=== PATIENT | male | born 1955 | race Caucasian/White ===

== ENCOUNTER 2019-12-20 22:38 | Inpatient (IN) | payer OTHER, SELFPAY ==
--- NOTE | ~2019-12-20 | US_ITS ---
EXAMINATION: US abdomen complete DATE: 12/21/2019 14:09 INDICATION: Anemia. Alcohol abuse. TECHNIQUE: Multiple grayscale and Doppler ultrasound images of the abdomen were obtained. COMPARISON: None FINDINGS: The visualized portions of the head and body of the pancreas are normal. There is a linear filling defect in the inferior vena cava, consistent with chronic thrombus. There is a 1.8 cm cyst in the liver. There is normal flow in main portal vein. The gallbladder is normal in size. Gallbladder wall thickening is noted. No gallstones. The common duct is normal and measures 6 mm. The kidneys are normal in size. Abdominal aorta is normal in caliber. There is a small volume of ascites. There is s plenomegaly measuring 16.1 cm. There is a cystic area at the hilum of the spleen with lobulated jahaira n. IMPRESSION: 1. Linear filling defect in the inferior vena cava, consistent with chronic thrombus. 2. Gallbladder wall thickening, which may be secondary to interstitial edema or chronic liver disease . 3. Small volume of ascites. 4. Mild splenomegaly. A cystic area at the hilum of the spleen with lobulated margin may be a chronic hematoma. Consider abdomen and pelvis CT with intravenous contrast. Reviewed, dictated and finalized at location A. IMPRESSION: 1. Linear filling defect in the inferior vena cava, consistent with chronic thr ombus. 2. Gallbladder wall thickening, which may be secondary to interstitial edema or chronic liver disease. 3. Small volume of ascites. 4. Mild splenomegaly. A cystic area at the hilum of the spleen with lobulated m argin may be a chronic hematoma. Consider abdomen and pelvis CT with intravenou s contrast.
--- NOTE | ~2019-12-20 | XR_ITS ---
XR chest 1V portable 12/31/2019 07:01 Indication: Acute respiratory failure Procedure: AP portable chest Comparison: Comparison to multiple prior studies sequentially, with oldest reviewed study dated 12/2019. Findings: Right subclavian central line has been retracted and now is coiled in the superior aspect o f the SVC. Mild interstitial edema. Borderline heart size for technique. No pneumothorax or pleural e ffusion. No acute osseous abnormality. Impression: 1: Borderline heart size with mild interstitial edema. Pneumonia less favored. Reviewed, dictated and finalized at location A. Impression: 1: Borderline heart size with mild interstitial edema. Pneumonia less favored.
--- NOTE | ~2019-12-20 | XR_ITS ---
EXAMINATION: XR chest 1V portable INDICATION: Acute respiratory failure TECHNIQUE: Portable AP chest at 0559 hours COMPARISON: 12/23/2019 FINDINGS: The endotracheal tube ends approximately 3.9 cm above the eugenio. The nasogastric tube is f ollowed as far as the stomach. Its tip is beyond the inferior margin of the radiograph. Bibasilar air space opacities persist without significant change. There are small pleural effusions. No pneumothora x is identified. The cardiomediastinal silhouette is normal. An electronic lead is seen entering the right ventricle from the inferior vena cava. IMPRESSION: 1. Stable bibasilar airspace opacity, consistent with atelectasis versus pneumonia. 2. Small pleural effusions. Reviewed, dictated and finalized at location A. IMPRESSION: 1. Stable bibasilar airspace opacity, consistent with atelectasis versus pneumo lee ann. 2. Small pleural effusions.
--- NOTE | ~2019-12-20 | XR_ITS ---
XR chest 1V portable 01/03/2020 08:07 Indication: PICC line placement Procedure: AP portable chest Comparison: 12/31/2019 and 12/30/2019 Findings: PICC line is kinked in the brachiocephalic vein. Cardiomegaly. Mild interstitial infiltrate s bilaterally. Small left pleural effusion. Left basilar atelectasis. No pneumothorax. Impression: 1: Cardiomegaly with mild interstitial edema and small left effusion. 2: PICC line kinked in the brachiocephalic vein. Reviewed, dictated and finalized at location B. Impression: 1: Cardiomegaly with mild interstitial edema and small left effusion. 2: PICC line kinked in the brachiocephalic vein.
--- NOTE | ~2019-12-20 | XR_ITS ---
XR chest PICC line DATE: 12/25/2019 15:55 INDICATION: PICC line placement TECHNIQUE: Portable AP chest on 12/25/2019 at 1537 hours COMPARISON: 12/25/2019 portable AP chest at 0540 hours FINDINGS: Interval placement of right upper extremity PIC catheter in superior vena cava. No evidence of pneumothorax. Heart size is not optimally evaluated on AP projection because of magnification. There is aortic arch calcification. There is pulmonary vascular congestion and redistribution. There is prominence of the minor fissure a ssistant with subpleural edema as well as Azra B-lines consistent with pulmonary interstitial edema . There is left lower lobe infiltrate and/atelectasis. Tip of endotracheal tube is approximately 6.8 cm above eugenio; ideal range is 2-5 cm. Diffuse osteopenia. IMPRESSION: Right upper extremity PIC catheter in superior vena cava ET tube tip approximately 6.8 cm above eugenio; ideal range is 2-5 cm Congestive changes, pulmonary interstitial and subpleural edema Left lower lobe infiltrate/atelectasis Reviewed, dictated and finalized at Location A. Reviewed, dictated and finalized at location A.
--- NOTE | ~2019-12-20 | XR_ITS ---
XR chest 1V portable DATE: 12/20/2019 23:41 INDICATION: Unstable blood pressure. Weakness. TECHNIQUE: Portable AP chest on 12/20/2019 at 2341 and 2342 hours, 2 views COMPARISON: None FINDINGS: Heart size appears within normal limits. No hilar or mediastinal enlargement. Bilateral hyp erinflation; no pulmonary infiltrate or consolidation, pleural effusion or pulmonary vascular congest ion or pneumothorax. IMPRESSION: Bilateral hyperinflation; otherwise no active cardiopulmonary disease Reviewed, dictated and finalized at location A. IMPRESSION: Bilateral hyperinflation; otherwise no active cardiopulmonary disea se
--- NOTE | ~2019-12-20 | XR_ITS ---
EXAMINATION: XR chest 1V portable INDICATION: Acute respiratory failure TECHNIQUE: Portable AP chest at 0520 hours COMPARISON: 12/21/2019 FINDINGS: The endotracheal tube ends approximately 4.4 cm above the eugenio. The nasogastric tube is f ollowed as far as the stomach. Its tip is beyond the inferior margin of the radiograph. The lungs are hyperinflated but free of acute airspace opacities. There is no pleural effusion or pneumothorax. Th e heart size is normal. A new electronic lead enters the right ventricle through the inferior vena ca va. IMPRESSION: 1. No acute cardiopulmonary abnormality. Reviewed, dictated and finalized at location A.
--- NOTE | ~2019-12-20 | XR_ITS ---
EXAMINATION: XR abdomen NG/feed tube insert INDICATION: OG adjustment TECHNIQUE: Portable AP KUB-NG at 1156 COMPARISON: 1006 hours FINDINGS: The orogastric tube has been advanced and now ends in the stomach. Minimal bibasilar airspa ce opacities are unchanged. An electronic lead is again noted entering the right ventricle from the i nferior vena cava. IMPRESSION: 1. Orogastric tube in the stomach. Reviewed, dictated and finalized at location A.
--- NOTE | ~2019-12-20 | XR_ITS ---
EXAMINATION: XR chest 1V portable INDICATION: Pacemaker insertion TECHNIQUE: Portable AP chest at 1324 hours COMPARISON: 0532 hours FINDINGS: The endotracheal tube ends approximately 7.2 cm above the eugenio. The nasogastric tube is f ollowed as far as the stomach. Its tip is beyond the inferior margin of the radiograph. A dual-lead p acemaker has been inserted in the left chest wall which ends with its leads in expected position. No pneumothorax is identified. A small left pleural effusion is stable. A right upper extremity PICC end s with its tip in the midsuperior vena cava. The previously described electronically entering the rig ht ventricle from the inferior vena cava has been removed. Left basilar airspace opacities. IMPRESSION: 1. Dual lead pacemaker insertion the left chest wall without evidence of pneumothorax. 2. Small left pleural effusion with associated airspace opacity, atelectasis versus pneumonia. Reviewed, dictated and finalized at location B. IMPRESSION: 1. Dual lead pacemaker insertion the left chest wall without evidence of pneumo thorax. 2. Small left pleural effusion with associated airspace opacity, atelectasis ve rsus pneumonia.
--- NOTE | ~2019-12-20 | XR_ITS ---
EXAMINATION: XR chest 1V portable INDICATION: Acute respiratory failure TECHNIQUE: Portable AP chest at 0547 hours COMPARISON: 12/25/2019 FINDINGS: The endotracheal tube ends approximately 7.4 cm above the eugenio. The nasogastric tube is f ollowed as far as the stomach. Its tip is beyond the inferior margin of the radiograph. A right upper extremity PICC ends with its tip in the proximal superior vena cava. There is no pleural effusion or pneumothorax. The cardiomediastinal silhouette is stable. There are minimal stable bibasilar airspac e opacities. An electronic lead is again noted entering the right ventricle from the inferior vena ca va. IMPRESSION: 1. Stable bibasilar airspace opacities, consistent with atelectasis versus pneumonia. Reviewed, dictated and finalized at location A. IMPRESSION: 1. Stable bibasilar airspace opacities, consistent with atelectasis versus pneu monia.
--- NOTE | ~2019-12-20 | XR_ITS ---
EXAMINATION: XR abdomen NG/feed tube insert INDICATION: Nasogastric tube insertion TECHNIQUE: Portable AP KUB-NG at 0229 hours COMPARISON: None available FINDINGS: The nasogastric tube is in the stomach. The visualized lung bases are clear. The bowel gas pattern is unremarkable. IMPRESSION: 1. Nasogastric tube in the stomach. Reviewed, dictated and finalized at location A.
--- NOTE | ~2019-12-20 | CT_ITS ---
EXAMINATION: CT abdomen pelvis wo/w con DATE: 01/02/2020 12:13 INDICATION: Hepatic lesion TECHNIQUE: Computed tomography (CT) of the abdomen and pelvis was performed without and with 100 mL O mnipaque-350 intravenous contrast. Automated exposure control and iterative reconstruction technique were employed. The dose-length product was 1857.90 mGy-cm. COMPARISON: Ultrasound dated 12/21/2019 FINDINGS: Small bilateral pleural effusions, left greater than right. There is associated compressive atelectas is in the dependent aspect of the bilateral lower lobes and lingula. Heart size is normal. No pericar dial effusion. Cardiac pacemaker lead tips at the right atrial appendage and apex of the right ventri victorina. 1.9 cm and smaller 5 mm low-attenuation nonenhancing hepatic cysts in the right hepatic lobe. Ga llbladder, spleen, pancreas and bilateral adrenal glands are normal. Bilateral low-attenuation adrena l adenomas measuring 1.6 cm on the left and 1.4 cm on the right. There is prominent wall thickening a t the fundus and proximal body of the stomach. There is fluid scattered throughout the colon consiste nt with diarrhea. There are few scattered colonic diverticula without adjacent inflammatory change to suggest diverticulitis. Suture line at the tip of cecum likely related to prior appendectomy. No bow el obstruction. Small amount of gas within the lumen of the bladder. Correlate for recent instrumenta tion or White catheterization. There is calcified atherosclerosis of the normal caliber abdominal aor ta and many of the other arteries. No free intraperitoneal gas or fluid. No pathologically enlarged a bdominal or pelvic lymphadenopathy. Mild to moderate degenerative skeletal changes in the spine and b ilateral hip and sacroiliac joints. IMPRESSION: 1. A couple nonenhancing low-attenuation hepatic cysts. No suspicious hepatic lesions identified. 2. Small bilateral pleural effusions, left greater than right with likely passive atelectasis in the dependent lower lungs. 3. Prominent wall thickening at the fundus and proximal body of the stomach. Differential would inclu de infectious or hypertrophic gastritis, lymphoma other infiltrating neoplasm and GI stromal tumor. 4. Diarrhea with fluid scattered throughout the colon. Correlate clinically for gastroenteritis. 5. Small amount of gas in the bladder. Correlate for recent instrumentation/White catheterization and with urinalysis if clinically indicated. Reviewed, dictated and finalized at location A. IMPRESSION: 1. A couple nonenhancing low-attenuation hepatic cysts. No suspicious hepatic l esions identified. 2. Small bilateral pleural effusions, left greater than right with likely passi ve atelectasis in the dependent lower lungs. 3. Prominent wall thickening at the fundus and proximal body of the stomach. Di fferential would include infectious or hypertrophic gastritis, lymphoma other i nfiltrating neoplasm and GI stromal tumor. 4. Diarrhea with fluid scattered throughout the colon. Correlate clinically for gastroenteritis. 5. Small amount of gas in the bladder. Correlate for recent instrumentation/Fol ey catheterization and with urinalysis if clinically indicated.
--- NOTE | ~2019-12-20 | XR_ITS ---
XR chest 1V portable DATE: 12/29/2019 09:38 INDICATION: PICC line evaluation after power flush TECHNIQUE: Portable AP chest on 12/29/2019 at 0937 hours COMPARISON: 12/29/2019 portable AP chest at 0546 hours FINDINGS: The right upper showed a PICC catheter is now in satisfactory position with resolution of t he previously reported malposition, folded back upon itself, noted at 0546 hours today. ET tube tip approximately 5.2 cm above eugenio; ideal range is 2-5 cm. A nasogastric tube is noted but the lower chest and the distal NG tube are excluded from this examination. Left-sided pacemaker device with leads overlying right atrium and right ventricle. There are infiltrates and/atelectasis in the lower lung zones. No pneumothorax is evident. IMPRESSION: Successful straightening of the right PICC catheter following saline power flush Reviewed, dictated and finalized at location A. IMPRESSION: Successful straightening of the right PICC catheter following salin e power flush
--- NOTE | ~2019-12-20 | US_ITS ---
EXAMINATION: US venous doppler [facility] DATE: 12/22/2019 11:19 INDICATION: Chronic thrombus in the inferior vena cava. TECHNIQUE: Grayscale ultrasound images without and with compression and Doppler ultrasound images of the bilateral lower extremity veins were obtained. COMPARISON: Chest radiograph 12/22/2019. FINDINGS: The visualized portions of right common femoral vein, profunda (deep) femoral vein, femoral vein, pop liteal vein, peroneal veins, posterior tibial veins, and greater saphenous vein outflow are patent. The visualized portions of left common femoral vein, profunda femoral vein, femoral vein, popliteal v ein, peroneal veins, posterior tibial veins, and greater saphenous vein outflow are patent. There is a central venous catheter in the left common femoral vein. IMPRESSION: 1. No deep venous thrombosis. 2. Today's chest radiograph demonstrates a transvenous pacer from the left common femoral vein. The u ltrasound finding from yesterday was likely this catheter and not thrombus. Reviewed, dictated and finalized at location A. IMPRESSION: 1. No deep venous thrombosis. 2. Today's chest radiograph demonstrates a transvenous pacer from the left comm on femoral vein. The ultrasound finding from yesterday was likely this catheter and not thrombus.
--- NOTE | ~2019-12-20 | XR_ITS ---
EXAMINATION: XR chest 1V portable DATE: 12/28/2019 05:49 INDICATION: Ventilated. Pneumonia TECHNIQUE: frontal view of the chest was obtained. COMPARISON: Chest radiograph dated 12/26/2019 FINDINGS: Endotracheal tube tip 6.9 cm above the eugenio. Nasogastric tube extends below the left hemidiaphragm with distal tip collimated off the study. Right upper extremity peripherally inserted central venous catheter (PICC) tip at the mid superior vena cava. Likely transvenous pacemaker lead extending ceph alad from the inferior vena cava with distal tip in the right ventricle. Gradient of hazy airspace opacity in the left lower lung zone with retrocardiac consolidation and su nting at the left costophrenic angle. The cardiomediastinal silhouette is normal. Visualized bones an d soft tissues are unremarkable. IMPRESSION: 1. Unchanged small left pleural effusion with associated retrocardiac consolidation which could repre sent atelectasis or pneumonia. 2. Endotracheal tube 6.9 cm above the eugenio. Consider advancement by 4 cm. Reviewed, dictated and finalized at location A. IMPRESSION: 1. Unchanged small left pleural effusion with associated retrocardiac consolida tion which could represent atelectasis or pneumonia. 2. Endotracheal tube 6.9 cm above the eugenio. Consider advancement by 4 cm.
--- NOTE | ~2019-12-20 | XR_ITS ---
EXAMINATION: XR chest 1V portable INDICATION: Acute respiratory failure TECHNIQUE: Portable AP chest at 0600 hours COMPARISON: 12/22/2019 FINDINGS: The endotracheal tube ends approximately 6.7 cm above the uegenio. The nasogastric tube appe ars to have been retracted with its tip seen in the distal esophagus. The lungs are hyperinflated. Th ere are developing airspace opacities of the lung bases. The heart size is normal. An electronic lead is again entering the right ventricle from the inferior vena cava. IMPRESSION: 1. Developing bibasilar airspace opacity, consistent with atelectasis versus pneumonia. 2. Nasogastric tube retracted into the distal esophagus. Recommend advancing. Reviewed, dictated and finalized at location A. IMPRESSION: 1. Developing bibasilar airspace opacity, consistent with atelectasis versus pn eumonia. 2. Nasogastric tube retracted into the distal esophagus. Recommend advancing.
--- NOTE | ~2019-12-20 | XR_ITS ---
EXAMINATION: XR abdomen NG/feed tube rechec INDICATION: Nasogastric tube advancement TECHNIQUE: Portable AP KUB-NG at 1006 hours COMPARISON: Chest radiograph from today and KUB dated 12/21/2019 FINDINGS: The tip of the nasogastric tube is in the distal esophagus. The proximal side port is in th e midesophagus. Bibasilar airspace opacities are unchanged. An electronic lead is seen entering the r ight ventricle from the inferior vena cava. IMPRESSION: 1. Nasogastric tube with its tip in the distal esophagus which can be safely advanced 15 cm. Reviewed, dictated and finalized at location A. IMPRESSION: 1. Nasogastric tube with its tip in the distal esophagus which can be safely ad vanced 15 cm.
--- NOTE | ~2019-12-20 | XR_ITS ---
EXAMINATION: XR chest ET placement INDICATION: Respiratory failure, endotracheal tube insertion TECHNIQUE: Portable AP chest at 0155 hours COMPARISON: 12/20/2019 FINDINGS: An endotracheal tube has been inserted which ends 5.3 cm above the eguenio. The lungs are hy perinflated but free of acute opacities. There is no pleural effusion or pneumothorax. The cardiomedi astinal silhouette is normal. IMPRESSION: 1. Endotracheal tube insertion, otherwise no significant change. Reviewed, dictated and finalized at location A.
--- NOTE | ~2019-12-20 | XR_ITS ---
EXAMINATION: XR chest 1V portable DATE: 12/29/2019 06:16 INDICATION: Acute respiratory failure. Pneumonia. TECHNIQUE: frontal view of the chest was obtained. COMPARISON: Chest radiograph dated 12/28/2019 FINDINGS: Endotracheal tube is present and extends approximately 5 cm above the eugenio however the the marking line is obscured by the superimposed nasogastric tube which limits definitive determination. Proximal side-port of the nasogastric tube is just below the level of the gastroesophageal junction with dist al tip collimated below the inferior margin of the [id number]. Right upper extremity peripherally inserted central venous catheter (PICC) is folded back upon itself at the level of the confluence of the left and right brachiocephalic veins with the distal tip positioned in the right brachiocephalic vein. Persistent left retrocardiac consolidation suggesting small left pleural effusion and associated lowe r lobe atelectasis and/or pneumonia. The cardiomediastinal silhouette is normal. Dual lead pacemaker seen with leads projecting over the expected locations of the right atrium and right ventricle. IMPRESSION: 1. Persistent small left pleural effusion with left lower lobar atelectasis and/or pneumonia. 2. Right upper to mid peripheral inserted central venous catheter which is folded back upon itself wi thin the right brachiocephalic vein. This can occasionally be repositioned with rapid saline flush. Reviewed, dictated and finalized at location A. IMPRESSION: 1. Persistent small left pleural effusion with left lower lobar atelectasis and /or pneumonia. 2. Right upper to mid peripheral inserted central venous catheter which is fold ed back upon itself within the right brachiocephalic vein. This can occasionall y be repositioned with rapid saline flush.
--- NOTE | ~2019-12-20 | XR_ITS ---
EXAMINATION: XR chest 1V portable DATE: 12/30/2019 05:47 INDICATION: Acute respiratory failure. Pneumonia. TECHNIQUE: frontal view of the chest was obtained. COMPARISON: Chest radiograph dated 12/29/2019 FINDINGS: Endotracheal tube tip 5.6 cm above the eugenio. Right upper extremity peripherally inserted central ve nous catheter (PICC) tip at the superior vena cava. Nasogastric tube extends below the left hemidia phragm with distal tip collimated off the study. Subtle opacities in the bilateral lower lung zones including small pleural effusion tracking along th e left major fissure. No pneumothorax. The cardiomediastinal silhouette is normal. Dual lead pacemake r seen with leads projecting over the expected locations of the right atrium and right ventricle. IMPRESSION: 1. Unchanged bibasilar opacities which could represent atelectasis and/or pneumonia. 2. Small left pleural effusion. Reviewed, dictated and finalized at location A. IMPRESSION: 1. Unchanged bibasilar opacities which could represent atelectasis and/or pneum onia. 2. Small left pleural effusion.
--- NOTE | ~2019-12-20 | XR_ITS ---
EXAMINATION: XR chest 1V portable INDICATION: Acute respiratory failure TECHNIQUE: Portable AP chest at 0540 hours COMPARISON: 12/24/2019 FINDINGS: The endotracheal tube ends approximately 8.0 cm above the eugenio. The nasogastric tube is f ollowed as far as the stomach. Its tip is beyond the inferior margin of the radiograph. Bibasilar air space opacities persist without significant change. There is no definite pleural effusion or pneumoth orax. The cardiomediastinal silhouette is normal. Again seen is an electronic lead entering the right ventricle from the inferior vena cava. IMPRESSION: 1. Stable bibasilar airspace opacities, consistent with atelectasis versus pneumonia. Reviewed, dictated and finalized at location A. IMPRESSION: 1. Stable bibasilar airspace opacities, consistent with atelectasis versus pneu monia.
[2019-12-20 22:33] VITALS: BP 99/54; PULSE 47; RESP 18; TEMP 35.7; O2SAT 99
[2019-12-20 23:02] VITALS: BP 96/45; PULSE 45; RESP 23; O2SAT 95
[2019-12-20 23:20] VITALS: BP 85/46; PULSE 42; RESP 20; O2SAT 96
[2019-12-20] MEDS: GLUCAGON FOR INJ 1 MG VIAL IV PUSH (23:31)
[2019-12-20] MEDS: SODIUM CHLORIDE 0.9% IV 1,000 ML 999 ML IV CONT (23:33)
--- NOTE | 2019-12-20 23:40 | ED.WEAKNESS ---
HPI - Weakness General Chief complaint: Weakness Stated complaint: weak Time Seen by Provider: 12/20/19 23:22 History of Present Illness HPI Narrative: Patient is a 64-year-old male who presents the ER with weakness. Patient was started on Bystolic 10 mg today. He took his first tablet around 2:58 PM in the afternoon. This evening he started feeling very fatigued and sleepy. He also drinks about 4-6 beers. No falls or injury. Denies chest pain/shortness of breath. Per EMS patient is bradycardic and hypotensive. He is receiving IV fluid. No additional changes to medication. Denies any infectious symptoms. Patient was also started on Lasix to improve edema in his feet. Related Data Home Medications Medication Instructions Recorded Confirmed fluticasone propion-salmeterol 1 inh INHALATION Q12H 12/20/19 [Advair Diskus] furosemide 40 mg PO DAILY 12/20/19 gabapentin 800 mg PO TID 12/20/19 ipratropium-albuterol [Combivent 1 puff INHALATION Q4H 12/20/19 Respimat] nebivolol [Bystolic] 10 mg PO DAILY 12/20/19 Allergies Allergy/AdvReac Type Severity Reaction Status Date / Time No Known Allergies Allergy Verified 12/20/19 22:52 Review of Systems Review of Systems: All systems reviewed & are unremarkable except as noted in HPI and below Constitutional: Constitutional: Denies chills, Denies fever(s) and Reports weakness ENT: Denies nasal congestion and Denies sore throat Cardiovascular: Cardiovascular: Denies chest pain, Denies radiating jaw, neck or arm pain and Reports slow heart rate Respiratory: Respiratory: Denies cough and Denies dyspnea Neurologic: Reports dizziness, Denies focal weakness and Denies numbness PMF Past Medical History Medical History (Updated 12/21/19 @ 08:02 by Lauro Mejias MD) COPD (chronic obstructive pulmonary disease) HTN (hypertension) with goal to be determined PUD (peptic ulcer disease) Surgical History Surgical History (Updated 12/21/19 @ 02:53 by Antoni Shah MD) History of partial colectomy Family History Family History (Updated 12/21/19 @ 02:54 by Antoni Shah MD) Mother Scoliosis Social History Social History (Updated 12/21/19 @ 02:54 by Antoni Shah MD) Smoking status: Unknown if ever smoked Alcohol intake: current Alcohol use details: daily drinker Substance use: unknown Gender identity (if verbalized by the patient): Male Sexual Orientation (if Verbalized by the Patient): Straight or Heterosexual Spiritual care concerns: No Exam Narrative: Exam Narrative: GENERAL: Fatigue-appearing, well-nourished, and in no acute distress. HEAD: Normocephalic, atraumatic. ENT: Mucous membranes moist. NECK: Supple. CHEST: Clear to auscultation. No respiratory distress. HEART: Bradycardic and regular. Normal peripheral pulses with slow capillary refill. ABDOMEN: Soft, nontender, nondistended. Guaiac negative stool and no gross blood. EXTREMITIES: Normal range of motion. 2+ edema. SKIN: Warm, dry, no rash. NEURO: Alert and oriented x3. Course Course Emergency Course: Patient not responding well to IV glucagon or IV fluid. Patient then had an episode where he began vomiting and his heart rate dropped and he stopped perfusing his brain and he sees. Resolved immediately when lowering head of the bed. Due to patient's persistent nausea and severity of hypertension bradycardia it was decided patient to be intubated for airway protection and also so a central line to be placed. Patient spouse was present for decision-making regarding this. Tolerated intubation and central line placement well. Cardiac pacing performed. Appropriate spontaneous levo fed. Patient also received IV calcium gluconate due to low pressures and flow calcium. Additionally prior to going up to the ICU patient received an amp of sodium bicarb. Prior to intubation patient received 1 mg of atropine and had no response. Dr. Shah contacted Dr. Francis regarding
[2019-12-20 23:53] LABS: Mean Corpuscular HGB Conc 32.4 g/dl (32-36); Mean Corpuscular Volume 132.8 fl (80-100); Platelet Count Result 276 k/mm3 (150-375); Red Blood Count 1.28 M/mm3 (4.6-6.20); White Blood Count 6.2 K/mm3 (4.5-10.0)
[2019-12-21] VITALS (56 sets, daily range): BP systolic 82–154; BP diastolic 33–62; PULSE 30–85; RESP 16–28; TEMP 33.8–37.6; O2SAT 94–100; BMI 25.2
--- NOTE | 2019-12-21 | ECHO_ITS ---
Patient Info Name: Bora Curran Age: 64 years : 1955 Gender: Male Ht: 73 in Wt: 191 lbs BSA: 2.12 m2 HR: 85 bpm BP: 147 / 69 mmHg Heart Rhythm: Paced Technical Quality: Good Exam Date: 12/21/2019 4:14 PM Exam Location: [facility] Patient Status: Inpatient Admit Date: 12/21/2019 Staff Ordering Physician: Nelson Page MD [employer] Soldering Machine: David Sanchez RDCS Attending Provider: Antoni Shah MD Referring Physician: Kaylee GUZMAN; Exam Type: CA echo doppler color flow Study Info Indications R57.0 - Cardiogenic shock Complete two-dimensional, color flow and Doppler transthoracic echocardiogram is performed. Strain analysis performed. History/Risk Factors Cardiogenic shock; transcutaneous pacemaker, COPD, HTN, EtOH use, HoTN, acute repsiratory failure. Summary 1. Complete two-dimensional, color flow and Doppler transthoracic echocardiogram is performed. 2. Strain analysis performed. 3. Left ventricular chamber dimension is normal. 4. Left ventricular systolic function is moderately reduced, estimated at 35-40%. 5. There is mildly increased left ventricular wall thickness. 6. Left ventricular septal wall motion is abnormal with septal motion related to pacing. 7. The left ventricular diastolic function is abnormal. 8. Global longitudinal strain is abnormal at -9 %. 9. The inferior wall is hypokinetic. 10. Left atrial chamber dimension is mildly enlarged. 11. There is mild to moderate mitral valve regurgitation. 12. There is mild tricuspid valve regurgitation. 13. Moderate pulmonary hypertension, estimated pulmonary arterial systolic pressure is 51 mmHg. 14. There is mild pulmonic regurgitation. Left Ventricle Left ventricular chamber dimension is normal. Left ventricular systolic function is moderately reduced, estimated at 35-40%. There is mildly increased left ventricular wall thickness. Left ventricular septal wall motion is abnormal with septal motion related to pacing. The left ventricular diastolic function is abnormal. Global longitudinal strain is abnormal at -9 %. The inferior wall is hypokinetic. The anterior wall, inferoseptal wall, anterolateral wall, anteroseptal wall, inferolateral wall, and apical cap are not scored. Right Ventricle Right ventricular chamber dimension is mildly enlarged. Right ventricular systolic function is reduced. Left Atria Left atrial chamber dimension is mildly enlarged. Right Atria Right atrial chamber dimension is normal. Atrial Septum Intact interatrial septum visualized by color flow imaging. Aortic Valve The aortic valve is probable trileaflet. There is mild aortic valve sclerosis. There is no aortic valve stenosis. There is trace aortic valve regurgitation. Pulmonic Valve The pulmonic valve is normal. There is no pulmonic valve stenosis. There is mild pulmonic regurgitation. Mitral Valve The mitral valve has calcified annulus. There is no mitral valve stenosis. There is mild to moderate mitral valve regurgitation. Tricuspid Valve The tricuspid valve leaflets are normal. There is no significant tricuspid valve stenosis. There is mild tricuspid valve regurgitation. Moderate pulmonary hypertension, estimated pulmonary arterial systolic pressure is 51 mmHg. Pericardium/Pleural The pericardium appears normal. There is no pericardial effusion. Inferior Vena Cava Dilated inferior vena cava with no collapse upon inspiration co
[2019-12-21 00:03] LABS: INR 1.3; Prothrombin Time 15.8 Seconds (11.1-14.7)
[2019-12-21 00:04] LABS: Partial Thromboplastin Time 30.7 SECONDS (22.3-36.8)
[2019-12-21 00:06] LABS: Ethanol 46 mg/dL (<10)
[2019-12-21 00:08] LABS: Alanine Aminotransferase 23 U/L (4-50); Albumin Level 3.7 g/dL (3.5-5.1); Alkaline Phosphatase 55 U/L (38-126); Anion Gap 14 mmol/L (8-16); Aspartate Amino Transferase 34 U/L (17-59); Bilirubin,Total 0.4 mg/dL (0.2-1.3); Blood Urea Nitrogen 13 mg/dL (9-20); Calcium 7.6 mg/dL (8.4-10.2); Carbon Dioxide 17 mmol/L (22-30); Chloride 104 mmol/L (98-107); Estimated CRCL calculation 66 ml/min; Estimated Glomerular Filt Rate > 60; Glucose 134 mg/dL (75-110); Hemoglobin 5.5 g/dL (14.0-18.0); Sodium 135 mmol/L (137-145)
[2019-12-21 00:10] LABS: Band Neutrophils Percent 1 % (0-6); Eosinophils Absolute Manual 0.06 K/mm3 (0.02-0.5); Eosinophils Percent Manual 1 % (0-4); Lymphocytes Absolute Manual 1.24 K/mm3 (1.1-4.5); Metamyelocytes Percent 1 %; Monocytes Absolute Manual 0.12 K/mm3 (0.1-0.90); Monocytes Percent Manual 2 % (3-9); Neutrophils Absolute Manual 4.71 K/mm3 (1.3-6.7); Neutrophils Percent Manual 75 % (46-73); Nucleated Red Blood Cells 1 %; Total Cells Counted 100
[2019-12-21 00:11] LABS: Large Platelets Present; Macrocytosis 2+ (NORMAL); Ovalocytes 1+ (NORMAL); Platelet Estimate Adequate (Adequate)
[2019-12-21 00:14] LABS: Lactic Acid Reflex 6.3 mmol/L (0.7-2.1)
[2019-12-21 00:16] LABS: Poikilocytosis 2+ (NORMAL)
[2019-12-21] MEDS: GLUCAGON FOR INJ 1 MG VIAL 5 MG IV PUSH (00:43)
[2019-12-21] MEDS: CALCIUM GLUCONATE 1,000 MG/10 ML VIAL 1000 MG IV PUSH (00:51)
[2019-12-21] MEDS: RAPID SEQUENCE INTUBATION KIT 1 EACH (00:55)
--- NOTE | 2019-12-21 01:06 | PC.NURSE ---
fentanyl and versed drip ordered at this time per edp neetu's orders.
--- NOTE | 2019-12-21 01:08 | PC.NURSE ---
Called lab to add tsh reflex
[2019-12-21 01:31] LABS: Iron 243 ug/dL (49-181); Percent Iron Saturation 82 % (20-50)
[2019-12-21 01:43] LABS: Folic Acid 9.4 ng/mL (2.76->20)
--- NOTE | 2019-12-21 01:53 | PC.NURSE ---
at 0148 25 mcg fentanyl and 2 mg versed given ivp per [facility] from EDP Dr. Randell DREW.
[2019-12-21] MEDS: SODIUM CHLORIDE 0.9% IV 250 ML 30 ML IV CONT ×2 (01:58→18:21)
[2019-12-21] MEDS: TUBING, BLOOD SET 1 EACH XX (02:03)
--- NOTE | 2019-12-21 02:17 | PM.IMHP ---
H&P: HPI History of Present Illness Date/Time: 12/21/19 02:17 Chief complaint: Generalized weakness+ Narrative: This is a 64 year old male with known COPD, PUD, and HTN who presented to the hospital with a complaint of generalized weakness this evening with associated nausea. The patient did report that he drank 4-6 beers today. The patient reported that he has not been feeling well for the past few weeks and has had increased lower extremity swelling. He just started Lasix and Bystolic 10 mg today by his PCP. He took his Bystolic around 3 pm yesterday. On arrival to the ER the patient was bradycardic and hypotensive. He was treated in the ER with 1 liter of NS IV bolus, glucagon IV, atropine, and calcium gluconate. The patient continued to be bradycardic, hypotensive and had nausea and vomiting. EKG was obtained which demonstrated a third degree AV block. The patient was emergently intubated and placed on mechanical ventilation in the ER. Versed and Fentanyl have been started for sedation. A right femoral central line was placed and the patient was started on vasopressors. Cardiology, Dr. Francis was consulted and Financial Business Analyst, Dr. Page was also consulted. The patient is currently being externally paced as he continued to have severe bradycardia in the 30s in the ER. Review of Systems Review of Systems: ROS unobtainable: Yes unobtainable due to medical condition and unobtainable due to mental status PMFSH Past Medical History Medical History (Updated 12/21/19 @ 03:59 by Antoni Shah MD) COPD (chronic obstructive pulmonary disease) HTN (hypertension) with goal to be determined PUD (peptic ulcer disease) Surgical History Surgical History (Updated 12/21/19 @ 02:53 by Antoni Shah MD) History of partial colectomy Family History Family History (Updated 12/21/19 @ 02:54 by Antoni Shah MD) Mother Scoliosis Social History Social History (Updated 12/21/19 @ 02:54 by Antoni Shah MD) Smoking status: Unknown if ever smoked Alcohol intake: current Alcohol use details: daily drinker Substance use: unknown Gender identity (if verbalized by the patient): Male Sexual Orientation (if Verbalized by the Patient): Straight or Heterosexual Spiritual care concerns: No Meds Home Medications and Allergies Home Medications Medication Instructions Recorded Confirmed Type fluticasone propion-salmeterol 1 inh INHALATION Q12H 12/20/19 History [Advair Diskus] furosemide 40 mg PO DAILY 12/20/19 History gabapentin 800 mg PO TID 12/20/19 History ipratropium-albuterol [Combivent 1 puff INHALATION Q4H 12/20/19 History Respimat] nebivolol [Bystolic] 10 mg PO DAILY 12/20/19 History Allergies Allergy/AdvReac Type Severity Reaction Status Date / Time No Known Allergies Allergy Verified 12/20/19 22:52 Vital Signs Vital Signs - 24 hr 12/20/19 22:33 12/21/19 01:29 12/21/19 01:32 Temperature 35.7 C L Pulse Rate 47 L 80 80 Respiratory Rate 18 16 16 Blood Pressure 99/54 L Pulse Oximetry 99 12/21/19 01:38 12/21/19 02:04 Temperature 36.2 C L Pulse Rate 81 31 L Respiratory Rate 16 Blood Pressure 84/39 L Pulse Oximetry 100 100 Exam Const: General: ill appearing and other (Intubated, sedated, on mechanical ventilation. ) Nutritional Appearance: well nourished Orientation/consciousness: Other orientation findings (Intubated and sedated. ) HENMT: Head: normal to inspection General nose exam: Normal external nose present Face and sinus: normal facial exam Mouth: Yes other (ETT in place+) Eyes: Pupils: Equal, round and reactive pupils present Neck: Neck: supple and no JVD Thyroid: thyroid normal Lymphatic: lymphadenopathy not noted Chest: Other: pacer pads in place and the patient is being paced++ Resp: Effort & Inspection: normal respiratory effort Auscultation: crackles (bibasilar+) and diminished lung sounds Cardio: Rate: bradycardic Rhythm: r
--- NOTE | 2019-12-21 02:19 | ECG_ITS ---
Measurements Intervals Hardesty Rate: 41 P: 92 NH: 116 QRS: 119 QRSD: 130 T: 81 QT: 562 QTc: 466 Interpretive Statements SINUS RHYTHM WITH SECOND DEGREE AV BLOCK, 2:1 BLOCK RIGHT AXIS DEVIATION INTRAVENTRICULAR CONDUCTION DELAY CANNOT RULE OUT SEPTAL INFARCT, AGE INDETERMINATE ABNORMAL ECG Electronically Signed On 12-21-2019 7:12:25 CDT by Jack Tello D.O.
[2019-12-21 02:33] LABS: Magnesium 1.5 mg/dL (1.6-2.3); Phosphorus 4.5 mg/dL (2.5-4.5)
[2019-12-21 02:51] LABS: Reflex Lactic Acid Yes or No Add Lactic
[2019-12-21 02:54] LABS: Alveolar/Arterial O2 Gradient 295.6 mmHg; Base Excess ABG -11.8 mEq/l (+/-2.0); Carboxyhemoglobin 0.8 % THb (0-2.0); Fractional Inspired Oxygen 100 %; HCO3 ABG 16.6 mEq/l (22.0-26.0); Methemoglobin ABG 0.3 %THb (0-1.5); Oxygen Content ABG 10.9 %vol (16.0-22.0); Oxygen Saturation ABG 99.7 % (95.0-100.0); Oxyhemoglobin 97.5 % THb (90.0-100.0); PCO2 ABG 51.3 mmHg (35.0-45.0); PO2 ABG 366.1 mmHg (80.0-100.0); PO2 FiO2 Ratio Arterial Blood 3.66 %; Reduced Hemoglobin 1.4 %THb (0-5.0)
[2019-12-21 02:56] LABS: Device VENTILATOR; Modified Allen's Test Pass; Site Drawn RIGHT RADIAL; Total Hemoglobin 7.2 g/dL (12.0-18.0); pH ABG 7.127 (7.350-7.450)
[2019-12-21 02:57] LABS: Arterial Blood Gas PEEP 7 cmH2O; Arterial Blood Gas Pressure Support 0 cmH2O; Arterial Blood Gas Tidal Volume 400 ml; Arterial Blood Gas Vent Mode CMV; Arterial Blood Gas Ventilator rate 16 /MIN
[2019-12-21] MEDS: SODIUM BICARBONATE 8.4% 50 MEQ/50 ML VIAL 85 MEQ IV PUSH (02:59)
--- NOTE | 2019-12-21 02:59 | PC.NURSE ---
1 amp of 8.4% sodium bicarb in 50 mEq given ivp by Eric Mejia RN per [facility] from EDP; Dr. Randell DREW.
[2019-12-21] MEDS: THIAMINE HCL 200 MG/2 ML VIAL 100 MG IV PUSH ×2 (03:02→18:21)
--- NOTE | 2019-12-21 03:32 | PC.NURSE ---
12/21/2019 at 0055 preparing to intubate pt with EDP; Dr. Randell DREW and Coty VITALE at bedside with this RN, Yola Solomon RN., Eric Mejia RN, Skinny Driscoll RN. PT GIVEN 30 MG ETOMIDATE AND 100 MG SUCCINYLCHOLINE THEN INTUBATED ON 1ST ATT[address] DR SEGURA WITH A 7.5 ETT AT 0106 WITH GOOD COLOR CHANGE AND + BREATH SOUNDS ABLE TO BE AUSCULTATED BILATERALLY. 0115 PT GIVEN 50MG OF ROCURONIUM EDP PREPARES TO INITIATE CENTRAL LINE INTO RIGHT FEMORAL. DR. SEGURA SUCCESSFULLY STARTED CENTRAL LINE AT [address].
--- NOTE | 2019-12-21 03:51 | P.PCNBED_ITS ---
Procedures Arterial Line Arterial Line Date: 12/21/19 Arterial Line Time: 03:40 Discussed with the patient/family/POA, the placement of an arterial catheter, including its clinical necessity/indication and associated potential risks, benefits and alternatives.: Yes Time Out Performed: Yes Patient Position: supine Grated Cheese Maker Prep: sterile gown, sterile gloves, mask and hat Site: right and radial Site Prep: chlorhexidine and sterile drape Skin Anesthesia: placed under general anesthesia Technique used: ultrasound-guided Size (Gauge): 14 Length: 4.4 cm Closure/Dressing: suture, antimicrobial disc and tegaderm Patient tolerated procedure: well and no complications Additional comments: Date of service was 12/21/2019 at 03:40 hrs.
[2019-12-21 04:00] LABS: Immature Platelet Fraction Pct 18.3 % (0.9-11.2); Mean Corpuscular HGB Conc 33.3 g/dl (32-36); Mean Corpuscular Hemoglobin 39.9 pg (26-34); Mean Corpuscular Volume 119.6 fl (80-100); Mean Platelet Volume 13.2 fl (7.4-10.4); Platelet Count Result 355 k/mm3 (150-375); Red Blood Count 1.68 M/mm3 (4.6-6.20); Red Cell Distribution Width 28.3 % (11.5-14.5); White Blood Count 8.9 K/mm3 (4.5-10.0)
[2019-12-21] MEDS: MAGNESIUM SULF 2 GM/WATER 50ML 2 GM/50 ML BAG IVPB (04:00)
[2019-12-21 04:07] LABS: Hematocrit 20.1 % (42.0-52.0); Hemoglobin 6.7 g/dL (14.0-18.0)
[2019-12-21 04:10] LABS: Lactic Acid 3.5 mmol/L (0.7-2.1)
[2019-12-21 04:11] LABS: Anion Gap 11 mmol/L (8-16); Blood Urea Nitrogen 17 mg/dL (9-20); Calcium 7.6 mg/dL (8.4-10.2); Carbon Dioxide 20 mmol/L (22-30); Chloride 104 mmol/L (98-107); Estimated CRCL calculation 49 ml/min; Estimated Glomerular Filt Rate 47; Glucose 147 mg/dL (75-110); Potassium 4.9 mmol/L (3.4-5.0); Sodium 135 mmol/L (137-145)
[2019-12-21 04:20] LABS: Band Neutrophils Percent 2 % (0-6); Large Platelets Present; Lymphocytes Absolute Manual 1.15 K/mm3 (1.1-4.5); Macrocytosis 2+ (NORMAL); Monocytes Absolute Manual 0.53 K/mm3 (0.1-0.90); Monocytes Percent Manual 6 % (3-9); Neutrophils Percent Manual 79 % (46-73); Nucleated Red Blood Cells 3 %; Ovalocytes 1+ (NORMAL); Platelet Estimate Adequate (Adequate); Total Cells Counted 100
[2019-12-21 04:21] LABS: Poikilocytosis 1+ (NORMAL)
[2019-12-21 04:22] LABS: Troponin I 0.018 ng/mL (0.000-0.034)
[2019-12-21 04:27] LABS: Alveolar/Arterial O2 Gradient 288.8 mmHg; Base Excess ABG -9.5 mEq/l (+/-2.0); Fractional Inspired Oxygen 100 %; HCO3 ABG 17.5 mEq/l (22.0-26.0); Oxygen Content ABG 11.1 %vol (16.0-22.0); Oxygen Saturation ABG 99.8 % (95.0-100.0); Oxyhemoglobin 97.8 % THb (90.0-100.0); PCO2 ABG 43.6 mmHg (35.0-45.0); PO2 ABG 410.1 mmHg (80.0-100.0)
[2019-12-21 04:28] LABS: Device VENTILATOR; Site Drawn ARTLINE; Total Hemoglobin 7.2 g/dL (12.0-18.0); pH ABG 7.221 (7.350-7.450)
[2019-12-21 04:29] LABS: Arterial Blood Gas PEEP 7 cmH2O; Arterial Blood Gas Tidal Volume 400 ml; Arterial Blood Gas Vent Mode CMV; Arterial Blood Gas Ventilator rate 20 /MIN
[2019-12-21] MEDS: DOPamine 400 MG/D5W 250 ML 400 MG/250 ML BAG 65.3 MG IV CONT ×2 (04:59→07:45)
[2019-12-21] MEDS: SODIUM BICARBONATE 8.4% 50 MEQ/50 ML VIAL IV PUSH (04:59)
[2019-12-21] MEDS: ALBUTEROL SULFATE NEB 2.5 MG/0.5 ML INH 5 MG INHALATION ×3 (07:25→19:35)
[2019-12-21 08:10] LABS: Hematocrit 23.9 % (42.0-52.0)
--- NOTE | 2019-12-21 08:18 | PM.CNCAR ---
Assessment and Plan Additional Plan 64-year-old white male with: AV block with second-degree heart block 2-1 conduction the patient is bradycardic with heart rate in the 30s his blood pressure is reasonable now but he is on inotropics support. He is profoundly anemic coming into the hospital and interestingly very macrocytic. The chart indicates very little in the way of previous history other than apparent history of ethanol abuse. I believe we should place a temporary transvenous pacing catheter this morning to protect the cardiac rhythm wall the rest of his condition is being evaluated. He may or may not require a permanent cardiac pacemaker but he is not a candidate for this today with severe anemia. The cytogenetics laboratory manager team will be notified of the situation we will bring him up stairs this morning and place a temporary transvenous pacing catheter. Mega Dutton MD [facility] History of Present Illness History of Present Illness Consult date/time: 12/21/19 08:18 Reason For Visit: Generalized weakness+ Narrative: This is a 64-year-old patient I am seeing at the request of the hospitalist because of bradycardia. The patient is in the ICU room 11. Intubated and is completely unresponsive. Therefore the history is taken from reviewing the chart and speaking to my partners who were contract specialist last night. Apparently the patient presented to the emergency room feeling extremely weak and unsteady after being started on Bystolic by his PCP presumably for hypertension earlier in the day. He took a dose of Bystolic at 10 mg and also was started on furosemide because of peripheral edema. He was feeling so bad and weak he came to the emergency department where he was found to be bradycardic. He was also semi responsive and was intubated in the emergency room for airway protection. According to the notes he was not reporting chest pain or any other obvious cardiac symptoms. My partner who was on-call was notified that the patient was in complete heart block with a ischemic rhythm with a heart rate of 30 then subsequent calls demonstrated heart block with an escape rhythm in the 60s and 70s. A transcutaneous pacing device was applied and he was placed in the ICU because of hypotension he has been placed on I inotropics support and he is currently in the ICU in an unresponsive state. Also up upon evaluation in the emergency room he was found to be markedly anemic with a hemoglobin of 5 g with marked macrocytosis. Upon coming to the ICU to see this patient and reviewing his electrocardiograms he does not have complete heart block in the emergency room electrocardiogram demonstrated second-degree AV block with 2-1 conduction. He has of mild nonspecific intraventricular conduction delay but no significant ST or T abnormalities. The patient has received 2 units of packed red cell volume his hemoglobin is now up to just over 8 g. The chart notes indicate the patient consumes ethanol excessively. The chest x-ray demonstrates an and normal size cardiac silhouette and in this setting the patient is being seen in consultation. It is obvious from his examination at the transcutaneous pacing device which is set at a heart rate of 70 is not capturing the patient's pulse is 30 to 35 beats per minute upon turning the device off his rhythm appears to be unchanged as compared to the emergency room as described above. In this challenging situation he is being seen in consultation. Review of Systems Review of Systems: ROS unobtainable: Yes unobtainable due to endotracheal tube and unobtainable due to medical condition PMFSH Past Medical History Medical History (Updated 12/21/19 @ 08:02 by Lauro Mejias MD) COPD (chronic obstructive pulmonary disease) HTN (hypertension) with goal to be determined PUD (peptic ulcer disease) Surgical History Surgical History (Updated 12/21/19 @ 02:53 by Antoni Shah MD) History of partial colectomy Family History Family History
[2019-12-21] MEDS: NOREPINEPHRINE 8 MG/D5W 250 ML 8 MG/250 ML BAG 37.5 MG IV CONT (08:32)
[2019-12-21 08:34] LABS: Troponin I 0.045 ng/mL (0.000-0.034)
[2019-12-21 08:51] LABS: Lactic Acid Reflex 1.9 mmol/L (0.7-2.1)
--- NOTE | 2019-12-21 09:03 | WPDCNINT ---
Assessment and Plan Assessment and plan (1) Shock: Code(s): R57.9 - Shock, unspecified Status: Acute Assessment and Plan: patient presented with elevated lactic acid levels, hypotension, severe anemia, hemorrhagic shock - patient received IV fluid bolus of 1 L in the ED, received 2 units of packed RBCs - patient on Levophed and dopamine, will wean as tolerated - continue to trend lactic acid levels - patient with normal WBC count, afebrile, will obtain blood cultures and UA, will hold antibiotics for now (2) Acute respiratory failure: Code(s): J96.00 - Acute respiratory failure, unspecified whether with hypoxia or hypercapnia Status: Acute Assessment and Plan: acute respiratory failure secondary to nausea and vomiting with decreased responsiveness. Patient was intubated on 12/21/2019 for airway protection - currently on CMV mode of ventilation, ABGs and chest x-ray reviewed, ventilator adjusted (3) Symptomatic bradycardia: Code(s): R00.1 - Bradycardia, unspecified Status: Acute Assessment and Plan: type 2 av block with with symptomatic severe bradycardia, hypotension and shock - temporary pacemaker inserted by cardiology - instant improvement in blood pressures, will wean dopamine and Levophed - could be related to Bystolic and diuretics - cardiology to decide on permanent pacemaker (4) GENARO (acute kidney injury): Code(s): N17.9 - Acute kidney failure, unspecified Status: Acute Assessment and Plan: acute kidney injury likely related to hypotension, severe bradycardia, shock - patient received a L IV fluid bolus in the ER, 2 units of packed RBCs will give additional 500 mL IV bolus - will continue to monitor for urine output, renal function electrolytes - lactic acid has normalized ( 6.3 on admission) (5) COPD (chronic obstructive pulmonary disease): Qualifiers: COPD type: unspecified COPD Qualified Code(s): J44.9 - Chronic obstructive pulmonary disease, unspecified Code(s): J44.9 - Chronic obstructive pulmonary disease, unspecified Status: Chronic Assessment and Plan: continue bronchodilators (6) DVT prophylaxis: Code(s): Z29.9 - Encounter for prophylactic measures, unspecified Status: Acute Assessment and Plan: SCDs (7) Severe anemia: Code(s): D64.9 - Anemia, unspecified Status: Acute Assessment and Plan: patient with severe anemia, hemoglobin 5.5 on admission - NG tube with clear drainage - elevated MCV, low vitamin B12 levels, no iron deficiency - could be related to alcoholism versus bone marrow dysfunction Additional Plan will update family code status: Full code critical care time spent:49 Minutes discuss with supervisor tumbling and rolling Due to a high probability of clinically significant, life threatening deterioration, the patient required my highest level of preparedness to intervene emergently and I personally spent this critical care time directly and personally managing the patient. This critical care time included obtaining a history; examining the patient; pulse oximetry; ordering and review of studies; arranging urgent treatment with development of a management plan; evaluation of patient's response to treatment; frequent reassessment; and discussions with other providers. It was exclusive of separately billable procedures and treating other patients and teaching time. Please see Assessment and Plan section and the rest of the note for further information on patient assessment and treatment Manager Primary Consult Note Consult date: 12/21/19 Time Seen: 06:54 Reason for consult: Acute respiratory failure, bradycardia with second-degree AV block, severe anemia, nausea vomiting, hypotension /shock, lactic acidosis HPI: Bora Curran is a 64 year old male past medical history of COPD, hypertension, peptic ulcer disease who presented the ED on 12/20/2019 close to
--- NOTE | 2019-12-21 09:33 | P.PCNCC_ITS ---
Cardiac Cath Procedure Note Date of procedure:: 12/21/19 Performing physician:: Mega Dutton MD Indication:: 64-year-old male presenting with weakness and hypotension. In the emergency room patient was found to be bradycardic and by ECG appears to be in second-degree AV block with 2-1 conduction. The patient was intubated for airway protection and a transcutaneous pacemaker was placed which on evaluation this morning was not capturing. The patient was also profoundly anemic with a hemoglobin of 5 g. He has a history of ethanol abuse. To protect his cardiac rhythm a transcutaneous temporary pacing wire was recommended. Brief clinical history:: As above Procedure Procedure performed:: temporary transvenous pacemaker Sedation/Medication given:: patient already sedated per ICU no additional sedation given in the labor delivery specialist Access site:: left femoral vein Estimated blood loss:: 10 cc Procedure note:: patient was brought to the cardiac catheterization lab in the setting described above he was intubated on a ventilator and the ventilator was transported to the labor delivery specialist. Patient has a right femoral central line placed by the engineer systems and so this procedure was done via the left femoral vein. The left femoral vein was punctured using the modified Seldinger technique and a 6 Kyrgyz vascular sheath was placed. After this a balloon tipped 5 [place] pacing wire was advanced through the transvenous lead into the right ventricle and placed out into the RV apex. The balloon was deflated. The pacing performance was tested and was found to be very good. The sterile sleeve was above of placement to position the sheath was sutured down with 2 0 silk and the procedure was terminated. Patient will be taken back to the ICU for further evaluation of severe anemia. Findings:: Temporary transvenous pacemaker placed without difficulty. Patient threshold less than 0.3 volts. Temporary pacemaker left on at 3 volts output and heart rate of 80 beats per minute Conclusion:: successful uncomplicated placement of temporary transvenous pacing wire for treatment of bradycardia with second-degree AV block. Mega Dutton MD [facility]
[2019-12-21] MEDS: SODIUM CHLORIDE 0.9% IV 500 ML IV CONT (10:49)
[2019-12-21] MEDS: PANTOPRAZOLE SODIUM IV 40 MG VIAL IV PUSH ×2 (10:50→19:38)
[2019-12-21 11:35] LABS: Troponin I 0.043 ng/mL (0.000-0.034)
[2019-12-21 11:46] LABS: HCO3 ABG 22.1 mEq/l (22.0-26.0); Oxygen Saturation ABG 96.6 % (95.0-100.0); PCO2 ABG 45.8 mmHg (35.0-45.0); PO2 ABG 95.2 mmHg (80.0-100.0); Total Hemoglobin 7.6 g/dL (12.0-18.0); pH ABG 7.302 (7.350-7.450)
[2019-12-21 11:47] LABS: Alveolar/Arterial O2 Gradient 282.2 mmHg; Arterial Blood Gas PEEP 5 cmH2O; Arterial Blood Gas Vent Mode CMV; Arterial Blood Gas Ventilator rate 20 /MIN; Device VENTILATOR; Fractional Inspired Oxygen 60 %; Oxygen Content ABG 10.2 %vol (16.0-22.0); Oxyhemoglobin 93.5 % THb (90.0-100.0); PO2 FiO2 Ratio Arterial Blood 1.59 %; Site Drawn ARTLINE
[2019-12-21 11:48] LABS: Arterial Blood Gas Tidal Volume 500 ml
[2019-12-21] MEDS: IPRATROPIUM BR 0.02% INH SOLN 0.5 MG/2.5 ML VIAL INHALATION ×2 (13:29→19:35)
--- NOTE | 2019-12-21 14:54 | WPDGICN ---
Assessment and Plan Assessment and plan (1) Severe anemia: Code(s): D64.9 - Anemia, unspecified Status: Acute Assessment and Plan: here with cardiogenic shock, bradycardic and severe anemia. does not report recent obvious GIB. he received blood transfusion, continue to monitor for any sign of bleeding, trend Hb already on iv ppi will need egd when more stable, now he is intubated and sedated he is alcoholic and noted macrocytosis (could be from liver disease, alcohol abuse, bone marrow, etc), he also had low b12 get records from most recent colonoscopy (2) Cardiogenic shock: Code(s): R57.0 - Cardiogenic shock Status: Acute Assessment and Plan: cardiology placed temporary pacemaker (3) Lactic acidosis: Code(s): E87.2 - Acidosis Status: Acute Assessment and Plan: resolved, will get abdominal ultrasound to assess (4) Alcohol abuse: Code(s): F10.10 - Alcohol abuse, uncomplicated Status: Chronic Assessment and Plan: medical treatment, thiamine, etc liver enzymes normal but will get hepatitis panel, also liver ultrasound (5) Symptomatic bradycardia: Code(s): R00.1 - Bradycardia, unspecified Status: Acute (6) Acute respiratory failure: Code(s): J96.00 - Acute respiratory failure, unspecified whether with hypoxia or hypercapnia Status: Acute Assessment and Plan: intubated and monitored by icu (7) COPD (chronic obstructive pulmonary disease): Qualifiers: COPD type: unspecified COPD Qualified Code(s): J44.9 - Chronic obstructive pulmonary disease, unspecified Code(s): J44.9 - Chronic obstructive pulmonary disease, unspecified Status: Chronic (8) Macrocytic anemia: Code(s): D53.9 - Nutritional anemia, unspecified Status: Acute (9) Alcohol use: Code(s): Z72.89 - Other problems related to lifestyle Status: Acute GI Consult Note Consult date/time: 12/21/19 14:54 Reason for consult: severe anemia HPI: Bora Curran is a 64 year old male with history of COPD, hypertension, peptic ulcer disease apparently when he was a teenager ( says that he was in a trial of tagamet), partial right colectomy about 10 years ago due to inflammation . He was admitted to ER yesterday after he came with progressive weakness, unsteady on his feet. Recently started on BP med, also furosemide for bilateral lower extremity edema. History is obtained from records and because he is intubated. Also report of nausea and vomiting. In the ER where he was found to be severely bradycardic with secondary AV block and hypotensive, he was emergently intubated for airway protection. High lactic acid level (normalized now), Hb 5.5, mcv 130 ( says that he is a drinker at least sick pack beer a day and rum at bedtime). She says that last colonoscopy few years ago at [facility]. No report of recent GIB, no melena. NGT also was clear without hematin. Cardiology placed temporary transvenous pacemaker. Liver enzymes, bili, platelets were normal. B12 low 202. also says that he has been using NSAID's lately, also using omeprazole. Review of Systems Review of Systems: ROS unobtainable: Yes unobtainable due to endotracheal tube and unobtainable due to mental status PMFSH Past Medical History Medical History (Updated 12/21/19 @ 15:44 by Manuel Bush MD) Alcohol use COPD (chronic obstructive pulmonary disease) HTN (hypertension) with goal to be determined Macrocytic anemia PUD (peptic ulcer disease) Surgical History Surgical History (Updated 12/21/19 @ 02:53 by Antoni Shah MD) History of partial colectomy Family History Family History (Updated 12/21/19 @ 02:54 by Antoni Shah MD) Mother Scoliosis Social History Social History (Updated 12/21/19 @ 02:54 by Antoni Shah MD) Smoking status: Unknown if ever smoked Alcohol intake: current Alcohol use details: radha
[2019-12-21 14:59] LABS: Hematocrit 20.8 % (42.0-52.0)
[2019-12-21 15:01] LABS: Add Urine Microscopic? YES; Appearance Urine Cloudy (Clear); Bacteria Urine Trace /hpf; Bilirubin Urine Negative (Negative); Blood Urine 2+ (Negative); Color Urine Yellow (Yellow); Glucose Urine UA 1+ mg/dL (Negative); Ketones Urine Negative (Negative); Leukocyte Esterase Ur Negative LEU/UL (Negative); Mucus Urine Few /lpf; Nitrate Urine Negative (Negative); Protein Urine 3+ mg/dL (Negative); Specific Grav Ur 1.014 (1.001-1.035); Squamous Epithelial Cell Urine Occasional /hpf (Few); Urobilinogen Urine Negative mg/dL (<2.0)
[2019-12-21] MEDS: NOREPINEPHRINE 8 MG/D5W 250 ML 8 MG/250 ML BAG 26.3 MG IV CONT (16:03)
--- NOTE | 2019-12-21 17:23 | PM.IMPN ---
Progress Note: A&P Assessment and Plan (1) Acute respiratory failure: Code(s): J96.00 - Acute respiratory failure, unspecified whether with hypoxia or hypercapnia Status: Acute Assessment and Plan: Patient was bradycardic, HoTN with n/v requiring intubation in the ER. ABG did show acute respiratory failure with pH 7.13 and pCO2 51. Admitted to the ICU. Patient remains intubated sedated. ABG improved. Continue nebulizer treatments. Vent management per manufacturing systems engineer. Wean vent as tolerated. (2) Symptomatic bradycardia: Code(s): R00.1 - Bradycardia, unspecified Status: Acute Assessment and Plan: Patient started on Bystolic on the day of admission. Patient became symptomatic and found to be bradycardic and hypotensive by EMS. In the ER, he received NS IV bolus, glucagon IV, atropine, and calcium gluconate. EKG showing 2:1 AV block with bradycardia. External pacer placed. The patient started on Dopamine and Levophed. He was seen by Cardiology today and temporary transvenous pacemaker placed. Able to be weaned off of the Dopamine. Could be related to the bystolic and HoTN from the profound anemia. Currently with paced rhythm. (3) Shock: Code(s): R57.9 - Shock, unspecified Status: Acute Assessment and Plan: Patietn with profound anemia with HoTN and bradycardia. Possibly cardiolgenic from the bradycardia. Consider aslo hypovolemic shock from the blood loss complicated by the bystolic and Lasix. The patient may have had compensatory tachycardia but blocked down with the Bystolic. He also may have had this anemia for a while resulting in the leg edema from high output failure. The patient remains on vasopressor support with Levophed IV. Able to come off of the Dopamine. BP better with the transfusions. Wean Levophed as toelrated. Check BCx., (4) Severe anemia: Code(s): D64.9 - Anemia, unspecified Status: Acute Assessment and Plan: Hgb 5.5 on admission. Patient is a daily alcohol user and also has been on ibuprofen regularly. Concern for UGI blood loss. FOBT ordered. GI has been consulted. The patient is being transfused pRBC and currently receiving his 3rd unit. EGD being considered when pateint more stable. Monitor H/H, transfuse prn. Contineu PPI. (5) Lactic acidosis: Code(s): E87.2 - Acidosis Status: Acute Assessment and Plan: Lactic 6.3 on admisison. Appears to be secondary to shock. Repeat level has normalized. Related to above. (6) GENARO (acute kidney injury): Code(s): N17.9 - Acute kidney failure, unspecified Status: Acute Assessment and Plan: Cr 1.1 on admisison but clinmbed to 1.5. Probably ATN from the shock. Will follow. (7) Hypothermia: Qualifiers: Encounter type: initial encounter Qualified Code(s): T68.XXXA - Hypothermia, initial encounter Code(s): T68.XXXA - Hypothermia, initial encounter Status: Acute Assessment and Plan: Temp dropped to 93.0. He was treated with DHEERAJ hugger with good response. TSH normal. Able to come off the DHEERAJ hugger. Continue to monitor body temperature closely. (8) Hypomagnesemia: Code(s): E83.42 - Hypomagnesemia Status: Acute Assessment and Plan: Magnesium level low at 1.5. This was replaced. Monitor serum magnesium. (9) Alcohol abuse: Code(s): F10.10 - Alcohol abuse, uncomplicated Status: Chronic Assessment and Plan: Patient drinks alcohol daily. Currently sedated on mechanical ventilation. Start Thiamine. Continue to monitor for any signs or symptoms of acute withdrawal. The patient will need to be placed on CIWA protocol when he is extubated and awake. (10) COPD (chronic obstructive pulmonary disease): Qualifiers: COPD type: unspecified COPD Qualified Code(s): J44.9 - Chronic obstructive pulmonary disease, unspecified
[2019-12-21 19:11] LABS: Amphetamine Screen Urine Negative (Negative); Barbiturate Screen Urine Negative (Negative); Benzodiazepines Screen Urine Positive (Negative); Cannabinoid Screen Urine Positive (Negative); Cocaine Screen Urine Negative (Negative); Methadone Screen Urine Negative (Negative); Opiate Screen Urine Negative (Negative); Phencyclidine Screen Urine Negative (Negative)
[2019-12-21 20:25] LABS: Hematocrit 21.9 % (42.0-52.0); Hemoglobin 7.3 g/dL (14.0-18.0)
[2019-12-22] VITALS (59 sets, daily range): BP systolic 122–148; BP diastolic 45–57; PULSE 80–82; RESP 12–22; TEMP 37–37.8; O2SAT 92–98
[2019-12-22] MEDS: ALBUTEROL SULFATE NEB 2.5 MG/0.5 ML INH 5 MG INHALATION ×4 (01:31→20:09)
[2019-12-22] MEDS: IPRATROPIUM BR 0.02% INH SOLN 0.5 MG/2.5 ML VIAL INHALATION ×4 (01:32→20:09)
[2019-12-22 02:07] LABS: Hematocrit 21.7 % (42.0-52.0); Hemoglobin 7.3 g/dL (14.0-18.0)
[2019-12-22 04:07] LABS: Alveolar/Arterial O2 Gradient 216.4 mmHg; Base Excess ABG -4.8 mEq/l (+/-2.0); Carboxyhemoglobin 0.3 % THb (0-2.0); Fractional Inspired Oxygen 50 %; HCO3 ABG 21.7 mEq/l (22.0-26.0); Methemoglobin ABG 0.3 %THb (0-1.5); Oxygen Content ABG 14.4 %vol (16.0-22.0); Oxygen Saturation ABG 95.7 % (95.0-100.0); Oxyhemoglobin 93.1 % THb (90.0-100.0); PCO2 ABG 46.1 mmHg (35.0-45.0); PO2 ABG 88.2 mmHg (80.0-100.0); PO2 FiO2 Ratio Arterial Blood 1.76 %; Reduced Hemoglobin 6.3 %THb (0-5.0); Total Hemoglobin 10.9 g/dL (12.0-18.0); pH ABG 7.291 (7.350-7.450)
[2019-12-22 04:08] LABS: Arterial Blood Gas PEEP 7 cmH2O; Arterial Blood Gas Tidal Volume 400 ml; Arterial Blood Gas Vent Mode CMV; Arterial Blood Gas Ventilator rate 17 /MIN; Device VENTILATOR; Site Drawn ARTLINE
[2019-12-22 04:54] LABS: INR 2.1; Partial Thromboplastin Time 41.7 SECONDS (22.3-36.8); Prothrombin Time 22.9 Seconds (11.1-14.7)
[2019-12-22 04:58] LABS: Lactic Acid Reflex 0.7 mmol/L (0.7-2.1)
[2019-12-22 05:09] LABS: Alkaline Phosphatase 52 U/L (38-126); Anion Gap 3 mmol/L (8-16); Bilirubin,Total 0.9 mg/dL (0.2-1.3); Blood Urea Nitrogen 28 mg/dL (9-20); CRP 6.1 mg/dL (<1.0); Carbon Dioxide 29 mmol/L (22-30); Chloride 103 mmol/L (98-107); Estimated CRCL calculation 44 ml/min; Estimated Glomerular Filt Rate 41; Glucose 101 mg/dL (75-110); Magnesium 1.9 mg/dL (1.6-2.3); Phosphorus 4.5 mg/dL (2.5-4.5); Potassium 3.8 mmol/L (3.4-5.0); Sodium 135 mmol/L (137-145)
[2019-12-22 06:00] LABS: Hepatitis B Surface Antigen Negative (Negative)
[2019-12-22 06:05] LABS: Alanine Aminotransferase 1937 U/L (4-50); Aspartate Amino Transferase 2602 U/L (17-59)
[2019-12-22 06:06] LABS: HAV RESULT Negative (Negative); Hepatitis B Core IgM Result Negative (Negative)
[2019-12-22 06:17] LABS: Hepatitis C Virus Antibody Negative (Negative)
--- NOTE | 2019-12-22 08:07 | PM.IMPN ---
Progress Note: A&P Assessment and Plan (1) Acute respiratory failure: Code(s): J96.00 - Acute respiratory failure, unspecified whether with hypoxia or hypercapnia Status: Acute Assessment and Plan: Patient was bradycardic, HoTN with n/v requiring intubation in the ER. ABG did show acute respiratory failure with pH 7.13 and pCO2 51. Admitted to the ICU. Patient remains intubated sedated. ABG noted with pH 7.2. Continue nebulizer treatments. Vent management per program project analyst. Wean vent as tolerated. Discussed (2) Symptomatic bradycardia: Code(s): R00.1 - Bradycardia, unspecified Status: Acute Assessment and Plan: Patient started on Bystolic on the day of admission. Patient became symptomatic and found to be bradycardic and hypotensive by EMS. In the ER, he received NS IV bolus, glucagon IV, atropine, and calcium gluconate. EKG showing 2:1 AV block with bradycardia. External pacer placed. The patient started on Dopamine and Levophed. He was seen by Cardiology and temporary transvenous pacemaker placed 12/21/19. Able to be weaned off of the Dopamine. Could be related to the bystolic and HoTN from the profound anemia. Currently with paced rhythm. (3) Shock: Code(s): R57.9 - Shock, unspecified Status: Acute Assessment and Plan: Patietn with profound anemia with HoTN and bradycardia. Possibly cardiolgenic from the bradycardia. Consider aslo hypovolemic shock from the blood loss complicated by the bystolic and Lasix. The patient may have had compensatory tachycardia but blocked down with the Bystolic. He also may have had this anemia for a while resulting in the leg edema from high output failure. The patient remains on vasopressor support with Levophed IV. Able to come off of the Dopamine. BP better with the transfusions. Wean Levophed as toelrated. BCx pending. (4) Coagulopathy: Code(s): D68.9 - Coagulation defect, unspecified Status: Acute Assessment and Plan: INR 1.3 on admission probably related to underlying liver disease from his alcoholism. INR today is 2.1. Consider FFP if drop in HH and/or evidence of acute blood loss. Continue to follow. (5) CHF (congestive heart failure): Qualifiers: Heart failure chronicity: acute Heart failure type: combined systolic and diastolic Qualified Code(s): I50.41 - Acute combined systolic (congestive) and diastolic (congestive) heart failure Code(s): I50.9 - Heart failure, unspecified Status: Acute Assessment and Plan: Patient has been having increasing pedal edema prior to admission. Suspect high output heart failure from his profound anemia. Echo showing EF 35-40%, abnml LV diastolic function, HK inferior wall, mild to moderate MR and moderate pulmonary hypertension. Patient probably with acute exacerbation. Suspect had mild heart failure systems related to the anemia causing high output failure and with LV dysfunction. The LV dysfunction could be ischemic and/or alcohol related. Lasix on hold due to the GENARO, HoTN. CXR reviewed today and is clear. Check BNP. (6) Elevated liver enzymes: Code(s): R74.8 - Abnormal levels of other serum enzymes Status: Acute Assessment and Plan: AST/ALT normal on admission but have climbed to 2600 and 1940 respectfully. Hepatitis panel negative. Probably shock liver. Abd US 12/21/19 showing a linear filling defect in the inferior vena cava, consistent with chronic thrombus, GB wall thickening, small volume of ascites, mild splenomegaly and a splenic hilum cystic area with lobulated margin may be a chronic hematoma. Will continue to follow LFTs. Check CT when able. Patient already has therapeutic INR. (7) Severe anemia: Code(s): D64.9 - Anemia, unspecified Status: Acute Assessment and Plan: Hgb 5.5 on admission. Patient is a daily alcohol user and also has been on ibuprofen regula
[2019-12-22 08:59] LABS: Basophils Percent Auto 0.4 % (0.2-1.2); Eosinophils Absolute Auto 0.2 K/mm3 (0-0.3); Eosinophils Percent Auto 3.1 % (0-4.4); Hematocrit 21.9 % (42.0-52.0); Hemoglobin 7.3 g/dL (14.0-18.0); Immature Granulocyte Absolute 0.69 K/mm3 (0.00-0.031); Immature Granulocyte Percent A 12.4 % (0-0.5); Immature Platelet Fraction Pct 16.8 % (0.9-11.2); Lymphocytes Absolute Auto 0.88 K/mm3 (0.9-3.2); Lymphocytes Percent Auto 15.8 % (18.3-44.2); Mean Corpuscular HGB Conc 33.3 g/dl (32-36); Mean Corpuscular Hemoglobin 35.4 pg (26-34); Mean Corpuscular Volume 106.3 fl (80-100); Monocytes Absolute Auto 0.4 K/mm3 (0.1-0.6); Neutrophils Absolute Auto 3.4 K/mm3 (1.3-6.7); Neutrophils Percent Auto 61.3 % (45.5-73.1); Nucleated Red Blood Cells Perc 0.4 % (0.0-0.2); Platelet Count Result 181 k/mm3 (150-375); Red Blood Count 2.06 M/mm3 (4.6-6.20); White Blood Count 5.6 K/mm3 (4.5-10.0)
[2019-12-22 09:07] LABS: Anisocytosis 2+ (NORMAL); Platelet Estimate Adequate (Adequate)
[2019-12-22] MEDS: THIAMINE HCL 200 MG/2 ML VIAL 100 MG IV PUSH (09:28)
[2019-12-22] MEDS: PANTOPRAZOLE SODIUM IV 40 MG VIAL IV PUSH ×2 (09:28→20:48)
[2019-12-22 09:53] LABS: NT Pro B Type Natriuretic Pept 3600 PG/ML (5-100)
[2019-12-22] MEDS: PHYTONADIONE ADULT INJ 10 MG in DEXTROSE 5% IN WATER 50 ML 100 MG IVPB (10:38)
[2019-12-22] MEDS: SODIUM CHLORIDE 0.9% IV 250 ML 30 ML IV CONT (11:18)
--- NOTE | 2019-12-22 11:57 | PM.PNCARD ---
Progress Note: A&P Assessment and Plan (1) Heart block AV second degree: Code(s): I44.1 - Atrioventricular block, second degree Status: Acute Assessment and Plan: temporary wires in place. Pacing well. Capturing okay . Eventually ppm will be needed once his coagulopathy has resolved . Continue supportive care (2) Lactic acidosis: Code(s): E87.2 - Acidosis Status: Acute Assessment and Plan: resolved (3) Cardiomyopathy: Code(s): I42.9 - Cardiomyopathy, unspecified Status: Acute Assessment and Plan: moderate with wall motion abnormalities present. Likely has underlying CAD also. He eventually will need cardiac catheterization. (4) Elevated liver enzymes: Code(s): R74.8 - Abnormal levels of other serum enzymes Status: Acute Assessment and Plan: likely related to shock liver (5) Alcohol use: Code(s): Z72.89 - Other problems related to lifestyle Status: Acute (6) Macrocytic anemia: Code(s): D53.9 - Nutritional anemia, unspecified Status: Acute Assessment and Plan: severe. Status post transfusions. Undergoing endoscopy later today. Subjective Date/time seen: 12/22/19 11:57 Interval history: 64yo male with COPD and HTN here for generalized weakness and found to be bradycardic. Patient intubated and sedated. date of service 12/22/2019: Still intubated and sedated but withdrawal to pain. Plan for EGD later today. he is still pacing and blood pressure were stable. Liver and kidney function are worsening I will likely peak in 1-2 days. Review of Systems Review of Systems: All systems reviewed & are unremarkable except as noted in HPI and below ROS unobtainable: Yes unobtainable due to endotracheal tube Exam Const: Other: Somewhat disheveled white male appears to be about his stated age intubated unresponsive and in the ICU on mechanical ventilator support. HENMT: Mouth: Yes moist mucous membranes Neck: Neck: no JVD Other: carotid pulses are intact no evident bruits over the neck Resp: Other: few scattered rhonchi are noted centrally no wheezing no pulmonary rales with anterior auscultation Cardio: Jugular venous distension: other ( Paced rhythm) Rate: regular rate and other GI: Auscultation: normal bowel sounds Skin: General skin exam: normal color Neuro: Other: unresponsive Extrem: General: normal to inspection Objective Data Vital Signs Vital Signs: Vital Signs - 24 hr 12/21/19 12:00 12/21/19 13:30 12/21/19 13:32 Temperature 37.2 C Pulse Rate 80 80 80 Pulse Rate [Bilateral Posterior Tibial Doppler] Respiratory Rate 22 H Blood Pressure 138/58 L Pulse Oximetry 95 95 12/21/19 14:00 12/21/19 16:00 12/21/19 16:23 Temperature 37.6 C 37.4 C Pulse Rate 80 80 80 Pulse Rate [Bilateral Posterior Tibial Doppler] Respiratory Rate 22 H 22 H 22 H Blood Pressure 134/58 L 141/62 H Pulse Oximetry 97 97 12/21/19 16:24 12/21/19 16:46 12/21/19 17:02 Temperature 37.4 C 37.4 C Pulse Rate 80 80 80 Pulse Rate [Bilateral Posterior Tibial Doppler] Respiratory Rate 22 H 22 H 22 H Blood Pressure 143/61 H 138/59 L Pulse Oximetry 97 98 12/21/19 17:08 12/21/19 18:00 12/21/19 18:02 Temperature 37.3 C 37.4 C Pulse Rate 80 80 80 Pulse Rate [Bilateral Posterior Tibial Doppler] Respiratory Rate 22 H 22 H Blood Pressure 128/55 L 142/61 H Pulse Oximetry 97 98 97 12/21/19 18:39 12/21/19 19:00 12/21/19 19:39 Temperature Pulse Rate 80 80 Pulse Rate [Bilateral Posterior Tibial Doppler] 80 Respiratory Rate 22 H Blood Pressure Pulse Oximetry 98 12/21/19 19:43 12/21/19 20:00 12/21/19 20:27 Temperature 37.3 C 37.3 C Pulse Rate 80 80 80 Pulse Rate [Bilateral Posterior Tibial Doppler] 80 Respiratory Rate 22 H 22 H Blood Pressure 129/56 L 136/59 L 137/58 L Pulse Oximetry 99 99 12/21/19 20:28 12/21/19 21:00 12/21/19 22:00 T
--- NOTE | 2019-12-22 12:52 | PCDIET ---
ICU Rounding Note: Patient is NPO with plan for EGD today. Last recorded weight is 84.9kg which is down from last review. Bowel Motility: No documented BM as of yet. Labs Reviewed: Hgb (7.3), Hct (21.9), BUN (28), Cr (1.7), Na (135), Alb (3.0), Rachele Ca (7.8) Meds Noted: Albuterol, Levophed, Fentanyl, Protonix, Atrovent, Phytonadione, Versed, Phenergan, Thiamine Additional Notes: Noted significant elevation in LFTs. No new recommendations at this time. Following daily in ICU rounds. Assessing/reassessing every 3 days.
--- NOTE | 2019-12-22 13:02 | WPDINTPN ---
Progress Note: A&P Assessment and Plan (1) Acute respiratory failure: Code(s): J96.00 - Acute respiratory failure, unspecified whether with hypoxia or hypercapnia Status: Acute Assessment and Plan: acute respiratory failure secondary to nausea and vomiting with decreased responsiveness. Patient was intubated on 12/21/2019 for airway protection - currently on CMV mode of ventilation, ABGs and chest x-ray reviewed, ventilator adjusted - patient to get an EGD this afternoon, after which we will wean his patient, try him on SBT and evaluate for extubation (2) Shock: Code(s): R57.9 - Shock, unspecified Status: Acute Assessment and Plan: patient presented with elevated lactic acid levels, hypotension, severe anemia, hemorrhagic shock - patient received IV fluid bolus of 1 L in the ED, received 2 units of packed RBCs - patient off dopamine, on low-dose Levophed, maintain mean arterial pressures greater than 70 mmHg for adequate renal and liver perfusion - lactic acid normalized - patient with normal WBC count, afebrile, will obtain blood cultures and UA, will hold antibiotics for now (3) Symptomatic bradycardia: Code(s): R00.1 - Bradycardia, unspecified Status: Acute Assessment and Plan: type 2 av block with with symptomatic severe bradycardia, hypotension and shock - temporary pacemaker inserted by cardiology on 12/21/2019, capturing well at rate of 80. Patient is being paced continuously - instant improvement in blood pressures, will wean dopamine and Levophed - could be related to Bystolic and diuretics - cardiology to decide on permanent pacemaker (4) GENARO (acute kidney injury): Code(s): N17.9 - Acute kidney failure, unspecified Status: Acute Assessment and Plan: acute kidney injury likely related to hypotension, severe bradycardia, shock - patient received a L IV fluid bolus in the ER, 2 units of packed RBCs will give additional 500 mL IV bolus - will continue to monitor for urine output, renal function electrolytes - lactic acid has normalized ( 6.3 on admission) (5) COPD (chronic obstructive pulmonary disease): Qualifiers: COPD type: unspecified COPD Qualified Code(s): J44.9 - Chronic obstructive pulmonary disease, unspecified Code(s): J44.9 - Chronic obstructive pulmonary disease, unspecified Status: Chronic Assessment and Plan: continue bronchodilators (6) DVT prophylaxis: Code(s): Z29.9 - Encounter for prophylactic measures, unspecified Status: Acute Assessment and Plan: SCDs (7) Severe anemia: Code(s): D64.9 - Anemia, unspecified Status: Acute Assessment and Plan: patient with severe anemia, hemoglobin 5.5 on admission - NG tube with clear drainage - elevated MCV, low vitamin B12 levels, no iron deficiency - could be related to alcoholism versus bone marrow dysfunction - will receive 1 unit of FFP and vitamin K per GI for elevated INR prior to EGD - EGD done this afternoon, according the GI physician, EGD was clean, report yet to be dictated. Dr. Resendez, to perform a colonoscopy when patient is more stable - will consult Dr. Pastor for severe anemia (8) Cardiomyopathy: Code(s): I42.9 - Cardiomyopathy, unspecified Status: Acute Assessment and Plan: 12/21/2019 echocardiogram, EF 35-40%, left ventricular septal wall motion is abnormal, inferior wall is hypokinetic, mild to moderate mitral valve regurg, moderate pulmonary hypertension with RVSP of 51 mmHg - cardiology following the patient - could have underlying coronary artery disease, will eventually need further workup (9) Elevated liver enzymes: Code(s): R74.8 - Abnormal levels of other serum enzymes Status: Acute Assessment and Plan: most likely related to shock liver - will maintain adequate blood pressures for improved perfusion to the liver. Hepatitis panel was negat
[2019-12-22 14:30] LABS: Glucose Point of Care 86 (65-105)
[2019-12-22] MEDS: NOREPINEPHRINE 8 MG/D5W 250 ML 8 MG/250 ML BAG 3.8 MG IV CONT (17:09)
[2019-12-22 17:45] LABS: Glucose Point of Care 96 (65-105)
[2019-12-22] MEDS: CENTRAL LINE FLUSH 10 ML IV PUSH (20:51)
[2019-12-23] VITALS (44 sets, daily range): BP systolic 120–157; BP diastolic 34–63; PULSE 80–86; RESP 17–156; TEMP 37.4–38.1; O2SAT 92–97
[2019-12-23] MEDS: ALBUTEROL SULFATE NEB 2.5 MG/0.5 ML INH 5 MG INHALATION ×4 (02:26→20:02)
[2019-12-23] MEDS: IPRATROPIUM BR 0.02% INH SOLN 0.5 MG/2.5 ML VIAL INHALATION ×4 (02:26→20:02)
[2019-12-23 04:16] LABS: Alveolar/Arterial O2 Gradient 241.4 mmHg; Base Excess ABG 1.9 mEq/l (+/-2.0); Carboxyhemoglobin 0.3 % THb (0-2.0); Device VENTILATOR; Fractional Inspired Oxygen 50 %; HCO3 ABG 27.3 mEq/l (22.0-26.0); Methemoglobin ABG 0.5 %THb (0-1.5); Oxygen Content ABG 10.7 %vol (16.0-22.0); Oxygen Saturation ABG 91.6 % (95.0-100.0); Oxyhemoglobin 88.6 % THb (90.0-100.0); PCO2 ABG 46.6 mmHg (35.0-45.0); PO2 ABG 62.7 mmHg (80.0-100.0); PO2 FiO2 Ratio Arterial Blood 1.25 %; Reduced Hemoglobin 10.6 %THb (0-5.0); Site Drawn ARTLINE; Total Hemoglobin 8.5 g/dL (12.0-18.0); pH ABG 7.385 (7.350-7.450)
[2019-12-23 04:17] LABS: Arterial Blood Gas PEEP 5 cmH2O; Arterial Blood Gas Tidal Volume 500 ml; Arterial Blood Gas Vent Mode CMV; Arterial Blood Gas Ventilator rate 20 /MIN
[2019-12-23 04:47] LABS: Lactic Acid Reflex 0.7 mmol/L (0.7-2.1)
[2019-12-23 04:55] LABS: Alkaline Phosphatase 54 U/L (38-126); Anion Gap 3 mmol/L (8-16); Bilirubin,Total 1.9 mg/dL (0.2-1.3); Blood Urea Nitrogen 22 mg/dL (9-20); Calcium 7.7 mg/dL (8.4-10.2); Carbon Dioxide 29 mmol/L (22-30); Chloride 104 mmol/L (98-107); Estimated CRCL calculation 89 ml/min; Estimated Glomerular Filt Rate > 60; Glucose 114 mg/dL (75-110); Magnesium 1.8 mg/dL (1.6-2.3); Phosphorus 2.4 mg/dL (2.5-4.5); Potassium 3.9 mmol/L (3.4-5.0); Sodium 136 mmol/L (137-145)
[2019-12-23 05:02] LABS: CRP 12.5 mg/dL (<1.0)
[2019-12-23 05:03] LABS: Alanine Aminotransferase 1701 U/L (4-50); Aspartate Amino Transferase 896 U/L (17-59)
[2019-12-23] MEDS: CENTRAL LINE FLUSH 10 ML IV PUSH ×3 (05:18→21:05)
[2019-12-23] MEDS: POTASSIUM/PHOSPHORUS/SODIUM 1.5 GM PACKET 1 PACKET FEED TUBE ×2 (09:02)
[2019-12-23] MEDS: PANTOPRAZOLE SODIUM IV 40 MG VIAL IV PUSH ×2 (09:02→21:12)
[2019-12-23 09:03] LABS: Hematocrit 23.3 % (42.0-52.0); Hemoglobin 7.5 g/dL (14.0-18.0); Immature Platelet Fraction Pct 18.9 % (0.9-11.2); Mean Corpuscular HGB Conc 32.2 g/dl (32-36); Mean Corpuscular Hemoglobin 35.4 pg (26-34); Mean Corpuscular Volume 109.9 fl (80-100); Mean Platelet Volume 13.8 fl (7.4-10.4); Platelet Count Result 165 k/mm3 (150-375); Red Blood Count 2.12 M/mm3 (4.6-6.20); White Blood Count 2.7 K/mm3 (4.5-10.0)
[2019-12-23] MEDS: THIAMINE HCL 200 MG/2 ML VIAL 100 MG IV PUSH (09:03)
--- NOTE | 2019-12-23 09:39 | PM.PNCARD ---
Progress Note: A&P Additional Plan 64-year-old man with high-grade AV block and unfortunately many other comorbidities that make placement of a permanent pacemaker device not a reasonable option at this time. He is significantly anemic and also has a coagulopathy related to shock liver. His intrinsic rhythm has not changed but for hemodynamics support he is doing much better pacing at 80 beats per minute. Will continue to follow him and consider implantation of a permanent pacing device when the above issues have resolved in addition to this he has developed a fever this morning which certainly would give 1 paucity implanting a permanent device. After a number of days of temporary transvenous pacing we might have to consider placing a clean catheter and from another puncture site if ongoing temporary pacing is necessary. Mega Dutton MD [facility] Subjective Date/time seen: Date of service:12/23/19 09:39 Interval history: Follow-up visit in this 64-year-old man with symptomatic bradycardia and AV node dysfunction. Patient had second-degree AV block with heart rate of 35 upon admission. Now with a temporary right ventricular pacing wire placed and pacing at 80 beats per minute. Still intubated in the ICU. Patient developed shock liver and acute renal insufficiency following admission. He also was profoundly anemic with significant macrocytosis upon admission. GI endoscopy was not revealing for a hemorrhagic source. I slowly turned down the pulse rate on his temporary pacemaker generator and his intrinsic rhythm has not changed he still has sinus rhythm with 2-1 av block and a effective heart rate of about 35 beats per minute. Following this pacemaker turned back on at 80 beats per minute. Exam Const: Other: Chronically ill-appearing patient sedated and on mechanical ventilator HENMT: Mouth: Yes dry mucous membranes Eyes: Sclera: sclerae normal Neck: Other: no obvious venous distension carotid pulses are normal bilaterally Resp: Other: scattered central rhonchi otherwise relatively good air exchange Cardio: Rate: regular rate Rhythm: regular rhythm Other: paced rhythm at 80 beats per minute Skin: General skin exam: normal color Neuro: Other: sedated on ventilator support Objective Data Vital Signs Vital Signs: Vital Signs - 24 hr 12/22/19 10:00 12/22/19 11:00 12/22/19 11:20 Temperature 37.8 C H 37.8 C H Pulse Rate 80 80 Pulse Rate [Bilateral Posterior Tibial Doppler] 80 80 Respiratory Rate 20 20 Blood Pressure 133/50 L 137/52 L Pulse Oximetry 93 92 12/22/19 11:31 12/22/19 11:32 12/22/19 11:33 Temperature Pulse Rate 80 80 80 Pulse Rate [Bilateral Posterior Tibial Doppler] Respiratory Rate 17 17 Blood Pressure 135/51 L Pulse Oximetry 12/22/19 11:43 12/22/19 12:00 12/22/19 12:08 Temperature 37.8 C H 37.8 C H Pulse Rate 80 81 80 Pulse Rate [Bilateral Posterior Tibial Doppler] 80 Respiratory Rate 12 20 20 Blood Pressure 136/53 L 134/49 L Pulse Oximetry 92 95 93 12/22/19 12:10 12/22/19 12:39 12/22/19 12:44 Temperature Pulse Rate 81 80 81 Pulse Rate [Bilateral Posterior Tibial Doppler] Respiratory Rate 21 H 17 Blood Pressure 131/50 L 140/52 L Pulse Oximetry 93 93 94 12/22/19 13:00 12/22/19 14:00 12/22/19 14:14 Temperature Pulse Rate 81 80 Pulse Rate [Bilateral Posterior Tibial Doppler] 80 80 Respiratory Rate 20 20 Blood Pressure 134/48 L 134/48 L Pulse Oximetry 94 12/22/19 14:15 12/22/19 15:00 12/22/19 15:10 Temperature Pulse Rate 80 80 Pulse Rate [Bilateral Posterior Tibial Doppler] 80 Respiratory Rate 20 20 Blood Pressure Pulse Oximetry 12/22/19 15:13 12/22/19 15:30 12/22/19 16:00 Temperature 37.5 C Pulse Rate 80 80 80 Pulse Rate [Bilateral Posterior Tibial Doppler] 80 Respiratory Rate 20 20 Blood Pressure 136/49 L 134/52 L Pulse Oximetry 95 94 12/22/19 16:01 12/22/19 17:00 12/22/19 17:09
--- NOTE | 2019-12-23 11:08 | PCDIET ---
Nutrition Follow-Up Complete: Nutrition Diagnosis: Inadequate oral intake related to oral intubation as evidenced by NPO status. Nutrition Goal: Patient to meet estimated nutritional needs. Goal in progress. MD ordered to start tube feedings, per RD recommendation: Vital 1.2 beginning at 20mL/hr and advancing by 10mL/hr every 4 hours, as tolerated, to goal of 60mL/hr. This will provide 1584kcal, 99g protein and 1070mL free water. Recommend 30mL water flush every 4 hours. Last recorded weight is 84.8 kg which is stable. Bowel Motility: No documented BM as of yet. Labs Reviewed: Hgb (7.3), Hct (21.9), Glu (114), Na (136), Alb (3.0), Rachele Ca (8.5), PO4 (2.4) Meds Noted: Albuterol, Fentanyl, Versed, Cefepime, Atrovent, Levophed, Protonix, Thiamine, Vancomycin, Phos-NaK Additional Notes: Plan to initiate feedings once tube replaced and verified for use. No documented skin breakdown. Nutrition Monitoring and Evaluation: Follow up every Thursday/Thursday. Follow daily in ICU rounds.
--- NOTE | 2019-12-23 11:49 | WPDANESPN ---
Anes - Prog Note Post-Op Date/Time: 12/23/19 11:49 Cardiovascular status: normal Respiratory status: other (ventilator ) Airway patency: other (venilator) Mental status: other (sedated/ventilator) Post-Op hydration status: normal Vital Signs: Last Vital Signs Temp 37.9 C H 12/23/19 10:00 Pulse 80 12/23/19 10:00 Resp 20 12/23/19 10:00 BP 124/35 L 12/23/19 10:00 Pulse Ox 95 12/23/19 10:00 Pain Score (VAS): 0/10. Patient resting in bed at time of assessment. Patient on ventilator at time of assessment, RN addressed on concerns at time of assessment. I/O: Intake & Output 12/22/19 12/23/19 12/23/19 23:59 07:59 15:59 Intake Total 200.9 189 350 Output Total 1150 1000 Balance -949.1 -811 350 Laboratory Tests 12/23/19 08:51 12/23/19 04:08 12/22/19 12/22/19 12/23/19 14:13 17:41 04:05 WBC RBC Hgb Hct MCV MCH MCHC RDW Plt Count MPV % Immature Plt Fraction Puncture Site Artline ABG pH 7.385 ABG pCO2 46.6 H ABG pO2 62.7 L ABG PO2/FiO2 Ratio 1.25 ABG HCO3 27.3 H ABG O2 Saturation 91.6 L ABG O2 Content 10.7 L ABG Base Excess 1.9 A-a Gradient 241.4 Oxyhemoglobin 88.6 L Carboxyhemoglobin 0.3 Methemoglobin 0.5 Reduced Hemoglobin 10.6 H Total Hemoglobin 8.5 L O2 Delivery Device Ventilator O2 Liters/Min Not Reportable Minute Volume Not Reportable Vent Rate 20 Vent Mode Cmv FiO2 50 Tidal Volume 500 PEEP 5 Peak Inspir Pressure Not Reportable Pressure Support Not Reportable Sodium Potassium Chloride Carbon Dioxide Anion Gap BUN Creatinine Estim Creat Clear Calc Estimated GFR Glucose POC Capillary Glucose 86 96 Lactic Acid Calcium Phosphorus Magnesium Total Bilirubin AST ALT Alkaline Phosphatase C-Reactive Protein Total Protein Albumin 12/23/19 12/23/19 12/23/19 04:08 04:08 08:51 WBC 2.7 L RBC 2.12 L Hgb 7.5 L Hct 23.3 L MCV 109.9 H MCH 35.4 H MCHC 32.2 RDW TNP Plt Count 165 MPV 13.8 H % Immature Plt Fraction 18.9 H Puncture Site ABG pH ABG pCO2 ABG pO2 ABG PO2/FiO2 Ratio ABG HCO3 ABG O2 Saturation ABG O2 Content ABG Base Excess A-a Gradient Oxyhemoglobin Carboxyhemoglobin Methemoglobin Reduced Hemoglobin Total Hemoglobin O2 Delivery Device O2 Liters/Min Minute Volume Vent Rate Vent Mode FiO2 Tidal Volume PEEP Peak Inspir Pressure Pressure Support Sodium 136 L Potassium 3.9 Chloride 104 Carbon Dioxide 29 Anion Gap 3 L BUN 22 H Creatinine 0.80 Estim Creat Clear Calc 89 Estimated GFR > 60 Glucose 114 H POC Capillary Glucose Lactic Acid 0.7 Calcium 7.7 L Phosphorus 2.4 L Magnesium 1.8 Total Bilirubin 1.9 H AST 896 H ALT 1701 H Alkaline Phosphatase 54 C-Reactive Protein 12.5 H Total Protein 6.0 L Albumin 3.0 L Microbiology 12/21/19 14:33 Urine Clean Catch Urine Culture - Final Escherichia Coli 12/21/19 08:29 Blood Blood Culture - Preliminary 12/21/19 08:29 Blood Blood Culture - Preliminary Post-procedural complaints: none Patient Feedback: Patient satisfied with anesthetic care.
--- NOTE | 2019-12-23 12:39 | WPDINTPN ---
Progress Note: A&P Assessment and Plan (1) Acute respiratory failure: Code(s): J96.00 - Acute respiratory failure, unspecified whether with hypoxia or hypercapnia Status: Acute Assessment and Plan: acute respiratory failure secondary to nausea and vomiting with decreased responsiveness. Patient was intubated on 12/21/2019 for airway protection - currently on CMV mode of ventilation, ABGs and chest x-ray reviewed, ventilator adjusted - chest x-ray reviewed, bibasal airspace opacities - patient on 50% FiO2, wean as tolerated (2) Shock: Code(s): R57.9 - Shock, unspecified Status: Acute Assessment and Plan: patient presented with elevated lactic acid levels, hypotension, severe anemia, hemorrhagic shock - patient received IV fluid bolus of 1 L in the ED, received 2 units of packed RBCs - patient off dopamine, on low-dose Levophed, maintain mean arterial pressures greater than 70 mmHg for adequate renal and liver perfusion - lactic acid normalized - patient leukopenic, febrile, along with airway opacities and E coli UTI, will start cefepime and vancomycin - (3) Symptomatic bradycardia: Code(s): R00.1 - Bradycardia, unspecified Status: Acute Assessment and Plan: type 2 av block for 2-1 conduction with with symptomatic severe bradycardia, hypotension and shock - temporary pacemaker inserted by cardiology on 12/21/2019, capturing well at rate of 80. Patient is being paced continuously, his intrinsic rhythm has not changed and so he is being supported at 80 beats per minute with pacing. - Patient is off dopamine, Levophed at 1-2 mcg/min - cardiology delayed placement of the permanent pacemaker secondary to fevers, infection, anemia, coagulopathy (4) GENARO (acute kidney injury): Code(s): N17.9 - Acute kidney failure, unspecified Status: Acute Assessment and Plan: acute kidney injury likely related to hypotension, severe bradycardia, shock. Creatinine down to normal, ( creatinine peaked at 1.7.) - Patient was adequately fluid-resuscitated along with packed RBCs - urine output has improved lactic acid normalized ( 6.3 on admission) - Continue to monitor renal function, electrolytes and urine output (5) COPD (chronic obstructive pulmonary disease): Qualifiers: COPD type: unspecified COPD Qualified Code(s): J44.9 - Chronic obstructive pulmonary disease, unspecified Code(s): J44.9 - Chronic obstructive pulmonary disease, unspecified Status: Chronic Assessment and Plan: continue bronchodilators (6) DVT prophylaxis: Code(s): Z29.9 - Encounter for prophylactic measures, unspecified Status: Acute Assessment and Plan: SCDs (7) Severe anemia: Code(s): D64.9 - Anemia, unspecified Status: Acute Assessment and Plan: patient with severe anemia, hemoglobin 5.5 on admission - NG tube with clear drainage - elevated MCV, low vitamin B12 levels, no iron deficiency - could be related to alcoholism versus bone marrow dysfunction - received 1 unit of FFP and vitamin K on 12/22/2019 - EGD done this afternoon, according the GI physician, EGD was clean, report yet to be dictated. Dr. Resendez, to perform a colonoscopy when patient is more stable - will consult Dr. Pastor for severe anemia, macrocytosis, have ordered peripheral blood smear (8) Cardiomyopathy: Code(s): I42.9 - Cardiomyopathy, unspecified Status: Acute Assessment and Plan: 12/21/2019 echocardiogram, EF 35-40%, left ventricular septal wall motion is abnormal, inferior wall is hypokinetic, mild to moderate mitral valve regurg, moderate pulmonary hypertension with RVSP of 51 mmHg - cardiology following the patient - could have underlying coronary artery disease, will eventually need further workup (9) Elevated liver enzymes: Code(s): R74.8 - Abnormal levels of other serum enzymes Status: Acute Asse
--- NOTE | 2019-12-23 13:55 | PM.IMPN ---
Progress Note: A&P Assessment and Plan (1) Acute respiratory failure: Code(s): J96.00 - Acute respiratory failure, unspecified whether with hypoxia or hypercapnia Status: Acute Assessment and Plan: Patient was bradycardic, HoTN with n/v requiring intubation in the ER. ABG did show acute respiratory failure with pH 7.13 and pCO2 51. Admitted to the ICU. Patient remains intubated sedated. ABG noted today with pH 7.385. Continue nebulizer treatments. Vent management per automobile washer steam. Wean vent as tolerated. Discussed (2) Symptomatic bradycardia: Code(s): R00.1 - Bradycardia, unspecified Status: Acute Assessment and Plan: Patient started taking Bystolic on the day of admission. Patient became symptomatic and found to be bradycardic and hypotensive by EMS. In the ER, he received NS IV bolus, glucagon IV, atropine, and calcium gluconate. EKG showing 2:1 AV block with bradycardia. External pacer placed. The patient started on Dopamine and Levophed. He was seen by Cardiology and temporary transvenous pacemaker placed 12/21/19. Able to be weaned off of the Dopamine. Could be related to the bystolic and HoTN from the profound anemia. Still bradycardic when holding the pacer. Currently with paced rhythm. Pacemaker being considered. (3) Shock: Code(s): R57.9 - Shock, unspecified Status: Acute Assessment and Plan: Patient with profound anemia with HoTN and bradycardia. Possibly cardiogenic from the bradycardia. Consider also hypovolemic shock from the blood loss complicated by the bystolic and Lasix. The patient may have had compensatory tachycardia but blocked down with the Bystolic (although still bradycardic off Bystolic). He also may have had this anemia for a while resulting in the leg edema from high output failure. The patient required vasopressor support with Levophed IV and Dopamine. Able to come off of the pressors completely by 12/23/19. BP better overall. BCx NGTD. Low grade fevers noted which could be from atelectasis. Broad spectrum abx added for possible VAP. UCx growing EColi but only 50-100K colonies and feel probably unlikely contributing to current problems. (4) Coagulopathy: Code(s): D68.9 - Coagulation defect, unspecified Status: Acute Assessment and Plan: INR 1.3 on admission probably related to underlying liver disease from his alcoholism. INR yesterday is 2.1. Consider FFP if drop in HH and/or evidence of acute blood loss. Continue to follow. (5) CHF (congestive heart failure): Qualifiers: Heart failure chronicity: acute Heart failure type: combined systolic and diastolic Qualified Code(s): I50.41 - Acute combined systolic (congestive) and diastolic (congestive) heart failure Code(s): I50.9 - Heart failure, unspecified Status: Acute Assessment and Plan: Patient has been having increasing pedal edema prior to admission. Suspect heart failure from his profound anemia. Echo showing EF 35-40%, abnml LV diastolic function, HK inferior wall, mild to moderate MR and moderate pulmonary hypertension. Patient probably with acute exacerbation. BNP 3600. Suspect developed heart failure systems related to the anemia causing high output failure and with LV dysfunction. The LV dysfunction could be ischemic and/or alcohol related. Lasix on hold due to the GENARO, HoTN. CXR reviewed today and now showing bibasliar airspace disease. (6) Elevated liver enzymes: Code(s): R74.8 - Abnormal levels of other serum enzymes Status: Acute Assessment and Plan: AST/ALT normal on admission but have climbed to 2600 and 1940 on 12/22/19 felt related to shock liver. Hepatitis panel negative. Abd US 12/21/19 showing GB wall thickening, small volume of ascites, mild splenomegaly and a splenic hilum cystic area with lobulated margin may be a chronic hematoma. LFTs trending down as expected. Will continue
--- NOTE | 2019-12-23 15:25 | WPDGIPROGNO ---
Progress Note: A&P Assessment and Plan (1) Shock liver: Code(s): K72.00 - Acute and subacute hepatic failure without coma Status: Acute Assessment and Plan: he presented with shock, high lactic acid level that is normal now, still on levophed liver enzymes normal on admission but climbed to 2000's consistent with shock liver primary weaning pressors. EGD yesterday without any major findings, no stigmata of any bleeding, no varices. Only noted few gastric erosions but probably from NGT suction hepatitis panel negative (2) Macrocytic anemia: Code(s): D53.9 - Nutritional anemia, unspecified Status: Acute Assessment and Plan: no stigmata of bleeding in egd and there has not been report of recent GIB during this hospitalization hematology to see, also has low b12 and he is an alcoholic at some point may need colonoscopy when more stable (3) Acute respiratory failure: Code(s): J96.00 - Acute respiratory failure, unspecified whether with hypoxia or hypercapnia Status: Acute Assessment and Plan: still intubated, noted low grade fever and he is on abx (4) Symptomatic bradycardia: Code(s): R00.1 - Bradycardia, unspecified Status: Acute Assessment and Plan: required transvenous pacemaker (5) Elevated liver enzymes: Code(s): R74.8 - Abnormal levels of other serum enzymes Status: Acute Assessment and Plan: ultrasound showed possible chronic hematoma in spleen (will need CT scan a/p when able), abnormal finding in IVC was pacemaker and it was not a clot trend lft's (6) Coagulopathy: Code(s): D68.9 - Coagulation defect, unspecified Status: Acute Assessment and Plan: will repeat inr in am, probably from shock liver (7) Heart block AV second degree: Code(s): I44.1 - Atrioventricular block, second degree Status: Acute (8) Cardiomyopathy: Code(s): I42.9 - Cardiomyopathy, unspecified Status: Acute Subjective Date/time seen: 12/23/19 15:25 Interval history: still intubated and sedated, weaning levophed and off dopamine. No report of any GIB. He has OGT as feeding at 20 ml/h. Max temperature 100.6 Review of Systems Review of Systems: ROS unobtainable: Yes unobtainable due to endotracheal tube Exam Const: General: comfortable Other: intubated and sedated HENMT: Other: ETT in place Eyes: Pupils: Equal, round and reactive pupils present Other: pupils equal and reactive Neck: Neck: supple Resp: Effort & Inspection: normal respiratory effort Auscultation: no wheezes and diminished lung sounds Cardio: Rate: regular rate Rhythm: regular rhythm Other: paced rhythm GI: Inspection: non-distended GI Palp: Yes Soft to palpation and No Tenderness to palpation present (GI) Auscultation: normal bowel sounds and abnormal bowel sounds ( hypoactive bowel sounds) : Other: White catheter in place Urinary Catheter: Urinary Catheter: patent and draining and urine clear Skin: Other: venous stasis changes Neuro: Cranial nerves: Yes Equal, round and reactive pupils present Other: patient sedated, intubated Extrem: Other: bilateral lower extremity and pedal edema Psych: Other: unable to assess at this time Objective Data Vital Signs Vital Signs: Vital Signs - 24 hr 12/22/19 15:30 12/22/19 16:00 12/22/19 16:01 Temperature 99.5 F Pulse Rate 80 80 80 Pulse Rate [Bilateral Posterior Tibial Doppler] 80 Respiratory Rate 20 20 20 Blood Pressure 134/52 L Pulse Oximetry 95 94 12/22/19 17:00 12/22/19 17:09 12/22/19 17:11 Temperature Pulse Rate 80 81 Pulse Rate [Bilateral Posterior Tibial Doppler] 80 Respiratory Rate Blood Pressure 138/53 L Pulse Oximetry 94 12/22/19 17:15 12/22/19 17:18 12/22/19 18:00 Temperature Pulse Rate 80 80 80 Pulse Rate [Bilateral Posterior Tibial Doppler] 80 Respiratory Rate 20 20 17 Blood Pressure 138/57 L Pulse Oxime
--- NOTE | 2019-12-23 16:58 | PDONCCN ---
HPI - Date of Consult Date/Time: 12/23/19 16:58 Requesting Physician: Antoni Shah MD Primary Care Provider: UNKNOWN,DOCTOR - Consult Narrative Reason for consult: Profound anemia Narrative: Bora Curran is a 64 year old male This is a 64 year rule male who has been in good health except history of COPD and peptic ulcer disease along with history of drinking almost 4-6 beers a day. Patient is currently intubated. History was obtained with discussion with the . According to the patient was started on Lasix and Bystolic due to increasing swelling in the lower extremity. Patient developed sudden onset of weakness and fell on the ground. He had nausea and vomiting and developed hypotension and bradycardia. He was admitted to the hospital and emergently intubated. EKG showed third-degree AV block. There was no evidence of bleeding. According to patient has been pretty healthy and active previously. On admission hemoglobin was 5.5 with normal WBC and platelet count. He received blood transfusion within prove min in hemoglobin. His liver enzymes were normal on admission which has risen to 2602 AST now dropped down to 896. Hepatitis serology came back negative Vitamin B12 came back low at 202. Iron studies showed elevated iron saturation of 82% and serum iron of 243. Ferritin was 407. Review of Systems - Review of Systems All systems reviewed & are unremarkable except as noted in HPI and bel - Neurologic Reports weakness, Denies focal weakness, Denies numbness PMFSH Medical History: Medical History (Last Updated 12/23/19 @ 15:32 by Manuel Bush MD) Alcohol use COPD (chronic obstructive pulmonary disease) HTN (hypertension) with goal to be determined Macrocytic anemia PUD (peptic ulcer disease) Shock liver Surgical History: Surgical History (Last Updated 12/21/19 @ 02:53 by Antoni Shah MD) History of partial colectomy Family History: Family History (Last Updated 12/21/19 @ 02:54 by Antoni Shah MD) Mother Scoliosis - Social History Social History: Social History (Last Updated 12/21/19 @ 02:54 by Antoni Shah MD) Gender Identity: Gender identity (if verbalized by the patient): Male Sexual Orientation: Sexual Orientation (if Verbalized by the Patient): Straight or Heterosexual Alcohol Use: Alcohol intake: current Alcohol use details: daily drinker Substance Use: Substance use: unknown Others: Spiritual care concerns: No Smoking Status: Smoking status: Unknown if ever smoked Meds Home Medications Medication Instructions Recorded Confirmed Type fluticasone propion-salmeterol 1 inh INHALATION Q12H 12/20/19 12/21/19 History [Advair Diskus] furosemide 40 mg PO DAILY 12/20/19 12/21/19 History gabapentin 800 mg PO TID 12/20/19 12/21/19 History ipratropium-albuterol [Combivent 1 puff INHALATION Q4H 12/20/19 12/21/19 History Respimat] nebivolol [Bystolic] 10 mg PO DAILY 12/20/19 12/21/19 History omeprazole 40 mg PO DAILY 12/21/19 12/21/19 History Allergies Allergy/AdvReac Type Severity Reaction Status Date / Time No Known Allergies Allergy Verified 12/20/19 22:52 Results - Labs CBC & Chem 7: 12/23/19 08:51 12/23/19 04:08 Labs: Short CBC 12/23/19 Range/Units 08:51 WBC 2.7 L (4.5-10.0) K/mm3 Hgb 7.5 L (14.0-18.0) g/dL Hct 23.3 L (42.0-52.0) % Plt Count 165 (150-375) k/mm3 BMP 12/23/19 04:08 Sodium 136 L Potassium 3.9 Chloride 104 Carbon Dioxide 29 BUN 22 H Creatinine 0.80 Glucose 114 H Calcium 7.7 L Liver Function 12/23/19 Range/Units 04:08 Total Bilirubin 1.9 H (0.2-1.3) mg/dL AST 896 H (17-59) U/L ALT 1701 H (4-50) U/L Alkaline Phosphatase 54 (38-126) U/L Albumin 3.0 L (3.5-5.1) g/dL Assessment and Plan - Additional Plan Macrocytic anemia. Patient is a 64-year-old
[2019-12-23] MEDS: CYANOCOBALAMIN INJ 1,000 MCG/ML VIAL 1000 MCG IM (17:46)
[2019-12-23 17:48] LABS: Reticulocyte Hemoglobin Conten 35.3 pg (28.2-35.7); Reticulocyte Percent 1.86 % (0.7-4.3); Reticulocytes Absolute 0.04 B/L (32.2-175.7)
[2019-12-23 18:07] LABS: Lactate Dehydrogenase 1345 U/L (313-618)
[2019-12-23 23:31] LABS: Glucose Point of Care 144 (65-105)
[2019-12-24] VITALS (66 sets, daily range): BP systolic 99–161; BP diastolic 36–55; PULSE 80–86; RESP 12–26; TEMP 36.5–38.8; O2SAT 94–98
[2019-12-24] MEDS: ALBUTEROL SULFATE NEB 2.5 MG/0.5 ML INH 5 MG INHALATION ×4 (01:45→19:21)
[2019-12-24] MEDS: IPRATROPIUM BR 0.02% INH SOLN 0.5 MG/2.5 ML VIAL INHALATION ×4 (01:45→19:22)
[2019-12-24] MEDS: CENTRAL LINE FLUSH 10 ML IV PUSH ×3 (03:08→20:50)
[2019-12-24] MEDS: IBUPROFEN IV 400 MG in SODIUM CHLORIDE 0.9% IV 100 ML 200 MG IVPB ×2 (04:49→16:46)
[2019-12-24 05:12] LABS: Alveolar/Arterial O2 Gradient 237.5 mmHg; Base Excess ABG 1.5 mEq/l (+/-2.0); Fractional Inspired Oxygen 50 %; Oxygen Content ABG 10.1 %vol (16.0-22.0); Oxyhemoglobin 92.4 % THb (90.0-100.0); PCO2 ABG 40.8 mmHg (35.0-45.0); PO2 ABG 73.1 mmHg (80.0-100.0); PO2 FiO2 Ratio Arterial Blood 1.46 %; pH ABG 7.423 (7.350-7.450)
[2019-12-24 05:14] LABS: Arterial Blood Gas Vent Mode CMV; Arterial Blood Gas Ventilator rate 20 /MIN; Device VENTILATOR; Site Drawn ARTLINE; Total Hemoglobin 7.7 g/dL (12.0-18.0)
[2019-12-24 05:15] LABS: Arterial Blood Gas PEEP 5 cmH2O; Arterial Blood Gas Tidal Volume 500 ml
[2019-12-24 06:27] LABS: Hematocrit 22.5 % (42.0-52.0); Hemoglobin 7.3 g/dL (14.0-18.0); Immature Platelet Fraction Pct 19.1 % (0.9-11.2); Mean Corpuscular HGB Conc 32.4 g/dl (32-36); Mean Corpuscular Hemoglobin 36.1 pg (26-34); Mean Corpuscular Volume 111.4 fl (80-100); Mean Platelet Volume 13.5 fl (7.4-10.4); Platelet Count Result 183 k/mm3 (150-375); Red Blood Count 2.02 M/mm3 (4.6-6.20); White Blood Count 3.9 K/mm3 (4.5-10.0)
[2019-12-24 06:38] LABS: INR 1.5; Prothrombin Time 18.1 Seconds (11.1-14.7)
[2019-12-24 06:39] LABS: Partial Thromboplastin Time 40.5 SECONDS (22.3-36.8)
[2019-12-24 07:02] LABS: Lactic Acid Reflex 1.1 mmol/L (0.7-2.1)
[2019-12-24 07:21] LABS: Albumin Level 2.8 g/dL (3.5-5.1); Alkaline Phosphatase 50 U/L (38-126); Anion Gap 2 mmol/L (8-16); Aspartate Amino Transferase 351 U/L (17-59); Bilirubin,Total 3.1 mg/dL (0.2-1.3); Blood Urea Nitrogen 19 mg/dL (9-20); CRP 21.6 mg/dL (<1.0); Calcium 7.8 mg/dL (8.4-10.2); Carbon Dioxide 31 mmol/L (22-30); Chloride 104 mmol/L (98-107); Estimated CRCL calculation 89 ml/min; Estimated Glomerular Filt Rate > 60; Glucose 135 mg/dL (75-110); Phosphorus 2.1 mg/dL (2.5-4.5); Sodium 137 mmol/L (137-145)
[2019-12-24 07:53] LABS: Alanine Aminotransferase 1185 U/L (4-50)
--- NOTE | 2019-12-24 09:08 | WPDGIPROGNO ---
Progress Note: A&P Assessment and Plan (1) Shock liver: Code(s): K72.00 - Acute and subacute hepatic failure without coma Status: Acute Assessment and Plan: Patient has elevated LFTs most consistent with shock liver. I expect these to improve. Uncertain what baseline is given his his underlying history of alcohol use. Plan is for supportive care at this time. 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 It was felt this may be a pacemaker rather than a thrombus. Continue to monitor. (3) Alcohol use: Code(s): Z72.89 - Other problems related to lifestyle Status: Acute Assessment and Plan: Patient has underlying history of alcohol abuse. Suspicion at may contribute to his other comorbid diseases. Uncertain whether underlying liver dysfunction. Will monitor for now. (4) Macrocytic anemia: Code(s): D53.9 - Nutritional anemia, unspecified Status: Acute Assessment and Plan: Macrocytic anemia noted on admission. B12 level reported to be adequate. Suspect this may be related to underlying liver disease. Given his strong history of alcohol abuse. There has been no description her history of GI blood loss. Recent EGD unremarkable. Anemia likely related to alcoholic bone marrow suppression. Cannot exclude other etiologies. Agree with Hematology evaluation. Continue monitor hemoglobin. Consider elective colonoscopy at a later day. (5) Coagulopathy: Code(s): D68.9 - Coagulation defect, unspecified Status: Acute (6) Shock: Code(s): R57.9 - Shock, unspecified Status: Acute Assessment and Plan: Cardiogenic shock. Cardiology service following. Symptomatic bradycardia at the time of admission. Current heart rate has normalized. (7) Alcohol abuse: Code(s): F10.10 - Alcohol abuse, uncomplicated Status: Chronic Subjective Date/time seen: 12/24/19 09:08 Patient remains intubated on the ventilator. Sedated unable to get his history at this time. Patient receiving NG tube feedings currently. No evidence for GI blood loss. Review of Systems Review of Systems: ROS unobtainable: Yes unobtainable due to endotracheal tube Exam Narrative: Exam Narrative: Patient is sedated. Current vital signs appear stable. HEENT exam reveals no icterus. Lungs reveal scattered rhonchi. Heart without murmur. Abdomen bowel sounds are present soft no localized tenderness evident. No organomegaly evident. Objective Data Vital Signs Vital Signs: Vital Signs - 24 hr 12/23/19 10:00 12/23/19 11:30 12/23/19 12:00 Temperature 100.2 F H 99.9 F H Pulse Rate 80 80 80 Respiratory Rate 20 20 Blood Pressure 124/35 L 137/34 L Pulse Oximetry 95 95 95 12/23/19 12:30 12/23/19 13:11 12/23/19 14:00 Temperature 99.5 F Pulse Rate 80 80 80 Respiratory Rate 20 20 20 Blood Pressure 127/63 Pulse Oximetry 96 12/23/19 14:21 12/23/19 14:47 12/23/19 14:55 Temperature Pulse Rate 80 80 80 Respiratory Rate 23 H Blood Pressure 125/45 L Pulse Oximetry 96 12/23/19 14:57 12/23/19 15:00 12/23/19 16:00 Temperature 99.5 F Pulse Rate 80 80 80 Respiratory Rate 21 H 20 Blood Pressure 120/42 L 128/43 L Pulse Oximetry 96 12/23/19 17:20 12/23/19 17:21 12/23/19 17:34 Temperature Pulse Rate 80 80 80 Respiratory Rate 20 Blood Pressure Pulse Oximetry 92 12/23/19 17:45 12/23/19 18:00 12/23/19 19:51 Temperature 99.4 F Pulse Rate 80 80 80 Respiratory Rate 20 20 20 Blood Pressure 131/42 L Pulse Oximetry 92 12/23/19 20:00 12/23/19 20:04 12/23/19 20:09 Temperature 99.8 F H Pulse Rate 80 80 80 Respiratory Rate 20 19 Blood Pressure 137/45 L Pulse Oximetry 94 96 12/23/19 20:11 12/23/19 21:03 12/23/19 21:04 Temperature Pulse Rate 80 80 80 Respiratory Rate 20
--- NOTE | 2019-12-24 09:18 | PM.PNCARD ---
Progress Note: A&P Assessment and Plan (1) Heart block AV second degree: Code(s): I44.1 - Atrioventricular block, second degree Status: Acute Assessment and Plan: temporary wires in place. Pacing well. Capturing okay . will schedule permanent pacemaker. dual chamber Biotronik device is scheduled to be placed on Thursday morning. Coagulopathy is improving. (2) Lactic acidosis: Code(s): E87.2 - Acidosis Status: Acute Assessment and Plan: resolved (3) Cardiomyopathy: Code(s): I42.9 - Cardiomyopathy, unspecified Status: Acute Assessment and Plan: moderate with wall motion abnormalities present. Likely has underlying CAD also. He eventually will need cardiac catheterization. will give 1 dose of furosemide 20 mg IV x1. He did receive a lot of blood products and fluids initially. He does have some small effusions noted by chest x-ray will help mobilize some of this fluid by low-dose diuresis (4) Elevated liver enzymes: Code(s): R74.8 - Abnormal levels of other serum enzymes Status: Acute Assessment and Plan: continues to improve (5) Alcohol use: Code(s): Z72.89 - Other problems related to lifestyle Status: Acute (6) Macrocytic anemia: Code(s): D53.9 - Nutritional anemia, unspecified Status: Acute Assessment and Plan: hematology involved Subjective Date/time seen: 12/24/19 09:18 Interval history: 64yo male with COPD and HTN here for generalized weakness and found to be bradycardic. Patient intubated and sedated. date of service 12/24/2019: Still intubated and sedated. paced rhythm Continues. Liver function and kidney function are both improving. Anemia workup still in progress. Responsive to pain Review of Systems Review of Systems: All systems reviewed & are unremarkable except as noted in HPI and below ROS unobtainable: Yes unobtainable due to endotracheal tube and unobtainable due to medical condition Exam Const: Other: Chronically ill-appearing patient sedated and on mechanical ventilator HENMT: Mouth: Yes moist mucous membranes and Yes dry mucous membranes Eyes: Sclera: sclerae normal Neck: Neck: no JVD Other: no obvious venous distension carotid pulses are normal bilaterally Resp: Other: scattered central rhonchi otherwise relatively good air exchange Cardio: Jugular venous distension: other ( Paced rhythm) Rate: regular rate and other Rhythm: regular rhythm Other: paced rhythm at 80 beats per minute GI: Auscultation: normal bowel sounds Skin: General skin exam: normal color Neuro: Other: sedated on ventilator support Extrem: General: normal to inspection Other: bilateral lower extremity edema is now appreciated Objective Data Vital Signs Vital Signs: Vital Signs - 24 hr 12/23/19 10:00 12/23/19 11:30 12/23/19 12:00 Temperature 37.9 C H 37.7 C H Pulse Rate 80 80 80 Respiratory Rate 20 20 Blood Pressure 124/35 L 137/34 L Pulse Oximetry 95 95 95 12/23/19 12:30 12/23/19 13:11 12/23/19 14:00 Temperature 37.5 C Pulse Rate 80 80 80 Respiratory Rate 20 20 20 Blood Pressure 127/63 Pulse Oximetry 96 12/23/19 14:21 12/23/19 14:47 12/23/19 14:55 Temperature Pulse Rate 80 80 80 Respiratory Rate 23 H Blood Pressure 125/45 L Pulse Oximetry 96 12/23/19 14:57 12/23/19 15:00 12/23/19 16:00 Temperature 37.5 C Pulse Rate 80 80 80 Respiratory Rate 21 H 20 Blood Pressure 120/42 L 128/43 L Pulse Oximetry 96 12/23/19 17:20 12/23/19 17:21 12/23/19 17:34 Temperature Pulse Rate 80 80 80 Respiratory Rate 20 Blood Pressure Pulse Oximetry 92 12/23/19 17:45 12/23/19 18:00 12/23/19 19:51 Temperature 37.4 C Pulse Rate 80 80 80 Respiratory Rate 20 20 20 Blood Pressure 131/42 L Pulse Oximetry 92 12/23/19 20:00 12/23/19 20:04 12/23/19 20:09 Temperature 37.7 C H Pulse Rate 80 80 80 Respirat
[2019-12-24] MEDS: POTASSIUM PHOS,M-BASIC-D-BASIC 20 MMOL in SODIUM CHLORIDE 0.9% IV 250 ML 62.5 MMOL IVPB (09:30)
[2019-12-24] MEDS: PANTOPRAZOLE SODIUM IV 40 MG VIAL IV PUSH ×2 (09:34→21:36)
[2019-12-24] MEDS: THIAMINE HCL 200 MG/2 ML VIAL 100 MG IV PUSH (09:34)
[2019-12-24] MEDS: FUROSEMIDE INJ 40 MG/4 ML VIAL 20 MG IV PUSH (10:08)
--- NOTE | 2019-12-24 11:35 | PCFNICU ---
ICU Rounding Note: Pt current nutrition is Vital AF 1.2 at 50 ml/hr. Nutrition recommendation: TF goal rate at 60 ml/hr Last recorded weight is 83.3kg down from 87 kg. Bowel Motility:No BM reported at this time. Labs Reviewed:Hgb 7.3, Hct 22.5,Alb 2.8,Glu 135 Meds Noted:Levophed,Protonix,Thiamine,Versed,Vancomycin,Protonix. Additional Notes: Patient remains on mechanical vent with tube feeding of Vital AF 1.2 at 50 ml/hr and tolerating with plans to advance to goal rate of 60 ml/hr. Lungs-diminished per nursing. Plans for pacemaker on Tuesday 12/26. Following daily in ICU rounds. Assessing/reassessing every Thursday and Thursday.
--- NOTE | 2019-12-24 13:27 | WPDINTPN ---
Progress Note: A&P Assessment and Plan (1) Acute respiratory failure: Code(s): J96.00 - Acute respiratory failure, unspecified whether with hypoxia or hypercapnia Status: Acute Assessment and Plan: acute respiratory failure secondary to nausea and vomiting with decreased responsiveness. Patient was intubated on 12/21/2019 for airway protection - currently on CMV mode of ventilation With tidal volume 500, peep of 5 and FiO2 of 50%. ABGs and chest x-ray reviewed, ventilator adjusted - chest x-ray reviewed, bibasal airspace opacities. He has increased secretions and requiring escalating dose of Levophed. He is not a candidate for SBT trial today. (2) Shock: Code(s): R57.9 - Shock, unspecified Status: Acute Assessment and Plan: patient presented with elevated lactic acid levels, hypotension, severe anemia, hemorrhagic shock - patient received IV fluid bolus of 1 L in the ED, received 2 units of packed RBCs - patient off dopamine, on Levophed, maintain mean arterial pressures greater than 70 mmHg for adequate renal and liver perfusion. Wean Levophed if tolerated. - lactic acid normalized - patient leukopenic, febrile, along with airway opacities and E coli UTI. He is currently on cefepime and vancomycin. Will deescalate and stop vancomycin in the next 1 or 2 days if no further culture growth. (3) Symptomatic bradycardia: Code(s): R00.1 - Bradycardia, unspecified Status: Acute Assessment and Plan: type 2 av block for 2-1 conduction with symptomatic severe bradycardia, hypotension and shock - temporary pacemaker inserted by cardiology on 12/21/2019, capturing well at rate of 80. Patient is being paced continuously, his intrinsic rhythm has not changed and so he is being supported at 80 beats per minute with pacing. - Patient is off dopamine. Currently on Levophed of 5 mcg. Wean Levophed if tolerated. - cardiology following and plan for permanent pacemaker placement on Thursday. (4) GENARO (acute kidney injury): Code(s): N17.9 - Acute kidney failure, unspecified Status: Acute Assessment and Plan: acute kidney injury likely related to hypotension, severe bradycardia, shock. Creatinine down to normal, ( creatinine peaked at 1.7.) - Patient was adequately fluid-resuscitated along with packed RBCs - urine output has improved lactic acid normalized ( 6.3 on admission) - Continue to monitor renal function, electrolytes and urine output (5) COPD (chronic obstructive pulmonary disease): Qualifiers: COPD type: unspecified COPD Qualified Code(s): J44.9 - Chronic obstructive pulmonary disease, unspecified Code(s): J44.9 - Chronic obstructive pulmonary disease, unspecified Status: Chronic Assessment and Plan: continue bronchodilators Steroid is not indicated. (6) DVT prophylaxis: Code(s): Z29.9 - Encounter for prophylactic measures, unspecified Status: Acute Assessment and Plan: SCDs. No subcu heparin because of severe anemia. (7) Severe anemia: Code(s): D64.9 - Anemia, unspecified Status: Acute Assessment and Plan: patient with severe anemia, hemoglobin 5.5 on admission - NG tube with clear drainage - elevated MCV, low vitamin B12 levels, no iron deficiency - could be related to alcoholism versus bone marrow dysfunction - received 1 unit of FFP and vitamin K on 12/22/2019 - EGD done which was clean with no significant finding to suggest blood loss. Dr. Resendez, to perform a colonoscopy when patient is more stable - Hematology service recommendations appreciated. Hemolysis workup underway. (8) Cardiomyopathy: Code(s): I42.9 - Cardiomyopathy, unspecified Status: Acute Assessment and Plan: 12/21/2019 echocardiogram, EF 35-40%, left ventricular septal wall motion is abnormal, inferior wall is hypokinetic, mild to moderate mitral valve regurg, moderate pu
--- NOTE | 2019-12-24 14:57 | PM.IMPN ---
Progress Note: A&P Assessment and Plan (1) Acute respiratory failure: Code(s): J96.00 - Acute respiratory failure, unspecified whether with hypoxia or hypercapnia Status: Acute Assessment and Plan: Patient was bradycardic, HoTN with n/v requiring intubation in the ER. ABG showing acute respiratory failure with pH 7.13 and pCO2 51. Admitted to the ICU. Patient remains intubated and sedated. ABG normal today. Continue nebulizer treatments. Vent management per limnologist. Wean vent as tolerated. (2) Symptomatic bradycardia: Code(s): R00.1 - Bradycardia, unspecified Status: Acute Assessment and Plan: Patient started taking Bystolic on the day of admission. Patient became symptomatic and found to be bradycardic and hypotensive by EMS. In the ER, he received NS IV bolus, glucagon IV, atropine, and calcium gluconate. EKG showing 2:1 AV block with bradycardia. External pacer placed. The patient started on Dopamine and Levophed. He was seen by Cardiology and temporary transvenous pacemaker placed 12/21/19. Able to be weaned off of the Dopamine. Could be related to the bystolic and HoTN from the profound anemia. Still bradycardic when holding the pacer on 12/23/19. Currently with paced rhythm. Pacemaker being considered. (3) Shock: Code(s): R57.9 - Shock, unspecified Status: Acute Assessment and Plan: Patient with profound anemia with HoTN and bradycardia. Possibly cardiogenic from the bradycardia. Consider also hypovolemic shock from the blood loss complicated by the bystolic and Lasix. The patient may have had compensatory tachycardia but blocked down with the Bystolic (although still bradycardic off Bystolic). He also may have had this anemia for a while resulting in the leg edema from high output failure. The patient required vasopressor support with Levophed and Dopamine. Able to come off of the dopamine. Only off Levophed briefly a few days ago; able to come down today on the Levophed. BP better overall. BCx NGTD. Still with fevers. Continue broad spectrum abx added for possible VAP. UCx growing EColi but only 50-100K colonies and feel probably unlikely contributing to current problems. (4) Coagulopathy: Code(s): D68.9 - Coagulation defect, unspecified Status: Acute Assessment and Plan: INR 1.3 on admission probably related to underlying liver disease from his alcoholism. INR up to 2.1 felt related to hepatic dysfunction. He was given one unit of FFP on 12/22/19. INR better at 1.5 today. Continue to follow. (5) CHF (congestive heart failure): Qualifiers: Heart failure chronicity: acute Heart failure type: combined systolic and diastolic Qualified Code(s): I50.41 - Acute combined systolic (congestive) and diastolic (congestive) heart failure Code(s): I50.9 - Heart failure, unspecified Status: Acute Assessment and Plan: Patient has been having increasing pedal edema prior to admission. Suspect heart failure from his profound anemia. Echo showing EF 35-40%, abnml LV diastolic function, HK inferior wall, mild to moderate MR and moderate pulmonary hypertension. Patient probably with acute exacerbation. BNP 3600. Suspect developed heart failure systems related to the anemia causing high output failure and with LV dysfunction. The LV dysfunction could be ischemic and/or alcohol related. Lasix x 1 given with good UOP. CXR reviewed today and now showing persistent bibasliar airspace disease. (6) Elevated liver enzymes: Code(s): R74.8 - Abnormal levels of other serum enzymes Status: Acute Assessment and Plan: AST/ALT normal on admission but have climbed to 2600 and 1940 on 12/22/19 felt related to shock liver. Hepatitis panel negative. Abd US 12/21/19 showing GB wall thickening, small volume of ascites, mild splenomegaly and a splenic hilum cystic area with lobulated margin may be a chroni
[2019-12-24] MEDS: CYANOCOBALAMIN INJ 1,000 MCG/ML VIAL 1000 MCG IM (16:46)
[2019-12-24 20:44] LABS: Vancomycin Trough 16.4 ug/mL (10.0-20.0)
[2019-12-24] MEDS: NOREPINEPHRINE 8 MG/D5W 250 ML 8 MG/250 ML BAG 15 MG IV CONT (21:43)
[2019-12-25] VITALS (72 sets, daily range): BP systolic 104–165; BP diastolic 34–76; PULSE 79–99; RESP 15–23; TEMP 36.4–38.4; O2SAT 92–98
[2019-12-25 00:30] LABS: Glucose Point of Care 164 (65-105)
[2019-12-25] MEDS: IPRATROPIUM BR 0.02% INH SOLN 0.5 MG/2.5 ML VIAL INHALATION ×4 (01:23→20:07)
[2019-12-25] MEDS: ALBUTEROL SULFATE NEB 2.5 MG/0.5 ML INH 5 MG INHALATION ×4 (01:23→20:07)
[2019-12-25 04:16] LABS: Alveolar/Arterial O2 Gradient 195.6 mmHg; Base Excess ABG 3.3 mEq/l (+/-2.0); Fractional Inspired Oxygen 50 %; HCO3 ABG 28.5 mEq/l (22.0-26.0); Oxygen Content ABG 10.8 %vol (16.0-22.0); Oxygen Saturation ABG 97.4 % (95.0-100.0); Oxyhemoglobin 95.4 % THb (90.0-100.0); PCO2 ABG 46.9 mmHg (35.0-45.0); PO2 ABG 98.3 mmHg (80.0-100.0); PO2 FiO2 Ratio Arterial Blood 1.97 %; pH ABG 7.401 (7.350-7.450)
[2019-12-25 04:18] LABS: Arterial Blood Gas Vent Mode CMV; Arterial Blood Gas Ventilator rate 20 /MIN; Device VENTILATOR; Site Drawn ARTLINE; Total Hemoglobin 7.9 g/dL (12.0-18.0)
[2019-12-25 04:19] LABS: Arterial Blood Gas PEEP 5 cmH2O; Arterial Blood Gas Tidal Volume 500 ml
[2019-12-25] MEDS: CENTRAL LINE FLUSH 10 ML IV PUSH ×3 (04:45→20:09)
[2019-12-25 05:40] LABS: Hematocrit 22.5 % (42.0-52.0); Hemoglobin 7.2 g/dL (14.0-18.0); Immature Platelet Fraction Pct 20.4 % (0.9-11.2); Mean Corpuscular Hemoglobin 35.8 pg (26-34); Mean Corpuscular Volume 111.9 fl (80-100); Platelet Count Result 218 k/mm3 (150-375); Red Blood Count 2.01 M/mm3 (4.6-6.20); Red Cell Distribution Width 29.6 % (11.5-14.5); White Blood Count 4.1 K/mm3 (4.5-10.0)
[2019-12-25 06:04] LABS: Albumin Level 2.8 g/dL (3.5-5.1); Alkaline Phosphatase 50 U/L (38-126); Anion Gap 3 mmol/L (8-16); Aspartate Amino Transferase 136 U/L (17-59); Bilirubin,Total 1.9 mg/dL (0.2-1.3); Blood Urea Nitrogen 21 mg/dL (9-20); Calcium 8.1 mg/dL (8.4-10.2); Carbon Dioxide 31 mmol/L (22-30); Chloride 103 mmol/L (98-107); Estimated CRCL calculation 101 ml/min; Estimated Glomerular Filt Rate > 60; Glucose 150 mg/dL (75-110); Magnesium 1.8 mg/dL (1.6-2.3); Phosphorus 2.8 mg/dL (2.5-4.5); Potassium 4.3 mmol/L (3.4-5.0); Sodium 137 mmol/L (137-145)
[2019-12-25 06:05] LABS: Alanine Aminotransferase 812 U/L (4-50); CRP 21.2 mg/dL (<1.0)
[2019-12-25 06:16] LABS: Ammonia < 9 umol/L (9-30)
--- NOTE | 2019-12-25 08:16 | PM.IMPN ---
Progress Note: A&P Assessment and Plan (1) Acute respiratory failure: Code(s): J96.00 - Acute respiratory failure, unspecified whether with hypoxia or hypercapnia Status: Acute Assessment and Plan: Patient was bradycardic, HoTN with n/v requiring intubation in the ER. ABG showing acute respiratory failure with pH 7.13 and pCO2 51. Admitted to the ICU. Patient remains intubated and sedated. ABG normal today. Continue nebulizer treatments. Vent management per airport operations supervisor. Wean vent as tolerated. (2) Sepsis: Code(s): A41.9 - Sepsis, unspecified organism Status: Acute Assessment and Plan: Patient now with high fevers without clear etiology but suspect VAP. CXR with bibasilar infiltrates. UCx noted but not felt to be the source of his on going fevers. BCx NGTD. Now with increased secretions. Sputum sent. Continue nebs. Continue IV abx. Pulmozyme added. Sedation holiday to make sure he wakes up - if not, he will need CT brain. (3) Heart block AV second degree: Code(s): I44.1 - Atrioventricular block, second degree Status: Acute Assessment and Plan: Patient started taking Bystolic on the day of admission. Patient became symptomatic and found to be bradycardic and hypotensive by EMS. In the ER, he received NS IV bolus, glucagon IV, atropine, and calcium gluconate. EKG showing 2:1 AV block with bradycardia. External pacer placed. The patient started on Dopamine and Levophed. He was seen by Cardiology and temporary transvenous pacemaker placed 12/21/19. Able to be weaned off of the Dopamine. Could be related to the bystolic and HoTN from the profound anemia. Still bradycardic when holding the pacer on 12/23/19. Weaned off Levophed this morning. Currently with paced rhythm. Pacemaker being considered. (4) Shock: Code(s): R57.9 - Shock, unspecified Status: Acute Assessment and Plan: Patient with profound anemia with HoTN and bradycardia. Possibly cardiogenic from the bradycardia. Consider also hypovolemic shock from the blood loss complicated by the bystolic and Lasix. The patient may have had compensatory tachycardia but blocked down with the Bystolic (although still bradycardic off Bystolic). He also may have had this anemia for a while resulting in the leg edema from high output failure. The patient required vasopressor support with Levophed and Dopamine. Able to come off of the dopamine. Able to come off Levophed this morning. BP better overall. BCx NGTD. Still with fevers. Continue broad spectrum abx that were added for possible VAP. UCx growing EColi but only 50-100K colonies and feel probably unlikely contributing to current problems. Sputum Cx pending. (5) Coagulopathy: Code(s): D68.9 - Coagulation defect, unspecified Status: Acute Assessment and Plan: INR 1.3 on admission probably related to underlying liver disease from his alcoholism. INR up to 2.1 felt related to hepatic dysfunction and was given one unit of FFP on 12/22/19. INR better at 1.5 yesterday. Continue to follow. Repeat INR. (6) CHF (congestive heart failure): Qualifiers: Heart failure chronicity: acute Heart failure type: combined systolic and diastolic Qualified Code(s): I50.41 - Acute combined systolic (congestive) and diastolic (congestive) heart failure Code(s): I50.9 - Heart failure, unspecified Status: Acute Assessment and Plan: Patient has been having increasing pedal edema prior to admission. Suspect heart failure from his profound anemia. Echo showing EF 35-40%, abnml LV diastolic function, HK inferior wall, mild to moderate MR and moderate pulmonary hypertension. Patient probably with acute exacerbation. BNP 3600. Suspect developed heart failure systems related to the anemia causing high output failure and with LV dysfunction. The LV dysfunction could be ischemic and/or alcohol related. Johnna
[2019-12-25] MEDS: DORNASE ALFA INH SOLN 1 MG/ML 2.5 ML AMP 2.5 MG INHALATION ×2 (08:19→20:07)
[2019-12-25] MEDS: methylPREDNISolone SOD SUCC 40 MG VIAL IV PUSH ×3 (08:30→21:03)
[2019-12-25] MEDS: FUROSEMIDE INJ 40 MG/4 ML VIAL IV PUSH (08:30)
[2019-12-25] MEDS: THIAMINE HCL 200 MG/2 ML VIAL 100 MG IV PUSH (08:31)
[2019-12-25] MEDS: PANTOPRAZOLE SODIUM IV 40 MG VIAL IV PUSH ×2 (08:31→21:03)
--- NOTE | 2019-12-25 08:51 | WPDGIPROGNO ---
Progress Note: A&P Assessment and Plan (1) Shock liver: Code(s): K72.00 - Acute and subacute hepatic failure without coma Status: Acute Assessment and Plan: LFTs continue to improve as expected after hypotensive event. Cardiogenic shock resolving. Plan to continue monitor LFTs till resolution. Cannot be certain there is not some degree of underlying liver disease given his history of alcohol abuse. (2) Heart block AV second degree: Code(s): I44.1 - Atrioventricular block, second degree Status: Acute Assessment and Plan: Patient now status post pacemaker. Cardiology service following. (3) Coagulopathy: Code(s): D68.9 - Coagulation defect, unspecified Status: Acute (4) Elevated liver enzymes: Code(s): R74.8 - Abnormal levels of other serum enzymes Status: Acute Assessment and Plan: Elevated LFTs likely secondary to shock liver. Suspicion he may have some degree of underlying liver disease. With will follow peripherally. Gallbladder ultrasound revealed essentially nonspecific findings. (5) Alcohol use: Code(s): Z72.89 - Other problems related to lifestyle Status: Acute (6) Macrocytic anemia: Code(s): D53.9 - Nutritional anemia, unspecified Status: Acute Assessment and Plan: Macrocytic anemia identified. Suspect this may be related to alcoholic liver disease. Plan to continue to monitor hemoglobin. Hematology evaluation at some point may be prudent. Recent EGD unremarkable. There has been no evidence for GI blood loss. (7) Cardiogenic shock: Code(s): R57.0 - Cardiogenic shock Status: Acute (8) Acute respiratory failure: Code(s): J96.00 - Acute respiratory failure, unspecified whether with hypoxia or hypercapnia Status: Acute Assessment and Plan: Patient remains on ventilator. Sedated at present. Subjective Date/time seen: 12/25/19 08:52 Patient remains intubated. No longer on pressor agents. Sedated. Unable to add any history. No GI bleeding reported. He has had no bowel movements over the last day or 2. Nursing staff reports no obvious bleeding. Review of Systems Review of Systems: ROS unobtainable: Yes unobtainable due to endotracheal tube Exam Narrative: Exam Narrative: Vital signs stable at present. Patient remains intubated. Lungs reveal a few rhonchi. Heart without murmur. Abdomen bowel sounds are present soft no localized tenderness no masses. Digital rectal exam unremarkable. No stool obtained. Objective Data Vital Signs Vital Signs: Vital Signs - 24 hr 12/24/19 09:00 12/24/19 09:16 12/24/19 09:17 Temperature 97.7 F Pulse Rate 80 80 80 Pulse Rate [Bilateral Posterior Tibial Doppler] 80 Respiratory Rate 20 18 Blood Pressure 121/42 L 126/44 L Pulse Oximetry 95 12/24/19 10:00 12/24/19 10:17 12/24/19 10:22 Temperature 97.9 F Pulse Rate 80 80 Pulse Rate [Bilateral Posterior Tibial Doppler] 80 Respiratory Rate 18 Blood Pressure 132/45 L 144/50 H Pulse Oximetry 95 12/24/19 10:50 12/24/19 11:00 12/24/19 11:43 Temperature 98.3 F Pulse Rate 80 80 Pulse Rate [Bilateral Posterior Tibial Doppler] 81 80 Respiratory Rate 12 Blood Pressure 135/46 L Pulse Oximetry 96 96 12/24/19 11:44 12/24/19 11:45 12/24/19 12:00 Temperature 98.9 F Pulse Rate 80 80 80 Pulse Rate [Bilateral Posterior Tibial Doppler] Respiratory Rate 21 H 26 H Blood Pressure 149/49 H 137/46 L Pulse Oximetry 97 12/24/19 13:00 12/24/19 13:45 12/24/19 13:46 Temperature 99.8 F H Pulse Rate 80 80 80 Pulse Rate [Bilateral Posterior Tibial Doppler] 80 Respiratory Rate 13 24 H Blood Pressure 136/43 L Pulse Oximetry 95 96 12/24/19 13:51 12/24/19 14:00 12/24/19 14:18 Temperature 100.6 F H Pulse Rate 80 80 80 Pulse Rate [Bilateral Posterior Tibial Doppler] 80 Respiratory Rate 23 H 14 Blood Pressure 140/43 L 153/49 H Pu
--- NOTE | 2019-12-25 09:33 | PM.PNCARD ---
Progress Note: A&P Assessment and Plan (1) Heart block AV second degree: Code(s): I44.1 - Atrioventricular block, second degree Status: Acute Assessment and Plan: temporary wires in place. Pacing well. Capturing okay . site looks clean will schedule permanent pacemaker. temporarily planning dual chamber Biotronik device is scheduled to be placed on Thursday morning. Coagulopathy is improving. however if he continues to spike fevers, this will have to be delayed. ? alcohol withdrawal versus underlying infection. (2) Lactic acidosis: Code(s): E87.2 - Acidosis Status: Acute Assessment and Plan: resolved (3) Cardiomyopathy: Code(s): I42.9 - Cardiomyopathy, unspecified Status: Acute Assessment and Plan: moderate with wall motion abnormalities present. Likely has underlying CAD also. He eventually will need cardiac catheterization. Furosemide 40 mg IV x1. He did receive a lot of blood products and fluids initially. He does have some small effusions noted by chest x-ray will help mobilize some of this fluid by low-dose diuresis (4) Elevated liver enzymes: Code(s): R74.8 - Abnormal levels of other serum enzymes Status: Acute Assessment and Plan: continues to improve (5) Alcohol use: Code(s): Z72.89 - Other problems related to lifestyle Status: Acute (6) Macrocytic anemia: Code(s): D53.9 - Nutritional anemia, unspecified Status: Acute Assessment and Plan: hematology involved (7) Hypertension: Code(s): I10 - Essential (primary) hypertension Status: Acute Assessment and Plan: may need to add an YOSELYN-inhibitor /Arb soon if he remains hypertensive Subjective Date/time seen: 12/25/19 09:33 Interval history: 64yo male with COPD and HTN here for generalized weakness and found to be bradycardic. Patient intubated and sedated. date of service 12/25/2019: Still intubated and sedated. paced rhythm . Blood pressure is elevated. Off Levophed. Unfortunately spiking temperatures Review of Systems Review of Systems: All systems reviewed & are unremarkable except as noted in HPI and below ROS unobtainable: Yes unobtainable due to endotracheal tube and unobtainable due to medical condition Exam Const: Other: Chronically ill-appearing patient sedated and on mechanical ventilator HENMT: Mouth: Yes moist mucous membranes and Yes dry mucous membranes Eyes: Sclera: sclerae normal Neck: Neck: no JVD Other: no obvious venous distension carotid pulses are normal bilaterally Resp: Other: scattered central rhonchi otherwise relatively good air exchange Cardio: Jugular venous distension: other ( Paced rhythm) Rate: regular rate and other Rhythm: regular rhythm Other: paced rhythm at 80 beats per minute GI: Auscultation: normal bowel sounds Skin: General skin exam: normal color Neuro: Other: sedated on ventilator support Extrem: General: normal to inspection Other: bilateral lower extremity edema is now appreciated Objective Data Vital Signs Vital Signs: Vital Signs - 24 hr 12/24/19 10:00 12/24/19 10:17 12/24/19 10:22 Temperature 36.6 C Pulse Rate 80 80 Pulse Rate [Bilateral Posterior Tibial Doppler] 80 Respiratory Rate 18 Blood Pressure 132/45 L 144/50 H Pulse Oximetry 95 12/24/19 10:50 12/24/19 11:00 12/24/19 11:43 Temperature 36.8 C Pulse Rate 80 80 Pulse Rate [Bilateral Posterior Tibial Doppler] 81 80 Respiratory Rate 12 Blood Pressure 135/46 L Pulse Oximetry 96 96 12/24/19 11:44 12/24/19 11:45 12/24/19 12:00 Temperature 37.2 C Pulse Rate 80 80 80 Pulse Rate [Bilateral Posterior Tibial Doppler] Respiratory Rate 21 H 26 H Blood Pressure 149/49 H 137/46 L Pulse Oximetry 97 12/24/19 13:00 12/24/19 13:45 12/24/19 13:46 Temperature 37.7 C H Pulse Rate 80 80 80 Pulse Rate [Bilateral Posterior Tibial Doppl
[2019-12-25] MEDS: METOCLOPRAMIDE HCL INJ 10 MG/2 ML VIAL 5 MG IV PUSH ×4 (09:43→23:22)
[2019-12-25 10:34] LABS: INR 1.3; Prothrombin Time 16.2 Seconds (11.1-14.7)
[2019-12-25 10:35] LABS: Lactate Dehydrogenase 698 U/L (313-618); Lipase 11 U/L (23-300)
[2019-12-25 11:16] LABS: HIV 1/2 Ab P24 Ag Result Negative (Negative)
--- NOTE | 2019-12-25 14:21 | WPDINTPN ---
Progress Note: A&P Assessment and Plan (1) Acute respiratory failure: Code(s): J96.00 - Acute respiratory failure, unspecified whether with hypoxia or hypercapnia Status: Acute Assessment and Plan: acute respiratory failure secondary to nausea and vomiting with decreased responsiveness. Patient was intubated on 12/21/2019 for airway protection - currently on CMV mode of ventilation With tidal volume 500, peep of 5 and FiO2 of 50%. ABGs and chest x-ray reviewed, ventilator adjusted Were made. He is not a candidate for SBT trial today because of significant amount of secretions. Continue antibiotics. Will add Flagyl to his regimen. Significant amount of tube feed has been aspirated from his ET tube today. - chest x-ray reviewed, bibasal airspace opacities. He does have history of COPD. He was bronchospastic today and has significant wheezing. He will be started on steroid. Wean steroid depending upon his clinical response. He would continued on bronchodilator in the meantime. (2) Shock: Code(s): R57.9 - Shock, unspecified Status: Acute Assessment and Plan: patient presented with elevated lactic acid levels, hypotension, severe anemia, hemorrhagic shock - patient received IV fluid bolus of 1 L in the ED, received 2 units of packed RBCs - He has been weaned off from dopamine and Levophed already. - lactic acid normalized - patient leukopenic, febrile, along with airway opacities and E coli UTI. He is currently on cefepime and vancomycin. Will deescalate and stop vancomycin in the next 1 or 2 days if no further culture growth. (3) Symptomatic bradycardia: Code(s): R00.1 - Bradycardia, unspecified Status: Acute Assessment and Plan: type 2 av block for 2-1 conduction with symptomatic severe bradycardia, hypotension and shock - temporary pacemaker inserted by cardiology on 12/21/2019, capturing well at rate of 80. Patient is being paced continuously, his intrinsic rhythm has not changed and so he is being supported at 80 beats per minute with pacing. - Has been weaned off from dopamine and Levophed already. - cardiology following and plan for permanent pacemaker placement on Thursday. If he continued to have fever then Then it can get delayed. (4) GENARO (acute kidney injury): Code(s): N17.9 - Acute kidney failure, unspecified Status: Acute Assessment and Plan: acute kidney injury likely related to hypotension, severe bradycardia, shock. Creatinine down to normal, ( creatinine peaked at 1.7.) - Patient was adequately fluid-resuscitated along with packed RBCs - urine output has improved lactic acid normalized ( 6.3 on admission) - Continue to monitor renal function, electrolytes and urine output (5) COPD (chronic obstructive pulmonary disease): Qualifiers: COPD type: unspecified COPD Qualified Code(s): J44.9 - Chronic obstructive pulmonary disease, unspecified Code(s): J44.9 - Chronic obstructive pulmonary disease, unspecified Status: Chronic Assessment and Plan: continue bronchodilators Steroids not indicated. (6) DVT prophylaxis: Code(s): Z29.9 - Encounter for prophylactic measures, unspecified Status: Acute Assessment and Plan: SCDs. No subcu heparin because of severe anemia. (7) Severe anemia: Code(s): D64.9 - Anemia, unspecified Status: Acute Assessment and Plan: patient with severe anemia, hemoglobin 5.5 on admission - NG tube with clear drainage - elevated MCV, low vitamin B12 levels, no iron deficiency - could be related to alcoholism versus bone marrow dysfunction - received 1 unit of FFP and vitamin K on 12/22/2019 - EGD done which was clean with no significant finding to suggest blood loss. Dr. Resendez, to perform colonoscopy when patient is more stable - Hematology service recommendations appreciated. Hemolysis workup underway. (8) Car
[2019-12-25] MEDS: LIDOCAINE HCL 1% PF INJ 5 ML VIAL INFILTRATE (15:30)
[2019-12-25] MEDS: MAGNESIUM SULF 2 GM/WATER 50ML 2 GM/50 ML BAG IVPB (16:26)
[2019-12-25] MEDS: metroNIDAZOLE 500 MG/ISO 100ML 500 MG/100 ML BAG 100 MG IVPB ×2 (16:27→22:42)
[2019-12-25] MEDS: CYANOCOBALAMIN INJ 1,000 MCG/ML VIAL 1000 MCG IM (16:27)
[2019-12-26] VITALS (45 sets, daily range): BP systolic 106–168; BP diastolic 37–66; PULSE 80–87; RESP 14–24; TEMP 36–37.5; O2SAT 94–98
[2019-12-26] MEDS: ALBUTEROL SULFATE NEB 2.5 MG/0.5 ML INH 5 MG INHALATION ×4 (02:24→20:45)
[2019-12-26] MEDS: IPRATROPIUM BR 0.02% INH SOLN 0.5 MG/2.5 ML VIAL INHALATION ×4 (02:24→20:45)
[2019-12-26 04:18] LABS: Alveolar/Arterial O2 Gradient 214.5 mmHg; Base Excess ABG 4.8 mEq/l (+/-2.0); Fractional Inspired Oxygen 50 %; Oxygen Content ABG 10.6 %vol (16.0-22.0); Oxygen Saturation ABG 97.6 % (95.0-100.0); Oxyhemoglobin 95.1 % THb (90.0-100.0); PCO2 ABG 41.6 mmHg (35.0-45.0); PO2 ABG 95.2 mmHg (80.0-100.0); pH ABG 7.461 (7.350-7.450)
[2019-12-26 04:21] LABS: Device VENTILATOR; Site Drawn ARTLINE; Total Hemoglobin 7.8 g/dL (12.0-18.0)
[2019-12-26 04:22] LABS: Arterial Blood Gas PEEP 5 cmH2O; Arterial Blood Gas Tidal Volume 500 ml; Arterial Blood Gas Vent Mode CMV; Arterial Blood Gas Ventilator rate 20 /MIN
[2019-12-26] MEDS: METOCLOPRAMIDE HCL INJ 10 MG/2 ML VIAL 5 MG IV PUSH ×3 (05:10→17:22)
[2019-12-26] MEDS: metroNIDAZOLE 500 MG/ISO 100ML 500 MG/100 ML BAG 100 MG IVPB ×3 (05:10→21:36)
[2019-12-26] MEDS: methylPREDNISolone SOD SUCC 40 MG VIAL IV PUSH ×3 (05:11→21:35)
[2019-12-26] MEDS: CENTRAL LINE FLUSH 10 ML IV PUSH ×3 (05:11→21:37)
[2019-12-26 05:24] LABS: Hematocrit 22.3 % (42.0-52.0); Hemoglobin 7.2 g/dL (14.0-18.0); Immature Platelet Fraction Pct 17.1 % (0.9-11.2); Mean Corpuscular HGB Conc 32.3 g/dl (32-36); Mean Corpuscular Hemoglobin 35.8 pg (26-34); Mean Corpuscular Volume 110.9 fl (80-100); Mean Platelet Volume 13.8 fl (7.4-10.4); Platelet Count Result 257 k/mm3 (150-375); Red Blood Count 2.01 M/mm3 (4.6-6.20)
[2019-12-26 05:41] LABS: Lactic Acid Reflex 0.8 mmol/L (0.7-2.1)
[2019-12-26 05:51] LABS: Alanine Aminotransferase 591 U/L (4-50); Albumin Level 2.9 g/dL (3.5-5.1); Alkaline Phosphatase 48 U/L (38-126); Anion Gap 3 mmol/L (8-16); Aspartate Amino Transferase 63 U/L (17-59); Bilirubin,Total 1.5 mg/dL (0.2-1.3); Blood Urea Nitrogen 22 mg/dL (9-20); Calcium 8.4 mg/dL (8.4-10.2); Carbon Dioxide 33 mmol/L (22-30); Chloride 101 mmol/L (98-107); Estimated CRCL calculation 101 ml/min; Estimated Glomerular Filt Rate > 60; Glucose 180 mg/dL (75-110); Magnesium 2.3 mg/dL (1.6-2.3); Potassium 4.4 mmol/L (3.4-5.0); Sodium 137 mmol/L (137-145)
[2019-12-26 05:58] LABS: CRP 17.5 mg/dL (<1.0)
--- NOTE | 2019-12-26 07:00 | WPDINTPN ---
Progress Note: A&P Assessment and Plan (1) Acute respiratory failure: Code(s): J96.00 - Acute respiratory failure, unspecified whether with hypoxia or hypercapnia Status: Acute Assessment and Plan: acute respiratory failure secondary to nausea and vomiting with decreased responsiveness. Patient was intubated on 12/21/2019 for airway protection - currently on CMV mode of ventilation With tidal volume 500, peep of 5 and FiO2 of 50%. ABGs and chest x-ray reviewed, ventilator adjusted Were made. - He is not a candidate for SBT trial today because of significant amount of secretions. - Continue vanc cefepime and Flagyl - sputum culture is growing Pseudomonas. Susceptibilities are pending - tube feeds are on hold as aspiration was suspected yesterday from ET suction. - chest x-ray reviewed, bibasal airspace opacities. He does have history of COPD. He was bronchospastic Yesterday with significant wheezing. He was started on steroid. I will continue steroids at this time in start weaning the dose tomorrow (2) Shock: Code(s): R57.9 - Shock, unspecified Status: Acute Assessment and Plan: patient presented with elevated lactic acid levels, hypotension, severe anemia, hemorrhagic shock - patient received IV fluid bolus of 1 L in the ED, received 2 units of packed RBCs - He has been weaned off from dopamine - continue Levophed - lactic acid normalized continue antibiotics as above mentioned for E coli UTI and Pseudomonas pneumonia - will send repeat blood cultures today (3) Symptomatic bradycardia: Code(s): R00.1 - Bradycardia, unspecified Status: Acute Assessment and Plan: type 2 av block for 2-1 conduction with symptomatic severe bradycardia, hypotension and shock - temporary pacemaker inserted by cardiology on 12/21/2019, capturing well at rate of 80. Patient is being paced continuously, his intrinsic rhythm has not changed and so he is being supported at 80 beats per minute with pacing. he continues to be pacer dependent - on low-dose Levophed - cardiology following and plan for permanent pacemaker placement on 12/27. If he continued to have fever then Then it can get delayed. (4) GENARO (acute kidney injury): Code(s): N17.9 - Acute kidney failure, unspecified Status: Acute Assessment and Plan: acute kidney injury likely related to hypotension, severe bradycardia, shock. Creatinine down to normal, ( creatinine peaked at 1.7.) - Patient was adequately fluid-resuscitated along with packed RBCs - urine output has improved lactic acid normalized ( 6.3 on admission) - Continue to monitor renal function, electrolytes and urine output (5) COPD (chronic obstructive pulmonary disease): Qualifiers: COPD type: unspecified COPD Qualified Code(s): J44.9 - Chronic obstructive pulmonary disease, unspecified Code(s): J44.9 - Chronic obstructive pulmonary disease, unspecified Status: Chronic Assessment and Plan: continue bronchodilators on steroids now (6) DVT prophylaxis: Code(s): Z29.9 - Encounter for prophylactic measures, unspecified Status: Acute Assessment and Plan: SCDs. will start Lovenox subcutaneous and monitor hemoglobin (7) Severe anemia: Code(s): D64.9 - Anemia, unspecified Status: Acute Assessment and Plan: patient with severe anemia, hemoglobin 5.5 on admission - NG tube with clear drainage - elevated MCV, low vitamin B12 levels, no iron deficiency - could be related to alcoholism versus bone marrow dysfunction - received 1 unit of FFP and vitamin K on 12/22/2019 - EGD done which was clean with no significant finding to suggest blood loss. Dr. Resendez, to perform colonoscopy when patient is more stable - Hematology service recommendations appreciated. Hemolysis workup underway. (8) Cardiomyopathy: Code(s): I42.9 - Cardiomyopat
--- NOTE | 2019-12-26 07:28 | WPDGIPROGNO ---
Progress Note: A&P Additional Plan Patient remains on the ventilator. Sedated. Back on pressor agents. Nursing staff reports no evidence for GI blood loss. Physical exam reveals lungs with few rhonchi. Heart without murmur. Abdomen soft and nontender. Labs reveal hemoglobin 7.2, hematocrit 22.3, MCV 110. Stable total bilirubin 1.5, AST 63, ALT 591, alk-phos 48. Impression 1. Cardiogenic shock. Now status post pacemaker for bradycardia and heart block. 2. Respiratory failure. Patient remains on ventilator. 3. Profound macrocytic anemia. May be related underlying liver disease. Normal EGD. No evidence for GI blood loss stool Hemoccult negative. Continue monitor hemoglobin. Transfuse if necessary. Will follow peripherally. Dr. Bush returns in the morning. 4. Elevated LFTs. Appear to be related shock liver . These continue to improve. No specific therapy warranted at this time. 5. History of alcohol abuse. He may have some underlying liver dysfunction. Continue to monitor at this point. Subjective Date/time seen: 12/26/19 07:28 Objective Data Vital Signs Vital Signs: Vital Signs - 24 hr 12/25/19 08:00 12/25/19 08:21 12/25/19 08:23 Temperature 101.2 F H Pulse Rate 80 80 Pulse Rate [Bilateral Posterior Tibial Doppler] 80 Respiratory Rate 23 H Blood Pressure 165/46 H Pulse Oximetry 95 95 12/25/19 08:24 12/25/19 08:45 12/25/19 08:47 Temperature Pulse Rate 80 80 80 Pulse Rate [Bilateral Posterior Tibial Doppler] Respiratory Rate 22 H 22 H 22 H Blood Pressure Pulse Oximetry 12/25/19 09:00 12/25/19 09:15 12/25/19 09:53 Temperature Pulse Rate 80 99 Pulse Rate [Bilateral Posterior Tibial Doppler] 80 Respiratory Rate 22 H 21 H Blood Pressure Pulse Oximetry 12/25/19 09:55 12/25/19 10:00 12/25/19 10:10 Temperature 101.0 F H Pulse Rate 82 80 87 Pulse Rate [Bilateral Posterior Tibial Doppler] 80 Respiratory Rate 22 H 21 H 18 Blood Pressure 160/40 H Pulse Oximetry 95 12/25/19 11:00 12/25/19 11:10 12/25/19 12:00 Temperature 100.4 F H 100.0 F H Pulse Rate 80 80 80 Pulse Rate [Bilateral Posterior Tibial Doppler] 80 80 Respiratory Rate 18 20 Blood Pressure 138/40 L 121/37 L Pulse Oximetry 94 94 94 12/25/19 12:25 12/25/19 12:27 12/25/19 13:00 Temperature Pulse Rate 80 80 Pulse Rate [Bilateral Posterior Tibial Doppler] 80 Respiratory Rate 20 18 Blood Pressure 122/38 L Pulse Oximetry 12/25/19 13:28 12/25/19 13:35 12/25/19 14:00 Temperature 99.0 F Pulse Rate 80 Pulse Rate [Bilateral Posterior Tibial Doppler] 80 Respiratory Rate 20 Blood Pressure 104/34 L 119/39 L 121/44 L Pulse Oximetry 97 12/25/19 14:36 12/25/19 14:37 12/25/19 14:43 Temperature Pulse Rate 79 79 80 Pulse Rate [Bilateral Posterior Tibial Doppler] Respiratory Rate 20 20 Blood Pressure Pulse Oximetry 96 12/25/19 15:00 12/25/19 16:00 12/25/19 16:22 Temperature 98.5 F 98.6 F Pulse Rate 80 80 Pulse Rate [Bilateral Posterior Tibial Doppler] 80 80 Respiratory Rate 18 20 Blood Pressure 112/37 L 129/58 L Pulse Oximetry 93 93 12/25/19 16:39 12/25/19 16:55 12/25/19 17:06 Temperature Pulse Rate 80 80 80 Pulse Rate [Bilateral Posterior Tibial Doppler] Respiratory Rate 20 Blood Pressure 135/46 L Pulse Oximetry 94 12/25/19 17:11 12/25/19 17:36 12/25/19 18:00 Temperature 97.7 F Pulse Rate 80 80 80 Pulse Rate [Bilateral Posterior Tibial Doppler] 80 80 Respiratory Rate 20 15 Blood Pressure 156/70 H 164/57 H Pulse Oximetry 97 12/25/19 18:01 12/25/19 18:25 12/25/19 18:26 Temperature 97.7 F Pulse Rate 80 80 80 Pulse Rate [Bilateral Posterior Tibial Doppler] Respiratory Rate 16 Blood Pressure 146/67 H 157/69 H Pulse Oximetry 98 12/25/19 18:41 12/25/19 19:00 12/25/19 20:00 Temperature 97.9 F Pulse Rate 80 80 Pulse Rate [Bilateral Posterior Tibi
[2019-12-26] MEDS: DORNASE ALFA INH SOLN 1 MG/ML 2.5 ML AMP 2.5 MG INHALATION ×2 (08:36→20:45)
--- NOTE | 2019-12-26 08:58 | PCRCNOTE ---
drained a noticibale amount of liquid from the vent circuit, the same color and that is coming from the ng tube
[2019-12-26] MEDS: THIAMINE HCL 200 MG/2 ML VIAL 100 MG IV PUSH (09:02)
[2019-12-26] MEDS: PANTOPRAZOLE SODIUM IV 40 MG VIAL IV PUSH ×2 (09:02→20:10)
--- NOTE | 2019-12-26 10:05 | PM.PNCARD ---
Progress Note: A&P Assessment and Plan (1) Heart block AV second degree: Code(s): I44.1 - Atrioventricular block, second degree Status: Acute Assessment and Plan: temporary wires in place. Pacing well. Capturing okay . site looks clean Cancelling ppm for tomorrow. Rescheduling permanent pacemaker for Thursday given fevers. Hopefully will have greater than 48 hours being afebrile at that point. (2) Lactic acidosis: Code(s): E87.2 - Acidosis Status: Acute Assessment and Plan: resolved (3) Cardiomyopathy: Code(s): I42.9 - Cardiomyopathy, unspecified Status: Acute Assessment and Plan: moderate with wall motion abnormalities present. Likely has underlying CAD also. He eventually will need cardiac catheterization. Furosemide 20 mg IV x1 (4) Elevated liver enzymes: Code(s): R74.8 - Abnormal levels of other serum enzymes Status: Acute Assessment and Plan: continues to improve Check an INR tomorrow (5) Alcohol use: Code(s): Z72.89 - Other problems related to lifestyle Status: Acute (6) Macrocytic anemia: Code(s): D53.9 - Nutritional anemia, unspecified Status: Acute Assessment and Plan: hematology involved (7) Hypertension: Code(s): I10 - Essential (primary) hypertension Status: Acute Assessment and Plan: may need to add an YOSELYN-inhibitor /Arb soon if he remains hypertensive Subjective Date/time seen: 12/26/19 10:05 Interval history: 64yo male with COPD and HTN here for generalized weakness and found to be bradycardic. Patient intubated and sedated. date of service 12/26/2019: Still intubated and sedated. paced rhythm . Last temperature spike was yesterday afternoon at around 1:30pm. Sputum cultures growing out Pseudomonas. Blood pressure is stable. Review of Systems Review of Systems: All systems reviewed & are unremarkable except as noted in HPI and below ROS unobtainable: Yes unobtainable due to endotracheal tube and unobtainable due to medical condition Exam Const: Other: Chronically ill-appearing patient sedated and on mechanical ventilator HENMT: Mouth: Yes moist mucous membranes and Yes dry mucous membranes Eyes: Sclera: sclerae normal Neck: Neck: no JVD Other: no obvious venous distension carotid pulses are normal bilaterally Resp: Other: scattered central rhonchi otherwise relatively good air exchange Cardio: Jugular venous distension: other ( Paced rhythm) Rate: regular rate and other Rhythm: regular rhythm Other: paced rhythm at 80 beats per minute GI: Auscultation: normal bowel sounds Skin: General skin exam: normal color Neuro: Other: sedated on ventilator support Extrem: General: normal to inspection Other: bilateral lower extremity edema is now appreciated Objective Data Vital Signs Vital Signs: Vital Signs - 24 hr 12/25/19 10:10 12/25/19 11:00 12/25/19 11:10 Temperature 38.0 C H Pulse Rate 87 80 80 Pulse Rate [Bilateral Posterior Tibial Doppler] 80 Respiratory Rate 18 18 Blood Pressure 138/40 L Pulse Oximetry 94 94 12/25/19 12:00 12/25/19 12:25 12/25/19 12:27 Temperature 37.8 C H Pulse Rate 80 80 Pulse Rate [Bilateral Posterior Tibial Doppler] 80 Respiratory Rate 20 20 Blood Pressure 121/37 L 122/38 L Pulse Oximetry 94 12/25/19 13:00 12/25/19 13:28 12/25/19 13:35 Temperature Pulse Rate 80 Pulse Rate [Bilateral Posterior Tibial Doppler] 80 Respiratory Rate 18 Blood Pressure 104/34 L 119/39 L Pulse Oximetry 12/25/19 14:00 12/25/19 14:36 12/25/19 14:37 Temperature 37.2 C Pulse Rate 80 79 79 Pulse Rate [Bilateral Posterior Tibial Doppler] 80 Respiratory Rate 20 20 Blood Pressure 121/44 L Pulse Oximetry 97 96 12/25/19 14:43 12/25/19 15:00 12/25/19 16:00 Temperature 36.9 C Pulse Rate 80 80 Pulse Rate [Bilateral Posterior Tibial Doppler] 80
--- NOTE | 2019-12-26 10:06 | PM.IMPN ---
Progress Note: A&P Assessment and Plan (1) Acute respiratory failure: Code(s): J96.00 - Acute respiratory failure, unspecified whether with hypoxia or hypercapnia Status: Acute Assessment and Plan: Patient was bradycardic, HoTN with n/v requiring intubation in the ER. ABG showing acute respiratory failure with pH 7.13 and pCO2 51. Admitted to the ICU. Patient remains intubated and sedated. ABG normal today. Continue nebulizer treatments. Vent management per diesel power shovel operator. Wean vent as tolerated. (2) Sepsis: Code(s): A41.9 - Sepsis, unspecified organism Status: Acute Assessment and Plan: Patient now with high fevers without clear etiology but suspect VAP vs aspiration PNA. CXR with bibasilar infiltrates. UCx noted but not felt to be the source of his on going fevers. BCx NGTD. Sputum Cx growing pseudomonas. Continue nebs and Pulmozyme. Continue IV abx. (3) Aspiration pneumonia: Code(s): J69.0 - Pneumonitis due to inhalation of food and vomit Status: Acute Assessment and Plan: As above. (4) Heart block AV second degree: Code(s): I44.1 - Atrioventricular block, second degree Status: Acute Assessment and Plan: Patient started taking Bystolic on the day of admission. Patient became symptomatic and found to be bradycardic and hypotensive by EMS. In the ER, he received NS IV bolus, glucagon IV, atropine, and calcium gluconate. EKG showing 2:1 AV block with bradycardia. External pacer placed. The patient started on Dopamine and Levophed. He was seen by Cardiology and temporary transvenous pacemaker placed 12/21/19. Able to be weaned off of the Dopamine. Could be related to the bystolic and HoTN from the profound anemia but still bradycardic when holding the pacer to suggest that he may have had the bradycardia prior to starting the Bystolic. Contineu to wean off Levophed at tolerated. Currently with paced rhythm. Pacemaker being planned for Thursday tenatively. (5) Shock: Code(s): R57.9 - Shock, unspecified Status: Acute Assessment and Plan: Patient with profound anemia with HoTN and bradycardia. Possibly cardiogenic shock from the bradycardia. Consider also hypovolemic shock from the blood loss complicated by the bystolic and Lasix. The patient may have had compensatory tachycardia but blocked down with the Bystolic although still bradycardic off Bystolic so bradycardia may be underlying problem. The anemia +/- bradycardia resulting in the leg edema from high output failure. The patient required vasopressor support with Levophed and Dopamine. Able to come off of the dopamine. Still requiring low dose Levophed. BP better overall. BCx NGTD. Sputum cx growing pseudomonas. Fever curve better. Continue broad spectrum abx that were added for possible VAP vs aspiration. UCx growing EColi but only 50-100K colonies and feel probably unlikely contributing to current problems. Wean Levophed off as tolerated. (6) Coagulopathy: Code(s): D68.9 - Coagulation defect, unspecified Status: Acute Assessment and Plan: INR 1.3 on admission probably related to underlying liver disease from his alcoholism. INR up to 2.1 felt related to hepatic dysfunction and was given one unit of FFP on 12/22/19. INR better at 1.3 yesterday. Continue to follow. (7) CHF (congestive heart failure): Qualifiers: Heart failure type: combined systolic and diastolic Heart failure chronicity: acute Qualified Code(s): I50.41 - Acute combined systolic (congestive) and diastolic (congestive) heart failure Code(s): I50.9 - Heart failure, unspecified Status: Acute Assessment and Plan: Patient has been having increasing pedal edema prior to admission. Suspect heart failure from his profound anemia. Echo showing EF 35-40%, abnml LV diastolic function, HK inferior wall, mild to moderate MR and moderate
[2019-12-26] MEDS: FUROSEMIDE INJ 40 MG/4 ML VIAL 20 MG IV PUSH (12:30)
[2019-12-26] MEDS: BISACODYL 10 MG SUPPOSITORY RECTAL (12:37)
[2019-12-27] VITALS (33 sets, daily range): BP systolic 111–161; BP diastolic 40–73; PULSE 79–84; RESP 20–29; TEMP 36.4–37.6; O2SAT 87–98
[2019-12-27] MEDS: METOCLOPRAMIDE HCL INJ 10 MG/2 ML VIAL 5 MG IV PUSH ×5 (00:01→23:51)
[2019-12-27] MEDS: ALBUTEROL SULFATE NEB 2.5 MG/0.5 ML INH 5 MG INHALATION ×4 (02:58→21:21)
[2019-12-27] MEDS: IPRATROPIUM BR 0.02% INH SOLN 0.5 MG/2.5 ML VIAL INHALATION ×4 (02:58→21:22)
[2019-12-27 04:24] LABS: Hematocrit 22.5 % (42.0-52.0); Hemoglobin 7.3 g/dL (14.0-18.0); Mean Corpuscular HGB Conc 32.4 g/dl (32-36); Mean Corpuscular Volume 110.8 fl (80-100); Platelet Count Result 300 k/mm3 (150-375); Red Blood Count 2.03 M/mm3 (4.6-6.20); Red Cell Distribution Width 29.2 % (11.5-14.5); White Blood Count 6.9 K/mm3 (4.5-10.0)
[2019-12-27 04:33] LABS: INR 1.4; Prothrombin Time 17.2 Seconds (11.1-14.7)
[2019-12-27 04:36] LABS: Alanine Aminotransferase 436 U/L (4-50); Alkaline Phosphatase 51 U/L (38-126); Anion Gap 4 mmol/L (8-16); Aspartate Amino Transferase 47 U/L (17-59); Bilirubin,Total 1.3 mg/dL (0.2-1.3); Blood Urea Nitrogen 30 mg/dL (9-20); Calcium 8.8 mg/dL (8.4-10.2); Carbon Dioxide 34 mmol/L (22-30); Chloride 102 mmol/L (98-107); Estimated CRCL calculation 89 ml/min; Estimated Glomerular Filt Rate > 60; Glucose 176 mg/dL (75-110); Magnesium 2.1 mg/dL (1.6-2.3); Phosphorus 2.9 mg/dL (2.5-4.5); Potassium 3.7 mmol/L (3.4-5.0); Sodium 140 mmol/L (137-145)
[2019-12-27 04:53] LABS: Alveolar/Arterial O2 Gradient 157.9 mmHg; Base Excess ABG 9.5 mEq/l (+/-2.0); Fractional Inspired Oxygen 40 %; HCO3 ABG 34.2 mEq/l (22.0-26.0); Oxygen Content ABG 10.4 %vol (16.0-22.0); Oxygen Saturation ABG 95.1 % (95.0-100.0); Oxyhemoglobin 92.5 % THb (90.0-100.0); PCO2 ABG 48.4 mmHg (35.0-45.0); PO2 ABG 71.6 mmHg (80.0-100.0); PO2 FiO2 Ratio Arterial Blood 1.79 %; pH ABG 7.467 (7.350-7.450)
[2019-12-27 04:55] LABS: Arterial Blood Gas Ventilator rate 20 /MIN; Device VENTILATOR; Modified Allen's Test Pass; Site Drawn ARTLINE; Total Hemoglobin 7.9 g/dL (12.0-18.0)
[2019-12-27 04:56] LABS: Arterial Blood Gas PEEP 5 cmH2O; Arterial Blood Gas Pressure Support 0 cmH2O; Arterial Blood Gas Tidal Volume 500 ml; Arterial Blood Gas Vent Mode CMV
[2019-12-27] MEDS: metroNIDAZOLE 500 MG/ISO 100ML 500 MG/100 ML BAG 100 MG IVPB ×3 (05:29→21:17)
[2019-12-27] MEDS: CENTRAL LINE FLUSH 10 ML IV PUSH ×3 (05:30→21:17)
[2019-12-27] MEDS: methylPREDNISolone SOD SUCC 40 MG VIAL IV PUSH ×3 (05:30→21:17)
--- NOTE | 2019-12-27 07:00 | WPDINTPN ---
Progress Note: A&P Assessment and Plan (1) Acute respiratory failure: Code(s): J96.00 - Acute respiratory failure, unspecified whether with hypoxia or hypercapnia Status: Acute Assessment and Plan: acute respiratory failure secondary to nausea and vomiting with decreased responsiveness. Patient was intubated on 12/21/2019 for airway protection - currently on CMV mode of ventilation With tidal volume 500, peep of 5 and FiO2 of 40%. ABGs and chest x-ray reviewed - still has thick secretions and he is not a candidate for SBT trial today because of significant amount of secretions. I am also worried that patient has a transvenous pacemaker in his femoral area and his rhythm is dependent on it entirely. he may be delirious or may not lay still once extubated making it a potentially life-threatening situation. Patient most likely will get pacemaker tomorrow and will try to start weaning after that - Continue vancomycin, cefepime and Flagyl. I will discontinue vancomycin tomorrow if the blood cultures sent 12/25 remain negative - sputum culture is growing Pseudomonas which is susceptible to cefepime - tube feeds are on hold as aspiration was suspected yesterday from ET suction. - chest x-ray reviewed, bibasal airspace opacities. He does have history of COPD. He was bronchospastic Yesterday with significant wheezing. He was started on steroid. I will continue steroids but wean down the dose (2) Shock: Code(s): R57.9 - Shock, unspecified Status: Acute Assessment and Plan: patient presented with elevated lactic acid levels, hypotension, severe anemia, hemorrhagic shock - patient received IV fluid bolus of 1 L in the ED, received 2 units of packed RBCs - He has been weaned off from dopamine - continue Levophed as needed - lactic acid normalized - continue antibiotics as above mentioned for E coli UTI and Pseudomonas pneumonia - will send repeat blood cultures today (3) Symptomatic bradycardia: Code(s): R00.1 - Bradycardia, unspecified Status: Acute Assessment and Plan: type 2 av block for 2-1 conduction with symptomatic severe bradycardia, hypotension and shock - temporary pacemaker inserted by cardiology on 12/21/2019, capturing well at rate of 80. Patient is being paced continuously, his intrinsic rhythm has not changed and so he is being supported at 80 beats per minute with pacing. he continues to be pacer dependent as checked by me this morning - off of Levophed at this time but he does require low intermittent low dosing - cardiology following and plan for permanent pacemaker placement on 12/27. If he continued to have fever then it can get delayed. (4) GENARO (acute kidney injury): Code(s): N17.9 - Acute kidney failure, unspecified Status: Acute Assessment and Plan: acute kidney injury likely related to hypotension, severe bradycardia, shock. Creatinine down to normal, ( creatinine peaked at 1.7.) - Patient was adequately fluid-resuscitated along with packed RBCs - urine output has improved lactic acid normalized ( 6.3 on admission) - Continue to monitor renal function, electrolytes and urine output (5) COPD (chronic obstructive pulmonary disease): Qualifiers: COPD type: unspecified COPD Qualified Code(s): J44.9 - Chronic obstructive pulmonary disease, unspecified Code(s): J44.9 - Chronic obstructive pulmonary disease, unspecified Status: Chronic Assessment and Plan: continue bronchodilators on steroids now (6) DVT prophylaxis: Code(s): Z29.9 - Encounter for prophylactic measures, unspecified Status: Acute Assessment and Plan: SCDs. continue lovenox subcutaneous and monitor hemoglobin (7) Severe anemia: Code(s): D64.9 - Anemia, unspecified Status: Acute Assessment and Plan: patient with severe anemia, hemoglobin 5.5 on admission - NG tube with
[2019-12-27] MEDS: PROPOFOL IV EMULSION 100 ML 14.9 MG IV CONT (07:31)
[2019-12-27] MEDS: THIAMINE HCL 200 MG/2 ML VIAL 100 MG IV PUSH (09:33)
[2019-12-27] MEDS: PANTOPRAZOLE SODIUM IV 40 MG VIAL IV PUSH ×2 (09:33→20:42)
[2019-12-27] MEDS: DORNASE ALFA INH SOLN 1 MG/ML 2.5 ML AMP 2.5 MG INHALATION ×2 (09:44→21:21)
--- NOTE | 2019-12-27 12:26 | PM.PNCARD ---
Progress Note: A&P Assessment and Plan (1) Heart block AV second degree: Code(s): I44.1 - Atrioventricular block, second degree Status: Acute Assessment and Plan: temporary wires in place. Pacing well. Provide cultures are negative and he remains afebrile will plan for pacemaker implantation tomorrow. Very difficult balance between giving adequate time on antibiotic therapy with prolonging temporary transvenous wire increasing risk for infection over time. Discussed with patient's at bedside the very complicated nature timing in this critically ill gentleman and the risk for infection of newly implanted hardware which could be catastrophic. require least 48 hours afebrile and with negative blood cultures On intravenous antibiotic therapy. Discussed with Dr. Dutton. (2) Lactic acidosis: Code(s): E87.2 - Acidosis Status: Acute Assessment and Plan: resolved (3) Cardiomyopathy: Code(s): I42.9 - Cardiomyopathy, unspecified Status: Acute Assessment and Plan: moderate with wall motion abnormalities present. Likely has underlying CAD also. Ischemic workup in the future as clinically appropriate. (4) Elevated liver enzymes: Code(s): R74.8 - Abnormal levels of other serum enzymes Status: Acute Assessment and Plan: Improving. Remains coagulopathic INR 1.4 but this is also improving. Check an INR tomorrow (5) Alcohol use: Code(s): Z72.89 - Other problems related to lifestyle Status: Acute Assessment and Plan: Defer to primary service. (6) Macrocytic anemia: Code(s): D53.9 - Nutritional anemia, unspecified Status: Acute Assessment and Plan: hematology involved Stable. Hemoglobin 7.3, platelet count 300. (7) Hypertension: Code(s): I10 - Essential (primary) hypertension Status: Acute Assessment and Plan: may need to add an YOSELYN-inhibitor /Arb soon Subjective Date/time seen: date of service:12/27/19 12:26 Interval history: 64yo male with COPD and HTN here for generalized weakness and found to be bradycardic Status post temporary pacer wire, pacemaker dependent currently. Patient intubated and sedated. Still intubated and sedated. Requiring ventricular pacing down heart rate 30-40 beats per minute. 99.5 T-max has 24 hours period 100? F 8:00 p.m. night before last. Sputum cultures growing out Pseudomonas. Blood pressure is stable. Patient's at bedside. Discussed and updated on ongoing care. Review of Systems Review of Systems: All systems reviewed & are unremarkable except as noted in HPI and below ROS unobtainable: Yes unobtainable due to endotracheal tube and unobtainable due to medical condition Exam Const: Other: Chronically ill-appearing patient sedated and on mechanical ventilator HENMT: Mouth: Yes moist mucous membranes and Yes dry mucous membranes Eyes: Sclera: sclerae normal Other: Pupils are fixed and dilated Neck: Neck: no JVD Other: no obvious venous distension carotid pulses are normal bilaterally Resp: Other: scattered central rhonchi otherwise relatively good air exchange Cardio: Jugular venous distension: other ( Paced rhythm) Rate: regular rate and other Rhythm: regular rhythm Other: paced rhythm at 80 beats per minute GI: Auscultation: normal bowel sounds Skin: General skin exam: normal color Neuro: Other: sedated on ventilator support Extrem: General: normal to inspection Other: bilateral lower extremity edema is now appreciated Objective Data Vital Signs Vital Signs: Vital Signs - 24 hr 12/26/19 12:34 12/26/19 13:00 12/26/19 14:00 Temperature Pulse Rate 80 80 Pulse Rate [Bilateral Posterior Tibial Doppler] 80 80 Respiratory Rate 14 14 Blood Pressure 138/43 L Pulse Oximetry 94 12/26/19 15:00 12/26/19 15:04 12/26/19 15:05 Temperature Pulse Rate 80 86 Pulse Rate [Bila
[2019-12-27] MEDS: PROPOFOL IV EMULSION 100 ML 17.4 MG IV CONT (12:50)
--- NOTE | 2019-12-27 14:00 | PCDIET ---
Nutrition Follow-Up Complete: Nutrition Diagnosis: Inadequate oral intake related to oral intubation as evidenced by NPO status. Nutrition Goal: Patient to meet estimated nutritional needs. Goal not met. Tube feeding held due to suctioning of formula from ET tube. OG to suction with significant output reported by RN. Plan to resume tube feedings once Dobhoff tube can be placed. If medically appropriate, would consider medication to promote BM. Last recorded weight is 82.8 kg which is slightly decreased from last review. -I/O. Bowel Motility: No documented BM. Bowel sounds hypoactive. Labs Reviewed: Hgb (7.3), Hct (22.5), Glu (176), BUN (30), Alb (3.0) Meds Noted: Albuterol, Cefepime, Reglan, Fentanyl, Atrovent, Solu Medrol, Flagyl, Versed, Levophed, Protonix, Thiamine, Vancomycin, Propofol (rate of 17.4mL/hr provides 459kcal over 24 hour period) Additional Notes: No documented pressure ulcers. Will continue to monitor with same goal. Nutrition Monitoring and Evaluation: Follow up every 3 days. Follow daily in ICU rounds.
--- NOTE | 2019-12-27 14:25 | WPDGIPROGNO ---
Progress Note: A&P Assessment and Plan (1) Severe anemia: Code(s): D64.9 - Anemia, unspecified Status: Acute Assessment and Plan: hb still low but has been stable egd unremarkable and no report of any signs of GIB hematology on board, probably anemia multifactorial colonoscopy when stable and even as outpatient (2) Shock liver: Code(s): K72.00 - Acute and subacute hepatic failure without coma Status: Acute Assessment and Plan: liver enzymes recovering (3) Aspiration pneumonia: Code(s): J69.0 - Pneumonitis due to inhalation of food and vomit Status: Acute Assessment and Plan: he is been treated with abx, still intubated (4) Sepsis: Code(s): A41.9 - Sepsis, unspecified organism Status: Acute (5) Cardiomyopathy: Code(s): I42.9 - Cardiomyopathy, unspecified Status: Acute (6) Heart block AV second degree: Code(s): I44.1 - Atrioventricular block, second degree Status: Acute Assessment and Plan: probably will get permanent pacemaker tomorrow (7) Alcohol use: Code(s): Z72.89 - Other problems related to lifestyle Status: Acute Subjective Date/time seen: 12/27/19 14:25 Interval history: still intubated and sedated, no report of any GIB Review of Systems Review of Systems: ROS unobtainable: Yes unobtainable due to endotracheal tube Exam Const: Other: sedated HENMT: Other: ETT in place Eyes: Pupils: Equal, round and reactive pupils present Neck: Neck: supple Resp: Effort & Inspection: normal respiratory effort Auscultation: rhonchi, no wheezes and diminished lung sounds Cardio: Rate: regular rate Rhythm: regular rhythm Other: paced rhythm GI: Inspection: non-distended GI Palp: No Tenderness to palpation present (GI) : Other: White catheter in place Urinary Catheter: Urinary Catheter: patent and draining and urine clear Skin: Other: venous stasis changes of the lower extremity Neuro: Cranial nerves: Yes Equal, round and reactive pupils present Other: patient sedated, intubated Psych: Other: unable to assess at this time Objective Data Vital Signs Vital Signs: Vital Signs - 24 hr 12/26/19 15:00 12/26/19 15:04 12/26/19 15:05 Temperature Pulse Rate 80 86 Pulse Rate [Bilateral Posterior Tibial Doppler] 80 Respiratory Rate 21 H Blood Pressure Pulse Oximetry 96 12/26/19 16:00 12/26/19 17:00 12/26/19 17:30 Temperature 99.3 F Pulse Rate 80 87 Pulse Rate [Bilateral Posterior Tibial Doppler] 80 80 Respiratory Rate 19 Blood Pressure 163/53 H Pulse Oximetry 97 97 12/26/19 18:00 12/26/19 18:22 12/26/19 18:23 Temperature 99.5 F Pulse Rate 82 80 80 Pulse Rate [Bilateral Posterior Tibial Doppler] 80 Respiratory Rate 19 21 H 21 H Blood Pressure 168/55 H Pulse Oximetry 96 12/26/19 20:00 12/26/19 20:10 12/26/19 20:46 Temperature 99.5 F Pulse Rate 82 80 83 Pulse Rate [Bilateral Posterior Tibial Doppler] Respiratory Rate 20 24 H Blood Pressure 149/48 H Pulse Oximetry 98 12/26/19 20:52 12/26/19 21:00 12/26/19 22:00 Temperature 98.9 F Pulse Rate 80 80 80 Pulse Rate [Bilateral Posterior Tibial Doppler] Respiratory Rate 21 H 20 Blood Pressure 144/62 H Pulse Oximetry 97 12/26/19 23:00 12/27/19 00:00 12/27/19 02:00 Temperature 98.9 F 98.3 F Pulse Rate 80 80 81 Pulse Rate [Bilateral Posterior Tibial Doppler] Respiratory Rate 20 20 Blood Pressure 159/55 H 139/60 Pulse Oximetry 95 96 95 12/27/19 02:30 12/27/19 02:58 12/27/19 03:03 Temperature Pulse Rate 81 80 79 Pulse Rate [Bilateral Posterior Tibial Doppler] Respiratory Rate 20 20 Blood Pressure Pulse Oximetry 96 12/27/19 04:00 12/27/19 05:03 12/27/19 06:00 Temperature 98.4 F 98.7 F Pulse Rate 80 79 80 Pulse Rate [Bilateral Posterior Tibial Doppler] Respiratory Rate 20 20 Blood Pressure 159/73 H 151/60 H Pulse Oxime
--- NOTE | 2019-12-27 16:52 | PM.IMPN ---
Progress Note: A&P Assessment and Plan (1) Acute respiratory failure: Code(s): J96.00 - Acute respiratory failure, unspecified whether with hypoxia or hypercapnia Status: Acute Assessment and Plan: Patient was bradycardic, HoTN with n/v requiring intubation in the ER. ABG showing acute respiratory failure with pH 7.13 and pCO2 51. Admitted to the ICU. Patient remains intubated and sedated. ABG normal today. Continue nebulizer treatments. Vent management per cell assembly pinner. Wean vent as tolerated. (2) Sepsis: Code(s): A41.9 - Sepsis, unspecified organism Status: Acute Assessment and Plan: Patient now with high fevers without clear etiology but suspect VAP. CXR with bibasilar infiltrates. UCx noted but not felt to be the source of his on going fevers. BCx NGTD. Now with increased secretions. Sputum growing Pseudomonas and now on cefepime day 5. . Continue nebs. Continue IV abx. Pulmozyme added. (3) Heart block AV second degree: Code(s): I44.1 - Atrioventricular block, second degree Status: Acute Assessment and Plan: Patient started taking Bystolic on the day of admission. Patient became symptomatic and found to be bradycardic and hypotensive by EMS. In the ER, he received NS IV bolus, glucagon IV, atropine, and calcium gluconate. EKG showing 2:1 AV block with bradycardia. External pacer placed. The patient started on Dopamine and Levophed. He was seen by Cardiology and temporary transvenous pacemaker placed 12/21/19. Able to be weaned off of the Dopamine. Could be related to the bystolic and HoTN from the profound anemia. Still bradycardic when holding the pacer on 12/23/19. Weaned off Levophed this morning. Currently with paced rhythm. Pacemaker being considered. (4) Shock: Code(s): R57.9 - Shock, unspecified Status: Acute Assessment and Plan: Patient with profound anemia with HoTN and bradycardia. Possibly cardiogenic from the bradycardia. Consider also hypovolemic shock from the blood loss complicated by the bystolic and Lasix. The patient may have had compensatory tachycardia but blocked down with the Bystolic (although still bradycardic off Bystolic). He also may have had this anemia for a while resulting in the leg edema from high output failure. The patient required vasopressor support with Levophed and Dopamine. Able to come off of the dopamine. Able to come off Levophed this morning. BP better overall. BCx NGTD. Still with fevers. Continue broad spectrum abx that were added for possible VAP. UCx growing EColi but only 50-100K colonies and feel probably unlikely contributing to current problems. Sputum Cx pending. (5) Coagulopathy: Code(s): D68.9 - Coagulation defect, unspecified Status: Acute Assessment and Plan: INR 1.3 on admission probably related to underlying liver disease from his alcoholism. INR up to 2.1 felt related to hepatic dysfunction and was given one unit of FFP on 12/22/19. . Continue to follow. Repeat INR. 1.4 today (6) CHF (congestive heart failure): Qualifiers: Heart failure type: combined systolic and diastolic Heart failure chronicity: acute Qualified Code(s): I50.41 - Acute combined systolic (congestive) and diastolic (congestive) heart failure Code(s): I50.9 - Heart failure, unspecified Status: Acute Assessment and Plan: Patient has been having increasing pedal edema prior to admission. Suspect heart failure from his profound anemia. Echo showing EF 35-40%, abnml LV diastolic function, HK inferior wall, mild to moderate MR and moderate pulmonary hypertension. Patient probably with acute exacerbation. BNP 3600. Suspect developed heart failure systems related to the anemia causing high output failure and with LV dysfunction. The LV dysfunction could be ischemic and/or alcohol related. Receiving Lasix periodically. CXR reviewed today showing
[2019-12-27] MEDS: PROPOFOL IV EMULSION 100 ML 19.9 MG IV CONT (17:20)
[2019-12-27 21:23] LABS: Vancomycin Trough 16.7 ug/mL (10.0-20.0)
[2019-12-27] MEDS: PROPOFOL IV EMULSION 100 ML 24.8 MG IV CONT (21:45)
[2019-12-28] VITALS (49 sets, daily range): BP systolic 132–178; BP diastolic 46–87; PULSE 74–107; RESP 15–26; TEMP 37.3–37.7; O2SAT 95–100
[2019-12-28] MEDS: PROPOFOL IV EMULSION 100 ML 22.4 MG IV CONT ×3 (01:00→23:56)
[2019-12-28] MEDS: IPRATROPIUM BR 0.02% INH SOLN 0.5 MG/2.5 ML VIAL INHALATION ×4 (02:27→19:23)
[2019-12-28] MEDS: ALBUTEROL SULFATE NEB 2.5 MG/0.5 ML INH 5 MG INHALATION ×4 (02:27→19:22)
[2019-12-28 04:39] LABS: Hematocrit 22.7 % (42.0-52.0); Hemoglobin 7.5 g/dL (14.0-18.0); Immature Platelet Fraction Pct 14.5 % (0.9-11.2); Mean Corpuscular Hemoglobin 36.4 pg (26-34); Mean Corpuscular Volume 110.2 fl (80-100); Platelet Count Result 340 k/mm3 (150-375); Red Blood Count 2.06 M/mm3 (4.6-6.20); Red Cell Distribution Width 29.2 % (11.5-14.5); White Blood Count 7.8 K/mm3 (4.5-10.0)
[2019-12-28 04:50] LABS: Alanine Aminotransferase 301 U/L (4-50); Albumin Level 3.1 g/dL (3.5-5.1); Alkaline Phosphatase 53 U/L (38-126); Alveolar/Arterial O2 Gradient 231.4 mmHg; Anion Gap 3 mmol/L (8-16); Aspartate Amino Transferase 33 U/L (17-59); Base Excess ABG 4.1 mEq/l (+/-2.0); Blood Urea Nitrogen 33 mg/dL (9-20); Calcium 8.5 mg/dL (8.4-10.2); Carbon Dioxide 33 mmol/L (22-30); Carboxyhemoglobin 0.3 % THb (0-2.0); Chloride 103 mmol/L (98-107); Estimated CRCL calculation 89 ml/min; Estimated Glomerular Filt Rate > 60; Fractional Inspired Oxygen 50 %; Glucose 168 mg/dL (75-110); HCO3 ABG 28.7 mEq/l (22.0-26.0); Magnesium 2.2 mg/dL (1.6-2.3); Methemoglobin ABG 0.3 %THb (0-1.5); Oxygen Content ABG 17.4 %vol (16.0-22.0); Oxygen Saturation ABG 95.8 % (95.0-100.0); Oxyhemoglobin 93.6 % THb (90.0-100.0); PCO2 ABG 42.8 mmHg (35.0-45.0); PO2 FiO2 Ratio Arterial Blood 1.54 %; Phosphorus 4.1 mg/dL (2.5-4.5); Potassium 4.2 mmol/L (3.4-5.0); Reduced Hemoglobin 5.8 %THb (0-5.0); Site Drawn ARTLINE; Sodium 139 mmol/L (137-145); Total Hemoglobin 13.2 g/dL (12.0-18.0); pH ABG 7.444 (7.350-7.450)
[2019-12-28 04:51] LABS: Arterial Blood Gas Ventilator rate 20 /MIN; Device VENTILATOR; Modified Allen's Test Pass
[2019-12-28 04:52] LABS: Arterial Blood Gas PEEP 5 cmH2O; Arterial Blood Gas Pressure Support 0 cmH2O; Arterial Blood Gas Tidal Volume 500 ml; Arterial Blood Gas Vent Mode CMV
[2019-12-28] MEDS: metroNIDAZOLE 500 MG/ISO 100ML 500 MG/100 ML BAG 100 MG IVPB ×3 (05:17→21:14)
[2019-12-28] MEDS: METOCLOPRAMIDE HCL INJ 10 MG/2 ML VIAL 5 MG IV PUSH ×4 (05:18→23:57)
[2019-12-28] MEDS: methylPREDNISolone SOD SUCC 40 MG VIAL IV PUSH ×3 (05:18→21:14)
[2019-12-28] MEDS: CENTRAL LINE FLUSH 10 ML IV PUSH ×3 (05:19→21:14)
[2019-12-28] MEDS: THIAMINE HCL 200 MG/2 ML VIAL 100 MG IV PUSH (08:00)
[2019-12-28] MEDS: PANTOPRAZOLE SODIUM IV 40 MG VIAL IV PUSH ×2 (08:00→21:13)
[2019-12-28] MEDS: DORNASE ALFA INH SOLN 1 MG/ML 2.5 ML AMP 2.5 MG INHALATION ×2 (09:05→19:31)
[2019-12-28] MEDS: PROPOFOL IV EMULSION 100 ML 19.9 MG IV CONT ×3 (09:56→19:08)
--- NOTE | 2019-12-28 10:12 | P.SEDATION_ITS ---
Moderate Sedation Note-Pt Data Patient Data Diagnosis: high-grade AV block with symptomatic bradycardia multiple comorbidities including severe anemia, coagulopathy, shock liver and respiratory insufficiency requiring mechanical ventilation patient is dependent temporary pacemaker which was placed last week Present Complaint: patient sedated on ventilator no complaints Procedure to be performed/Plan: implantation of permanent pacemaker device Allergies Allergy/AdvReac Type Severity Reaction Status Date / Time No Known Allergies Allergy Verified 12/20/19 22:52 Home Medications Medication Instructions Recorded Confirmed Type fluticasone propion-salmeterol 1 inh INHALATION Q12H 12/20/19 12/21/19 History [Advair Diskus] furosemide 40 mg PO DAILY 12/20/19 12/21/19 History gabapentin 800 mg PO TID 12/20/19 12/21/19 History ipratropium-albuterol [Combivent 1 puff INHALATION Q4H 12/20/19 12/21/19 History Respimat] nebivolol [Bystolic] 10 mg PO DAILY 12/20/19 12/21/19 History omeprazole 40 mg PO DAILY 12/21/19 12/21/19 History Current Medications: Active Medications Albuterol (Albuterol Sulf Neb 2.5mg/0.5ml) 5 mg INHALATION Q6HRT [facility] Last Admin: 12/28/19 09:02 Dose: 5 mg Documented by: Dornase Rene (Pulmozyme) 2.5 mg INHALATION Q12HRT [facility] Last Admin: 12/28/19 09:05 Dose: 2.5 mg Documented by: Midazolam HCl (Versed 50 Mg/D5w 100 Ml) 50 mg in 100 mls @ 0 mls/hr IV CONT .Q0M [facility] Last Infusion: 12/27/19 17:31 Dose: 0 mg/hr, 0 mls/hr Documented by: Fentanyl Citrate (Fentanyl 2,500 Mcg/Ns 250 Ml) 2,500 mcg in 250 mls @ 7.5 mls/hr IV CONT .[id number] [facility] Last Infusion: 12/28/19 08:00 Dose: 75 mcg/hr, 7.5 mls/hr Documented by: Norepinephrine Bitartrate (Levophed 8 Mg/D5w 250 Ml) 8 mg in 250 mls @ 0 mls/hr IV CONT .Q0M [facility]; Protocol Last Titration: 12/27/19 05:47 Dose: Infused Documented by: Cefepime HCl (Maxipime 2 Gm/D5w 50 Ml) 2 gm in 50 mls @ 100 mls/hr IVPB Q8H [facility] Last Admin: 12/28/19 08:31 Dose: 100 mls/hr Documented by: Vancomycin HCl (Vancomycin 1,250 Mg/D5w 250 Ml) 1,250 mg in 250 mls @ 200 mls/hr IVPB Q12H [facility] Last Admin: 12/28/19 08:00 Dose: 200 mls/hr Documented by: Metronidazole (Flagyl 500 Mg/Iso Soln 100 Ml) 500 mg in 100 mls @ 100 mls/hr IVPB Q8HR [facility] Last Infusion: 12/28/19 06:20 Dose: Infused Documented by: Propofol (Diprivan) 100 mls @ 19.9 mls/hr IV CONT .Q5H2M [facility]; Protocol Last Admin: 12/28/19 09:56 Dose: 40 mcg/kg/min, 19.9 mls/hr Documented by: Ipratropium [place] (Atrovent Neb) 0.5 mg INHALATION Q6HRT [facility] Last Admin: 12/28/19 09:03 Dose: 0.5 mg Documented by: Methylprednisolone Sodium Succinate (Solu-Medrol) 40 mg IV PUSH Q8HR [facility] Last Admin: 12/28/19 05:18 Dose: 40 mg Documented by: Metoclopramide HCl (Reglan) 5 mg IV PUSH Q6HR [facility] Last Admin: 12/28/19 05:18 Dose: 5 mg Documented by: Multi-Ingred Cream/Lotion/Oil/Oint (Lubrifresh Pm Eye Ointment) 1 applic EACH EYE Q12HR [facility] Last Admin: 12/28/19 08:34 Dose: 1 applic Documented by: Pantoprazole Sodium (Protonix Iv) 40 mg IV PUSH Q12HR [facility] Last Admin: 12/28/19 08:00 Dose: 40 mg Documented by: Promethazine HCl (Phenergan Inj) 12.5 mg IV PUSH Q6H PRN PRN Reason: Nausea Sodium Chloride (Central Line Flush) 10 ml IV PUSH Q8HR [facility] Last Admin: 12/28/19 05:19 Dose: 10 ml Documented by: Thiamine HCl (Thiamine Hcl Inj) 100 mg IV PUSH QAM [facility] Last Admin:
--- NOTE | 2019-12-28 10:12 | WPDMODSED ---
Moderate Sedation Note-Pt Data Patient Data Diagnosis: high-grade AV block with symptomatic bradycardia multiple comorbidities including severe anemia, coagulopathy, shock liver and respiratory insufficiency requiring mechanical ventilation patient is dependent temporary pacemaker which was placed last week Present Complaint: patient sedated on ventilator no complaints Procedure to be performed/Plan: implantation of permanent pacemaker device Allergies Allergy/AdvReac Type Severity Reaction Status Date / Time No Known Allergies Allergy Verified 12/20/19 22:52 Home Medications Medication Instructions Recorded Confirmed Type fluticasone propion-salmeterol 1 inh INHALATION Q12H 12/20/19 12/21/19 History [Advair Diskus] furosemide 40 mg PO DAILY 12/20/19 12/21/19 History gabapentin 800 mg PO TID 12/20/19 12/21/19 History ipratropium-albuterol [Combivent 1 puff INHALATION Q4H 12/20/19 12/21/19 History Respimat] nebivolol [Bystolic] 10 mg PO DAILY 12/20/19 12/21/19 History omeprazole 40 mg PO DAILY 12/21/19 12/21/19 History Current Medications: Active Medications Albuterol (Albuterol Sulf Neb 2.5mg/0.5ml) 5 mg INHALATION Q6HRT [facility] Last Admin: 12/28/19 09:02 Dose: 5 mg Documented by: Dornase Rene (Pulmozyme) 2.5 mg INHALATION Q12HRT [facility] Last Admin: 12/28/19 09:05 Dose: 2.5 mg Documented by: Midazolam HCl (Versed 50 Mg/D5w 100 Ml) 50 mg in 100 mls @ 0 mls/hr IV CONT .Q0M [facility] Last Infusion: 12/27/19 17:31 Dose: 0 mg/hr, 0 mls/hr Documented by: Fentanyl Citrate (Fentanyl 2,500 Mcg/Ns 250 Ml) 2,500 mcg in 250 mls @ 7.5 mls/hr IV CONT .[id number] [facility] Last Infusion: 12/28/19 08:00 Dose: 75 mcg/hr, 7.5 mls/hr Documented by: Norepinephrine Bitartrate (Levophed 8 Mg/D5w 250 Ml) 8 mg in 250 mls @ 0 mls/hr IV CONT .Q0M [facility]; Protocol Last Titration: 12/27/19 05:47 Dose: Infused Documented by: Cefepime HCl (Maxipime 2 Gm/D5w 50 Ml) 2 gm in 50 mls @ 100 mls/hr IVPB Q8H [facility] Last Admin: 12/28/19 08:31 Dose: 100 mls/hr Documented by: Vancomycin HCl (Vancomycin 1,250 Mg/D5w 250 Ml) 1,250 mg in 250 mls @ 200 mls/hr IVPB Q12H [facility] Last Admin: 12/28/19 08:00 Dose: 200 mls/hr Documented by: Metronidazole (Flagyl 500 Mg/Iso Soln 100 Ml) 500 mg in 100 mls @ 100 mls/hr IVPB Q8HR [facility] Last Infusion: 12/28/19 06:20 Dose: Infused Documented by: Propofol (Diprivan) 100 mls @ 19.9 mls/hr IV CONT .Q5H2M [facility]; Protocol Last Admin: 12/28/19 09:56 Dose: 40 mcg/kg/min, 19.9 mls/hr Documented by: Ipratropium [place] (Atrovent Neb) 0.5 mg INHALATION Q6HRT [facility] Last Admin: 12/28/19 09:03 Dose: 0.5 mg Documented by: Methylprednisolone Sodium Succinate (Solu-Medrol) 40 mg IV PUSH Q8HR [facility] Last Admin: 12/28/19 05:18 Dose: 40 mg Documented by: Metoclopramide HCl (Reglan) 5 mg IV PUSH Q6HR [facility] Last Admin: 12/28/19 05:18 Dose: 5 mg Documented by: Multi-Ingred Cream/Lotion/Oil/Oint (Lubrifresh Pm Eye Ointment) 1 applic EACH EYE Q12HR [facility] Last Admin: 12/28/19 08:34 Dose: 1 applic Documented by: Pantoprazole Sodium (Protonix Iv) 40 mg IV PUSH Q12HR [facility] Last Admin: 12/28/19 08:00 Dose: 40 mg Documented by: Promethazine HCl (Phenergan Inj) 12.5 mg IV PUSH Q6H PRN PRN Reason: Nausea Sodium Chloride (Central Line Flush) 10 ml IV PUSH Q8HR [facility] Last Admin: 12/28/19 05:19 Dose: 10 ml Documented by: Thiamine HCl (Thiamine Hcl Inj) 100 mg IV PUSH QAM [facility] Last Admin: 12/28/19 08:00 Dose: 100 mg Documented by: Sedation/Anesthesia: No previous sedation/anesthesia problems (including family history). [facility] Past Medical History Medical History (Updated 12/26/19 @ 10:23 by Power Armstrong MD) Alcohol use COPD (chronic obstructive pulmonary disease) HTN (hypertension) with goal to be determined Macrocytic anemia PUD (peptic ulcer disease) Shock liver Surgical History Surgical History (Updated 12/23/19 @ 17:09 by Cayetano Pastor MD) History of partial colectomy Family History Family
--- NOTE | 2019-12-28 12:02 | PCDIET ---
ICU Rounding Note: Patient is NPO for pacemaker. Plan for Dobhoff placement later today. Recommend resuming Vital 1.2 upon feeding tube placement/verification and advancing toward goal rate of 45mL/hr due to currently being on Propofol. Last recorded weight is 81.1kg which is decreased from last review. -I/O. Bowel Motility: No documented BM. Discussed during rounds - MD added Miralax. Labs Reviewed: Hgb (7.5), Hct (22.7), Glu (168), BUN (33), Alb (3.1) Meds Noted: Flagyl, Versed, Levophed, Solu Medrol, Protonix, Albuterol, Cefepime, Fentanyl, Atrovent, Miralax, Reglan, Thiamine, Vancomycin, Propofol Additional Notes: Propofol at rate of 19.9mL/hr providing 525kcal over 24 hour period. Right groin puncture site, but no documented pressure ulcers. Following daily in ICU rounds. Assessing/reassessing every 3 days.
--- NOTE | 2019-12-28 12:11 | ECG_ITS ---
Measurements Intervals [place] Rate: 79 P: 79 UT: 204 QRS: -80 QRSD: 158 T: 90 QT: 438 QTc: 503 Interpretive Statements ATRIAL SENSE- ELECTRONIC VENTRICULAR PACEMAKER ATRIAL PREMATURE COMPLEXES BASELINE ARTIFACT- V1-V2 NO FURTHER INTERPRETATION IS POSSIBLE ATYPICAL ECG Electronically Signed On 12-28-2019 15:53:16 CDT by Jack Tello D.O.
--- NOTE | 2019-12-28 12:16 | WPDCARDPROC ---
Cardiac Cath Procedure Note Date of procedure:: 12/28/19 Performing physician:: Mega Dutton MD Indication:: symptomatic high-grade AV block persistent despite temporary pacemaker Brief clinical history:: this is a 64-year-old man who presented last week with extreme weakness. He was bradycardic and had evidence of high-grade AV block. Patient also was profoundly anemic had evidence of shock liver and coagulopathy and respiratory insufficiency and has been on ventilator support. High-grade AV block is been persistent and the patient has been transfused with improvement in his hemoglobin his coagulopathy has been improved with medical support. For ongoing treatment of high-grade AV block and permanent pacemaker is planned for today after which the temporary device will be withdrawn Procedure Procedure performed:: implantation of permanent Biotronik dual-chamber pacemaker removal of temporary transvenous wire Sedation/Medication given:: patient sedated with propofol infusion from the ICUno additional sedation given for this procedure Access site:: left subclavian vein Estimated blood loss:: 20-30 cc Procedure note:: patient was brought to the cardiac catheterization lab from the ICU on mechanical ventilator support. He was placed in the supine position in the equipment operator/laborer/supervisor table. The left anterior chest wall was prepped and draped in the usual sterile fashion. The patient was on a propofol drip and so he did not receive any additional sedation. 1% lidocaine was infiltrated inferior to the clavicle and incision was then made about an inch below the clavicle from the midclavicular line to the deltopectoral groove. Using sharp and blunt dissection the subcutaneous tissue was down to the level of the prepectoral fascia. Electrocautery was used to secure cutaneous hemostasis could not. Block blunt dissection was used to create a pacemaker pocket along the fascial plane inferior to the incision. Attention was then turned to venous access. The left subclavian vein was then punctured using the modified Seldinger technique and the J guidewire was placed under fluoroscopic visualization to the level of the right atrium. I elected to place both leads via 1 puncture site and so a 6 [place]ese SafeSheath was placed over the wire and a 2nd wire was placed through the sheath for both leads to have access. The sheath was withdrawn and placed over 1 of the wires and the wire was withdrawn and the ventricular lead was placed to the level of the right atrium. The straight stylet was removed and a 3 cc syringe was used to form AJ stylet. I used this J stylet to steer the lead through the right atrium up to the pulmonary artery position. The stylet was withdrawn and a straight stylet was placed back in the lead. It was withdrawn and placed into the RV apex. The fixation screw was deployed appropriate pacing and sensing performance was demonstrated and a 10 volt stimulation showed no evidence of extracardiac stimulation. Following this attention was turned to the atrial lead a 2nd 6 [place] SafeSheath was placed over the 2nd J wire and this was then used to introduce the atrial lead into the venous circulation. It was placed under visit fluoroscopic visualization into the right atrium. The straight stylet was removed and a preformed J stylet was used to position the lead into the right atrial appendage. The fixation screw was deployed upon withdrawal of the stylet the lead was fixed into position. Once again appropriate pacing and sensing performance was demonstrated and a 10 volt stimulation showed no evidence of extracardiac stimulation. The leads were then secured to the base of the pocket using 2 0 silk ties and the pocket was irrigated with a vancomycin infused saline. Following this the pacemaker generator was connected to the leads using the torque wrench and the entire assembly was placed into the newly created pocket. The pocket was then closed in layers
[2019-12-28] MEDS: SODIUM CHLORIDE 0.9% IV 500 ML 50 ML IV CONT (13:06)
[2019-12-28] MEDS: METOPROLOL TARTRATE 25 MG TABLET FEED TUBE ×2 (13:18→21:13)
[2019-12-28 14:11] LABS: Procalcitonin 1.26 ng/mL (<0.10)
--- NOTE | 2019-12-28 15:21 | WPDINTPN ---
Progress Note: A&P Assessment and Plan (1) Acute respiratory failure: Code(s): J96.00 - Acute respiratory failure, unspecified whether with hypoxia or hypercapnia Status: Acute Assessment and Plan: acute respiratory failure secondary to nausea and vomiting with decreased responsiveness. Patient was intubated on 12/21/2019 for airway protection - currently on CMV mode of ventilation With tidal volume 500, peep of 5 and FiO2 of 40%. ABGs and chest x-ray reviewed - continues to have thick secretions from the ET tube, - Continue vancomycin, cefepime and Flagyl. will discontinue vancomycin as blood cultures from 12/26/2019 are negative - sputum culture is growing Pseudomonas which is susceptible to cefepime - tube feeds are on hold as aspiration was suspected yesterday from ET suction. - chest x-ray reviewed, bibasal airspace opacities. He does have history of COPD. He was bronchospastic Yesterday with significant wheezing. He was started on steroid. I will continue steroids but wean down the dose (2) Shock: Code(s): R57.9 - Shock, unspecified Status: Acute Assessment and Plan: patient presented with elevated lactic acid levels, hypotension, severe anemia, hemorrhagic shock - patient received IV fluid bolus of 1 L in the ED, received 2 units of packed RBCs - He has been weaned off from dopamine - patient off Levophed - lactic acid normalized - continue antibiotics as above mentioned for E coli UTI and Pseudomonas pneumonia (3) Symptomatic bradycardia: Code(s): R00.1 - Bradycardia, unspecified Status: Acute Assessment and Plan: type 2 av block for 2-1 conduction with symptomatic severe bradycardia, hypotension and shock - temporary pacemaker inserted by cardiology on 12/21/2019, capturing well at rate of 80. Patient is being paced continuously, his intrinsic rhythm has not changed and so he is being supported at 80 beats per minute with pacing. he continues to be pacer dependent as checked by me this morning - off of Levophed at this time but he does require low intermittent low dosing - cardiology paced permanent pacemaker on 12/28/2019. (4) GENARO (acute kidney injury): Code(s): N17.9 - Acute kidney failure, unspecified Status: Acute Assessment and Plan: acute kidney injury likely related to hypotension, severe bradycardia, shock. Creatinine down to normal, ( creatinine peaked at 1.7.) - Patient was adequately fluid-resuscitated along with packed RBCs - urine output has improved lactic acid normalized ( 6.3 on admission) - Continue to monitor renal function, electrolytes and urine output (5) COPD (chronic obstructive pulmonary disease): Qualifiers: COPD type: unspecified COPD Qualified Code(s): J44.9 - Chronic obstructive pulmonary disease, unspecified Code(s): J44.9 - Chronic obstructive pulmonary disease, unspecified Status: Chronic Assessment and Plan: continue bronchodilators on steroids now (6) DVT prophylaxis: Code(s): Z29.9 - Encounter for prophylactic measures, unspecified Status: Acute Assessment and Plan: SCDs. continue lovenox subcutaneous and monitor hemoglobin (7) Severe anemia: Code(s): D64.9 - Anemia, unspecified Status: Acute Assessment and Plan: patient with severe anemia, hemoglobin 5.5 on admission - NG tube with clear drainage - elevated MCV, low vitamin B12 levels, no iron deficiency - could be related to alcoholism versus bone marrow dysfunction - received 1 unit of FFP and vitamin K on 12/22/2019 - EGD done which was clean with no significant finding to suggest blood loss. Dr. Resendez, to perform colonoscopy when patient is more stable - Hematology service recommendations appreciated. Hemolysis workup underway. (8) Cardiomyopathy: Code(s): I42.9 - Cardiomyopathy, unspecified Status: Acute
[2019-12-28] MEDS: polyethylene glycoL 3350 17 GM POWD.PACK PO (17:18)
--- NOTE | 2019-12-28 17:46 | PM.IMPN ---
Progress Note: A&P Assessment and Plan (1) Acute respiratory failure: Code(s): J96.00 - Acute respiratory failure, unspecified whether with hypoxia or hypercapnia Status: Acute Assessment and Plan: Patient was bradycardic, HoTN with n/v requiring intubation in the ER. ABG showing acute respiratory failure with p . Patient remains intubated and sedated. . Continue nebulizer treatments. Vent management per collective bargaining specialist. Wean vent as tolerated. (2) Sepsis: Code(s): A41.9 - Sepsis, unspecified organism Status: Acute Assessment and Plan: Patient now with high fevers suspect VAP. CXR with bibasilar infiltrates. UCx noted but not felt to be the source of his on going fevers. BCx NGTD. Now with increased secretions. Sputum growing Pseudomonas and now on cefepime day 6. . Continue nebs. Continue IV abx. Pulmozyme added. Vanc stopped (3) Heart block AV second degree: Code(s): I44.1 - Atrioventricular block, second degree Status: Acute Assessment and Plan: Patient started taking Bystolic on the day of admission. Patient became symptomatic and found to be bradycardic and hypotensive by EMS. In the ER, he received NS IV bolus, glucagon IV, atropine, and calcium gluconate. EKG showing 2:1 AV block with bradycardia. External pacer placed. The patient started on Dopamine and Levophed. He was seen by Cardiology and temporary transvenous pacemaker placed 12/21/19. Able to be weaned off of the Dopamine. Could be related to the bystolic and HoTN from the profound anemia. Still bradycardic when holding the pacer on 12/23/19. Weaned off Levophed this morning. Currently with paced rhythm. Pacemaker to be placed today (4) Shock: Code(s): R57.9 - Shock, unspecified Status: Acute Assessment and Plan: Patient with profound anemia with HoTN and bradycardia. Possibly cardiogenic from the bradycardia. Consider also hypovolemic shock from the blood loss complicated by the bystolic and Lasix. The patient may have had compensatory tachycardia but blocked down with the Bystolic (although still bradycardic off Bystolic). He also may have had this anemia for a while resulting in the leg edema from high output failure. The patient required vasopressor support with Levophed and Dopamine. Able to come off of the dopamine. Able to come off Levophed this morning. BP better overall. BCx NGTD. Still with fevers. Continue broad spectrum abx that were added for possible VAP. UCx growing EColi but only 50-100K colonies and feel probably unlikely contributing to current problems. Sputum Cx pseudomonas (5) Coagulopathy: Code(s): D68.9 - Coagulation defect, unspecified Status: Acute Assessment and Plan: INR 1.3 on admission probably related to underlying liver disease from his alcoholism. INR up to 2.1 felt related to hepatic dysfunction and was given one unit of FFP on 12/22/19. . Continue to follow. Repeat INR. 1.4 12/26 (6) CHF (congestive heart failure): Qualifiers: Heart failure chronicity: acute Heart failure type: combined systolic and diastolic Qualified Code(s): I50.41 - Acute combined systolic (congestive) and diastolic (congestive) heart failure Code(s): I50.9 - Heart failure, unspecified Status: Acute Assessment and Plan: Patient has been having increasing pedal edema prior to admission. Suspect heart failure from his profound anemia. Echo showing EF 35-40%, abnml LV diastolic function, HK inferior wall, mild to moderate MR and moderate pulmonary hypertension. Patient probably with acute exacerbation. BNP 3600. Suspect developed heart failure systems related to the anemia causing high output failure and with LV dysfunction. The LV dysfunction could be ischemic and/or alcohol related. Receiving Lasix periodically. CXR reviewed today showing persistent bibasliar airspace disease. (7) Elevated live
[2019-12-29] VITALS (55 sets, daily range): BP systolic 116–163; BP diastolic 49–84; PULSE 64–94; RESP 9–31; TEMP 37.1–37.5; O2SAT 93–100
[2019-12-29] MEDS: ALBUTEROL SULFATE NEB 2.5 MG/0.5 ML INH 5 MG INHALATION ×4 (01:46→20:22)
[2019-12-29] MEDS: IPRATROPIUM BR 0.02% INH SOLN 0.5 MG/2.5 ML VIAL INHALATION ×4 (01:46→20:22)
[2019-12-29 04:32] LABS: Alveolar/Arterial O2 Gradient 196.7 mmHg; Base Excess ABG 5.6 mEq/l (+/-2.0); Carboxyhemoglobin 0.2 % THb (0-2.0); Fractional Inspired Oxygen 45 %; HCO3 ABG 29.8 mEq/l (22.0-26.0); Methemoglobin ABG 0.4 %THb (0-1.5); Oxygen Content ABG 13.6 %vol (16.0-22.0); Oxyhemoglobin 93.5 % THb (90.0-100.0); PO2 ABG 76.4 mmHg (80.0-100.0); Reduced Hemoglobin 5.9 %THb (0-5.0); Site Drawn ARTLINE; Total Hemoglobin 10.3 g/dL (12.0-18.0); pH ABG 7.469 (7.350-7.450)
[2019-12-29 04:33] LABS: Arterial Blood Gas PEEP 5 cmH2O; Arterial Blood Gas Tidal Volume 500 ml; Arterial Blood Gas Vent Mode CMV; Arterial Blood Gas Ventilator rate 20 /MIN; Device VENTILATOR
[2019-12-29 04:54] LABS: Haptoglobin 150 mg/dL (43-212)
[2019-12-29 04:54] LABS: Hematocrit 21.6 % (42.0-52.0); Mean Corpuscular HGB Conc 32.4 g/dl (32-36); Mean Corpuscular Hemoglobin 35.4 pg (26-34); Mean Corpuscular Volume 109.1 fl (80-100); Mean Platelet Volume 13.3 fl (7.4-10.4); Platelet Count Result 256 k/mm3 (150-375); Red Blood Count 1.98 M/mm3 (4.6-6.20); White Blood Count 10.9 K/mm3 (4.5-10.0)
[2019-12-29 05:12] LABS: Alanine Aminotransferase 189 U/L (4-50); Albumin Level 2.8 g/dL (3.5-5.1); Alkaline Phosphatase 45 U/L (38-126); Anion Gap 2 mmol/L (8-16); Aspartate Amino Transferase 23 U/L (17-59); Bilirubin,Total 0.8 mg/dL (0.2-1.3); Blood Urea Nitrogen 29 mg/dL (9-20); Calcium 8.2 mg/dL (8.4-10.2); Carbon Dioxide 32 mmol/L (22-30); Chloride 105 mmol/L (98-107); Estimated CRCL calculation 89 ml/min; Estimated Glomerular Filt Rate > 60; Glucose 162 mg/dL (75-110); Magnesium 2.2 mg/dL (1.6-2.3); Potassium 3.9 mmol/L (3.4-5.0); Sodium 139 mmol/L (137-145)
[2019-12-29] MEDS: PROPOFOL IV EMULSION 100 ML 17.4 MG IV CONT (05:30)
[2019-12-29] MEDS: metroNIDAZOLE 500 MG/ISO 100ML 500 MG/100 ML BAG 100 MG IVPB ×3 (05:31→21:52)
[2019-12-29] MEDS: methylPREDNISolone SOD SUCC 40 MG VIAL IV PUSH ×3 (05:54→21:53)
[2019-12-29] MEDS: CENTRAL LINE FLUSH 10 ML IV PUSH ×3 (05:54→21:53)
[2019-12-29] MEDS: METOCLOPRAMIDE HCL INJ 10 MG/2 ML VIAL 5 MG IV PUSH ×2 (05:54→12:47)
[2019-12-29] MEDS: DORNASE ALFA INH SOLN 1 MG/ML 2.5 ML AMP 2.5 MG INHALATION ×2 (08:08→20:22)
[2019-12-29] MEDS: polyethylene glycoL 3350 17 GM POWD.PACK PO (09:35)
[2019-12-29] MEDS: THIAMINE HCL 200 MG/2 ML VIAL 100 MG IV PUSH (09:35)
[2019-12-29] MEDS: PANTOPRAZOLE SODIUM IV 40 MG VIAL IV PUSH ×2 (09:35→20:41)
[2019-12-29] MEDS: METOPROLOL TARTRATE 25 MG TABLET FEED TUBE (09:36)
[2019-12-29] MEDS: PROPOFOL IV EMULSION 100 ML 12.4 MG IV CONT (11:21)
--- NOTE | 2019-12-29 13:13 | PCDIET ---
ICU Rounding Note: Patient to have Dobhoff tube placed later today if unable to extubate. Recommend Vital 1.2 at 45mL/hr goal rate. Last recorded weight is 75.4kg which is decreased from last review. -I/O. Bowel Motility: No documented BM - discussed during rounds - patient to get Miralax again today and continue Reglan. Labs Reviewed: Hgb (7.0), Hct (21.6), Glu (162), Alb (2.8), Rachele Ca (9.16) Meds Noted: Cefepime, Reglan, Albuterol, Solu Medrol, Fentanyl, Flagyl, Versed, Atrovent, Protonix, Miralax, Thiamine, Propofol (rate of 17.4mL/hr provides 459kcal over 24 hour period) Additional Notes: No documented pressure ulcers. Following daily in ICU rounds. Assessing/reassessing every 3 days.
[2019-12-29] MEDS: METOPROLOL TARTRATE 25 MG TABLET PO (14:41)
--- NOTE | 2019-12-29 15:09 | WPDINTPN ---
Progress Note: A&P Assessment and Plan (1) Acute respiratory failure: Code(s): J96.00 - Acute respiratory failure, unspecified whether with hypoxia or hypercapnia Status: Acute Assessment and Plan: acute respiratory failure secondary to nausea and vomiting with decreased responsiveness. Patient was intubated on 12/21/2019 for airway protection - currently on CMV mode of ventilation With tidal volume 500, peep of 5 and FiO2 of 40%. ABGs and chest x-ray reviewed - continues to have profuse secretions from the ET tube, - Continue vancomycin, cefepime and Flagyl. will discontinue vancomycin as blood cultures from 12/26/2019 are negative - sputum culture is growing Pseudomonas which is susceptible to cefepime - chest x-ray and ABGs reviewed, - patient on fentanyl and propofol infusion for sedation, will wean off and start Precedex. He does have history of COPD. He was bronchospastic Yesterday with significant wheezing. He was started on steroid. I will continue steroids but wean down the dose (2) Shock: Code(s): R57.9 - Shock, unspecified Status: Acute Assessment and Plan: patient presented with elevated lactic acid levels, hypotension, severe anemia, hemorrhagic shock - patient received IV fluid bolus of 1 L in the ED, received 2 units of packed RBCs - He has been weaned off from dopamine - patient off Levophed - lactic acid normalized - continue antibiotics as above mentioned for E coli UTI and Pseudomonas pneumonia (3) Symptomatic bradycardia: Code(s): R00.1 - Bradycardia, unspecified Status: Acute Assessment and Plan: type 2 av block for 2-1 conduction with symptomatic severe bradycardia, hypotension and shock - temporary pacemaker inserted by cardiology on 12/21/2019, capturing well at rate of 80. Patient is being paced continuously, his intrinsic rhythm has not changed and so he is being supported at 80 beats per minute with pacing. he continues to be pacer dependent as checked by me this morning - off of Levophed at this time but he does require low intermittent low dosing - cardiology paced permanent pacemaker on 12/28/2019. (4) GENARO (acute kidney injury): Code(s): N17.9 - Acute kidney failure, unspecified Status: Acute Assessment and Plan: acute kidney injury likely related to hypotension, severe bradycardia, shock. Creatinine down to normal, ( creatinine peaked at 1.7.) - Patient was adequately fluid-resuscitated along with packed RBCs - urine output has improved lactic acid normalized ( 6.3 on admission) - Continue to monitor renal function, electrolytes and urine output (5) COPD (chronic obstructive pulmonary disease): Qualifiers: COPD type: unspecified COPD Qualified Code(s): J44.9 - Chronic obstructive pulmonary disease, unspecified Code(s): J44.9 - Chronic obstructive pulmonary disease, unspecified Status: Chronic Assessment and Plan: continue bronchodilators on steroids now (6) DVT prophylaxis: Code(s): Z29.9 - Encounter for prophylactic measures, unspecified Status: Acute Assessment and Plan: SCDs. continue lovenox subcutaneous and monitor hemoglobin (7) Severe anemia: Code(s): D64.9 - Anemia, unspecified Status: Acute Assessment and Plan: patient with severe anemia, hemoglobin 5.5 on admission - NG tube with clear drainage - elevated MCV, low vitamin B12 levels, no iron deficiency - could be related to alcoholism versus bone marrow dysfunction - received 1 unit of FFP and vitamin K on 12/22/2019 - EGD done which was clean with no significant finding to suggest blood loss. Dr. Resendez, to perform colonoscopy when patient is more stable - Hematology service recommendations appreciated. Hemolysis workup underway. (8) Cardiomyopathy: Code(s): I42.9 - Cardiomyopathy, unspecified Status: Acute
--- NOTE | 2019-12-29 16:50 | PM.IMPN ---
Progress Note: A&P Assessment and Plan (1) Acute respiratory failure: Code(s): J96.00 - Acute respiratory failure, unspecified whether with hypoxia or hypercapnia Status: Acute Assessment and Plan: Patient was bradycardic, HoTN with n/v requiring intubation in the ER. ABG showing acute respiratory failure with p . Patient remains intubated and sedated. . Continue nebulizer treatments. Vent management per paraprofessional aide. Wean vent as tolerated. (2) Sepsis: Code(s): A41.9 - Sepsis, unspecified organism Status: Acute Assessment and Plan: Patient with continued low grade fevers suspect VAP. CXR with bibasilar infiltrates. UCx noted but not felt to be the source of his on going fevers. BCx NGTD. Now with increased secretions. Sputum growing Pseudomonas and now on cefepime day 7. . Continue nebs. Continue IV abx. Pulmozyme added. Vanc stopped 12/27 (3) Heart block AV second degree: Code(s): I44.1 - Atrioventricular block, second degree Status: Acute Assessment and Plan: Patient started taking Bystolic on the day of admission. Patient became symptomatic and found to be bradycardic and hypotensive by EMS. In the ER, he received NS IV bolus, glucagon IV, atropine, and calcium gluconate. EKG showing 2:1 AV block with bradycardia. External pacer placed. The patient started on Dopamine and Levophed. He was seen by Cardiology and temporary transvenous pacemaker placed 12/21/19. Able to be weaned off of the Dopamine. Could be related to the bystolic and HoTN from the profound anemia. Still bradycardic when holding the pacer on 12/23/19. Weaned off Levophed 12/27. Currently with paced rhythm. Permanent Pacemaker placed 12/27 (4) Shock: Code(s): R57.9 - Shock, unspecified Status: Acute Assessment and Plan: Patient with profound anemia with HoTN and bradycardia. Possibly cardiogenic from the bradycardia. Consider also hypovolemic shock from the blood loss complicated by the bystolic and Lasix. The patient may have had compensatory tachycardia but blocked down with the Bystolic (although still bradycardic off Bystolic). He also may have had this anemia for a while resulting in the leg edema from high output failure. The patient required vasopressor support with Levophed and Dopamine. Able to come off of the dopamine. Able to come off Levophed 12/27. BP better overall. BCx NGTD. Still with fevers. Continue broad spectrum abx that were added for possible VAP. UCx growing EColi but only 50-100K colonies and feel probably unlikely contributing to current problems. Sputum Cx pseudomonas (5) Coagulopathy: Code(s): D68.9 - Coagulation defect, unspecified Status: Acute Assessment and Plan: INR 1.3 on admission probably related to underlying liver disease from his alcoholism. INR up to 2.1 felt related to hepatic dysfunction and was given one unit of FFP on 12/22/19. . Continue to follow. Repeat INR. 1.4 12/26 (6) CHF (congestive heart failure): Qualifiers: Heart failure type: combined systolic and diastolic Heart failure chronicity: acute Qualified Code(s): I50.41 - Acute combined systolic (congestive) and diastolic (congestive) heart failure Code(s): I50.9 - Heart failure, unspecified Status: Acute Assessment and Plan: Patient has been having increasing pedal edema prior to admission. Suspect heart failure from his profound anemia. Echo showing EF 35-40%, abnml LV diastolic function, HK inferior wall, mild to moderate MR and moderate pulmonary hypertension. Patient probably with acute exacerbation. BNP 3600. Suspect developed heart failure systems related to the anemia causing high output failure and with LV dysfunction. The LV dysfunction could be ischemic and/or alcohol related. Receiving Lasix periodically. CXR reviewed today showing persistent bibasliar airspace disease. (7) Elevated li
[2019-12-29] MEDS: METOCLOPRAMIDE HCL INJ 10 MG/2 ML VIAL IV PUSH ×2 (17:51→22:59)
--- NOTE | 2019-12-29 18:01 | PM.PNCARD ---
Progress Note: A&P Assessment and Plan (1) Heart block AV second degree: Code(s): I44.1 - Atrioventricular block, second degree Status: Acute Assessment and Plan: Status post pacemaker dual chamber on December 28, 2019. Normal device function on interrogation personally reviewed. Chest x-ray personally reviewed leads in expected position within the right atrium, Right ventricular lead in expected position in RV. Impedances stable on device check (2) Cardiomyopathy: Code(s): I42.9 - Cardiomyopathy, unspecified Status: Acute Assessment and Plan: moderate with wall motion abnormalities present. Likely has underlying CAD also. Ischemic workup in the future as clinically appropriate. Wean vent per critical care. (3) SVT (supraventricular tachycardia): Code(s): I47.1 - Supraventricular tachycardia Status: Acute Assessment and Plan: Transient, isolated SVT with aberrancy, cannot exclude A.Fib. will monitor for recurrence. (4) Elevated liver enzymes: Code(s): R74.8 - Abnormal levels of other serum enzymes Status: Acute Assessment and Plan: Improving. (5) Alcohol use: Code(s): Z72.89 - Other problems related to lifestyle Status: Acute Assessment and Plan: Defer to primary service. (6) Macrocytic anemia: Code(s): D53.9 - Nutritional anemia, unspecified Status: Acute Assessment and Plan: hematology involved Stable. Hemoglobin 7.3, platelet count 300. (7) Hypertension: Code(s): I10 - Essential (primary) hypertension Status: Acute Assessment and Plan: may need to add an YOSELYN-inhibitor /Arb soon (8) Lactic acidosis: Code(s): E87.2 - Acidosis Status: Acute Assessment and Plan: resolved Subjective Date/time seen: date of service: 12/29/19 18:01 Interval history: 64yo male with COPD and HTN here for generalized weakness and found to be bradycardic Now status post dual chamber pacemaker 12/28/2019Patient intubated and sedated. Still intubated and sedated. intermittent AV paced predominantly V paced. SVT with aberrancy possible atrial fibrillation transiently on telemetry overnight. Hemodynamically stable. Review of Systems Review of Systems: All systems reviewed & are unremarkable except as noted in HPI and below ROS unobtainable: Yes unobtainable due to endotracheal tube and unobtainable due to medical condition Exam Const: Other: WM, NAD, eyes open, sedated and on mechanical ventilator HENMT: Mouth: Yes moist mucous membranes and Yes dry mucous membranes Eyes: Sclera: sclerae normal Neck: Neck: no JVD Other: no obvious venous distension carotid pulses are normal bilaterally Chest: Breast/axilla palpation: other ( Pacer site soft, no hematoma, warmth, erythema. Sterile covering intact.) Resp: Other: faint scattered rhonchi otherwise relatively good air exchange Cardio: Jugular venous distension: other ( Paced rhythm) Rate: regular rate and other Rhythm: regular rhythm Other: paced rhythm GI: Auscultation: normal bowel sounds Skin: General skin exam: normal color Neuro: Other: sedated on ventilator support Extrem: General: normal to inspection Other: trace bilateral lower extremity edema at the ankles Objective Data Vital Signs Vital Signs: Vital Signs - 24 hr 12/28/19 19:00 12/28/19 19:01 12/28/19 19:23 Temperature 37.4 C 37.4 C Pulse Rate 97 83 89 Pulse Rate [Bilateral Pedal (Dorsalis Pedis) Palpation] Respiratory Rate 20 20 Blood Pressure 156/73 H Pulse Oximetry 96 96 12/28/19 19:28 12/28/19 19:37 12/28/19 20:00 Temperature 37.5 C Pulse Rate 96 99 97 Pulse Rate [Bilateral Pedal (Dorsalis Pedis) Palpation] Respiratory Rate 26 H 22 H Blood Pressure 154/70 H Pulse Oximetry 96 96 12/28/19 20:01 12/28/19 21:00 12/28/19 21:01 Temperature 37.5 C 37.4 C 37.4 C Pulse Rat
[2019-12-29] MEDS: METOPROLOL TARTRATE 50 MG TAB FEED TUBE (20:41)
[2019-12-30] VITALS (30 sets, daily range): BP systolic 116–170; BP diastolic 50–68; PULSE 61–104; RESP 15–30; TEMP 36.7–37.4; O2SAT 92–100
[2019-12-30] MEDS: IPRATROPIUM BR 0.02% INH SOLN 0.5 MG/2.5 ML VIAL INHALATION ×4 (02:00→20:32)
[2019-12-30] MEDS: ALBUTEROL SULFATE NEB 2.5 MG/0.5 ML INH 5 MG INHALATION ×4 (02:00→20:32)
[2019-12-30 04:03] LABS: Alveolar/Arterial O2 Gradient 165.6 mmHg; Base Excess ABG 5.4 mEq/l (+/-2.0); Carboxyhemoglobin 0.3 % THb (0-2.0); Fractional Inspired Oxygen 40 %; HCO3 ABG 28.8 mEq/l (22.0-26.0); Methemoglobin ABG 0.5 %THb (0-1.5); Oxygen Content ABG 10.5 %vol (16.0-22.0); Oxygen Saturation ABG 96.4 % (95.0-100.0); Oxyhemoglobin 93.4 % THb (90.0-100.0); PCO2 ABG 37.3 mmHg (35.0-45.0); PO2 ABG 76.7 mmHg (80.0-100.0); PO2 FiO2 Ratio Arterial Blood 1.92 %; Reduced Hemoglobin 5.8 %THb (0-5.0); pH ABG 7.506 (7.350-7.450)
[2019-12-30 04:05] LABS: Device VENTILATOR; Site Drawn ARTLINE; Total Hemoglobin 7.9 g/dL (12.0-18.0)
[2019-12-30 04:06] LABS: Arterial Blood Gas PEEP 5 cmH2O; Arterial Blood Gas Tidal Volume 500 ml; Arterial Blood Gas Vent Mode CMV; Arterial Blood Gas Ventilator rate 20 /MIN
[2019-12-30] MEDS: CENTRAL LINE FLUSH 10 ML IV PUSH ×2 (05:46→21:07)
[2019-12-30] MEDS: metroNIDAZOLE 500 MG/ISO 100ML 500 MG/100 ML BAG 100 MG IVPB ×3 (05:46→21:08)
[2019-12-30] MEDS: methylPREDNISolone SOD SUCC 40 MG VIAL IV PUSH ×3 (05:47→21:06)
[2019-12-30] MEDS: METOCLOPRAMIDE HCL INJ 10 MG/2 ML VIAL IV PUSH (05:47)
[2019-12-30 06:06] LABS: Hematocrit 22.3 % (42.0-52.0); Hemoglobin 7.1 g/dL (14.0-18.0); Mean Corpuscular HGB Conc 31.8 g/dl (32-36); Mean Corpuscular Hemoglobin 35.7 pg (26-34); Mean Corpuscular Volume 112.1 fl (80-100); Mean Platelet Volume 13.7 fl (7.4-10.4); Platelet Count Result 222 k/mm3 (150-375); Red Blood Count 1.99 M/mm3 (4.6-6.20); Red Cell Distribution Width 28.8 % (11.5-14.5); White Blood Count 9.4 K/mm3 (4.5-10.0)
[2019-12-30] MEDS: PANTOPRAZOLE SODIUM IV 40 MG VIAL IV PUSH ×2 (09:02→21:06)
[2019-12-30] MEDS: THIAMINE HCL 200 MG/2 ML VIAL 100 MG IV PUSH (09:03)
[2019-12-30] MEDS: METOPROLOL TARTRATE 50 MG TAB FEED TUBE ×2 (09:03→21:06)
[2019-12-30] MEDS: polyethylene glycoL 3350 17 GM POWD.PACK PO (09:03)
[2019-12-30] MEDS: DORNASE ALFA INH SOLN 1 MG/ML 2.5 ML AMP 2.5 MG INHALATION ×2 (09:11→20:32)
[2019-12-30 09:41] LABS: Alveolar/Arterial O2 Gradient 141.9 mmHg; Base Excess ABG 3.7 mEq/l (+/-2.0); Carboxyhemoglobin 0.3 % THb (0-2.0); Device VENTILATOR; Fractional Inspired Oxygen 35 %; HCO3 ABG 27.2 mEq/l (22.0-26.0); Methemoglobin ABG 0.5 %THb (0-1.5); Oxygen Content ABG 10.4 %vol (16.0-22.0); Oxygen Saturation ABG 94.5 % (95.0-100.0); Oxyhemoglobin 90.7 % THb (90.0-100.0); PCO2 ABG 36.2 mmHg (35.0-45.0); PO2 ABG 65.6 mmHg (80.0-100.0); PO2 FiO2 Ratio Arterial Blood 1.87 %; Reduced Hemoglobin 8.5 %THb (0-5.0); Site Drawn ARTLINE; Total Hemoglobin 8.1 g/dL (12.0-18.0); pH ABG 7.493 (7.350-7.450)
[2019-12-30 09:42] LABS: Arterial Blood Gas PEEP 5 cmH2O; Arterial Blood Gas Pressure Support 8 cmH2O; Arterial Blood Gas Vent Mode SPONTANEOUS
[2019-12-30] MEDS: hydrALAZINE HCL 20 MG/ML VIAL 10 MG IV PUSH ×2 (09:48→22:09)
--- NOTE | 2019-12-30 11:09 | PCDIET ---
Nutrition Follow-Up Complete: Nutrition Diagnosis: Inadequate oral intake related to oral intubation as evidenced by NPO status. Nutrition Goal: Patient to meet estimated nutritional needs. Goal in progress. Patient extubated earlier today with plan for bedside swallow study. Remains NPO at this time. If unable/unexpected to safely advance diet in the next 2-3 days, recommend replacing feeding tube and starting Jevity 1.2 tube feedings at goal of 65mL/hr. Last recorded weight is 77.2 kg which is increased from last review. Bowel Motility: No documented BM as of yet. Labs Reviewed: Hgb (7.1), Hct (22.3) - No new BMP Meds Noted: Albuterol, Cefepime, Precedex, Atrovent, Solu Medrol, Reglan, Flagyl, Protonix, Miralax, Thiamine Additional Notes: No documented pressure sores. Will continue to monitor with same goal. Nutrition Monitoring and Evaluation: Follow up every 3 days. Follow daily in ICU rounds.
--- NOTE | 2019-12-30 14:56 | WPDINTPN ---
Progress Note: A&P Assessment and Plan (1) Acute respiratory failure: Code(s): J96.00 - Acute respiratory failure, unspecified whether with hypoxia or hypercapnia Status: Acute Assessment and Plan: acute respiratory failure secondary to nausea and vomiting with decreased responsiveness. Patient was intubated on 12/21/2019 for airway protection - currently on CMV mode of ventilation, peep of 5 in 40% FiO2 - Continue vancomycin, cefepime and Flagyl. will discontinue vancomycin as blood cultures from 12/26/2019 are negative - sputum culture is growing Pseudomonas which is susceptible to cefepime - chest x-ray and ABGs reviewed, patient on Precedex infusion, will stop Precedex infusion, place patient on SBT and evaluate for extubation - patient did well on SBT and was extubated on 12/30/2019 (2) Shock: Code(s): R57.9 - Shock, unspecified Status: Acute Assessment and Plan: RESOLVED patient presented with elevated lactic acid levels, hypotension, severe anemia, hemorrhagic shock - patient received IV fluid bolus of 1 L in the ED, received 2 units of packed RBCs - He has been weaned off from dopamine - patient off Levophed - lactic acid normalized - continue antibiotics as above mentioned for E coli UTI and Pseudomonas pneumonia (3) Symptomatic bradycardia: Code(s): R00.1 - Bradycardia, unspecified Status: Acute Assessment and Plan: RESOLVED type 2 av block for 2-1 conduction with symptomatic severe bradycardia, hypotension and shock - temporary pacemaker inserted by cardiology on 12/21/2019, capturing well at rate of 80. Patient is being paced continuously, his intrinsic rhythm has not changed and so he is being supported at 80 beats per minute with pacing. he continues to be pacer dependent as checked by me this morning - off of Levophed at this time but he does require low intermittent low dosing - cardiology paced permanent pacemaker on 12/28/2019. (4) GENARO (acute kidney injury): Code(s): N17.9 - Acute kidney failure, unspecified Status: Acute Assessment and Plan: RESOLVED acute kidney injury likely related to hypotension, severe bradycardia, shock. Creatinine down to normal, ( creatinine peaked at 1.7.) - Patient was adequately fluid-resuscitated along with packed RBCs - urine output has improved lactic acid normalized ( 6.3 on admission) - Continue to monitor renal function, electrolytes and urine output (5) COPD (chronic obstructive pulmonary disease): Qualifiers: COPD type: unspecified COPD Qualified Code(s): J44.9 - Chronic obstructive pulmonary disease, unspecified Code(s): J44.9 - Chronic obstructive pulmonary disease, unspecified Status: Chronic Assessment and Plan: continue bronchodilators on steroids now (6) DVT prophylaxis: Code(s): Z29.9 - Encounter for prophylactic measures, unspecified Status: Acute Assessment and Plan: SCDs. continue lovenox subcutaneous and monitor hemoglobin (7) Severe anemia: Code(s): D64.9 - Anemia, unspecified Status: Acute Assessment and Plan: patient with severe anemia, hemoglobin 5.5 on admission - NG tube with clear drainage - elevated MCV, low vitamin B12 levels, no iron deficiency - could be related to alcoholism versus bone marrow dysfunction - received 1 unit of FFP and vitamin K on 12/22/2019 - EGD done which was clean with no significant finding to suggest blood loss. Dr. Resendez, to perform colonoscopy when patient is more stable - Hematology service recommendations appreciated. Hemolysis workup underway. (8) Cardiomyopathy: Code(s): I42.9 - Cardiomyopathy, unspecified Status: Acute Assessment and Plan: 12/21/2019 echocardiogram, EF 35-40%, left ventricular septal wall motion is abnormal, inferior wall is hypokinetic, mild to moderate mitral valve regurg, moderate pul
--- NOTE | 2019-12-30 16:33 | PM.IMPN ---
Progress Note: A&P Assessment and Plan (1) Acute respiratory failure: Code(s): J96.00 - Acute respiratory failure, unspecified whether with hypoxia or hypercapnia Status: Acute Assessment and Plan: Patient was bradycardic, HoTN with n/v requiring intubation in the ER. ABG showing acute respiratory failure with pna . Patient remains intubated and sedated. . Continue nebulizer treatments. Vent management per boiling house oiler. Wean vent as tolerated. (2) Sepsis: Code(s): A41.9 - Sepsis, unspecified organism Status: Acute Assessment and Plan: Patient with continued low grade fevers suspect VAP. CXR with bibasilar infiltrates. UCx noted but not felt to be the source of his on going fevers. BCx NGTD. Now with increased secretions. Sputum growing Pseudomonas and now on cefepime day 8. . Continue nebs. Continue IV abx. Pulmozyme added. Vanc stopped 12/27 (3) Heart block AV second degree: Code(s): I44.1 - Atrioventricular block, second degree Status: Acute Assessment and Plan: Patient started taking Bystolic on the day of admission. Patient became symptomatic and found to be bradycardic and hypotensive by EMS. In the ER, he received NS IV bolus, glucagon IV, atropine, and calcium gluconate. EKG showing 2:1 AV block with bradycardia. External pacer placed. The patient started on Dopamine and Levophed. He was seen by Cardiology and temporary transvenous pacemaker placed 12/21/19. Able to be weaned off of the Dopamine. Could be related to the bystolic and HoTN from the profound anemia. Still bradycardic when holding the pacer on 12/23/19. Weaned off Levophed 12/27. Currently with paced rhythm. Permanent Pacemaker placed 12/27 (4) Shock: Code(s): R57.9 - Shock, unspecified Status: Acute Assessment and Plan: Patient with profound anemia with HoTN and bradycardia. Possibly cardiogenic from the bradycardia. Consider also hypovolemic shock from the blood loss complicated by the bystolic and Lasix. The patient may have had compensatory tachycardia but blocked down with the Bystolic (although still bradycardic off Bystolic). He also may have had this anemia for a while resulting in the leg edema from high output failure. The patient required vasopressor support with Levophed and Dopamine. Able to come off of the dopamine. Able to come off Levophed 12/27. BP better overall. BCx NGTD. Still with fevers. Continue broad spectrum abx that were added for possible VAP. UCx growing EColi but only 50-100K colonies and feel probably unlikely contributing to current problems. Sputum Cx pseudomonas (5) Coagulopathy: Code(s): D68.9 - Coagulation defect, unspecified Status: Acute Assessment and Plan: INR 1.3 on admission probably related to underlying liver disease from his alcoholism. INR up to 2.1 felt related to hepatic dysfunction and was given one unit of FFP on 12/22/19. . Continue to follow. Repeat INR. 1.4 12/26 (6) CHF (congestive heart failure): Qualifiers: Heart failure chronicity: acute Heart failure type: combined systolic and diastolic Qualified Code(s): I50.41 - Acute combined systolic (congestive) and diastolic (congestive) heart failure Code(s): I50.9 - Heart failure, unspecified Status: Acute Assessment and Plan: Patient has been having increasing pedal edema prior to admission. Suspect heart failure from his profound anemia. Echo showing EF 35-40%, abnml LV diastolic function, HK inferior wall, mild to moderate MR and moderate pulmonary hypertension. Patient probably with acute exacerbation. BNP 3600. Suspect developed heart failure systems related to the anemia causing high output failure and with LV dysfunction. The LV dysfunction could be ischemic and/or alcohol related. Receiving Lasix periodically. CXR reviewed today showing persistent bibasliar airspace disease. (7) Elevated
[2019-12-31] VITALS (22 sets, daily range): BP systolic 134–172; BP diastolic 42–83; PULSE 69–102; RESP 14–35; TEMP 36.6–37; O2SAT 93–99
[2019-12-31] MEDS: ALBUTEROL SULFATE NEB 2.5 MG/0.5 ML INH 5 MG INHALATION ×4 (02:16→20:48)
[2019-12-31] MEDS: IPRATROPIUM BR 0.02% INH SOLN 0.5 MG/2.5 ML VIAL INHALATION ×4 (02:16→20:48)
[2019-12-31 04:42] LABS: IFOB Positive Control Positive; Immunochemical Fecal Occult Bl Negative (N)
[2019-12-31 04:46] LABS: Alveolar/Arterial O2 Gradient 104.2 mmHg; Base Excess ABG 4.5 mEq/l (+/-2.0); Carboxyhemoglobin 0.3 % THb (0-2.0); Fractional Inspired Oxygen 28 %; Methemoglobin ABG 0.3 %THb (0-1.5); Oxygen Content ABG 11.3 %vol (16.0-22.0); Oxygen Saturation ABG 93.3 % (95.0-100.0); Oxyhemoglobin 88.9 % THb (90.0-100.0); PO2 ABG 57.7 mmHg (80.0-100.0); PO2 FiO2 Ratio Arterial Blood 2.06 %; Reduced Hemoglobin 10.5 %THb (0-5.0)
[2019-12-31 04:48] LABS: Device NASAL CANNULA; Modified Allen's Test Pass; Site Drawn RIGHT RADIAL; pH ABG 7.544 (7.350-7.450)
[2019-12-31] MEDS: metroNIDAZOLE 500 MG/ISO 100ML 500 MG/100 ML BAG 100 MG IVPB ×3 (06:10→22:16)
[2019-12-31] MEDS: methylPREDNISolone SOD SUCC 40 MG VIAL IV PUSH (06:10)
[2019-12-31] MEDS: CENTRAL LINE FLUSH 10 ML IV PUSH ×3 (06:11→22:17)
[2019-12-31 06:24] LABS: Hematocrit 21.4 % (42.0-52.0); Hemoglobin 7.1 g/dL (14.0-18.0); Mean Corpuscular HGB Conc 33.2 g/dl (32-36); Mean Corpuscular Hemoglobin 36.4 pg (26-34); Mean Corpuscular Volume 109.7 fl (80-100); Mean Platelet Volume 13.9 fl (7.4-10.4); Platelet Count Result 210 k/mm3 (150-375); Red Blood Count 1.95 M/mm3 (4.6-6.20); Red Cell Distribution Width 29.7 % (11.5-14.5); White Blood Count 16.2 K/mm3 (4.5-10.0)
[2019-12-31] MEDS: THIAMINE HCL 200 MG/2 ML VIAL 100 MG IV PUSH (08:09)
[2019-12-31] MEDS: PANTOPRAZOLE SODIUM IV 40 MG VIAL IV PUSH (08:10)
--- NOTE | 2019-12-31 10:02 | PM.PNCARD ---
Progress Note: A&P Additional Plan 64-year-old gentleman presenting a severely ill with multiple problems. The cardiac issues we are of course high-grade AV block as well as some degree of left ventricular systolic dysfunction noted on echo. Permanent pacemaker implanted On 12/28/2019 is functioning normally. patient is on a good dose of metoprolol ARB started today by pan pusher is appropriate. Plans are to move him out of ICU today and at some point I might consider an ischemia evaluation depending on what else is found regarding his anemia. It is not necessary or prudent to proceed with an ischemia evaluation while his anemia has yet to be fully characterized. He may or may not be a candidate for an angiogram at any point in the future which remains to be seen. Mega Dutton MD [facility] Subjective Date/time seen: 12/31/19 10:02 Interval history: 64yo male with COPD and HTN here for generalized weakness and found to be bradycardic Now status post dual chamber pacemaker 12/28/2019Patient intubated and sedated. patient now extubated sitting in a chair having had his breakfast. He is responsive and alert mentation appears to be a bit slow but appropriate. Explained to the patient the difficulty that he had with high-grade AV block and the need for temporary followed by permanent pacemaker implantation. Staff indicate plans to transfer him out to IMU today. Exam Const: General: comfortable and no acute distress Other: Patient seated in a chair appears to be comfortable and offers no complaints at this time HENMT: Mouth: Yes moist mucous membranes Eyes: Sclera: sclerae normal Pupils: Equal, round and reactive pupils present Neck: Neck: supple and no JVD Thyroid: thyroid normal Other: carotid pulses are intact and are free of bruits. Resp: Effort & Inspection: normal respiratory effort Auscultation: clear to auscultation bilaterally Cardio: Rate: regular rate Rhythm: regular rhythm Other: Paced rhythm atrial sensing and ventricular pacing GI: Auscultation: normal bowel sounds Skin: General skin exam: normal color Neuro: Cognition (Neuro): normal cognition Other: cognition appropriate mentation a bit slow Extrem: General: normal to inspection Objective Data Vital Signs Vital Signs: Vital Signs - 24 hr 12/30/19 10:45 12/30/19 12:00 12/30/19 14:00 Temperature 37.4 C Pulse Rate 91 99 Respiratory Rate 19 20 Blood Pressure 141/63 H 116/68 Pulse Oximetry 96 97 94 12/30/19 14:45 12/30/19 14:55 12/30/19 16:00 Temperature 36.7 C Pulse Rate 78 80 95 Respiratory Rate 20 20 19 Blood Pressure 148/67 H Pulse Oximetry 96 12/30/19 18:00 12/30/19 20:00 12/30/19 20:30 Temperature 36.8 C Pulse Rate 102 H 72 Respiratory Rate 15 20 Blood Pressure 152/65 H 148/60 H Pulse Oximetry 95 100 98 12/30/19 20:32 12/30/19 20:50 12/30/19 21:06 Temperature Pulse Rate 98 101 H 94 Respiratory Rate 30 H 30 H Blood Pressure Pulse Oximetry 12/30/19 22:00 12/31/19 00:00 12/31/19 02:00 Temperature 37.0 C Pulse Rate 83 89 89 Respiratory Rate 20 22 H 22 H Blood Pressure 170/66 H 155/42 H 157/65 H Pulse Oximetry 100 95 96 12/31/19 02:18 12/31/19 02:28 12/31/19 04:00 Temperature 36.7 C Pulse Rate 86 91 91 Respiratory Rate 16 18 28 H Blood Pressure 134/83 Pulse Oximetry 94 12/31/19 06:00 12/31/19 08:00 Temperature 36.8 C Pulse Rate 92 98 Respiratory Rate 25 H 29 H Blood Pressure 152/53 H 172/59 H Pulse Oximetry 99 94 Intake/Output Intake/Output: Intake & Output 12/28/19 12/29/19 12/30/19 12/31/19 23:59 23:59 23:59 23:59 Intake Total 1869 1158.4 1107 150 Output Total 1925 3250 1775 900 [facility]56 -2091.6 -668 -750 Meds/Results Medications: Active Medications Generic Name Dose Route Start Last Admin Trade Name Freq PRN Reason Stop Dose Admin Albuterol 5 mg 12/21/19 08:00 12/31/19 02:16 Albuterol Sulf Neb 2.5mg/0.5ml INHA
[2019-12-31] MEDS: DORNASE ALFA INH SOLN 1 MG/ML 2.5 ML AMP 2.5 MG INHALATION ×2 (10:03→20:48)
[2019-12-31] MEDS: LOSARTAN POTASSIUM 50 MG TABLET PO (10:07)
[2019-12-31] MEDS: FUROSEMIDE INJ 40 MG/4 ML VIAL IV PUSH (10:07)
[2019-12-31] MEDS: METOPROLOL TARTRATE 50 MG TAB FEED TUBE (10:21)
--- NOTE | 2019-12-31 11:54 | WPDINTPN ---
Progress Note: A&P Assessment and Plan (1) Acute respiratory failure: Code(s): J96.00 - Acute respiratory failure, unspecified whether with hypoxia or hypercapnia Status: Acute Assessment and Plan: acute respiratory failure secondary to nausea and vomiting with decreased responsiveness. Patient was intubated on 12/21/2019 for airway protection - successfully extubated on 12/30/2019 - continue cefepime and Flagyl (12/22) for total of 10 days - sputum culture is growing Pseudomonas which is susceptible to cefepime - increase activity, incentive spirometry, PT/OT (2) Shock: Code(s): R57.9 - Shock, unspecified Status: Acute Assessment and Plan: RESOLVED patient presented with elevated lactic acid levels, hypotension, severe anemia, hemorrhagic shock - continue antibiotics as above mentioned for E coli UTI and Pseudomonas pneumonia (3) Symptomatic bradycardia: Code(s): R00.1 - Bradycardia, unspecified Status: Acute Assessment and Plan: RESOLVED type 2 av block for 2-1 conduction with symptomatic severe bradycardia, hypotension and shock - temporary pacemaker inserted by cardiology on 12/21/2019, capturing well at rate of 80. Patient is being paced continuously, his intrinsic rhythm has not changed and so he is being supported at 80 beats per minute with pacing. he continues to be pacer dependent as checked by me this morning - cardiology paced permanent pacemaker on 12/28/2019. (4) GENARO (acute kidney injury): Code(s): N17.9 - Acute kidney failure, unspecified Status: Acute Assessment and Plan: RESOLVED acute kidney injury likely related to hypotension, severe bradycardia, shock. Creatinine down to normal, ( creatinine peaked at 1.7.) - Continue to monitor renal function, electrolytes and urine output (5) COPD (chronic obstructive pulmonary disease): Qualifiers: COPD type: unspecified COPD Qualified Code(s): J44.9 - Chronic obstructive pulmonary disease, unspecified Code(s): J44.9 - Chronic obstructive pulmonary disease, unspecified Status: Chronic Assessment and Plan: continue bronchodilators on steroids now (6) DVT prophylaxis: Code(s): Z29.9 - Encounter for prophylactic measures, unspecified Status: Acute Assessment and Plan: SCDs. continue lovenox subcutaneous and monitor hemoglobin (7) Severe anemia: Code(s): D64.9 - Anemia, unspecified Status: Acute Assessment and Plan: patient with severe anemia, hemoglobin 5.5 on admission - NG tube with clear drainage - elevated MCV, low vitamin B12 levels, no iron deficiency - could be related to alcoholism versus bone marrow dysfunction - received 1 unit of FFP and vitamin K on 12/22/2019 - EGD done which was clean with no significant finding to suggest blood loss. Dr. Resendez, to perform colonoscopy when patient is more stable - Hematology service recommendations appreciated. Hemolysis workup underway. (8) Cardiomyopathy: Code(s): I42.9 - Cardiomyopathy, unspecified Status: Acute Assessment and Plan: 12/21/2019 echocardiogram, EF 35-40%, left ventricular septal wall motion is abnormal, inferior wall is hypokinetic, mild to moderate mitral valve regurg, moderate pulmonary hypertension with RVSP of 51 mmHg - cardiology following the patient - could have underlying coronary artery disease, will eventually need further workup - patient also hypertensive, new metoprolol, add losartan (9) Elevated liver enzymes: Code(s): R74.8 - Abnormal levels of other serum enzymes Status: Acute Assessment and Plan: most likely related to shock liver, liver enzymes trending down. - will maintain adequate blood pressures for improved perfusion to the liver. Hepatitis panel was negative - right upper quadrant ultrasound on 01/08/2020 showing a linear filling defect in the inferior v
--- NOTE | 2019-12-31 15:11 | PM.IMPN ---
Progress Note: A&P Assessment and Plan (1) Acute respiratory failure: Code(s): J96.00 - Acute respiratory failure, unspecified whether with hypoxia or hypercapnia Status: Acute Assessment and Plan: Patient was bradycardic, HoTN with n/v requiring intubation in the ER. ABG showing acute respiratory failure with pna . Extubated 12/29 . Continue but taper steroids secondary to bradyarrythmia and pna (2) Sepsis: Code(s): A41.9 - Sepsis, unspecified organism Status: Acute Assessment and Plan: Patient with continued low grade suspected VAP . UCx noted but not felt to be the source of his on going fevers. BCx NGTD. Sputum grew Pseudomonas and now on cefepime day 9. . Continue nebs. Continue IV abx. Pulmozyme added. Vanc stopped 12/27 (3) Heart block AV second degree: Code(s): I44.1 - Atrioventricular block, second degree Status: Acute Assessment and Plan: Patient started taking Bystolic on the day of admission. Patient became symptomatic and found to be bradycardic and hypotensive by EMS. In the ER, he received NS IV bolus, glucagon IV, atropine, and calcium gluconate. EKG showing 2:1 AV block with bradycardia. External pacer placed. The patient started on Dopamine and Levophed. He was seen by Cardiology and temporary transvenous pacemaker placed 12/21/19. Able to be weaned off of the Dopamine. Could be related to the bystolic and HoTN from the profound anemia. Still bradycardic when holding the pacer on 12/23/19. Weaned off Levophed 12/27. Currently with paced rhythm. Permanent Pacemaker placed 12/27 (4) Shock: Code(s): R57.9 - Shock, unspecified Status: Acute Assessment and Plan: Patient with profound anemia with HoTN and bradycardia. Possibly cardiogenic from the bradycardia. Consider also hypovolemic shock from the blood loss complicated by the bystolic and Lasix. The patient may have had compensatory tachycardia but blocked down with the Bystolic (although still bradycardic off Bystolic). He also may have had this anemia for a while resulting in the leg edema from high output failure. The patient required vasopressor support with Levophed and Dopamine. Able to come off of the dopamine. Able to come off Levophed 12/27. BP trended up and ARB and beta kian started . BCx NGTD. Continue broad spectrum abx that were added for possible VAP. UCx growing EColi but only 50-100K colonies and feel probably unlikely contributing to current problems. Sputum Cx pseudomonas (5) Coagulopathy: Code(s): D68.9 - Coagulation defect, unspecified Status: Acute Assessment and Plan: INR 1.3 on admission probably related to underlying liver disease from his alcoholism. INR up to 2.1 felt related to hepatic dysfunction and was given one unit of FFP on 12/22/19. . Continue to follow. repeat 12/31 (6) CHF (congestive heart failure): Qualifiers: Heart failure type: combined systolic and diastolic Heart failure chronicity: acute Qualified Code(s): I50.41 - Acute combined systolic (congestive) and diastolic (congestive) heart failure Code(s): I50.9 - Heart failure, unspecified Status: Acute Assessment and Plan: Patient has been having increasing pedal edema prior to admission. Suspect heart failure from his profound anemia. Echo showing EF 35-40%, abnml LV diastolic function, HK inferior wall, mild to moderate MR and moderate pulmonary hypertension. Patient probably with acute exacerbation. BNP 3600. Suspect developed heart failure systems related to the anemia causing high output failure and with LV dysfunction. The LV dysfunction could be ischemic and/or alcohol related. Receiving Lasix periodically. CXR reviewed today showing persistent bibasliar airspace disease. beta kian and ARB started (7) Elevated liver enzymes: Code(s): R74.8 - Abnormal levels of other serum enzymes Statu
[2019-12-31] MEDS: hydrALAZINE HCL 20 MG/ML VIAL 10 MG IV PUSH (17:05)
[2019-12-31] MEDS: METOPROLOL TARTRATE 50 MG TAB PO (20:35)
--- NOTE | 2019-12-31 21:15 | PC.NURSE ---
Pt to transfer to room 201. Report called to LB Nielsen. Notified pt's , Alexa, of room change.
--- NOTE | 2019-12-31 21:55 | PC.NURSE ---
This patient, Bora Curran, was transferred to [IMU room 201 ] on 12/31/19 at 2145. Personal belongings sent with patient. Belongings list checked and signed with receiving [unit ]. Report given to [LB Nielsen ]. Appropriate documentation sent with patient.
--- NOTE | 2019-12-31 23:54 | PC.NURSE ---
This patient, Bora Curran, was received from [[id number] ] into 201 on 12/31/19 at 2150. Personal belongings list checked and signed. Patient/family oriented to unit policies and routines
[2020-01-01] VITALS (19 sets, daily range): BP systolic 129–138; BP diastolic 48–59; PULSE 78–103; RESP 16–28; TEMP 35.9–37.2; O2SAT 91–97
[2020-01-01] MEDS: IPRATROPIUM BR 0.02% INH SOLN 0.5 MG/2.5 ML VIAL INHALATION ×4 (03:03→19:40)
[2020-01-01] MEDS: ALBUTEROL SULFATE NEB 2.5 MG/0.5 ML INH 5 MG INHALATION ×4 (03:03→19:39)
[2020-01-01 04:58] LABS: Basophils Absolute Auto 0.1 K/mm3 (0.0-0.1); Basophils Percent Auto 0.4 % (0.2-1.2); Eosinophils Absolute Auto 0.2 K/mm3 (0-0.3); Hematocrit 24.1 % (42.0-52.0); Hemoglobin 7.8 g/dL (14.0-18.0); Immature Granulocyte Absolute 0.61 K/mm3 (0.00-0.031); Immature Granulocyte Percent A 3.8 % (0-0.5); Immature Platelet Fraction Pct 25.3 % (0.9-11.2); Lymphocytes Absolute Auto 1.21 K/mm3 (0.9-3.2); Lymphocytes Percent Auto 7.6 % (18.3-44.2); Mean Corpuscular HGB Conc 32.4 g/dl (32-36); Mean Corpuscular Hemoglobin 35.5 pg (26-34); Mean Corpuscular Volume 109.5 fl (80-100); Mean Platelet Volume 14.4 fl (7.4-10.4); Monocytes Absolute Auto 0.9 K/mm3 (0.1-0.6); Monocytes Percent Auto 5.5 % (2.6-8.5); Neutrophils Percent Auto 81.7 % (45.5-73.1); Platelet Count Result 227 k/mm3 (150-375); Red Cell Distribution Width 28.6 % (11.5-14.5)
[2020-01-01 05:12] LABS: Hypochromasia 2+ (NORMAL); INR 1.5; Macrocytosis 2+ (NORMAL); Microcytosis 1+ (NORMAL); Platelet Estimate Adequate (Adequate); Prothrombin Time 18.1 Seconds (11.1-14.7)
[2020-01-01 05:18] LABS: Alanine Aminotransferase 78 U/L (4-50); Albumin Level 2.8 g/dL (3.5-5.1); Alkaline Phosphatase 47 U/L (38-126); Anion Gap 6 mmol/L (8-16); Aspartate Amino Transferase 22 U/L (17-59); Bilirubin,Total 1.2 mg/dL (0.2-1.3); Blood Urea Nitrogen 25 mg/dL (9-20); Calcium 8.1 mg/dL (8.4-10.2); Carbon Dioxide 27 mmol/L (22-30); Chloride 100 mmol/L (98-107); Estimated CRCL calculation 110 ml/min; Estimated Glomerular Filt Rate > 60; Glucose 115 mg/dL (75-110); Magnesium 1.8 mg/dL (1.6-2.3); Phosphorus 3.5 mg/dL (2.5-4.5); Potassium 3.2 mmol/L (3.4-5.0); Sodium 133 mmol/L (137-145)
[2020-01-01] MEDS: metroNIDAZOLE 500 MG/ISO 100ML 500 MG/100 ML BAG 100 MG IVPB ×2 (06:35→14:26)
[2020-01-01] MEDS: DORNASE ALFA INH SOLN 1 MG/ML 2.5 ML AMP 2.5 MG INHALATION ×2 (07:25→19:40)
[2020-01-01] MEDS: POTASSIUM CHLORIDE 20 MEQ TABLET 40 MEQ PO (09:28)
[2020-01-01] MEDS: CENTRAL LINE FLUSH 10 ML IV PUSH ×3 (09:28→21:11)
[2020-01-01] MEDS: methylPREDNISolone SOD SUCC 40 MG VIAL IV PUSH (09:29)
[2020-01-01] MEDS: LOSARTAN POTASSIUM 50 MG TABLET PO (09:31)
[2020-01-01] MEDS: THIAMINE HCL 100 MG TABLET PO (09:31)
[2020-01-01] MEDS: PANTOPRAZOLE 40 MG TABLET PO (09:31)
[2020-01-01] MEDS: METOPROLOL TARTRATE 50 MG TAB PO ×2 (09:31→21:10)
--- NOTE | 2020-01-01 10:24 | PM.PNCARD ---
Progress Note: A&P Additional Plan High-grade AV block doing well following implantation of permanent dual-chamber pacemaker device last week. Patient does have left ventricular systolic dysfunction and hypertension for which he is now on appropriate medical therapy. No further cardiac procedures/workup is planned during this hospitalization. Workup of his severe anemia is underway Mega Dutton MD [facility] Subjective Date/time seen: Date of service: 01/01/20 10:24 Interval history: 64yo male with COPD and HTN here for generalized weakness and found to be bradycardic Now status post dual chamber pacemaker 12/28/2019Patient intubated and sedated. Patient in IMU now sitting in the chair visiting with his appears weak but otherwise in no significant distress. Cardiac rhythm shows as expected atrial sensing and ventricular pacing. Discussed again with patient and his that complete workup evaluation of his anemia is also very important and appears to be underway Exam Const: General: comfortable and no acute distress Other: Chronically ill-appearing man sitting in the chair in his room no distress of any kind HENMT: Mouth: Yes dry mucous membranes Eyes: Sclera: sclerae normal Neck: Neck: supple and no JVD Thyroid: thyroid normal Resp: Effort & Inspection: normal respiratory effort Other: Tubular breath sounds otherwise basically clear. Pacemaker dressing is clean and dry Cardio: Rate: regular rate Rhythm: regular rhythm GI: Auscultation: normal bowel sounds Skin: General skin exam: normal color Neuro: Cognition (Neuro): normal cognition Other: Mentation a bit slow but answers questions appropriately Extrem: General: normal to inspection Objective Data Vital Signs Vital Signs: Vital Signs - 24 hr 12/31/19 12:00 12/31/19 14:00 12/31/19 14:09 Temperature 36.6 C Pulse Rate 76 97 87 Respiratory Rate 34 H 20 Blood Pressure Pulse Oximetry 97 12/31/19 15:58 12/31/19 15:59 12/31/19 20:00 Temperature 36.7 C Pulse Rate 95 94 95 Respiratory Rate 26 H Blood Pressure 152/68 H Pulse Oximetry 97 12/31/19 20:35 12/31/19 20:52 12/31/19 21:12 Temperature Pulse Rate 93 96 102 H Respiratory Rate 35 H 28 H Blood Pressure Pulse Oximetry 12/31/19 21:50 01/01/20 00:00 01/01/20 03:00 Temperature 36.8 C Pulse Rate 80 86 85 Respiratory Rate 24 H 28 H Blood Pressure 138/53 L Pulse Oximetry 91 01/01/20 04:00 01/01/20 07:25 01/01/20 07:35 Temperature 36.3 C L Pulse Rate 84 87 88 Respiratory Rate 24 H 18 18 Blood Pressure 137/54 L Pulse Oximetry 92 93 01/01/20 09:31 01/01/20 09:33 Temperature 35.9 C L Pulse Rate 100 103 H Respiratory Rate 20 Blood Pressure 131/48 L Pulse Oximetry 95 Intake/Output Intake/Output: Intake & Output 12/29/19 12/30/19 12/31/19 01/01/20 23:59 23:59 23:59 23:59 Intake Total 1158.4 1107 1570 250 Output Total 6250 7545 4635 [facility]2091.6 -668 -1105 250 Meds/Results Medications: Active Medications Generic Name Dose Route Start Last Admin Trade Name Freq PRN Reason Stop Dose Admin Albuterol 5 mg 12/21/19 08:00 01/01/20 07:25 Albuterol Sulf Neb 2.5mg/0.5ml INHALATION 5 mg Q6HRT KUNAL Administration Dornase Rene 2.5 mg 12/25/19 08:00 01/01/20 07:25 Pulmozyme INHALATION 2.5 mg Q12HRT KUNAL Administration Fentanyl Citrate 12.5 mcg 12/30/19 13:41 12/31/19 15:48 Sublimaze IV PUSH 12.5 mcg Q6HR PRN Administration Pain Rated 7-10 Hydralazine HCl 10 mg 12/29/19 12:30 12/31/19 17:05 Apresoline Hcl Inj IV PUSH 10 mg Q4H PRN Administration Blood Pressure - High Cefepime HCl 2 gm in 50 mls @ 100 mls/hr 12/23/19 08:00 01/01/20 09:27 Maxipime 2 Gm/D5w 50 Ml IVPB 100 mls/hr Q8H KUNAL Administration Metronidazole 500 mg in 100 mls @ 100 mls/hr 12/25/19 14:30 01/01/20 06:35 Flagyl 500 Mg/Iso Soln 100 Ml IVPB 100 mls/hr Q8HR KUNAL Admini
--- NOTE | 2020-01-01 16:32 | PM.IMPN ---
Progress Note: A&P Assessment and Plan (1) Acute respiratory failure: Code(s): J96.00 - Acute respiratory failure, unspecified whether with hypoxia or hypercapnia Status: Acute Assessment and Plan: Patient was bradycardic, HoTN with n/v requiring intubation in the ER. ABG showing acute respiratory failure with pna . Extubated 12/29 . Continue but taper steroids, po 01/01 secondary to bradyarrythmia and pna (2) Sepsis: Code(s): A41.9 - Sepsis, unspecified organism Status: Acute Assessment and Plan: Patient with continued low grade suspected VAP . UCx noted but not felt to be the source of his on going fevers. BCx NGTD. Sputum grew Pseudomonas and now on cefepime day 10 and will d/c. . Continue nebs. Pulmozyme added. Vanc stopped 12/27 (3) Heart block AV second degree: Code(s): I44.1 - Atrioventricular block, second degree Status: Acute Assessment and Plan: Patient started taking Bystolic on the day of admission. Patient became symptomatic and found to be bradycardic and hypotensive by EMS. In the ER, he received NS IV bolus, glucagon IV, atropine, and calcium gluconate. EKG showing 2:1 AV block with bradycardia. External pacer placed. The patient started on Dopamine and Levophed. He was seen by Cardiology and temporary transvenous pacemaker placed 12/21/19. Able to be weaned off of the Dopamine. Could be related to the bystolic and HoTN from the profound anemia. Still bradycardic when holding the pacer on 12/23/19. Weaned off Levophed 12/27. Currently with paced rhythm. Permanent Pacemaker placed 12/27 (4) Shock: Code(s): R57.9 - Shock, unspecified Status: Acute Assessment and Plan: Patient with profound anemia with HoTN and bradycardia. Possibly cardiogenic from the bradycardia. Consider also hypovolemic shock from the blood loss complicated by the bystolic and Lasix. The patient may have had compensatory tachycardia but blocked down with the Bystolic (although still bradycardic off Bystolic). He also may have had this anemia for a while resulting in the leg edema from high output failure. The patient required vasopressor support with Levophed and Dopamine. Able to come off of the dopamine. Able to come off Levophed 12/27. BP trended up and ARB and beta kian started . BCx NGTD. Continue broad spectrum abx that were added for possible VAP and finished 10 day course. UCx growing EColi but only 50-100K colonies and feel probably unlikely contributing to current problems. Sputum Cx pseudomonas (5) Coagulopathy: Code(s): D68.9 - Coagulation defect, unspecified Status: Acute Assessment and Plan: INR 1.3 on admission probably related to underlying liver disease from his alcoholism. INR up to 2.1 felt related to hepatic dysfunction and was given one unit of FFP on 12/22/19. . Continue to follow. repeat today 1.5 CT abd 01/01 (6) CHF (congestive heart failure): Qualifiers: Heart failure type: combined systolic and diastolic Heart failure chronicity: acute Qualified Code(s): I50.41 - Acute combined systolic (congestive) and diastolic (congestive) heart failure Code(s): I50.9 - Heart failure, unspecified Status: Acute Assessment and Plan: Patient has been having increasing pedal edema prior to admission. Suspect heart failure from his profound anemia. Echo showing EF 35-40%, abnml LV diastolic function, HK inferior wall, mild to moderate MR and moderate pulmonary hypertension. Patient probably with acute exacerbation. BNP 3600. Suspect developed heart failure systems related to the anemia causing high output failure and with LV dysfunction. The LV dysfunction could be ischemic and/or alcohol related. Receiving Lasix periodically. CXR reviewed today showing persistent bibasliar airspace disease. beta kian and ARB started 12/30 (7) Elevated liver enzymes: Code(s): R74
--- NOTE | 2020-01-01 19:06 | PC.NURSE ---
This patient, Bora Curran, was transferred to [facility] on 01/01/20 at 1858. Personal belongings sent with patient. Report given to LB Yu. Appropriate documentation sent with patient.
[2020-01-02] VITALS (19 sets, daily range): BP systolic 109–149; BP diastolic 42–68; PULSE 78–103; RESP 16–18; TEMP 36.7–37; O2SAT 95–98
[2020-01-02] MEDS: ALBUTEROL SULFATE NEB 2.5 MG/0.5 ML INH 5 MG INHALATION ×4 (01:50→20:37)
[2020-01-02] MEDS: IPRATROPIUM BR 0.02% INH SOLN 0.5 MG/2.5 ML VIAL INHALATION ×3 (01:50→14:35)
[2020-01-02] MEDS: CENTRAL LINE FLUSH 10 ML IV PUSH ×3 (05:59→21:30)
[2020-01-02 06:39] LABS: Alanine Aminotransferase 59 U/L (4-50); Albumin Level 2.9 g/dL (3.5-5.1); Alkaline Phosphatase 51 U/L (38-126); Anion Gap 7 mmol/L (8-16); Aspartate Amino Transferase 18 U/L (17-59); Blood Urea Nitrogen 19 mg/dL (9-20); Calcium 8.3 mg/dL (8.4-10.2); Carbon Dioxide 26 mmol/L (22-30); Chloride 102 mmol/L (98-107); Estimated CRCL calculation 92 ml/min; Estimated Glomerular Filt Rate > 60; Glucose 102 mg/dL (75-110); Magnesium 1.7 mg/dL (1.6-2.3); Phosphorus 2.8 mg/dL (2.5-4.5); Potassium 3.3 mmol/L (3.4-5.0); Sodium 135 mmol/L (137-145)
[2020-01-02 07:47] LABS: Basophils Absolute Auto 0.1 K/mm3 (0.0-0.1); Basophils Percent Auto 0.4 % (0.2-1.2); Eosinophils Absolute Auto 0.2 K/mm3 (0-0.3); Eosinophils Percent Auto 1.3 % (0-4.4); Hematocrit 21.2 % (42.0-52.0); Immature Granulocyte Absolute 0.28 K/mm3 (0.00-0.031); Immature Granulocyte Percent A 2.2 % (0-0.5); Immature Platelet Fraction Pct 23.3 % (0.9-11.2); Lymphocytes Absolute Auto 1.19 K/mm3 (0.9-3.2); Lymphocytes Percent Auto 9.4 % (18.3-44.2); Mean Corpuscular Hemoglobin 35.2 pg (26-34); Mean Corpuscular Volume 106.5 fl (80-100); Monocytes Absolute Auto 0.9 K/mm3 (0.1-0.6); Neutrophils Absolute Auto 10.1 K/mm3 (1.3-6.7); Neutrophils Percent Auto 79.7 % (45.5-73.1); Platelet Count Result 230 k/mm3 (150-375); Red Blood Count 1.99 M/mm3 (4.6-6.20); White Blood Count 12.6 K/mm3 (4.5-10.0)
[2020-01-02] MEDS: POTASSIUM CHLORIDE 20 MEQ TABLET 40 MEQ PO ×2 (08:22→17:38)
[2020-01-02] MEDS: predniSONE 20 MG, predniSONE 10 MG 30 MG PO (08:22)
[2020-01-02] MEDS: PANTOPRAZOLE 40 MG TABLET PO (08:23)
[2020-01-02] MEDS: THIAMINE HCL 100 MG TABLET PO (08:24)
[2020-01-02] MEDS: LOSARTAN POTASSIUM 50 MG TABLET PO (08:24)
[2020-01-02] MEDS: METOPROLOL TARTRATE 50 MG TAB PO ×2 (08:24→21:28)
[2020-01-02] MEDS: DORNASE ALFA INH SOLN 1 MG/ML 2.5 ML AMP 2.5 MG INHALATION ×2 (09:48→20:38)
--- NOTE | 2020-01-02 11:23 | PCNFU ---
Nutrition Follow-Up Complete: Inadequate oral intake related to oral intubation as evidenced by NPO status. goal: Patient to meet estimated nutritional needs. limited progress towards goal. We will continue current goal. Pt current nutrition is Heart Healthy. Nutrition recommendation:Agree Last recorded weight is 72.8 kg. Bowel Motility:+BM reported 12/30. Labs Reviewed:Na 135,K 3.3,Hgb 7.0,Hct 21.2 Meds Noted:Prednisone,Lopressor,Thiamine,Protonix Additional Notes: Patient had been on a heart healthy diet. Oral Intake poor. refusing meals-5% reported. Spoke with MD today, diet orders added for Ensure Compact BID to provide an 240 kcals and 9 gms protein. MD did liberalize diet today changing to [address] will continue to encourage PO intake. Monitoring: Follow up every 3 days.
--- NOTE | 2020-01-02 16:01 | PM.PNCARD ---
Progress Note: A&P Assessment and Plan (1) Heart block AV second degree: Code(s): I44.1 - Atrioventricular block, second degree Status: Acute Assessment and Plan: Status post Biotronik dual chamber pacemaker on December 28, 2019. Normal device function. Aquacel dressing intact. Dressing will be removed on January 02. He is using his left arm quite a bit to push up from the chair as well as the bed. Recommend using immobilizer at night to prevent him from raising his left arm above his head. He should not be using his left arm to push from a seated position either from the chair or the bed. (2) Cardiomyopathy: Code(s): I42.9 - Cardiomyopathy, unspecified Status: Acute Assessment and Plan: Moderate with wall motion abnormalities present. Likely has underlying CAD also. Ischemic workup in the future as clinically appropriate. Continue Metoprolol tartrate 50 mg every 12 hours. This should be converted to succinate at discharge. Continue losartan at 50 mg daily. . (3) SVT (supraventricular tachycardia): Code(s): I47.1 - Supraventricular tachycardia Status: Acute Assessment and Plan: Transient, isolated SVT with aberrancy, cannot exclude A.Fib . No recurrence so far. Continue telemetry monitoring (4) Elevated liver enzymes: Code(s): R74.8 - Abnormal levels of other serum enzymes Status: Acute Assessment and Plan: Improving. (5) Alcohol use: Code(s): Z72.89 - Other problems related to lifestyle Status: Acute Assessment and Plan: Defer to primary service. (6) Macrocytic anemia: Code(s): D53.9 - Nutritional anemia, unspecified Status: Acute Assessment and Plan: Hematology involved Stable. Hemoglobin 7.0, platelet count 230. . (7) Hypertension: Code(s): I10 - Essential (primary) hypertension Status: Acute Assessment and Plan: Improved Medications as above (8) Lactic acidosis: Code(s): E87.2 - Acidosis Status: Acute Assessment and Plan: resolved Additional Plan plan discussed with Dr. Dutton 1620 01/02/2020 Subjective Date/time seen: 01/02/20 16:01 Interval history: Follow up for: generalized weakness and found to be bradycardic due to high-grade AV block. Status post Biotronik dual chamber pacemaker 12/28/2019. Date of service: 01/02/2020. Subjective: Denied chest discomfort. Short of breath with any activity. No lightheadedness or palpitations. Trying to put on sweat pants. Moves quickly to transfer to bed. Unsteady on his feet. Review of Systems Constitutional: Constitutional: Reports weakness Eyes: Eyes: Denies blurry vision ENT: Denies epistaxis Cardiovascular: Cardiovascular: Denies chest pain, Denies leg edema, Denies lightheadedness and Reports dyspnea on exertion Respiratory: Respiratory: Reports cough and Reports dyspnea on exertion Gastrointestinal: Gastrointestinal: Denies abdominal pain Genitourinary: Genitourinary: Denies hematuria Musculoskeletal: Musculoskeletal: Reports back pain Integumentary/Breasts: Skin/Breast: Denies unusual bruising Neurologic: Reports Normal hearing present, Reports confusion, Denies dizziness and Reports weakness Psychiatric: Psychiatric: Reports confusion Endocrine: Endocrine: Denies polydipsia Hematologic/Lymphatic: Hematologic/Lymphatic: Denies easy bruising Allergic/Immunologic: Allergic/Immunologic: Denies tongue swelling and Denies wheezing Exam Const: General: comfortable and no acute distress Other: Chronically ill-appearing man sitting in the chair . at bedside. Short of breath with the exertional activity o
--- NOTE | 2020-01-02 16:07 | PM.IMPN ---
Progress Note: A&P Assessment and Plan (1) Acute respiratory failure: Code(s): J96.00 - Acute respiratory failure, unspecified whether with hypoxia or hypercapnia Status: Acute Assessment and Plan: Patient was bradycardic, HoTN with n/v requiring intubation in the ER. ABG showing acute respiratory failure with pna . Extubated 12/29 . Continue but taper steroids, po today. finish course of antibiotics and continue to taper O2 secondary to bradyarrythmia and pna (2) Sepsis: Code(s): A41.9 - Sepsis, unspecified organism Status: Acute Assessment and Plan: Patient with continued low grade suspected VAP . UCx noted but not felt to be the source of his on going fevers. BCx NGTD. Sputum grew Pseudomonas and finished cefepime 10 date course 12/31. . Continue nebs. Pulmozyme added. Vanc stopped 12/27 (3) Heart block AV second degree: Code(s): I44.1 - Atrioventricular block, second degree Status: Acute Assessment and Plan: Patient started taking Bystolic on the day of admission. Patient became symptomatic and found to be bradycardic and hypotensive by EMS. In the ER, he received NS IV bolus, glucagon IV, atropine, and calcium gluconate. EKG showing 2:1 AV block with bradycardia. External pacer placed. The patient started on Dopamine and Levophed. He was seen by Cardiology and temporary transvenous pacemaker placed 12/21/19. Able to be weaned off of the Dopamine. Could be related to the bystolic and HoTN from the profound anemia. Still bradycardic when holding the pacer on 12/23/19. Weaned off Levophed 12/27. Currently with paced rhythm. Permanent Pacemaker placed 12/27 now back on metoprolol (4) Shock: Code(s): R57.9 - Shock, unspecified Status: Acute Assessment and Plan: Patient with profound anemia with HoTN and bradycardia. Possibly cardiogenic from the bradycardia. Consider also hypovolemic shock from the blood loss complicated by the bystolic and Lasix. The patient may have had compensatory tachycardia but blocked down with the Bystolic (although still bradycardic off Bystolic). He also may have had this anemia for a while resulting in the leg edema from high output failure. The patient required vasopressor support with Levophed and Dopamine. Able to come off all pressors 12/27. BP trended up and ARB and beta kian started . BCx NGTD. Continue broad spectrum abx that were added for possible VAP and finished 10 day course. UCx growing EColi but only 50-100K colonies and feel probably unlikely contributing to current problems. Sputum Cx grew pseudomonas (5) Coagulopathy: Code(s): D68.9 - Coagulation defect, unspecified Status: Acute Assessment and Plan: INR 1.3 on admission probably related to underlying liver disease from his alcoholism. INR up to 2.1 felt related to hepatic dysfunction and was given one unit of FFP on 12/22/19. . Continue to follow. repeat 12/31 1.5 (6) CHF (congestive heart failure): Qualifiers: Heart failure type: combined systolic and diastolic Heart failure chronicity: acute Qualified Code(s): I50.41 - Acute combined systolic (congestive) and diastolic (congestive) heart failure Code(s): I50.9 - Heart failure, unspecified Status: Acute Assessment and Plan: Patient has been having increasing pedal edema prior to admission. Suspect heart failure from his profound anemia. Echo showing EF 35-40%, abnml LV diastolic function, HK inferior wall, mild to moderate MR and moderate pulmonary hypertension. Patient probably with acute exacerbation. BNP 3600. Suspect developed heart failure systems related to the anemia causing high output failure and with LV dysfunction. The LV dysfunction could be ischemic and/or alcohol related. Receiving Lasix periodically. . beta kian and ARB started 12/30 (7) Elevated liver enzymes: Code(s): R74.8 - Abnor
[2020-01-03] VITALS (26 sets, daily range): BP systolic 134–151; BP diastolic 51–79; PULSE 71–109; RESP 16–24; TEMP 36.4–37.4; O2SAT 90–97
[2020-01-03] MEDS: ALBUTEROL SULFATE NEB 2.5 MG/0.5 ML INH 5 MG INHALATION ×3 (02:46→19:59)
[2020-01-03] MEDS: IPRATROPIUM BR 0.02% INH SOLN 0.5 MG/2.5 ML VIAL INHALATION ×3 (02:46→19:59)
[2020-01-03] MEDS: ALTEPLASE 2 MG VIAL (CATHFLO) IV PUSH (04:18)
[2020-01-03] MEDS: CENTRAL LINE FLUSH 10 ML IV PUSH (05:20)
[2020-01-03 06:29] LABS: Basophils Absolute Auto 0.1 K/mm3 (0.0-0.1); Basophils Percent Auto 0.4 % (0.2-1.2); Eosinophils Absolute Auto 0.2 K/mm3 (0-0.3); Eosinophils Percent Auto 1.3 % (0-4.4); Hematocrit 21.1 % (42.0-52.0); Immature Granulocyte Absolute 0.35 K/mm3 (0.00-0.031); Immature Granulocyte Percent A 3.1 % (0-0.5); Immature Platelet Fraction Pct 20.7 % (0.9-11.2); Lymphocytes Absolute Auto 1.05 K/mm3 (0.9-3.2); Lymphocytes Percent Auto 9.3 % (18.3-44.2); Mean Corpuscular HGB Conc 32.7 g/dl (32-36); Mean Corpuscular Hemoglobin 35.8 pg (26-34); Mean Corpuscular Volume 109.3 fl (80-100); Monocytes Absolute Auto 0.9 K/mm3 (0.1-0.6); Monocytes Percent Auto 7.8 % (2.6-8.5); Neutrophils Absolute Auto 8.8 K/mm3 (1.3-6.7); Neutrophils Percent Auto 78.1 % (45.5-73.1); Nucleated Red Blood Cells Perc 0.2 % (0.0-0.2); Platelet Count Result 269 k/mm3 (150-375); Red Blood Count 1.93 M/mm3 (4.6-6.20); White Blood Count 11.3 K/mm3 (4.5-10.0)
[2020-01-03 06:37] LABS: Alanine Aminotransferase 47 U/L (4-50); Albumin Level 2.8 g/dL (3.5-5.1); Alkaline Phosphatase 48 U/L (38-126); Anion Gap 5 mmol/L (8-16); Aspartate Amino Transferase 16 U/L (17-59); Blood Urea Nitrogen 16 mg/dL (9-20); Calcium 8.2 mg/dL (8.4-10.2); Carbon Dioxide 25 mmol/L (22-30); Chloride 107 mmol/L (98-107); Estimated CRCL calculation 106 ml/min; Estimated Glomerular Filt Rate > 60; Glucose 137 mg/dL (75-110); Potassium 3.6 mmol/L (3.4-5.0); Sodium 137 mmol/L (137-145)
[2020-01-03 06:54] LABS: Hemoglobin 6.9 g/dL (14.0-18.0)
[2020-01-03 06:55] LABS: INR 1.4; Platelet Estimate Adequate (Adequate); Prothrombin Time 16.9 Seconds (11.1-14.7)
[2020-01-03 06:56] LABS: Anisocytosis 2+ (NORMAL)
--- NOTE | 2020-01-03 08:15 | PCOTNOTE ---
Attempted to see Patient at this time, Patient eating breakfast, having blood drawn, and per RN going to have a PICC line placed and a unit of blood this morning. Will try back at a later time.
[2020-01-03] MEDS: METOPROLOL TARTRATE 50 MG TAB PO (09:03)
[2020-01-03] MEDS: predniSONE 20 MG, predniSONE 10 MG 30 MG PO (09:03)
[2020-01-03] MEDS: LOSARTAN POTASSIUM 50 MG TABLET PO (09:04)
[2020-01-03] MEDS: PANTOPRAZOLE 40 MG TABLET PO (09:04)
[2020-01-03] MEDS: THIAMINE HCL 100 MG TABLET PO (09:04)
--- NOTE | 2020-01-03 10:35 | PCRCNOTE ---
Window of time for administration has passed. See next scheduled administration.
[2020-01-03] MEDS: SODIUM CHLORIDE 0.9% IV 250 ML 30 ML IV CONT (11:50)
--- NOTE | 2020-01-03 14:49 | PM.PNCARD ---
Progress Note: A&P Assessment and Plan (1) Heart block AV second degree: Code(s): I44.1 - Atrioventricular block, second degree Status: Acute Assessment and Plan: Status post Biotronik dual chamber pacemaker on December 28, 2019. Normal device function. Aquacel dressing intact. Dressing will be removed on January 03. He is using his left arm quite a bit to push up from the chair as well as the bed. Immobilizer in place to prevent excessive movement of the left arm. (2) Cardiomyopathy: Code(s): I42.9 - Cardiomyopathy, unspecified Status: Acute Assessment and Plan: Moderate with wall motion abnormalities present. EF 35-40%. Likely has underlying CAD. Ischemic workup in the future as clinically appropriate. Increase Metoprolol tartrate to 75 mg q.12 hours. This should be converted to succinate at discharge. Continue losartan at 50 mg daily. Will give furosemide 40 mg IV push x1 when he returns from his PICC line removal. . (3) SVT (supraventricular tachycardia): Code(s): I47.1 - Supraventricular tachycardia Status: Acute Assessment and Plan: Transient, isolated SVT with aberrancy, cannot exclude A.Fib . No recurrence so far. Continue telemetry monitoring (4) Elevated liver enzymes: Code(s): R74.8 - Abnormal levels of other serum enzymes Status: Acute Assessment and Plan: Improving. (5) Alcohol use: Code(s): Z72.89 - Other problems related to lifestyle Status: Acute Assessment and Plan: Defer to primary service. (6) Macrocytic anemia: Code(s): D53.9 - Nutritional anemia, unspecified Status: Acute Assessment and Plan: Hematology Consultation done on 2019 . She has a number of questions. May be good idea to read consult Dr Pastor to come to speak to the . (7) Hypertension: Code(s): I10 - Essential (primary) hypertension Status: Acute Assessment and Plan: Elevated at times. Increase beta-kian as above. May need to increase losartan as well. Will evaluate response to increase beta-kian. (8) Lactic acidosis: Code(s): E87.2 - Acidosis Status: Acute Assessment and Plan: resolved Additional Plan PICC line to be removed under fluoroscopy due to proximity of the atrial and ventricular leads of the newly placed pacemaker. This will be done under fluoroscopy with Dr Shane after his blood transfusion is completed. Plan discussed with Dr Acosta Mora 01/02 Subjective Date/time seen: 01/03/20 14:49 Interval history: Follow up for: generalized weakness found to be bradycardic due to high-grade AV block. Status post Biotronik dual chamber pacemaker 12/28/2019. Cardiomyopathy with wall motion abnormalities. Date of service: 01/03/2020. Subjective: Denied chest discomfort . Still short of breath with any activity. answers questions appropriately but then gives in inappropriate answer. Review of Systems Review of Systems: All systems reviewed & are unremarkable except as noted in HPI and below Constitutional: Constitutional: Reports weakness Eyes: Eyes: Denies blurry vision ENT: Reports Normal hearing present, Denies dizziness, Denies epistaxis and Denies tongue swelling Cardiovascular: Cardiovascular: Denies chest pain, Denies leg edema, Denies lightheadedness and Reports dyspnea on exertion Respiratory: Respiratory: Reports cough, Reports dyspnea on exertion and Denies wheezing Gastrointestinal: Gastrointestinal: Denies abdominal pain Genitourinary: Genitourinary: Denies hematuria Musculoskeletal: Musculoskeletal: Reports back pain Integumentary/Breasts: Skin/Breas
--- NOTE | 2020-01-03 16:00 | PC.NURSE ---
To Gas Adjuster for PICC line removal under fluoroscope.
--- NOTE | 2020-01-03 16:32 | PM.PROC ---
Procedure Note - Detailed Date of procedure: 01/03/20 Pre-op diagnosis: High-grade AV block, pacemaker implant Post-op diagnosis: same Procedure performed: PICC line removal under fluoroscopy recent dual chamber implant Description of procedure: The patient had a recent dual-chamber pacemaker on the left side and the PICC line is on the right side. He was brought to the process laboratory specialist for PICC line removal under fluoroscopy to make sure there was no dislodgement of pacemaker leads. The procedure was done with the sterile prep and drape. The PICC line was easily removed under fluoroscopic guidance, intact, and there was no dislodgement the pacemaker leads. Hemostasis was obtained using local pressure and a sterile dressing was applied. Anesthesia: none Surgeon: Elayne Shane MD Estimated blood loss (mL): 0 Drains: No Packing: No Pathology: none sent Complications: None Condition: stable Disposition: no change
--- NOTE | 2020-01-03 16:37 | PC.NURSE ---
Return from Retail Customer Service Representative via bed.
[2020-01-03] MEDS: FUROSEMIDE INJ 40 MG/4 ML VIAL IV PUSH (17:03)
[2020-01-03] MEDS: POTASSIUM CHLORIDE 20 MEQ TABLET 40 MEQ PO (17:03)
--- NOTE | 2020-01-03 18:23 | PM.IMPN ---
Progress Note: A&P Assessment and Plan (1) Acute respiratory failure: Code(s): J96.00 - Acute respiratory failure, unspecified whether with hypoxia or hypercapnia Status: Acute Assessment and Plan: Patient was bradycardic, HoTN with n/v requiring intubation in the ER. ABG showing acute respiratory failure with pna and bradycardia. Extubated 12/29. He finished a course of antibiotics. Continue to taper O2. Continue steroids with taper. (2) Sepsis: Code(s): A41.9 - Sepsis, unspecified organism Status: Acute Assessment and Plan: Patient with continued fever with suspected VAP. UCx noted but not felt to be the source of his on going fevers. BCx NGTD. Sputum grew Pseudomonas and finished 10 day course of cefepime on 12/31. Vanc stopped 12/27. Continue nebs. Pulmozyme added. (3) Heart block AV second degree: Code(s): I44.1 - Atrioventricular block, second degree Status: Acute Assessment and Plan: Patient started taking Bystolic on the day of admission. Patient became symptomatic and found to be bradycardic and hypotensive by EMS. In the ER, he received NS IV bolus, glucagon IV, atropine, and calcium gluconate. EKG showing 2:1 AV block with bradycardia. External pacer placed. The patient started on Dopamine and Levophed. He was seen by Cardiology and temporary transvenous pacemaker placed 12/21/19. Able to be weaned off of the Dopamine. Could be related to the bystolic and HoTN from the profound anemia. Still bradycardic when holding the pacer on 12/23/19. Weaned off Levophed 12/27. Permanent Pacemaker placed 12/27. Now back on metoprolol. (4) Shock: Code(s): R57.9 - Shock, unspecified Status: Acute Assessment and Plan: Patient with profound anemia with HoTN and bradycardia. Possibly cardiogenic from the bradycardia. Consider also hypovolemic shock from the blood loss complicated by the bystolic and Lasix. The patient may have had compensatory tachycardia but blocked down with the Bystolic (although still bradycardic off Bystolic). He also may have had this anemia for a while resulting in the leg edema from high output failure. The patient required vasopressor support with Levophed and Dopamine. Able to come off all pressors 12/27. BP trended up and ARB and beta kian started. BCx NGTD. Broad spectrum abx were added for possible VAP and finished 10 day course. UCx growing EColi but only 50-100K colonies and feel probably unlikely contributing to current problems. Sputum Cx grew pseudomonas (5) Coagulopathy: Code(s): D68.9 - Coagulation defect, unspecified Status: Acute Assessment and Plan: INR 1.3 on admission probably related to underlying liver disease from his alcoholism. INR up to 2.1 felt related to hepatic dysfunction and was given one unit of FFP on 12/22/19. Repeat INR 1.4 today. Continue to follow. (6) CHF (congestive heart failure): Qualifiers: Heart failure chronicity: acute Heart failure type: combined systolic and diastolic Qualified Code(s): I50.41 - Acute combined systolic (congestive) and diastolic (congestive) heart failure Code(s): I50.9 - Heart failure, unspecified Status: Acute Assessment and Plan: Patient has been having increasing pedal edema prior to admission. Suspect heart failure from his profound anemia. Echo showing EF 35-40%, abnml LV diastolic function, HK inferior wall, mild to moderate MR and moderate pulmonary hypertension. Patient probably with acute exacerbation. BNP 3600. Suspect developed heart failure related to the anemia causing high output failure and with LV dysfunction. The LV dysfunction could be ischemic and/or alcohol related. Received Lasix periodically. Beta kian and ARB started 12/30. (7) Elevated liver enzymes: Code(s): R74.8 - Abnormal levels of other serum enzymes Status: Acute Assessment and Plan: AST
[2020-01-03] MEDS: DORNASE ALFA INH SOLN 1 MG/ML 2.5 ML AMP 2.5 MG INHALATION (20:00)
[2020-01-03] MEDS: METOPROLOL TARTRATE 25 MG TABLET 75 MG PO (20:41)
[2020-01-04] VITALS (19 sets, daily range): BP systolic 101–139; BP diastolic 44–71; PULSE 72–122; RESP 14–24; TEMP 36.7–37.2; O2SAT 92–98
[2020-01-04] MEDS: IPRATROPIUM BR 0.02% INH SOLN 0.5 MG/2.5 ML VIAL INHALATION ×4 (01:55→19:09)
[2020-01-04] MEDS: ALBUTEROL SULFATE NEB 2.5 MG/0.5 ML INH 5 MG INHALATION ×4 (01:56→19:09)
[2020-01-04 06:11] LABS: Hematocrit 25.1 % (42.0-52.0); Hemoglobin 8.3 g/dL (14.0-18.0); Immature Platelet Fraction Pct 20.5 % (0.9-11.2); Mean Corpuscular HGB Conc 33.1 g/dl (32-36); Mean Corpuscular Hemoglobin 34.6 pg (26-34); Mean Corpuscular Volume 104.6 fl (80-100); Mean Platelet Volume 13.8 fl (7.4-10.4); Platelet Count Result 329 k/mm3 (150-375); White Blood Count 10.8 K/mm3 (4.5-10.0)
[2020-01-04 06:14] LABS: Anion Gap 4 mmol/L (8-16); Blood Urea Nitrogen 15 mg/dL (9-20); Calcium 8.3 mg/dL (8.4-10.2); Carbon Dioxide 27 mmol/L (22-30); Chloride 104 mmol/L (98-107); Estimated CRCL calculation 104 ml/min; Estimated Glomerular Filt Rate > 60; Glucose 123 mg/dL (75-110); Magnesium 1.5 mg/dL (1.6-2.3); Phosphorus 2.9 mg/dL (2.5-4.5); Potassium 3.8 mmol/L (3.4-5.0); Sodium 135 mmol/L (137-145)
[2020-01-04] MEDS: PANTOPRAZOLE 40 MG TABLET PO (09:17)
[2020-01-04] MEDS: THIAMINE HCL 100 MG TABLET PO (09:17)
[2020-01-04] MEDS: predniSONE 20 MG, predniSONE 10 MG 30 MG PO (09:17)
[2020-01-04] MEDS: MAGNESIUM SULF 2 GM/WATER 50ML 2 GM/50 ML BAG IVPB (09:17)
[2020-01-04] MEDS: METOPROLOL TARTRATE 25 MG TABLET 75 MG PO ×2 (09:18→20:03)
[2020-01-04] MEDS: LOSARTAN POTASSIUM 50 MG TABLET PO (09:18)
[2020-01-04] MEDS: DORNASE ALFA INH SOLN 1 MG/ML 2.5 ML AMP 2.5 MG INHALATION (09:47)
--- NOTE | 2020-01-04 10:31 | PCOTNOTE ---
Attempted to see patient at this time, however patient sitting up in chair already bathed and dressed. Pt and upset at this time about patient care. Notified nursing of concerns.
--- NOTE | 2020-01-04 13:18 | PM.PNCARD ---
Progress Note: A&P Assessment and Plan (1) Heart block AV second degree: Code(s): I44.1 - Atrioventricular block, second degree Status: Acute Assessment and Plan: *Status post Biotronik dual chamber pacemaker on December 28, 2019. Maintaining sinus rhythm at this time. --Questions answered regarding how pacemaker works, how many leads he has in place and where they are, where the generator is located under his skin, how the bedside remote monitor works, limitations in movement as well as pushing, pulling or lifting with his left arm. He has slept with his arms above his head for years. Recommend he wears the immobilizer at night for the next 3 weeks. --Practiced taking T-shirt on and off. --Aquacel dressing removed. May get incision wet. Is to pat dry when showering. No scrubbing or rubbing of the incision. No lotions, powders, ointments or creams are to be applied to the incision. --Biotronik to check pacemaker today. (2) Cardiomyopathy: Qualifiers: Cardiomyopathy type: unspecified Qualified Code(s): I42.9 - Cardiomyopathy, unspecified Code(s): I42.9 - Cardiomyopathy, unspecified Status: Acute Assessment and Plan: Moderate with wall motion abnormalities present. EF 35-40%. Likely has underlying CAD. Ischemic workup in the future. He needs to recover from this hospitalization as well as his anemia needs to be sorted out. Continue Metoprolol tartrate 75 mg q.12 hours. Likely will discharge with Metoprolol succinate at 200 mg daily. Continue losartan at 50 mg daily. Diuresed well with IV Lasix after blood transfusion yesterday. Saturations dropped into the 80s when he got up with occupational therapy to wash up in the bathroom without his oxygen. Most likely will need a home O2 eval. Start furosemide 20 mg daily. First dose now. Monitor renal function and electrolytes. Will monitor closely as an outpatient. . (3) SVT (supraventricular tachycardia): Code(s): I47.1 - Supraventricular tachycardia Status: Acute Assessment and Plan: Transient, isolated SVT with aberrancy, cannot exclude A.Fib . Heart rates elevated this morning. Sinus tachycardia noted on tele. (4) Elevated liver enzymes: Code(s): R74.8 - Abnormal levels of other serum enzymes Status: Acute Assessment and Plan: Improving. (5) Alcohol use: Code(s): Z72.89 - Other problems related to lifestyle Status: Acute Assessment and Plan: Defer to primary service. Counseled that he should not drink any alcohol going forward due to LV dysfunction. (6) Macrocytic anemia: Code(s): D53.9 - Nutritional anemia, unspecified Status: Acute Assessment and Plan: Dr Pastor here. Follow CBC as outpatient. (7) Hypertension: Qualifiers: Hypertension type: essential hypertension Qualified Code(s): I10 - Essential (primary) hypertension Code(s): I10 - Essential (primary) hypertension Status: Acute Assessment and Plan: Blood pressure improved. (8) Lactic acidosis: Code(s): E87.2 - Acidosis Status: Acute Assessment and Plan: resolved Additional Plan PICC line removed under fluoroscopy by Dr Shane 01/03/2020. states he is much stronger today and mentally he is much more clear. He wants to go home. They have sons and daughters that can assist him at home when she is at work. Anticipate discharge in the next 24 to 48 hours from cardiac standpoint. Plan discussed Dr Shane [id number] 01/04/2020 Time Spent With Patient Time: 40 minutes were spent in the room. Over 50% of this visit was spent on counseling. Time with patient: Gre
[2020-01-04] MEDS: FUROSEMIDE 20 MG TABLET PO (16:25)
--- NOTE | 2020-01-04 17:47 | PM.IMPN ---
Progress Note: A&P Assessment and Plan (1) Acute respiratory failure: Code(s): J96.00 - Acute respiratory failure, unspecified whether with hypoxia or hypercapnia Status: Acute Assessment and Plan: Patient was bradycardic, HoTN with n/v requiring intubation in the ER. Extubated 12/29. He finished a course of antibiotics. Continue to taper O2. Continue steroids with taper. (2) Sepsis: Code(s): A41.9 - Sepsis, unspecified organism Status: Acute Assessment and Plan: Patient admitted 12/20/19. He developed fever 12/22/19 that persisted with continued fever through 12/24. Suspected VAP. UCx noted but not felt to be the source of his on going fevers. BCx NGTD. Sputum grew Pseudomonas. Abx started 12/22 and finished 10 day course of cefepime on 12/31. Vanc stopped 12/27. Continue nebs; stop Pulmozyme. (3) Heart block AV second degree: Code(s): I44.1 - Atrioventricular block, second degree Status: Acute Assessment and Plan: Patient started taking Bystolic on the day of admission. Patient became symptomatic and found to be bradycardic and hypotensive by EMS. In the ER, he received NS IV bolus, glucagon IV, atropine, and calcium gluconate. EKG showing 2:1 AV block with bradycardia. External pacer placed. The patient started on Dopamine and Levophed. He was seen by Cardiology and temporary transvenous pacemaker placed 12/21/19. Able to be weaned off of the Dopamine. Could be related to the bystolic and HoTN from the profound anemia. Still bradycardic when holding the pacer on 12/23/19. Weaned off Levophed 12/27. Permanent Pacemaker placed 12/27. Now back on metoprolol. Intrinsic rhythm better. (4) Shock: Code(s): R57.9 - Shock, unspecified Status: Acute Assessment and Plan: Patient with profound anemia with HoTN and bradycardia. Possibly cardiogenic from the bradycardia. Consider also hypovolemic shock from the blood loss complicated by the bystolic and Lasix. The patient may have had compensatory tachycardia but blocked down with the Bystolic (although still bradycardic off Bystolic). He also may have had this anemia for a while resulting in the leg edema from high output failure. The patient required vasopressor support with Levophed and Dopamine. Able to come off all pressors 12/27. BP trended up and ARB and beta kian started. BCx NGTD. Broad spectrum abx were added for possible VAP and finished 10 day course. UCx growing EColi but only 50-100K colonies and feel probably unlikely contributing to current problems. Sputum Cx grew pseudomonas. (5) Pneumonia: Code(s): J18.9 - Pneumonia, unspecified organism Status: Acute Assessment and Plan: Patient had a clear chest x-ray on admission. Few days after admission while on mechanical ventilation, patient developed bilateral infiltrates and fever. He was treated with IV antibiotics. His sputum culture grew out Pseudomonas. It was suspected that he had developed pneumonia. He completed a course of 10 days of antibiotics. (6) Coagulopathy: Code(s): D68.9 - Coagulation defect, unspecified Status: Acute Assessment and Plan: INR 1.3 on admission probably related to underlying liver disease from his alcoholism. INR up to 2.1 felt related to hepatic dysfunction and was given one unit of FFP on 12/22/19. Repeat INR 1.4. Continue to follow intermittently. (7) CHF (congestive heart failure): Qualifiers: Heart failure chronicity: acute Heart failure type: combined systolic and diastolic Qualified Code(s): I50.41 - Acute combined systolic (congestive) and diastolic (congestive) heart failure Code(s): I50.9 - Heart failure, unspecified Status: Acute Assessment and Plan: Patient has been having increasing pedal edema prior to admission. Suspect heart failure from his profound anemia. Echo showing EF 35-40%, abnml LV diastolic functio
--- NOTE | 2020-01-04 17:48 | WPDONCPN ---
Progress Note: A/P - Additional Plan Macrocytic anemia. Previous EGD showed no stigmata of bleeding. This is likely secondary to previous history of alcohol abuse and anemia of chronic inflammation secondary to infection and sepsis. No evidence of hemolytic anemia was formed previously has Kelvin test was negative. LDH has improved from the previous reading. Patient is now extubated. I will repeat some of the previous labs that would include iron studies and vitamin B12 level along with LDH. He may induced need to receive more B12 supplementation. Bone marrow biopsy is not needed at this time. He will follow-up with us as an outpatient for further management of his anemia. Coagulopathy. Secondary to septic shock and liver disease. Patient is now much better. No evidence of bleeding and bruising. - Time Spent With Patient Total time spent is greater than 50% in coordination of care (as documented) at patient's floor/unit and/or counseling patient: 15 - 25 minutes Review of Systems - Neurologic Reports hearing normal, Reports confusion, Reports weakness, Denies focal weakness, Denies numbness Exam Vital signs: Temp Pulse Resp BP Pulse Ox 37.2 C 100 20 122/44 L 98 01/04/20 14:00 01/04/20 14:42 01/04/20 14:42 01/04/20 14:00 01/04/20 14:00 PN: Objective Data - Labs CBC & Chem 7: 01/04/20 05:37 01/04/20 05:37 Labs: Laboratory Results - last 24 hr 01/04/20 01/04/20 05:37 05:37 WBC 10.8 H RBC 2.40 L Hgb 8.3 L Hct 25.1 L MCV 104.6 H MCH 34.6 H MCHC 33.1 RDW TNP Plt Count 329 MPV 13.8 H % Immature Plt Fraction 20.5 H Sodium 135 L Potassium 3.8 Chloride 104 Carbon Dioxide 27 Anion Gap 4 L BUN 15 Creatinine 0.60 L Estim Creat Clear Calc 104 Estimated GFR > 60 Glucose 123 H Calcium 8.3 L Phosphorus 2.9 Magnesium 1.5 L
[2020-01-04] MEDS: FLUTICASONE/SALMETEROL 45-21 MCG INHALER 1 PUFF INHALATION (19:09)
[2020-01-04 19:49] LABS: Lactate Dehydrogenase 550 U/L (313-618)
[2020-01-04 20:20] LABS: Iron 36 ug/dL (49-181)
[2020-01-04 20:29] LABS: Percent Iron Saturation 20 % (20-50)
[2020-01-05] VITALS (15 sets, daily range): BP systolic 117–119; BP diastolic 52–53; PULSE 79–112; RESP 14–18; TEMP 37.2; O2SAT 90–97
[2020-01-05] MEDS: ALBUTEROL SULFATE NEB 2.5 MG/0.5 ML INH 5 MG INHALATION ×3 (01:09→13:19)
[2020-01-05] MEDS: IPRATROPIUM BR 0.02% INH SOLN 0.5 MG/2.5 ML VIAL INHALATION ×3 (01:09→13:19)
[2020-01-05 06:15] LABS: Hematocrit 22.1 % (42.0-52.0); Hemoglobin 7.2 g/dL (14.0-18.0); Immature Platelet Fraction Pct 18.3 % (0.9-11.2); Mean Corpuscular HGB Conc 32.6 g/dl (32-36); Mean Corpuscular Hemoglobin 34.6 pg (26-34); Mean Corpuscular Volume 106.3 fl (80-100); Mean Platelet Volume 14.1 fl (7.4-10.4); Platelet Count Result 352 k/mm3 (150-375); Red Blood Count 2.08 M/mm3 (4.6-6.20); Red Cell Distribution Width 28.1 % (11.5-14.5); White Blood Count 9.9 K/mm3 (4.5-10.0)
[2020-01-05 06:26] LABS: Anion Gap 3 mmol/L (8-16); Blood Urea Nitrogen 15 mg/dL (9-20); Calcium 8.2 mg/dL (8.4-10.2); Carbon Dioxide 27 mmol/L (22-30); Chloride 106 mmol/L (98-107); Estimated CRCL calculation 89 ml/min; Estimated Glomerular Filt Rate > 60; Glucose 123 mg/dL (75-110); Magnesium 1.8 mg/dL (1.6-2.3); Potassium 3.6 mmol/L (3.4-5.0); Sodium 136 mmol/L (137-145)
[2020-01-05] MEDS: FUROSEMIDE 20 MG TABLET PO (08:20)
[2020-01-05] MEDS: METOPROLOL TARTRATE 25 MG TABLET 75 MG PO (08:20)
[2020-01-05] MEDS: predniSONE 20 MG, predniSONE 10 MG 30 MG PO (08:21)
[2020-01-05] MEDS: THIAMINE HCL 100 MG TABLET PO (08:21)
[2020-01-05] MEDS: LOSARTAN POTASSIUM 50 MG TABLET PO (08:21)
[2020-01-05] MEDS: PANTOPRAZOLE 40 MG TABLET PO (08:21)
[2020-01-05] MEDS: FLUTICASONE/SALMETEROL 45-21 MCG INHALER 1 PUFF INHALATION (08:53)
--- NOTE | 2020-01-05 11:12 | PM.DS ---
DS: Admitting Diagnosis Admitting Diagnosis Admitting Diagnosis: High-grade AV block, pacemaker implant DS: Discharge Diagnosis Discharge Diagnosis (1) Acute respiratory failure: Code(s): J96.00 - Acute respiratory failure, unspecified whether with hypoxia or hypercapnia Status: Acute Assessment and Plan: Patient was bradycardic, HoTN with n/v requiring intubation in the ER. ABG showing acute respiratory failure with PNA and bradycardia. Extubated 12/29. He finished a course of antibiotics. Tapered off O2. Home O2 evaluation showing he does not require oxygen at home. (2) Sepsis: Code(s): A41.9 - Sepsis, unspecified organism Status: Acute Assessment and Plan: Patient with continued fever with suspected VAP. UCx noted but not felt to be the source of his on going fevers. BCx NGTD. Sputum grew Pseudomonas and finished 10 day course of cefepime on 12/31. Vanc stopped 12/27. Treated with nebs and Pulmozyme. (3) Heart block AV second degree: Code(s): I44.1 - Atrioventricular block, second degree Status: Acute Assessment and Plan: Patient started taking Bystolic on the day of admission. Patient became symptomatic and found to be bradycardic and hypotensive by EMS. In the ER, he received NS IV bolus, glucagon IV, atropine, and calcium gluconate. EKG showing 2:1 AV block with bradycardia. External pacer placed. The patient started on Dopamine and Levophed. He was seen by Cardiology and temporary transvenous pacemaker placed 12/21/19. Able to be weaned off of the Dopamine. Could be related to the bystolic and HoTN from the profound anemia. Still bradycardic when holding the pacer on 12/23/19. Weaned off Levophed 12/27. Permanent Pacemaker placed 12/27. Now back on metoprolol. Intrinsic rate has returned. (4) Shock: Code(s): R57.9 - Shock, unspecified Status: Acute Assessment and Plan: Patient with profound anemia with HoTN and bradycardia. Possibly cardiogenic from the bradycardia. Consider also hypovolemic shock from the blood loss complicated by the bystolic and Lasix. The patient may have had compensatory tachycardia but blocked down with the Bystolic (although still bradycardic off Bystolic). He also may have had this anemia for a while resulting in the leg edema from high output failure. The patient required vasopressor support with Levophed and Dopamine. Able to come off all pressors 12/27. BP trended up and ARB and beta kian started. BCx NGTD. Broad spectrum abx were added for possible VAP and finished 10 day course. UCx growing EColi but only 50-100K colonies and feel probably unlikely contributing to current problems. Sputum Cx grew pseudomonas (5) Coagulopathy: Code(s): D68.9 - Coagulation defect, unspecified Status: Acute Assessment and Plan: INR 1.3 on admission probably related to underlying liver disease from his alcoholism. INR up to 2.1 felt related to hepatic dysfunction and was given one unit of FFP on 12/22/19. Repeat INR 1.4 today. Continue to follow. (6) CHF (congestive heart failure): Qualifiers: Heart failure chronicity: acute Heart failure type: combined systolic and diastolic Qualified Code(s): I50.41 - Acute combined systolic (congestive) and diastolic (congestive) heart failure Code(s): I50.9 - Heart failure, unspecified Status: Acute Assessment and Plan: Patient has been having increasing pedal edema prior to admission. Suspect heart failure from his profound anemia. Echo showing EF 35-40%, abnml LV diastolic function, HK inferior wall, mild to moderate MR and moderate pulmonary hypertension. Patient probably with acute exacerbation. BNP 3600. Suspect developed heart failure related to the anemia causing high output failure and with LV dysfunction. The LV dysfunction could be ischemic and/or alcohol related. Received Lasix periodically. Beta kian a
--- NOTE | 2020-01-05 11:35 | PM.PNCARD ---
Progress Note: A&P Assessment and Plan (1) Heart block AV second degree: Code(s): I44.1 - Atrioventricular block, second degree Status: Acute Assessment and Plan: Status post Biotronik dual chamber pacemaker on December 28, 2019. Maintaining sinus rhythm at this time. Pacemaker interrogation 01/04/2020: Normal device function. Three high ventricular rates. One-to-one conduction longest was 4 seconds. SVT is likely (2) Cardiomyopathy: Qualifiers: Cardiomyopathy type: unspecified Qualified Code(s): I42.9 - Cardiomyopathy, unspecified Code(s): I42.9 - Cardiomyopathy, unspecified Status: Acute Assessment and Plan: Moderate with wall motion abnormalities present. EF 35-40%. Likely has underlying CAD. Ischemic workup in the future. He needs to recover from this hospitalization as well as his anemia needs to be sorted out. Continue Metoprolol tartrate 75 mg q.12 hours. Good blood pressure control. Discharge on 150 mg Metoprolol succinate daily. Continue losartan at 50 mg daily. Furosemide 20 mg daily for now. Will reassess need for additional diuretic as outpatient . (3) SVT (supraventricular tachycardia): Code(s): I47.1 - Supraventricular tachycardia Status: Acute Assessment and Plan: Transient, isolated SVT with aberrancy, cannot exclude A.Fib. Short burst noted on telemetry. Sinus tachycardia noted on tele. (4) Elevated liver enzymes: Code(s): R74.8 - Abnormal levels of other serum enzymes Status: Acute Assessment and Plan: Improved (5) Alcohol use: Code(s): Z72.89 - Other problems related to lifestyle Status: Acute Assessment and Plan: Defer to primary service. Counseled again today that he should not drink any alcohol going forward due to LV dysfunction. (6) Macrocytic anemia: Code(s): D53.9 - Nutritional anemia, unspecified Status: Acute Assessment and Plan: Dr Darby paniagua. CBC as outpatient (7) Hypertension: Qualifiers: Hypertension type: essential hypertension Qualified Code(s): I10 - Essential (primary) hypertension Code(s): I10 - Essential (primary) hypertension Status: Acute Assessment and Plan: Good BP control (8) Lactic acidosis: Code(s): E87.2 - Acidosis Status: Acute Assessment and Plan: Resolved Additional Plan OK to discharge from a cardiac standpoint. See discharge instructions for follow up Plan discussed with Dr Shane 1155 01/05/2020 Subjective Date/time seen: 01/05/20 11:35 Interval history: Follow up for: generalized weakness found to be bradycardic due to high-grade AV block. Status post Biotronik dual chamber pacemaker 12/28/2019. Cardiomyopathy with wall motion abnormalities, anemia Date of service: 01/05/2020 Subjective: Ready to go home. at bedside. Denies any chest discomfort or shortness of breath. No lightheadedness. Had some problem with gas pain. Review of Systems Review of Systems: All systems reviewed & are unremarkable except as noted in HPI and below Constitutional: Constitutional: Reports weakness ( resolved) Eyes: Eyes: Denies blurry vision ENT: Reports Normal hearing present, Denies dizziness, Denies epistaxis and Denies tongue swelling Cardiovascular: Cardiovascular: Denies chest pain, Denies leg edema, Denies lightheadedness and Reports dyspnea on exertion ( improved) Respiratory: Respiratory: Reports cough, Reports dyspnea on exertion ( improved) and Denies wheezing Gastrointestinal: Gastrointestinal: Reports abdominal pain ( from gas yvonne. Resolved) Genitourinary: Genitourinary: Denies hematuria Musculoskeletal:
--- NOTE | 2020-01-05 11:50 | PCDIET ---
Nutrition Follow-Up Complete: Inadequate oral intake related to oral intubation as evidenced by NPO status. Patient to meet estimated nutritional needs. Goal:Goal met. Pt current nutrition is 4gm Na/ compact BID Nutrition recommendation: agree Last recorded weight is 70.5 kg down from admit wt of 87kg Bowel Motility: Labs Reviewed:Ferritin 1030, Fe 36 Na 136 Meds Noted: Additional Notes: Pt with low iron, elevated ferritin, most likely due to chronic disease, Appetite improved with intakes of 50,100, and 100%. Recommend continuing ensure compact BID for 30 days after d/c due to wt lost while inpatient. Plans for d/c home today on a low Na diet.
--- NOTE | 2020-01-05 12:06 | HOMEO2EVAL ---
Home Oxygen Evaluation RC: Home Oxygen (O2) Evaluation Start: 01/04/20 18:06 Freq: ONCE Status: Active Protocol: RPE Activity Type Activity Date Activity User E-Sign Co-Sign Detail Recorded Client Recorded Date Recorded By Document 01/05/20 11:40 J LUIS [id number] 01/05/20 12:06 J LUIS Document 01/05/20 11:45 J LUIS [email or web address] 01/05/20 12:06 J LUIS Document 01/05/20 11:55 J LUIS [id number] 01/05/20 12:06 J LUIS 01/05/20 01/05/20 01/05/20 11:40 11:45 11:55 Home O2 Evaluation Test Phase Resting Exercise Resting Oxygen Delivery Room Air Room Air Room Air Pulse Oximetry (90-100 %) 97 94 96 Pulse Rate (60-100 beats/min) 79 99 81 Activity Tolerance Good Rating of Perceived Dyspnea (PD) +2 Mild, Some Difficulty, Noticeable to the Observer Ambulation Distance (feet) 50 Home Oxygen Evaluation Comments Pt used wheeled No home O2 walker needed. Use ear probe to obtain most accuate sats Treatment Charges O2 Evaluation
[2020-01-10 14:41] LABS: Reference Lab Test Result Negative
== END 2020-01-05 16:20 | disposition home health service (06) | DRG 242 ==
LOC: ANHED 23:22 → ANHICU 12-21 02:19 → ANH3MED 01-01 19:15 → ANHICU 01-06 12:33 → ANHIMU 01-06 12:33
PROVIDERS: Internal Medicine; Internal Medicine Cardiovascular Disease; Internal Medicine Critical Care Medicine; Internal Medicine Gastroenterology; Internal Medicine Hematology & Oncology; Nurse Practitioner Adult Health; Specialist; Admitting Provider Family Medicine; Emergency Provider Emergency Medicine; Visit Provider Internal Medicine
PROC: 5A1223Z Performance of Cardiac Pacing, Continuous (ICD-10-PCS; CPT 33210; principal; 2019-12-21 08:30)
PROC: 0DJ08ZZ Inspection of Upper Intestinal Tract, Via Natural or Artificial Opening Endoscopic (ICD-10-PCS; CPT 43235; principal; 2019-12-22 12:30)
PROC: 0JH606Z Insertion of Pacemaker, Dual Chamber into Chest Subcutaneous Tissue and Fascia, Open Approach (ICD-10-PCS; CPT 33208; principal; 2019-12-28 11:00)
DX: I44.1 Atrioventricular block, second degree (principal); J96.00 Acute respiratory failure, unspecified whether with hypoxia or hypercapnia; K72.00 Acute and subacute hepatic failure without coma; I50.41 Acute combined systolic (congestive) and diastolic (congestive) heart failure; A41.9 Sepsis, unspecified organism; J69.8 Pneumonitis due to inhalation of other solids and liquids; R57.8 Other shock; R57.0 Cardiogenic shock; J95.851 Ventilator associated pneumonia; E87.2 Acidosis; N17.9 Acute kidney failure, unspecified; D68.4 Acquired coagulation factor deficiency; J44.9 Chronic obstructive pulmonary disease, unspecified; D53.9 Nutritional anemia, unspecified; F10.20 Alcohol dependence, uncomplicated; K70.9 Alcoholic liver disease, unspecified; E83.42 Hypomagnesemia; B96.5 Pseudomonas (aeruginosa) (mallei) (pseudomallei) as the cause of diseases classified elsewhere; R00.1 Bradycardia, unspecified; I10 Essential (primary) hypertension; Z87.11 Personal history of peptic ulcer disease; T68.XXXA Hypothermia, initial encounter; I42.9 Cardiomyopathy, unspecified; I47.1 Supraventricular tachycardia
CPT/HCPCS: 31500; 33208; 33210; 36415; 36430; 36556; 36569; 36600; 71045; 74018; 74178; 76700; 80048; 80053; 80074; 80076; 80202; 80307; 81001; 81256; 82140; 82274; 82375; 82607; 82728; 82746; 82805; 83010; 83050; 83540; 83550; 83605; 83615; 83690; 83735; 83880; 84100; 84145; 84443; 84484; 85014; 85018; 85025; 85027; 85046; 85055; 85610; 85730; 86140; 86644; 86703; 86850; 86880; 86900; 86901; 86920; 86923; 87040; 87070; 87077; 87086; 87088; 87186; 87205; 93005; 93306; 93970; 94003; 94618; 94640; 96361; 96374; 96375; 97110; 97116; 97161; 97165; 97530; 97535; 99291; A9270; C1751; C1779; C1785; C1883; C1894; C9113; G0432; J0131; J0330; J0360; J0461; J0610; J0692; J1265; J1610; J1644; J1741; J1940; J2250; J2704; J2765; J2920; J2997; J3010; J3370; J3411; J3420; J3430; J3475; J7030; J7040; J7050; J7060; J7512; P9016; P9017; Q9967

== ENCOUNTER 2020-01-16 15:52 | Outpatient (CLI) | payer OTHER, SELFPAY ==
[2020-01-16 16:18] LABS: Basophils Percent Auto 0.5 % (0.2-1.2); Eosinophils Absolute Auto 0.3 K/mm3 (0-0.3); Eosinophils Percent Auto 5.6 % (0-4.4); Hematocrit 23.6 % (42.0-52.0); Hemoglobin 7.5 g/dL (14.0-18.0); Immature Granulocyte Absolute 0.27 K/mm3 (0.00-0.031); Immature Granulocyte Percent A 4.6 % (0-0.5); Lymphocytes Absolute Auto 1.96 K/mm3 (0.9-3.2); Lymphocytes Percent Auto 33.3 % (18.3-44.2); Mean Corpuscular HGB Conc 31.8 g/dl (32-36); Mean Corpuscular Hemoglobin 34.1 pg (26-34); Mean Corpuscular Volume 107.3 fl (80-100); Mean Platelet Volume 12.3 fl (7.4-10.4); Monocytes Absolute Auto 0.5 K/mm3 (0.1-0.6); Monocytes Percent Auto 8.5 % (2.6-8.5); Neutrophils Absolute Auto 2.8 K/mm3 (1.3-6.7); Neutrophils Percent Auto 47.5 % (45.5-73.1); Nucleated Red Blood Cells Perc 0.5 % (0.0-0.2); Platelet Count Result 325 k/mm3 (150-375); White Blood Count 5.9 K/mm3 (4.5-10.0)
[2020-01-16 16:24] LABS: Platelet Estimate Adequate (Adequate)
[2020-01-16 16:25] LABS: Anisocytosis 2+ (NORMAL); Atypical Lymphocytes Present; Ovalocytes 1+ (NORMAL)
[2020-01-16 16:26] LABS: Poikilocytosis 1+ (NORMAL)
[2020-01-16 16:57] LABS: Iron 62 ug/dL (49-181)
[2020-01-16 17:00] LABS: Alanine Aminotransferase 46 U/L (4-50); Albumin Level 3.4 g/dL (3.5-5.1); Alkaline Phosphatase 70 U/L (38-126); Anion Gap 10 mmol/L (8-16); Aspartate Amino Transferase 25 U/L (17-59); Bilirubin,Total 0.6 mg/dL (0.2-1.3); Blood Urea Nitrogen 28 mg/dL (9-20); Carbon Dioxide 27 mmol/L (22-30); Chloride 101 mmol/L (98-107); Estimated Glomerular Filt Rate > 60; Glucose 108 mg/dL (75-110); Lactate Dehydrogenase 514 U/L (313-618); Potassium 3.8 mmol/L (3.4-5.0); Sodium 138 mmol/L (137-145)
[2020-01-16 17:09] LABS: Percent Iron Saturation 27 % (20-50)
[2020-01-19 15:38] LABS: Methylmalonic Acid 248 nmol/L (87-318)
== END 2020-01-16 15:53 | disposition home or self-care (01) ==
LOC: ANHLAB 15:56
PROVIDERS: Visit Provider Internal Medicine Hematology & Oncology
DX: D64.9 Anemia, unspecified (principal)
CPT/HCPCS: 36415; 80053; 82607; 82728; 83540; 83550; 83615; 83921; 85025

== ENCOUNTER 2020-01-18 17:08 | Inpatient (IN) | payer OTHER, SELFPAY ==
[2020-01-18] VITALS (11 sets, daily range): BP systolic 101–124; BP diastolic 45–73; PULSE 97–121; RESP 16–28; TEMP 35.7–36.9; O2SAT 94–98; BMI 20.4
--- NOTE | ~2020-01-18 | XR_ITS ---
EXAMINATION: XR chest 1V portable EXAM DATE: 01/22/2020 06:19 INDICATION: Left pleural effusion. Shortness of breath. Hypertension. TECHNIQUE: Portable AP frontal chest x-ray was obtained. Comparison is made to prior examination from 01/18, 01/17. FINDINGS: There is a moderate left-sided pleural effusion with adjacent multisegmental compressive at electasis. There is been mild increase in pleural fluid compared to the most recent postthoracentesis 01/18 x-ray, but not as much fluid as on 01/17 (prior to thoracentesis). There is a dual lead pacemaker/AICD seen with leads projecting over the expected locations of the rig ht atrial appendage and right ventricle. Cardiomediastinal silhouette is normal. Right lung is clear. There are mild bony degenerative changes. There is no pneumothorax suspected. IMPRESSION: Moderate left pleural effusion, adjacent multisegmental atelectasis. Reviewed, dictated and finalized at location A. IMPRESSION: Moderate left pleural effusion, adjacent multisegmental atelectasi s.
--- NOTE | ~2020-01-18 | CT_ITS ---
EXAMINATION: CTA chest PE protocol DATE: 01/18/2020 20:03 INDICATION: Chest pain, shortness of breath and hypotension TECHNIQUE: Computed tomography (CT) pulmonary angiogram of the chest was performed with 100 mL Omnipa que-350 intravenous contrast. Additional 3D reconstructions utilizing coronal maximum intensity proje ction (MIP) were performed. Automated exposure control and iterative reconstruction technique were em ployed. The dose-length product was 341.78 mGy-cm. COMPARISON: None FINDINGS: Excellent contrast opacification of the pulmonary arteries. There is mild streak artifact from dense contrast in the superior vena cava and right atrium. Mild scattered respiratory motion artifact which does not significantly limit evaluation. No pulmonary embolism. Moderate-sized likely at least parti ally loculated left pleural effusion with partial collapse of the basilar segments of the left lower lobe and atelectasis along the posterior inferior lingula. There is an approximately 1.5 cm gas and f luid filled cavitary lesion at the periphery of the atelectatic portion of the lingula. 5 mm nodule i n the right lower lobe. Additional mild dependent atelectasis in the right lower lobe. Mild emphysema with upper lobe predominance. Heart size is normal. No pericardial effusion. Dual-lead cardiac pacem shannan with lead tips at the right atrial appendage and at the apex of the right ventricle. Thoracic ao rta is normal in caliber with no dissection. There are a few mildly prominent but still normal-sized mediastinal lymph nodes the largest prevascular lymph node measuring 2.4 x 0.9 cm. There is also a 1. 3 x 0.8 cm left internal mamillary chain lymph node. Mild stranding in the left paracardial fat pad. 1.8 cm fluid attenuation cyst in the right hepatic lobe. 1.5 cm low-attenuation left adrenal adenoma. Mild thoracic spondylosis. IMPRESSION: 1. No pulmonary embolism. 2. Moderate-sized left pleural effusion with suggestion of at least partial loculation further sugges ting an exudative effusion. Could consider diagnostic thoracentesis as clinically indicated. 3. Small cavitary lesion in the atelectatic dependent aspect of the left lower lobe. 4. Mild likely reactive mediastinal left internal mamillary chain lymphadenopathy although differenti al includes metastatic disease. 5. Mild emphysema. 6. 5 mm indeterminate right lower lobe nodule. Could consider optional one-year follow-up low-dose no ncontrast chest CT. Reviewed, dictated and finalized at location A. IMPRESSION: 1. No pulmonary embolism. 2. Moderate-sized left pleural effusion with suggestion of at least partial loc ulation further suggesting an exudative effusion. Could consider diagnostic tho racentesis as clinically indicated. 3. Small cavitary lesion in the atelectatic dependent aspect of the left lower lobe. 4. Mild likely reactive mediastinal left internal mamillary chain lymphadenopat hy although differential includes metastatic disease. 5. Mild emphysema. 6. 5 mm indeterminate right lower lobe nodule. Could consider optional one-year follow-up low-dose noncontrast chest CT.
--- NOTE | ~2020-01-18 | XR_ITS ---
EXAMINATION: XR chest 1V DATE: 01/18/2020 18:30 INDICATION: Shortness of breath, chest pain and hypotension. TECHNIQUE: frontal view of the chest was obtained. COMPARISON: Chest radiograph dated 01/03/2020 FINDINGS: Interval increase in a lower lung predominant gradient of hazy airspace opacity throughout the left h emithorax with more dense opacification in the lower lung zone consistent with enlarging moderate-siz ed pleural effusion with associated basilar atelectasis and/or pneumonia. Right lung remains clear. N o pulmonary edema, pneumothorax or right-sided pleural effusion. Heart size is normal. Dual lead pace maker seen with leads projecting over the expected locations of the right atrium and right ventricle. IMPRESSION: 1. Enlarging moderate-sized left pleural effusion with associated atelectasis and/or pneumonia in the lower lung zone. Reviewed, dictated and finalized at location A. IMPRESSION: 1. Enlarging moderate-sized left pleural effusion with associated atelectasis a nd/or pneumonia in the lower lung zone.
--- NOTE | ~2020-01-18 | US_ITS ---
EXAMINATION: US thoracentesis DATE: 01/19/2020 11:00 INDICATION: pleural effusion TECHNIQUE: The procedure and its risks, benefits, and alternatives were discussed with the patient. P otential risks discussed included bleeding, infection, and pneumothorax. The patient understood the r isks and agreed to proceed. The skin was prepped and draped in sterile fashion. 1% lidocaine was used for local anesthesia. Under ultrasound guidance, a 5 Fr catheter with trochar was advanced into the left pleural effusion. Fluid was aspirated. The catheter was removed, and a dressing was applied. The re were no immediate complications. FINDINGS: Ultrasound images demonstrate a left pleural effusion and the catheter within the fluid. IMPRESSION: 1. Successful ultrasound-guided thoracentesis yielding 850 mL of geo-colored fluid. Reviewed, dictated and finalized at location A.
--- NOTE | ~2020-01-18 | US_ITS ---
EXAMINATION: US venous doppler [facility] DATE: 01/19/2020 16:06 INDICATION: Calf pain. TECHNIQUE: Grayscale ultrasound images without and with compression and Doppler ultrasound images of the bilateral lower extremity veins were obtained. COMPARISON: Ultrasound 12/22/2019 FINDINGS: The visualized portions of right common femoral vein, profunda (deep) femoral vein, femoral vein, pop liteal vein, peroneal veins, posterior tibial veins, and greater saphenous vein outflow are patent. The visualized portions of left common femoral vein, profunda femoral vein, femoral vein, popliteal v ein, peroneal veins, posterior tibial veins, and greater saphenous vein outflow are patent. IMPRESSION: 1. No deep venous thrombosis. Reviewed, dictated and finalized at location A.
--- NOTE | ~2020-01-18 | BM_ITS ---
EXAMINATION: CCL basic procedure ORDER COMPLETED DATE: 01/23/2020 11:45 INDICATION: Anemia TECHNIQUE: A time-out was performed to verify the patient's name, date of , and procedure to b e performed. The procedure including the risks and benefits was discussed with the patient. Risks dis cussed included bleeding, infection, nerve injury and allergic reaction. The patient understood the r isks and agreed to proceed. The skin overlying the right posterior iliac spine was prepped and draped in usual sterile fashion. Anesthetic was administered with 1% lidocaine subcutaneously. Moderate co nscious sedation was achieved with 100 mcg fentanyl IV and 1 mg of Versed IV. An 11 gauge needle was inserted into the ilium with fluoroscopic guidance. Bone marrow was aspirated. An 8 gauge needle was then inserted into the ilium with fluoroscopic guidance. A core bone marrow biopsy was obtained. The needle was removed and the entry site was cleaned and dressed. There were no immediate complications . A total of 5 fluoroscopic images were recorded. Fluoroscopy exposure time was 0.1 minutes. FINDINGS: Real-time fluoroscopy demonstrates the biopsy needle tip overlying the right posterior speedy c spine. IMPRESSION: 1. Successful fluoroscopic guided bone marrow aspiration. 2. Successful fluoroscopic guided bone marrow biopsy. Reviewed, dictated and finalized at location A.
--- NOTE | ~2020-01-18 | XR_ITS ---
EXAMINATION: XR chest 1V portable DATE: 01/19/2020 16:34 INDICATION: Shortness of breath. Respiratory distress. TECHNIQUE: frontal view of the chest was obtained. COMPARISON: Chest radiograph and CT dated 01/18/2020 FINDINGS: Decrease in size of a still moderate sized left pleural effusion postthoracentesis. There is a persis tent component loculated along the lateral aspect of the mid to upper lung zone. Visualized right cj g which excludes the costophrenic angle remains clear. No pulmonary edema, pneumothorax or evident ri ght pleural effusion. The cardiomediastinal silhouette is normal. Dual lead pacemaker seen with leads projecting over the expected locations of the right atrium and right ventricle. IMPRESSION: 1. Interval decrease in a still moderate sized loculated left pleural effusion with associated left b asilar atelectasis and/or pneumonia. Reviewed, dictated and finalized at location A. IMPRESSION: 1. Interval decrease in a still moderate sized loculated left pleural effusion with associated left basilar atelectasis and/or pneumonia.
--- NOTE | ~2020-01-18 | XR_ITS ---
EXAMINATION: [id number]_CR DATE: 01/19/2020 10:52 INDICATION: Left pleural effusion status post thoracentesis. TECHNIQUE: Frontal and lateral views of the chest were obtained. COMPARISON: Chest single view 01/18/2020, chest CT 01/18/2020 FINDINGS: There is a moderate-sized loculated left pleural effusion. There are airspace opacities at left lung base, likely atelectasis. No pneumothorax. The heart size is normal. There is a left chest wall pacer with leads in the right atrium and right ventricle. IMPRESSION: 1. Moderate-sized loculated left pleural effusion with improvement status post thoracentesis. Reviewed, dictated and finalized at location A.
--- NOTE | 2020-01-18 17:20 | ECG_ITS ---
Measurements Intervals [place] Rate: 105 P: -27 MN: 268 QRS: -79 QRSD: 158 T: 79 QT: 440 QTc: 583 Interpretive Statements ATRIAL SENSE- ELECTRONIC VENTRICULAR PACEMAKER UNDERLYING SINUS OR ECTOPIC ATRIAL TACHYCARDIA NO FURTHER INTERPRETATION IS POSSIBLE ABNORMAL ECG Electronically Signed On 01-18-2020 18:41:57 CDT by Jack Tello D.O.
[2020-01-18 17:29] LABS: Hematocrit 21.1 % (42.0-52.0); Immature Platelet Fraction Pct 10.6 % (0.9-11.2); Mean Corpuscular HGB Conc 32.2 g/dl (32-36); Mean Corpuscular Hemoglobin 34.7 pg (26-34); Mean Corpuscular Volume 107.7 fl (80-100); Mean Platelet Volume 13.2 fl (7.4-10.4); Platelet Count Result 265 k/mm3 (150-375); Red Blood Count 1.96 M/mm3 (4.6-6.20); White Blood Count 5.2 K/mm3 (4.5-10.0)
[2020-01-18 17:38] LABS: Anion Gap 10 mmol/L (8-16); Blood Urea Nitrogen 24 mg/dL (9-20); Calcium 6.8 mg/dL (8.4-10.2); Carbon Dioxide 27 mmol/L (22-30); Chloride 101 mmol/L (98-107); Estimated CRCL calculation 89 ml/min; Estimated Glomerular Filt Rate > 60; Glucose 116 mg/dL (75-110); Potassium 3.7 mmol/L (3.4-5.0); Sodium 138 mmol/L (137-145)
[2020-01-18 17:41] LABS: Hemoglobin 6.8 g/dL (14.0-18.0)
[2020-01-18 17:42] LABS: Alanine Aminotransferase 37 U/L (4-50); Albumin Level 3.2 g/dL (3.5-5.1); Alkaline Phosphatase 53 U/L (38-126); Aspartate Amino Transferase 33 U/L (17-59); Atypical Lymphocytes Present; Bilirubin,Total 0.5 mg/dL (0.2-1.3); Ovalocytes 1+ (NORMAL); Platelet Estimate Adequate (Adequate)
--- NOTE | 2020-01-18 17:50 | ED.WEAKNESS ---
HPI - Weakness General Chief complaint: Weakness Stated complaint: BP LOW Time Seen by Provider: 01/18/20 17:21 History of Present Illness HPI Narrative: 64 yo male w/ h/o complete heart block s/p pacemaker, respiratory failure, anemia presents to the ED for generalized weakness and chest pain. He presented to the hospital on 12/19 in respiratory failure. He ws found to be in acute respiratory failure and anemic. He was intubated and admitted to the ICU. Whiel in the ICU he reports that he had a pacmaker placed for complete heart block. He was finally discharged on 01/04. Since discharge he reports that he has had ongoing weakness and SOB, as well as intermittent sharp chest pain primarily with sitting up and coughing. He had outpatient labs today, which he reports were okay. Related Data Home Medications Medication Instructions Recorded Confirmed Combivent Respimat 1 puff INHALATION Q4H 12/20/19 01/18/20 fluticasone propion-salmeterol 1 inh INHALATION Q12H 12/20/19 01/18/20 [Advair Diskus] gabapentin 800 mg PO TID 12/20/19 01/18/20 omeprazole 40 mg PO DAILY 12/21/19 01/18/20 ferrous sulfate [Iron (ferrous 325 mg PO BID 01/19/20 01/19/20 sulfate)] magnesium oxide 400 mg PO BID 01/19/20 01/19/20 mecobalamin (vitamin B12) [B12 1,000 mcg PO DAILY 01/19/20 01/19/20 Active] zolpidem 5 mg PO HS PRN 01/19/20 01/19/20 Allergies Allergy/AdvReac Type Severity Reaction Status Date / Time vancomycin Allergy Difficulty Verified 01/19/20 17:18 Breathing Review of Systems Review of Systems: All systems reviewed & are unremarkable except as noted in HPI and below Constitutional: Constitutional: Denies fever(s) Cardiovascular: Cardiovascular: Reports chest pain and Denies radiating jaw, neck or arm pain Respiratory: Respiratory: Reports cough and Reports dyspnea Gastrointestinal: Gastrointestinal: Denies abdominal pain, Denies diarrhea and Denies nausea Genitourinary: Genitourinary: Denies hematuria Neurologic: Reports dizziness and Reports weakness PMFSH Past Medical History Medical History Alcohol use COPD (chronic obstructive pulmonary disease) History of pacemaker HTN (hypertension) with goal to be determined Macrocytic anemia PUD (peptic ulcer disease) Shock liver Surgical History Surgical History History of partial colectomy Family History Family History Mother Scoliosis Social History Social History Smoking packs per day: 2 Smoking cigarettes per day: 40.0 Years smoked: 30 Smoking pack-years: 60.00 Smoking status: Former smoker Tobacco type: cigarettes Alcohol intake: former Substance use: former Gender identity (if verbalized by the patient): Male Spiritual care concerns: No Exam Const: General: no acute distress and alert Orientation/consciousness: patient oriented x3 HENMT: Head: normal to inspection Eyes: Pupils: Equal, round and reactive pupils present Course Vital Signs Vital signs: Vital Signs Temperature 36.9 C 01/18/20 17:13 Pulse Rate 114 H 01/18/20 17:13 Respiratory Rate 17 01/18/20 17:13 Blood Pressure 111/60 01/18/20 17:13 Pulse Oximetry 98 01/18/20 17:13 Temperature 36.8 C 01/21/20 18:00 Pulse Rate 75 01/21/20 18:00 Respiratory Rate 12 01/21/20 18:00 Blood Pressure 110/56 L 01/21/20 18:00 Pulse Oximetry 99 01/21/20 18:00 MDM - Weakness Differential Diagnosis Differential diagnosis: Likely anemia, sepsis and dehydration Medical Records Attestation: I reviewed the patient's medical records. Lab Data Attestation: I reviewed the patient's lab results. Result diagrams: 01/21/20 05:43 01/21/20 05:43 Labs: Lab Results 01/18/20 01/18/20 01/18/20 Range/Units 17:22 1
[2020-01-18 18:06] LABS: INR 1.3; Prothrombin Time 16.2 Seconds (11.1-14.7)
[2020-01-18 18:07] LABS: Partial Thromboplastin Time 41.2 SECONDS (22.3-36.8)
[2020-01-18 18:07] LABS: Add Urine Microscopic? NO; Appearance Urine Clear (Clear); Bilirubin Urine Negative (Negative); Blood Urine Negative (Negative); Color Urine Colorless (Yellow); Glucose Urine UA Negative (Negative); Ketones Urine Negative (Negative); Leukocyte Esterase Ur Negative LEU/UL (Negative); Mucus Urine Rare /lpf; Nitrate Urine Negative (Negative); Protein Urine Negative (Negative); RBC Urine 0-2 /hpf (0-2); Specific Grav Ur 1.006 (1.001-1.035); Urobilinogen Urine Negative mg/dL (<2.0); WBC Urine 0-3 /hpf
--- NOTE | 2020-01-18 19:46 | PM.IMHP ---
H&P: HPI History of Present Illness Date/Time: 01/18/20 19:46 Chief complaint: Anemia, chest pain, elevated troponin Narrative: This is a 64 year old male with known COPD, PUD, and HTN Who is very well known to me as I just admitted him to the hospitalist service on the 2nd of this month secondary to second-degree heart block, sepsis, and acute respiratory failure. During that hospitalization the patient did undergo an EGD as he was severely anemic which only demonstrated gastric erosions. The patient states that since he has been discharged about 2 weeks ago he has been doing well at home until about 3 days ago when he started to develop increased exertional weakness, exertional shortness of breath, and pleuritic chest pain. The patient has had a mild sporadic dry cough over the past couple of days and denies any fevers. he denies any chest pain at rest but if he tries to sit up immediately has sharp midsternal chest discomfort. The patient also complains of left calf pain over the past few days although he has not had any leg swelling or leg redness. The patient's previous hospitalization was extensive in lasted almost 2 weeks. The patient was evaluated emergency room this evening and found to have a mildly elevated troponin of 0.080. His hemoglobin is 6.8 and his hematocrit is 21.1. He denies any recent rectal bleeding or dark black stools he also denies any recent nausea or vomiting. The patient is not known to be on any anticoagulants. Today his primary care doctor gave him a dose of Lasix. Chest x-ray that was obtained in the ER demonstrated enlarging moderate-sized left pleural effusion. Review of Systems Review of Systems: All systems reviewed & are unremarkable except as noted in HPI and below PMFSH Past Medical History Medical History Alcohol use COPD (chronic obstructive pulmonary disease) History of pacemaker HTN (hypertension) with goal to be determined Macrocytic anemia PUD (peptic ulcer disease) Shock liver Surgical History Surgical History History of partial colectomy Family History Family History Mother Scoliosis Social History Social History Smoking packs per day: 2 Smoking cigarettes per day: 40.0 Years smoked: 30 Smoking pack-years: 60.00 Smoking status: Former smoker Tobacco type: cigarettes Alcohol intake: former Substance use: former Gender identity (if verbalized by the patient): Male Spiritual care concerns: No Meds Home Medications and Allergies Home Medications Medication Instructions Recorded Confirmed Type Combivent Respimat 1 puff INHALATION Q4H 12/20/19 01/18/20 History fluticasone propion-salmeterol 1 inh INHALATION Q12H 12/20/19 01/18/20 History [Advair Diskus] gabapentin 800 mg PO TID 12/20/19 01/18/20 History omeprazole 40 mg PO DAILY 12/21/19 01/18/20 History furosemide 20 mg PO DAILY #30 tablet 01/05/20 01/18/20 Rx losartan [Cozaar] 50 mg PO DAILY #30 tablet 01/05/20 01/18/20 Rx metoprolol succinate 150 mg PO DAILY #45 tablet 01/05/20 01/18/20 Rx thiamine HCl (vitamin B1) [Vitamin 100 mg PO QAM #30 tablet 01/05/20 01/18/20 Rx B-1] Allergies Allergy/AdvReac Type Severity Reaction Status Date / Time No Known Allergies Allergy Verified 01/18/20 17:19 Vital Signs Vital Signs - 24 hr 01/18/20 17:13 01/18/20 17:18 01/18/20 18:19 Temperature 36.9 C Pulse Rate 114 H 102 H 102 H Respiratory Rate 17 18 Blood Pressure 111/60 106/58 L Pulse Oximetry 98 96 01/18/20 19:02 Temperature Pulse Rate 97 Respiratory Rate 28 H Blood Pressure 120/57 L Pulse Oximetry 96 Exam Const: General: cooperative, alert and awake Nutritional Appearance: thin and underweight Orientation/consciousness: patient robyn
--- NOTE | 2020-01-18 21:16 | ADMGEN ---
This patient, Bora Curran, was admitted to IMU Room 212-01at 5 on 01/18/2020. Patient/family oriented to hospital policies and general routines including ID bracelet, bed and alarms, visiting hours, pain management, procedures, bathroom and other care routines, personal items, smoking policy, room service/diet, and visiting hours. Valuables list has been completed. Information on how to activate the Rapid Response Team has been discussed. Patient/Family are encouraged to report perceived risks to care and to ask questions if they do not understand what they are told or what they should do.
[2020-01-18 21:31] LABS: Troponin I 0.089 ng/mL (0.000-0.034)
[2020-01-18] MEDS: SODIUM CHLORIDE 0.9% IV 250 ML 30 ML IV CONT (21:53)
[2020-01-18] MEDS: TUBING, BLOOD PLUM PUMP TUBING 1 EACH XX (21:54)
[2020-01-18] MEDS: HYDROcodone/acetaminophen (*CRX) 5-325 MG TABLET 1 TAB PO (21:55)
[2020-01-18] MEDS: MELATONIN 3 MG TABLET PO (22:12)
[2020-01-19] VITALS (22 sets, daily range): BP systolic 99–127; BP diastolic 48–61; PULSE 60–99; RESP 16–36; TEMP 36.1–36.8; O2SAT 93–100
[2020-01-19 00:13] LABS: Troponin I 0.096 ng/mL (0.000-0.034)
[2020-01-19] MEDS: GABAPENTIN 400 MG CAPSULE 800 MG PO ×4 (00:31→18:21)
[2020-01-19 03:25] LABS: Basophils Percent Auto 0.5 % (0.2-1.2); Eosinophils Absolute Auto 0.2 K/mm3 (0-0.3); Eosinophils Percent Auto 3.7 % (0-4.4); Hemoglobin 7.2 g/dL (14.0-18.0); Immature Granulocyte Absolute 0.07 K/mm3 (0.00-0.031); Immature Granulocyte Percent A 1.6 % (0-0.5); Lymphocytes Absolute Auto 1.31 K/mm3 (0.9-3.2); Mean Corpuscular HGB Conc 32.7 g/dl (32-36); Mean Corpuscular Hemoglobin 33.6 pg (26-34); Mean Corpuscular Volume 102.8 fl (80-100); Mean Platelet Volume 12.8 fl (7.4-10.4); Monocytes Absolute Auto 0.4 K/mm3 (0.1-0.6); Monocytes Percent Auto 9.2 % (2.6-8.5); Neutrophils Absolute Auto 2.4 K/mm3 (1.3-6.7); Platelet Count Result 218 k/mm3 (150-375); Red Blood Count 2.14 M/mm3 (4.6-6.20); Red Cell Distribution Width 26.2 % (11.5-14.5); White Blood Count 4.4 K/mm3 (4.5-10.0)
[2020-01-19] MEDS: HYDROcodone/acetaminophen (*CRX) 5-325 MG TABLET 1 TAB PO ×4 (03:29→23:43)
[2020-01-19 03:54] LABS: Anion Gap 7 mmol/L (8-16); Blood Urea Nitrogen 16 mg/dL (9-20); Calcium 6.6 mg/dL (8.4-10.2); Carbon Dioxide 29 mmol/L (22-30); Chloride 103 mmol/L (98-107); Estimated CRCL calculation 102 ml/min; Estimated Glomerular Filt Rate > 60; Glucose 114 mg/dL (75-110); Potassium 3.2 mmol/L (3.4-5.0); Sodium 139 mmol/L (137-145)
[2020-01-19 04:04] LABS: Anisocytosis 2+ (NORMAL); Atypical Lymphocytes Present; Ovalocytes 1+ (NORMAL); Platelet Estimate Adequate (Adequate); Tear Drop Cells 1+ (NORMAL)
--- NOTE | 2020-01-19 08:05 | PC.NURSE ---
Unable to interrogate pacemaker. Pt states that pacemaker is from [employer]
[2020-01-19 08:36] LABS: Hematocrit 23.3 % (42.0-52.0); Hemoglobin 7.7 g/dL (14.0-18.0)
[2020-01-19] MEDS: FLUTICASONE/SALMETEROL 45-21 MCG INHALER 1 PUFF 2 PUFF INHALATION ×2 (09:01→21:30)
[2020-01-19] MEDS: METOPROLOL SUCCINATE EXT REL 50 MG TABCR 150 MG PO (09:20)
[2020-01-19] MEDS: PANTOPRAZOLE 40 MG TABLET PO (09:21)
[2020-01-19] MEDS: THIAMINE HCL 100 MG TABLET PO (09:21)
[2020-01-19] MEDS: POTASSIUM CHLORIDE 20 MEQ TABLET 40 MEQ PO (09:30)
--- NOTE | 2020-01-19 10:00 | PM.CNCAR ---
Assessment and Plan Assessment and plan (1) Pleuritic chest pain: Code(s): R07.81 - Pleurodynia Status: Acute Assessment and Plan: Pleuritic chest pain secondary to possible left pneumonia. He had 900 cc drained today. No chest pain on exertion. (2) Elevated troponin: Code(s): R79.89 - Other specified abnormal findings of blood chemistry Status: Acute Assessment and Plan: No ischemia symptoms on ambulation. Eventually will need ischemic evaluation with. He does have anemia that is thought to be secondary to chronic alcohol. He had EGD that shows some gastric erosions brought I believe that Hematology think that this is related to chronic alcohol. (3) Pleural effusion: Code(s): J90 - Pleural effusion, not elsewhere classified Status: Acute Assessment and Plan: await results of the of pleural effusion analysis. (4) History of pacemaker: Code(s): Z95.0 - Presence of cardiac pacemaker Status: Chronic History of Present Illness History of Present Illness Consult date/time: date of service: 01/19/20 10:00 Requesting physician: Atnoni Shah MD Consult reason: chest pain Reason For Visit: Anemia, chest pain, elevated troponin Narrative: this 64-year-old male patient past medical history Of alcoholism COPD, PUD, and HTN who was apparently admitted earlier this month for second-degree heart block requiring initially at temporary transvenous pacemaker after a permanent pacemaker on 12/27, respiratory failure and sepsis. During that hospitalization the patient did undergo an EGD as he was severely anemic which only demonstrated gastric erosions. The patient states that since he has been discharged about 2 weeks ago he has been doing well at home until about 3 days ago when he started to develop increased exertional weakness, exertional shortness of breath, and pleuritic chest pain. The patient has had a mild sporadic dry cough over the past couple of days and denies any fevers. he denies any chest pain at rest but if he tries to sit up immediately has sharp midsternal chest discomfort. The patient also complains of left calf pain over the past few days although he has not had any leg swelling or leg redness. The patient's previous hospitalization was extensive in lasted almost 2 weeks. His hemoglobin on admission was 6.8 and the 2nd reading was 7.2. His baseline around 7.5. White cell count 4.4, troponins were 0.08, 0.086, 0.9 EKG shows ventricular paced rhythm. Chest x-ray shows left pleural effusion and COPD picture. CTA thorax shows no pulmonary embolism, mild emphysema, small cavitary lesion. today he went and had 900cc of left pleural fluid drainined. Review of Systems Constitutional: Constitutional: Denies chills, Denies fever(s) and Denies poor appetite Eyes: Eyes: Denies eye discharge, Denies loss of vision, Denies eye pain and Denies photophobia ENT: Denies dizziness, Denies epistaxis, Denies nasal congestion and Denies sore throat Cardiovascular: Cardiovascular: Reports chest pain, Denies syncope, Denies pedal edema, Denies leg edema, Denies palpitations, Reports dyspnea, Reports dyspnea on exertion and Denies orthopnea Respiratory: Respiratory: Reports cough, Reports dyspnea, Reports dyspnea on exertion and Denies wheezing Gastrointestinal: Gastrointestinal: Denies abdominal pain, Denies diarrhea, Denies nausea and Denies vomiting Genitourinary: Genitourinary: Denies hematuria, Denies genital lesions and Denies dysuria Musculoskeletal: Musculoskeletal: Denies arthralgias, Denies joint swelling and Denies numbness Integumentary/Breasts: Skin/Breast: Denies pruritus and Denies rash Neurologic: Denies dizziness, Denies syncope, Denies loss of vision and Denies numbness Psychiatric: Psychiatric: Denies anxiety and Denies depression Endocrine: Endocrine: Denies cold intolerance, Denies heat intolerance and Denies palpitation
[2020-01-19 10:49] LABS: pH Pleural Fluid 7.386 (7.210-7.500)
--- NOTE | 2020-01-19 11:54 | PM.IMPN ---
Progress Note: A&P Assessment and Plan (1) Pleuritic chest pain: Code(s): R07.81 - Pleurodynia Status: Acute Assessment and Plan: CT of the chest showing no PE but a moderate-sized left pleural effusion with suggestion of at least partial loculation, a small cavitary lesion in the left lower lobe and reactive lymphadenopathy. Trop elevated to 0.096 and flat. Thoracentesis today yielded 850ml of geo colored fluid with pH 7.38. Gram stain pending. Sispect more infectious process probably related to recent PNA. Could be anaerobic from aspiration possibly. Will start Zosyn and Vanco. Follow up on cultures. (2) Pleural effusion: Code(s): J90 - Pleural effusion, not elsewhere classified Status: Acute Assessment and Plan: As above. (3) Symptomatic anemia: Code(s): D64.9 - Anemia, unspecified Status: Acute Assessment and Plan: The patient has had chronic anemia since list last hospitalization and this was thought to be due to liver disease from former alcoholism. The patient is already undergone EGD (12/21) during his most recent hospitalization which was normal. He has been seeing Dr. Pastor in the outpatient for workup of his anemia. Hgb 6.8 on admission but normal plt and WBC. He received one unit PRBC. Hgb better at 7.2. Follow serially. Transfuse p.r.n.. (4) Elevated troponin: Code(s): R79.89 - Other specified abnormal findings of blood chemistry Status: Acute Assessment and Plan: Trop elevated but flat at 0.096. EKG showing paced rhythm. [place] related to the demand ischemia from the anemia. Cardiology consulted. No ASA. (5) Heart block AV second degree: Code(s): I44.1 - Atrioventricular block, second degree Status: Acute Assessment and Plan: The patient just recently had a pacemaker inserted for bradycardia from heart block. Defer to cardiology about need for interrogation. (6) CHF (congestive heart failure): Qualifiers: Heart failure chronicity: acute Heart failure type: combined systolic and diastolic Qualified Code(s): I50.41 - Acute combined systolic (congestive) and diastolic (congestive) heart failure Code(s): I50.9 - Heart failure, unspecified Status: Chronic Assessment and Plan: Echo on 12/21/2019 showing EF of 35-40% with septal and inferior wall motion abnormality and diastolic dysfunction. He also had moderate pulmonary hypertension and moderate mitral regurgitation. Patient states he was taken off of his Lasix and Cozaar in the outpatient setting. Will continue his metoprolol but hold Lasix and Cozaar for now. Monitor fluid status. (7) Hypertension: Qualifiers: Hypertension type: essential hypertension Qualified Code(s): I10 - Essential (primary) hypertension Code(s): I10 - Essential (primary) hypertension Status: Chronic Assessment and Plan: Patient's blood pressure was reviewed on 01/18 Blood pressure remains well controlled. Will continue current medications. (8) Alcohol abuse: Code(s): F10.10 - Alcohol abuse, uncomplicated Status: Chronic Assessment and Plan: Patient has a hx of alcohol abuse. Continue thiamine. (9) DVT prophylaxis: Code(s): Z29.9 - Encounter for prophylactic measures, unspecified Status: Acute Assessment and Plan: SCDs given the anemia. Additional Plan Called back to the room for respiratory distress. Patient developed acute onset of severe SOB. He became hypoxic and finger tips were dusky. [place] he was hypxoc. BP stable. Had tinglinig of the tongue and developed rash. Not felt airway was constricting. Was receiving vanco at the time. Has hx of similar episode when he received avalox and/or chantix a few yrs ago. Vanco was stopped. Benadryl given. Doppler of the LE returned and was negative. CXR performed stat and was viewed in the lexie
[2020-01-19] MEDS: CYANOCOBALAMIN 1,000 MCG TABLET 1000 MCG PO (12:55)
[2020-01-19 13:14] LABS: Appearance Pleural Fluid Cloudy (Clear); Color Pleural Fluid Yellow (Colorless); Nucleated Cell Pleural Fluid 1350 /uL (0-1000); Pleural fluid source Pleural fluid
[2020-01-19 13:18] LABS: Lymphocytes Pleural Fluid 85 %; Monocytes Pleural Fluid 5 %; Neutrophils Pleural Fluid 11 % (0-25); RBC Pleural Fluid 9662 /uL (0-0)
[2020-01-19 15:32] LABS: Hematocrit 22.1 % (42.0-52.0); Hemoglobin 7.2 g/dL (14.0-18.0)
[2020-01-19] MEDS: IPRATROPIUM BR 0.02% INH SOLN 0.5 MG/2.5 ML VIAL (16:24)
[2020-01-19] MEDS: IPRATROPIUM BR 0.02% INH SOLN 0.5 MG/2.5 ML VIAL INHALATION (16:24)
[2020-01-19] MEDS: diphenhydrAMINE HCl INJ 50 MG/ML VIAL 25 MG IV PUSH (16:26)
--- NOTE | 2020-01-19 17:09 | PC.NURSE ---
Patient returned from [facility] with Rena Conklin, and was found to be shaking uncontrollably stating I am really cold and it's hard to breath . I assisted in moving the patient from the stretcher to his room bed and immediately stopped the Vancomycin infusion and flushed his IV site, called Dr. Armstrong to the room and obtained a set of vital signs. Patient was noted to have a purple web like rash over his whole body, was pale and short of breath, had audible wheezes, stated he had swelling of his tongue and continued to shake uncontrollably. IVP Benadryl was ordered in the room by Dr. Armstrong and given and a STAT CXR was ordered and obtained. The patients vital signs were obtained again. A pulse ox reading was hard to obtain due to shaking. Patient was intially placed on 5L nasal cannula and weaned down to 3L when we were able to obtain an accurate reading. STAT Albuterol and Atrovent treatments were administered by RT Keke. The patient is now stable and Dr. Armstrong stated that he will stop the Vancomycin order. Vancomycin has been added to that patients allergy list.
[2020-01-19] MEDS: FERROUS SULFATE 324 MG TABLET PO (18:21)
[2020-01-19 20:20] LABS: Hematocrit 21.3 % (42.0-52.0)
[2020-01-20] VITALS (18 sets, daily range): BP systolic 98–120; BP diastolic 53–62; PULSE 72–89; RESP 18–20; TEMP 36.2–37.2; O2SAT 92–98
[2020-01-20 01:03] LABS: Hematocrit 20.5 % (42.0-52.0); Hemoglobin 6.6 g/dL (14.0-18.0)
[2020-01-20] MEDS: SODIUM CHLORIDE 0.9% IV 250 ML 30 ML IV CONT (02:18)
[2020-01-20] MEDS: HYDROcodone/acetaminophen (*CRX) 5-325 MG TABLET 1 TAB PO ×5 (04:37→23:58)
[2020-01-20 08:44] LABS: Basophils Percent Auto 0.5 % (0.2-1.2); Eosinophils Absolute Auto 0.2 K/mm3 (0-0.3); Eosinophils Percent Auto 4.3 % (0-4.4); Hematocrit 24.3 % (42.0-52.0); Hemoglobin 7.8 g/dL (14.0-18.0); Immature Granulocyte Absolute 0.06 K/mm3 (0.00-0.031); Immature Granulocyte Percent A 1.4 % (0-0.5); Immature Platelet Fraction Pct 11.4 % (0.9-11.2); Lymphocytes Percent Auto 31.3 % (18.3-44.2); Mean Corpuscular HGB Conc 32.1 g/dl (32-36); Mean Corpuscular Hemoglobin 32.9 pg (26-34); Mean Corpuscular Volume 102.5 fl (80-100); Mean Platelet Volume 13.3 fl (7.4-10.4); Monocytes Absolute Auto 0.3 K/mm3 (0.1-0.6); Monocytes Percent Auto 7.7 % (2.6-8.5); Neutrophils Absolute Auto 2.3 K/mm3 (1.3-6.7); Neutrophils Percent Auto 54.8 % (45.5-73.1); Platelet Count Result 208 k/mm3 (150-375); Red Blood Count 2.37 M/mm3 (4.6-6.20); Red Cell Distribution Width 25.2 % (11.5-14.5); White Blood Count 4.2 K/mm3 (4.5-10.0)
[2020-01-20] MEDS: FLUTICASONE/SALMETEROL 45-21 MCG INHALER 1 PUFF 2 PUFF INHALATION ×2 (08:54→20:32)
[2020-01-20] MEDS: METOPROLOL SUCCINATE EXT REL 50 MG TABCR 150 MG PO (10:26)
[2020-01-20] MEDS: GABAPENTIN 400 MG CAPSULE 800 MG PO ×3 (10:27→16:30)
[2020-01-20] MEDS: CYANOCOBALAMIN 1,000 MCG TABLET 1000 MCG PO (10:28)
[2020-01-20] MEDS: PANTOPRAZOLE 40 MG TABLET PO (10:28)
[2020-01-20] MEDS: THIAMINE HCL 100 MG TABLET PO (10:28)
[2020-01-20] MEDS: FERROUS SULFATE 324 MG TABLET PO ×2 (10:28→16:31)
[2020-01-20 10:55] LABS: Albumin Level 2.8 g/dL (3.5-5.1); Anion Gap 8 mmol/L (8-16); Blood Urea Nitrogen 18 mg/dL (9-20); Calcium 6.6 mg/dL (8.4-10.2); Carbon Dioxide 31 mmol/L (22-30); Chloride 102 mmol/L (98-107); Estimated CRCL calculation 79 ml/min; Estimated Glomerular Filt Rate > 60; Glucose 95 mg/dL (75-110); Magnesium 0.9 mg/dL (1.6-2.3); Potassium 3.6 mmol/L (3.4-5.0); Sodium 141 mmol/L (137-145)
[2020-01-20 11:17] LABS: IFOB Positive Control Positive
[2020-01-20 11:18] LABS: Immunochemical Fecal Occult Bl Negative (N)
[2020-01-20 11:59] LABS: Phosphorus 3.9 mg/dL (2.5-4.5)
--- NOTE | 2020-01-20 13:25 | PM.PNCARD ---
Progress Note: A&P Additional Plan 64-year-old man with acquired complete heart block has a normally functioning dual-chamber pacemaker that was implanted recently. It seems to me that the principal health issue that needs to be addressed is the exact exact etiology of his anemia. Hematology was consulted regarding this previously workup of this as an outpatient is underway. I do not believe the patient has had a bone marrow aspirate. The pacemaker device is functioning properly the wound was inspected and is healing nicely. The patient states that he was unable to go back to work until I authorized this which seems unusual since he has other serious health problems separate and apart from his complete heart block. With respect to this question I told the patient that there is no cardiac reason that he cannot return to work at this time. Mega Dutton MD [facility] Subjective Date/time seen: Date of service:01/20/20 13:25 Interval history: Follow-up visit in this 64-year-old man presented recently with symptomatic bradycardia with complete heart block. Patient received a permanent [employer] dual-chamber pacemaker which is still functioning normally. Patient came in initially with profound anemia and was transfused. Workup of this anemia is ongoing and the diagnosis has still not been established to the best of my knowledge. Patient presents again with shortness of breath some pleural fluid which has been tapped yesterday and recurrent severe anemia with hemoglobin in the range of 6 g. In this setting troponin levels were sampled prompting consulting us. It is clearly evident that troponin is not related to an acute coronary syndrome Exam Const: General: comfortable and no acute distress Other: chronically ill-appearing gentleman eating lunch does not appear to be in any distress of any sort HENMT: Mouth: Yes moist mucous membranes Eyes: Sclera: sclerae normal Pupils: Equal, round and reactive pupils present Neck: Neck: supple and no JVD Thyroid: thyroid normal Resp: Effort & Inspection: normal respiratory effort Other: dull at the left base Cardio: Rate: regular rate Rhythm: regular rhythm GI: Auscultation: normal bowel sounds Skin: General skin exam: normal color Neuro: Cognition (Neuro): normal cognition Extrem: General: normal to inspection Objective Data Vital Signs Vital Signs: Vital Signs - 24 hr 01/19/20 14:00 01/19/20 15:21 01/19/20 15:30 Temperature 36.7 C Pulse Rate 95 96 99 Respiratory Rate 18 26 H Blood Pressure 105/48 L 127/61 Pulse Oximetry 95 96 01/19/20 16:00 01/19/20 16:18 01/19/20 16:21 Temperature Pulse Rate 69 63 60 Respiratory Rate 36 H 32 H Blood Pressure 122/58 L 106/51 L Pulse Oximetry 93 98 01/19/20 18:00 01/19/20 19:33 01/19/20 20:00 Temperature 36.1 C L Pulse Rate 98 92 90 Respiratory Rate 16 Blood Pressure 99/52 L Pulse Oximetry 100 95 01/19/20 22:00 01/19/20 23:34 01/20/20 00:00 Temperature 36.2 C L Pulse Rate 86 93 84 Respiratory Rate 18 Blood Pressure 106/52 L Pulse Oximetry 96 96 01/20/20 02:00 01/20/20 02:16 01/20/20 02:30 Temperature 36.5 C 36.4 C L Pulse Rate 80 72 82 Respiratory Rate 20 18 Blood Pressure 98/62 L 100/57 L Pulse Oximetry 95 95 01/20/20 03:30 01/20/20 04:00 01/20/20 04:30 Temperature 36.3 C L 36.3 C L 36.2 C L Pulse Rate 79 79 76 Respiratory Rate 18 18 18 Blood Pressure 99/53 L 99/53 L 120/57 L Pulse Oximetry 97 97 92 01/20/20 05:10 01/20/20 05:55 01/20/20 08:00 Temperature 36.4 C 36.6 C Pulse Rate 80 77 76 Respiratory Rate 20 20 Blood Pressure 110/61 112/60 Pulse Oximetry 96 98 01/20/20 10:26 01/20/20 12:00 Temperature 37.1 C Pulse Rate 83 76 Respiratory Rate 20 Blood Pressure 109/55 L Pulse Oximetry 96 Intake/Output Intake/Output: Intake & Output 01/17/20 01/18/20 01/19/20 01/20/20 23:59 23:59 23:59 23:59 Intake Total 0 1205 1560 Output Total
--- NOTE | 2020-01-20 15:39 | PM.IMPN ---
Progress Note: A&P Assessment and Plan (1) Pleuritic chest pain: Code(s): R07.81 - Pleurodynia Status: Acute Assessment and Plan: CT of the chest showing no PE but a moderate-sized left pleural effusion with suggestion of at least partial loculation, a small cavitary lesion in the left lower lobe and reactive lymphadenopathy. Thoracentesis today yielded 850ml of geo colored fluid with pH 7.38. Gram stain negative. No AFB or fungal elements. Cx pending. Suspect more infectious process probably related to recent PNA. Could be anaerobic from aspiration possibly. Patient had reaction to Vanco so this was stopped. Continue Zosyn. (2) Pleural effusion: Code(s): J90 - Pleural effusion, not elsewhere classified Status: Acute Assessment and Plan: As above. (3) Symptomatic anemia: Code(s): D64.9 - Anemia, unspecified Status: Acute Assessment and Plan: The patient has had chronic anemia since list last hospitalization and this was thought to be due to liver disease from alcoholism. The patient is already undergone EGD (12/21) during his most recent hospitalization which was normal. He has been seeing Dr. Pastor in the outpatient for workup of his anemia. Stool guaiac negative. Hgb 6.8 on admission but normal plt and WBC. He received one unit PRBC on 01/17. Hgb better but dropped again to 6.6 this morning and he received 1U PRBC. Continue serial HH. Transfuse p.r.n.. Hematology consult. Continue B12, Fe. (4) Elevated troponin: Code(s): R79.89 - Other specified abnormal findings of blood chemistry Status: Acute Assessment and Plan: Trop elevated but flat at 0.096. EKG showing paced rhythm. [place] related to the demand ischemia from the anemia. Cardiology following. No ASA. (5) Heart block AV second degree: Code(s): I44.1 - Atrioventricular block, second degree Status: Acute Assessment and Plan: The patient just recently had a pacemaker inserted for bradycardia from heart block. PM interrogation okay. Discussed. (6) CHF (congestive heart failure): Qualifiers: Heart failure chronicity: acute Heart failure type: combined systolic and diastolic Qualified Code(s): I50.41 - Acute combined systolic (congestive) and diastolic (congestive) heart failure Code(s): I50.9 - Heart failure, unspecified Status: Chronic Assessment and Plan: Echo on 12/21/2019 showing EF of 35-40% with septal and inferior wall motion abnormality and diastolic dysfunction. He also had moderate pulmonary hypertension and moderate mitral regurgitation. Patient states he was taken off of his Lasix and Cozaar in the outpatient setting. Will continue his metoprolol but hold Lasix and Cozaar for now. Monitor fluid status. (7) Hypertension: Qualifiers: Hypertension type: essential hypertension Qualified Code(s): I10 - Essential (primary) hypertension Code(s): I10 - Essential (primary) hypertension Status: Chronic Assessment and Plan: Patient's blood pressure was reviewed on 01/19 Blood pressure remains well controlled. Will continue current medications. (8) Alcohol abuse: Code(s): F10.10 - Alcohol abuse, uncomplicated Status: Chronic Assessment and Plan: Patient has a hx of alcohol abuse. Continue thiamine. (9) DVT prophylaxis: Code(s): Z29.9 - Encounter for prophylactic measures, unspecified Status: Acute Assessment and Plan: SCDs given the anemia. Subjective Date/time seen: 01/20/20 15:39 Interval history: Date of Service: 01/19 64yo male recently hospitalized for respiratory failure and heart block who did require PM placement and also pseudomonas PNA who returns for increasing SOB and pleuritic CP. Slept okay. No CP or SOB. SOB better. Walking to the bedside commode. Feels better. Exam Narrative:
[2020-01-20] MEDS: MAGNESIUM SULF 2 GM/WATER 50ML 2 GM/50 ML BAG IVPB (16:25)
[2020-01-20] MEDS: CALCIUM GLUC 1,000 MG/NS 50 ML 1,000 MG/50 ML BAG 100 MG IVPB (16:26)
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
[2020-01-20] MEDS: MAGNESIUM SULF 1 GM/D5W 100 ML 1 GM/100 ML BAG IVPB (17:14)
--- NOTE | 2020-01-20 19:02 | PC.NURSE ---
This patient, Bora Curran, was transferred to [[facility] ] on 01/20/20 at 1900. Personal belongings sent with patient. Belongings list checked and signed with receiving [ ]. Report given to [ Sander]. Appropriate documentation sent with patient.
--- NOTE | 2020-01-20 19:06 | PC.NURSE ---
This patient, Bora Curran, was received from IMU on 01/20/20 at 1906. Personal belongings list checked and signed. Patient/family oriented to unit policies and routines
[2020-01-20 19:29] LABS: Hematocrit 26.9 % (42.0-52.0); Hemoglobin 8.4 g/dL (14.0-18.0)
[2020-01-21] VITALS (11 sets, daily range): BP systolic 100–122; BP diastolic 52–61; PULSE 45–100; RESP 12–18; TEMP 36.1–37; O2SAT 93–100
[2020-01-21 00:35] LABS: Hematocrit 25.3 % (42.0-52.0); Hemoglobin 8.1 g/dL (14.0-18.0)
[2020-01-21] MEDS: HYDROcodone/acetaminophen (*CRX) 5-325 MG TABLET 1 TAB PO ×4 (05:44→23:10)
[2020-01-21 06:24] LABS: Hematocrit 26.6 % (42.0-52.0); Hemoglobin 8.6 g/dL (14.0-18.0); Immature Platelet Fraction Pct 12.2 % (0.9-11.2); Mean Corpuscular HGB Conc 32.3 g/dl (32-36); Mean Corpuscular Hemoglobin 33.5 pg (26-34); Mean Corpuscular Volume 103.5 fl (80-100); Mean Platelet Volume 13.2 fl (7.4-10.4); Platelet Count Result 227 k/mm3 (150-375); Red Blood Count 2.57 M/mm3 (4.6-6.20); White Blood Count 3.9 K/mm3 (4.5-10.0)
[2020-01-21 06:45] LABS: Albumin Level 2.8 g/dL (3.5-5.1); Anion Gap 4 mmol/L (8-16); Blood Urea Nitrogen 14 mg/dL (9-20); Calcium 7.4 mg/dL (8.4-10.2); Carbon Dioxide 32 mmol/L (22-30); Chloride 102 mmol/L (98-107); Estimated CRCL calculation 89 ml/min; Estimated Glomerular Filt Rate > 60; Glucose 99 mg/dL (75-110); Magnesium 1.6 mg/dL (1.6-2.3); Phosphorus 3.3 mg/dL (2.5-4.5); Potassium 4.1 mmol/L (3.4-5.0); Sodium 138 mmol/L (137-145)
[2020-01-21] MEDS: FLUTICASONE/SALMETEROL 45-21 MCG INHALER 1 PUFF 2 PUFF INHALATION ×2 (08:21→20:16)
[2020-01-21] MEDS: GABAPENTIN 400 MG CAPSULE 800 MG PO ×3 (08:38→17:34)
[2020-01-21] MEDS: FERROUS SULFATE 324 MG TABLET PO ×2 (08:38→17:34)
[2020-01-21] MEDS: PANTOPRAZOLE 40 MG TABLET PO (08:38)
[2020-01-21] MEDS: MAGNESIUM SULF 2 GM/WATER 50ML 2 GM/50 ML BAG IVPB (08:38)
[2020-01-21] MEDS: CYANOCOBALAMIN 1,000 MCG TABLET 1000 MCG PO (08:38)
[2020-01-21] MEDS: THIAMINE HCL 100 MG TABLET PO (08:38)
[2020-01-21] MEDS: METOPROLOL SUCCINATE EXT REL 50 MG TABCR 150 MG PO (08:39)
--- NOTE | 2020-01-21 14:45 | PM.IMPN ---
Progress Note: A&P Assessment and Plan (1) Pleural effusion: Code(s): J90 - Pleural effusion, not elsewhere classified Status: Acute Assessment and Plan: CT of the chest showing no PE but a moderate-sized left pleural effusion with suggestion of at least partial loculation, a small cavitary lesion in the left lower lobe and reactive lymphadenopathy. Thoracentesis today yielded 850ml of geo colored fluid with pH 7.38. Gram stain negative. No AFB or fungal elements. Pleural Cx NGTD. Suspect more parapneumonic process probably related to PNA. Could be anaerobic from aspiration possibly. Patient had reaction to Vanco so this was stopped. Continue Zosyn. (2) Pneumonia: Code(s): J18.9 - Pneumonia, unspecified organism Status: Acute Assessment and Plan: CT scan on admission showing possible small cavitary lesion in the atelectatic dependent aspect of the left lower lobe and mild likely reactive mediastinal left internal mamillary chain lymphadenopathy. Suspect patient may have aspirated. Effusion probably parapneumonic. Follow up on culture results. Continue Zosyn. (3) Pleuritic chest pain: Code(s): R07.81 - Pleurodynia Status: Acute Assessment and Plan: As above. (4) Symptomatic anemia: Code(s): D64.9 - Anemia, unspecified Status: Acute Assessment and Plan: The patient has had chronic macrocytic anemia since last hospitalization and this was thought to be due to liver disease from alcoholism. The patient is already undergone EGD (12/21) during his most recent hospitalization which was normal. He has been seeing Dr. Pastor in the outpatient for workup of his anemia. Stool guaiac negative. Hgb 6.8 on admission but normal plt and WBC. He received one unit PRBC on 01/17. Hgb better but dropped again to 6.6 on the morning on he received another unit of PRBC. Continue to monitor HH. Transfuse p.r.n.. Hematology consulted and appreciate their input. Continue B12, Fe. BM Bx being planned. Plt count has remained normal but WBC has dropped to 3900 (5) Elevated troponin: Code(s): R79.89 - Other specified abnormal findings of blood chemistry Status: Acute Assessment and Plan: Trop elevated but flat at 0.096. EKG showing paced rhythm. [place] related to the demand ischemia from the anemia. Cardiology following. No ASA. (6) Heart block AV second degree: Code(s): I44.1 - Atrioventricular block, second degree Status: Acute Assessment and Plan: The patient just recently had a pacemaker inserted for bradycardia from heart block. PM interrogation okay. (7) CHF (congestive heart failure): Qualifiers: Heart failure chronicity: acute Heart failure type: combined systolic and diastolic Qualified Code(s): I50.41 - Acute combined systolic (congestive) and diastolic (congestive) heart failure Code(s): I50.9 - Heart failure, unspecified Status: Chronic Assessment and Plan: Echo on 12/21/19 showing EF of 35-40% with septal and inferior wall motion abnormality and diastolic dysfunction. He also had moderate pulmonary hypertension and moderate mitral regurgitation. Patient states he was taken off of his Lasix and Cozaar in the outpatient setting. Will continue his metoprolol but hold Lasix and Cozaar for now. Monitor fluid status. (8) Hypertension: Qualifiers: Hypertension type: essential hypertension Qualified Code(s): I10 - Essential (primary) hypertension Code(s): I10 - Essential (primary) hypertension Status: Chronic Assessment and Plan: Patient's blood pressure was reviewed on 01/20 Blood pressure remains well controlled. Will continue current medications. (9) Alcohol abuse: Code(s): F10.10 - Alcohol abuse, uncomplicated Status: Chronic Assessment and Plan: Patient has a hx of alcohol abuse. Continu
[2020-01-21 18:20] LABS: Glucose Pleural Fluid 84 mg/dL; LDH Pleural Fluid 254 U/L; Total Protein Pleural Fluid 3.8 g/dL
[2020-01-22] VITALS (12 sets, daily range): BP systolic 106–141; BP diastolic 54–69; PULSE 75–109; RESP 14–16; TEMP 36.3–36.9; O2SAT 97–100
[2020-01-22 03:03] LABS: Basophils Percent Auto 0.5 % (0.2-1.2); Eosinophils Absolute Auto 0.2 K/mm3 (0-0.3); Eosinophils Percent Auto 4.6 % (0-4.4); Hematocrit 26.1 % (42.0-52.0); Hemoglobin 8.3 g/dL (14.0-18.0); Immature Granulocyte Absolute 0.06 K/mm3 (0.00-0.031); Immature Granulocyte Percent A 1.4 % (0-0.5); Lymphocytes Absolute Auto 1.78 K/mm3 (0.9-3.2); Lymphocytes Percent Auto 40.8 % (18.3-44.2); Mean Corpuscular HGB Conc 31.8 g/dl (32-36); Mean Corpuscular Hemoglobin 33.1 pg (26-34); Mean Platelet Volume 12.5 fl (7.4-10.4); Monocytes Absolute Auto 0.3 K/mm3 (0.1-0.6); Monocytes Percent Auto 6.7 % (2.6-8.5); Platelet Count Result 235 k/mm3 (150-375); Red Blood Count 2.51 M/mm3 (4.6-6.20); Red Cell Distribution Width 24.7 % (11.5-14.5); White Blood Count 4.4 K/mm3 (4.5-10.0)
[2020-01-22 03:16] LABS: Anion Gap 2 mmol/L (8-16); Blood Urea Nitrogen 13 mg/dL (9-20); Calcium 8.1 mg/dL (8.4-10.2); Carbon Dioxide 33 mmol/L (22-30); Chloride 103 mmol/L (98-107); Estimated CRCL calculation 89 ml/min; Estimated Glomerular Filt Rate > 60; Glucose 111 mg/dL (75-110); Magnesium 1.9 mg/dL (1.6-2.3); Phosphorus 3.3 mg/dL (2.5-4.5); Potassium 4.5 mmol/L (3.4-5.0); Sodium 138 mmol/L (137-145)
[2020-01-22 03:34] LABS: Atypical Lymphocytes Present; Large Platelets Present; Platelet Estimate Adequate (Adequate)
[2020-01-22 03:35] LABS: Microcytosis 1+ (NORMAL)
[2020-01-22] MEDS: HYDROcodone/acetaminophen (*CRX) 5-325 MG TABLET 1 TAB PO ×4 (05:20→21:06)
[2020-01-22] MEDS: FERROUS SULFATE 324 MG TABLET PO ×2 (09:11→16:42)
[2020-01-22] MEDS: THIAMINE HCL 100 MG TABLET PO (09:11)
[2020-01-22] MEDS: CYANOCOBALAMIN 1,000 MCG TABLET 1000 MCG PO (09:11)
[2020-01-22] MEDS: GABAPENTIN 400 MG CAPSULE 800 MG PO ×3 (09:11→21:06)
[2020-01-22] MEDS: METOPROLOL SUCCINATE EXT REL 50 MG TABCR 150 MG PO (09:11)
[2020-01-22] MEDS: PANTOPRAZOLE 40 MG TABLET PO (09:11)
[2020-01-22] MEDS: FLUTICASONE/SALMETEROL 45-21 MCG INHALER 1 PUFF 2 PUFF INHALATION ×2 (09:25→20:49)
--- NOTE | 2020-01-22 10:30 | PM.IMPN ---
Progress Note: A&P Assessment and Plan (1) Pleural effusion: Code(s): J90 - Pleural effusion, not elsewhere classified Status: Acute Assessment and Plan: CT of the chest showing no PE but a moderate-sized left pleural effusion with suggestion of at least partial loculation, a small cavitary lesion in the left lower lobe and reactive lymphadenopathy. Thoracentesis yielded 850ml of geo colored fluid with pH 7.38. Gram stain negative. No AFB or fungal elements. Pleural Cx NGTD. FLuid appears to be exudative. Path negative for malignancy. Suspect more parapneumonic process probably related to PNA. Could be anaerobic PNA from aspiration possibly. Patient had reaction to Vanco so this was stopped. Repeat CXR today showing no change from post-thoracentesis xray to suggest this is not reaccumulating. Continue Zosyn. (2) Pneumonia: Code(s): J18.9 - Pneumonia, unspecified organism Status: Acute Assessment and Plan: CT scan on admission showing possible small cavitary lesion in the atelectatic dependent aspect of the left lower lobe and mild likely reactive mediastinal left internal mamillary chain lymphadenopathy. Suspect patient may have aspirated last admission. Cx remain negative. Effusion probably parapneumonic. Follow up on culture results. Continue Zosyn. (3) Pleuritic chest pain: Code(s): R07.81 - Pleurodynia Status: Acute Assessment and Plan: As above. (4) Symptomatic anemia: Code(s): D64.9 - Anemia, unspecified Status: Acute Assessment and Plan: The patient has had chronic macrocytic anemia since last hospitalization and this was thought to be due to liver disease from alcoholism. The patient is already undergone EGD (12/21) during his most recent hospitalization which was normal. He has been seeing Dr. Pastor in the outpatient for workup of his anemia. Stool guaiac negative. Hgb 6.8 on admission but normal plt and WBC. He received one unit PRBC on 01/17. Hgb better but dropped again to 6.6 on the morning on 01/19 and he received another unit of PRBC. Hgb stable in the 8 range currently. Continue to monitor HH. Transfuse p.r.n.. Hematology consulted and appreciate their input. Continue B12, Fe. BM Bx being planned. Consult GI for possible colonoscopy tomorrow. Plt count has remained normal. WBC dropped to 3900 but better today. (5) Elevated troponin: Code(s): R79.89 - Other specified abnormal findings of blood chemistry Status: Acute Assessment and Plan: Trop elevated but flat at 0.096. EKG showing paced rhythm. [place] related to the demand ischemia from the anemia. Cardiology following. No ASA. (6) Heart block AV second degree: Code(s): I44.1 - Atrioventricular block, second degree Status: Acute Assessment and Plan: The patient just recently had a pacemaker inserted for bradycardia from heart block. PM interrogation okay. Okay to stop tele. (7) CHF (congestive heart failure): Qualifiers: Heart failure chronicity: acute Heart failure type: combined systolic and diastolic Qualified Code(s): I50.41 - Acute combined systolic (congestive) and diastolic (congestive) heart failure Code(s): I50.9 - Heart failure, unspecified Status: Inactive Assessment and Plan: Echo on 12/21/19 showing EF of 35-40% with septal and inferior wall motion abnormality and diastolic dysfunction. He also had moderate pulmonary hypertension and moderate mitral regurgitation. Patient states he was taken off of his Lasix and Cozaar in the outpatient setting. Will continue his metoprolol. Monitor fluid status. (8) Hypertension: Qualifiers: Hypertension type: essential hypertension Qualified Code(s): I10 - Essential (primary) hypertension Code(s): I10 - Essential (primary) hypertension Status: Chronic Assessment and Plan: Patient's bloo
[2020-01-22 11:39] LABS: Amylase, Pleural Fluid 21 U/L
--- NOTE | 2020-01-22 12:09 | WPDGICN ---
Assessment and Plan Assessment and plan (1) Severe anemia: Code(s): D64.9 - Anemia, unspecified Status: Acute Assessment and Plan: transfused and hb better hematology evaluation and will get bone marrow bx at some point egd unremarkable will do colonoscopy tomorrow (2) Pleuritic chest pain: Code(s): R07.81 - Pleurodynia Status: Acute Assessment and Plan: improved after thoracentesis, on abx (3) Pneumonia: Code(s): J18.9 - Pneumonia, unspecified organism Status: Acute (4) Pleural effusion: Code(s): J90 - Pleural effusion, not elsewhere classified Status: Acute (5) Adenomatous colon polyp: Code(s): D12.6 - Benign neoplasm of colon, unspecified Status: Acute Assessment and Plan: he is due to have another colonoscopy here with severe anemia, will assess for signs of LGIB, malignancy, etc (6) History of partial colectomy: Code(s): Z90.49 - Acquired absence of other specified parts of digestive tract Status: Acute GI Consult Note Consult date/time: 01/22/20 12:09 Reason for consult: anemia HPI: Bora Curran is a 64 year old male with history of COPD, HTN, former alcoholic with a recent hospitalization in the ICU last month well known to me when I evaluated him because severe anemia and shock liver. He also was intubated with sepsis and pneumonitis, had second-degree heart block that required emergent pacemaker placement. I performed EGD when he was intubated without major findings, only gastric erosions probably from previous NGT and no signs of bleeding. He came 01/17 because increased exertional weakness with shortness of breath, and pleuritic chest pain. He was found to have a mildly elevated troponin of 0.080. His hemoglobin is 6.8 and his hematocrit is 21.1 and received blood transfusion. Also had left pleural effusion and had thoracentesis about 850ml, now pain is almost gone and is on zozyn. He denies any GIB, no melena or blood in stools. He had a colonoscopy 2010 with polyps, repeated 2012 also required tattoo. He also had right hemicolectomy mid , apparently perforation with fish bone . He also is seeing by [employer] because anemia. Review of Systems Constitutional: Constitutional: Reports fatigue and Denies headache(s) Eyes: Eyes: Denies blurry vision ENT: Reports Normal hearing present, Denies headache(s) and Denies neck pain Cardiovascular: Cardiovascular: Denies chest pain and Denies dyspnea Respiratory: Respiratory: Reports dyspnea on exertion (improved after thoracentesis) Gastrointestinal: Gastrointestinal: Reports no additional gastrointestinal complaints Genitourinary: Genitourinary: Denies dysuria Musculoskeletal: Musculoskeletal: Denies neck pain Integumentary/Breasts: Skin/Breast: Denies dry skin Neurologic: Reports Normal hearing present, Denies headache(s) and Denies weakness Psychiatric: Psychiatric: Denies anxiety Endocrine: Endocrine: Denies change in body appearance Hematologic/Lymphatic: Hematologic/Lymphatic: Denies easy bleeding Allergic/Immunologic: Allergic/Immunologic: Denies urticaria PMFSH Past Medical History Medical History Alcohol use COPD (chronic obstructive pulmonary disease) History of pacemaker HTN (hypertension) with goal to be determined Macrocytic anemia PUD (peptic ulcer disease) Shock liver Surgical History Surgical History History of partial colectomy Family History Family History Mother Scoliosis Social History Social History Smoking packs per day: 2 Smoking cigarettes per day: 40.0 Years smoked: 30 Smoking pack-years: 60.00 Smoking status: Former smoker Tobacco type: cigarettes Alcohol intake: former [employer]
[2020-01-22] MEDS: PEG (High)/E-LYTE SOLN 4,000 ML BTL 4000 ML PO (16:42)
[2020-01-22] MEDS: BISACODYL 5 MG TABLET EC 20 MG PO (16:42)
[2020-01-23] VITALS (11 sets, daily range): BP systolic 86–136; BP diastolic 54–71; PULSE 60–98; RESP 10–23; TEMP 36.2–37.6; O2SAT 95–100
[2020-01-23] MEDS: HYDROcodone/acetaminophen (*CRX) 5-325 MG TABLET 1 TAB PO ×2 (05:06→13:25)
[2020-01-23] MEDS: MAGNESIUM CITRATE 300 ML BTL PO (05:06)
[2020-01-23 05:33] LABS: Basophils Percent Auto 0.6 % (0.2-1.2); Eosinophils Absolute Auto 0.2 K/mm3 (0-0.3); Eosinophils Percent Auto 5.2 % (0-4.4); Hematocrit 26.4 % (42.0-52.0); Hemoglobin 8.3 g/dL (14.0-18.0); Immature Granulocyte Absolute 0.01 K/mm3 (0.00-0.031); Immature Granulocyte Percent A 0.3 % (0-0.5); Lymphocytes Absolute Auto 1.52 K/mm3 (0.9-3.2); Lymphocytes Percent Auto 43.8 % (18.3-44.2); Mean Corpuscular HGB Conc 31.4 g/dl (32-36); Mean Corpuscular Hemoglobin 32.9 pg (26-34); Mean Corpuscular Volume 104.8 fl (80-100); Mean Platelet Volume 12.9 fl (7.4-10.4); Monocytes Absolute Auto 0.2 K/mm3 (0.1-0.6); Monocytes Percent Auto 6.9 % (2.6-8.5); Neutrophils Absolute Auto 1.5 K/mm3 (1.3-6.7); Neutrophils Percent Auto 43.2 % (45.5-73.1); Platelet Count Result 233 k/mm3 (150-375); Red Blood Count 2.52 M/mm3 (4.6-6.20); White Blood Count 3.5 K/mm3 (4.5-10.0)
[2020-01-23 05:55] LABS: Anisocytosis 2+ (NORMAL); Platelet Estimate Adequate (Adequate)
[2020-01-23 06:06] LABS: Estimated CRCL calculation 91 ml/min; Estimated Glomerular Filt Rate > 60
[2020-01-23] MEDS: CYANOCOBALAMIN 1,000 MCG TABLET 1000 MCG PO (08:07)
[2020-01-23] MEDS: FERROUS SULFATE 324 MG TABLET PO (08:07)
[2020-01-23] MEDS: PANTOPRAZOLE 40 MG TABLET PO (08:07)
[2020-01-23] MEDS: METOPROLOL SUCCINATE EXT REL 50 MG TABCR 150 MG PO (08:07)
[2020-01-23] MEDS: GABAPENTIN 400 MG CAPSULE 800 MG PO (08:07)
[2020-01-23] MEDS: THIAMINE HCL 100 MG TABLET PO (08:08)
[2020-01-23] MEDS: FLUTICASONE/SALMETEROL 45-21 MCG INHALER 1 PUFF 2 PUFF INHALATION (08:39)
--- NOTE | 2020-01-23 11:19 | PC.NURSE ---
Patient to [employer] via stretcher. IV intact.
--- NOTE | 2020-01-23 12:21 | WPDANESEPPF ---
Anes - Initial Pre Proc Eval Procedure: Operation Date: 01/23/20 11:00 Proposed Procedures p Bone Aspiration + Biopsy - Richard Borden MD Operation Date: 01/23/20 14:15 Proposed Procedures p Colonoscopy - Maneul Bush MD Date/Time: 01/23/20 12:21 Surgeon: Ty Armstrong MD Pre Op Diagnosis: Anemia, chest pain, elevated troponin Patient Data Age: 64 Gender: M Height: 6 ft 1 in Weight: 71.9 kg Last Vital Signs Temp 99.7 F H 01/23/20 10:37 Pulse 65 01/23/20 10:37 Resp 14 01/23/20 10:37 BP 132/55 L 01/23/20 10:37 Pulse Ox 97 01/23/20 10:37 Allergies Allergy/AdvReac Type Severity Reaction Status Date / Time vancomycin Allergy Difficulty Verified 01/19/20 17:18 Breathing Home Medications Medication Instructions Recorded Confirmed Type Combivent Respimat 1 puff INHALATION Q4H 12/20/19 01/18/20 History fluticasone propion-salmeterol 1 inh INHALATION Q12H 12/20/19 01/18/20 History [Advair Diskus] gabapentin 800 mg PO TID 12/20/19 01/18/20 History omeprazole 40 mg PO DAILY 12/21/19 01/18/20 History furosemide 20 mg PO DAILY #30 tablet 01/05/20 01/18/20 Rx losartan [Cozaar] 50 mg PO DAILY #30 tablet 01/05/20 01/18/20 Rx metoprolol succinate 150 mg PO DAILY #45 tablet 01/05/20 01/18/20 Rx thiamine HCl (vitamin B1) [Vitamin 100 mg PO QAM #30 tablet 01/05/20 01/18/20 Rx B-1] ferrous sulfate [Iron (ferrous 325 mg PO BID 01/19/20 01/19/20 History sulfate)] magnesium oxide 400 mg PO BID 01/19/20 01/19/20 History mecobalamin (vitamin B12) [B12 1,000 mcg PO DAILY 01/19/20 01/19/20 History Active] zolpidem 5 mg PO HS PRN 01/19/20 01/19/20 History Laboratory Tests 10/05/20 10/05/20 05:12 05:12 WBC 3.5 K/mm3 L K/mm3 (4.5-10.0) RBC 2.52 M/mm3 L M/mm3 (4.6-6.20) Hgb 8.3 g/dL L g/dL (14.0-18.0) Hct 26.4 % L % (42.0-52.0) MCV 104.8 fl H fl (80-100) MCH 32.9 pg pg (26-34) MCHC 31.4 g/dl L g/dl (32-36) RDW 24.0 % H % (11.5-14.5) Plt Count 233 k/mm3 k/mm3 (150-375) MPV 12.9 fl H fl (7.4-10.4) Immature Gran % (Auto) 0.3 % % (0-0.5) Neut % (Auto) 43.2 % L % (45.5-73.1) Lymph % (Auto) 43.8 % % (18.3-44.2) [place] % (Auto) 6.9 % % (2.6-8.5) Eos % (Auto) 5.2 % H % (0-4.4) Baso % (Auto) 0.6 % % (0.2-1.2) Lymph # (Auto) 1.52 K/mm3 K/mm3 (0.9-3.2) [place] # (Auto) 0.2 K/mm3 K/mm3 (0.1-0.6) Eos # (Auto) 0.2 K/mm3 K/mm3 (0-0.3) Baso # (Auto) 0.0 K/mm3 K/mm3 (0.0-0.1) Abs Immat Gran (auto) 0.01 K/mm3 K/mm3 (0.00-0.031) Absolute Neuts (auto) 1.5 K/mm3 K/mm3 (1.3-6.7) Absolute Nucleated RBC 0.0 K/mm3 K/mm3 (0.0-0.012) Nucleated RBC % 0.0 % % (0.0-0.2) Platelet Estimate Adequate (Adequate) Anisocytosis 2+ (NORMAL) Creatinine 0.70 mg/dL mg/dL (0.7-1.3) Estim Creat Clear Calc 91 ml/min ml/min Estimated GFR > 60 (59 - ) Patient hx anesthesia problems: none Family hx anesthesia problems: none PMFSH Past Medical History Medical History (Updated 01/23/20 @ 12:21 by Randall Rodriguez MD) Adenomatous colon polyp Alcohol use Cardiomyopathy CHF (congestive heart failure) COPD (chronic obstructive pulmonary disease) History of pacemaker HTN (hypertension) with goal to be determined Macrocytic anemia PUD (peptic ulcer disease) Shock liver Surgical History Surgical History (Updated 01/22/20 @ 12:19 by Manuel Bush MD) History of partial colectomy Family History Family History Mother Scoliosis Social History Social History Smoking packs per day: 2 Smoking cigarettes per day: 40.0 Years smoked: 30 Smoking pack-years: 60.00 Smoking status: Former smoker Tobacco type: cigarettes Alcoh
--- NOTE | 2020-01-23 12:25 | PC.NURSE ---
Patient returned to room via stretcher. IV intact. Report received from [facility].
--- NOTE | 2020-01-23 13:45 | PC.NURSE ---
To GI Lab per bed, IV intact. Report given to [facility].
[2020-01-23] MEDS: LACTATED RINGERS 1,000 ML 150 ML IV CONT (13:58)
--- NOTE | 2020-01-23 16:31 | PM.DS ---
DS: Admitting Diagnosis Admitting Diagnosis Admitting Diagnosis: Anemia, chest pain, elevated troponin DS: Discharge Diagnosis Discharge Diagnosis (1) Pleural effusion: Code(s): J90 - Pleural effusion, not elsewhere classified Status: Acute Assessment and Plan: CT of the chest showing no PE but a moderate-sized left pleural effusion with suggestion of at least partial loculation, a small cavitary lesion in the left lower lobe and reactive lymphadenopathy. Thoracentesis yielded 850ml of geo colored fluid with pH 7.38. Gram stain negative. No AFB or fungal elements. Pleural Cx NGTD. Fluid appears to be exudative. Path negative for malignancy. Suspect more parapneumonic process probably related to PNA. Could be anaerobic PNA from aspiration possibly. Patient had reaction to Vanco so this was stopped. Repeat CXRshowing no change from post-thoracentesis xray to suggest this is not reaccumulating. He was treated with Zosyn. (2) Pneumonia: Code(s): J18.9 - Pneumonia, unspecified organism Status: Acute Assessment and Plan: CT scan on admission showing possible small cavitary lesion in the atelectatic dependent aspect of the left lower lobe and mild likely reactive mediastinal left internal mamillary chain lymphadenopathy. Suspect patient may have aspirated last admission vs new PNA. Cx remain negative. Effusion probably parapneumonic. Cultures negative. Weaned to room air (3) Pleuritic chest pain: Code(s): R07.81 - Pleurodynia Status: Acute Assessment and Plan: As above. (4) Symptomatic anemia: Code(s): D64.9 - Anemia, unspecified Status: Acute Assessment and Plan: The patient has had chronic macrocytic anemia since last hospitalization and this was thought to be due to liver disease from alcoholism. The patient is already undergone EGD (12/21) during his most recent hospitalization which was normal. He has been seeing Dr. Pastor in the outpatient for workup of his anemia. Stool guaiac negative. Hgb 6.8 on admission but normal plt and WBC. He received one unit PRBC on 01/17. Hgb better but dropped again to 6.6 on the morning on 01/19 and he received another unit of PRBC. Hgb stable in the 8 range currently. Hematology consulted. We continue B12, Fe. BM Bx cpmpleted on 01/23/20. Colonoscopy performed 10/5 showing multiple polyps that were removed but no obvious etiology for his chronic anemia. Plt count has remained normal. WBC low at times down to 3500. (5) Elevated troponin: Code(s): R79.89 - Other specified abnormal findings of blood chemistry Status: Acute Assessment and Plan: Trop elevated but flat at 0.096. EKG showing paced rhythm. [place] related to the demand ischemia from the anemia. Cardiology followed along (6) Heart block AV second degree: Code(s): I44.1 - Atrioventricular block, second degree Status: Acute Assessment and Plan: The patient just recently had a pacemaker inserted for bradycardia from heart block. PM interrogation okay. (7) CHF (congestive heart failure): Qualifiers: Heart failure chronicity: acute Heart failure type: combined systolic and diastolic Qualified Code(s): I50.41 - Acute combined systolic (congestive) and diastolic (congestive) heart failure Code(s): I50.9 - Heart failure, unspecified Status: Inactive Assessment and Plan: Echo on 12/21/19 showing EF of 35-40% with septal and inferior wall motion abnormality and diastolic dysfunction. He also had moderate pulmonary hypertension and moderate mitral regurgitation. Patient states he was taken off of his Lasix and Cozaar in the outpatient setting. We continued his metoprolol. (8) Hypertension: Qualifiers: Hypertension type: essential hypertension Qualified Code(s): I10 - Essential (primary) hypertension Code(s): I10 - Essential (primary) hyperten
--- NOTE | 2020-02-15 07:25 | PC.NURSE ---
Fungal cx is negative. Dr. Patti gandara.
--- NOTE | 2020-02-20 08:47 | WPDMODSED ---
Moderate Sedation Note-Pt Data Patient Data Allergies Allergy/AdvReac Type Severity Reaction Status Date / Time vancomycin Allergy Difficulty Verified 01/19/20 17:18 Breathing Home Medications Medication Instructions Recorded Confirmed Type fluticasone propion-salmeterol 1 inh INHALATION Q12H 12/20/19 02/10/20 History [Advair Diskus] gabapentin 800 mg PO TID 12/20/19 02/10/20 History omeprazole 40 mg PO DAILY 12/21/19 02/10/20 History metoprolol succinate 150 mg PO DAILY #45 tablet 01/05/20 02/10/20 Rx thiamine HCl (vitamin B1) [Vitamin 100 mg PO QAM #30 tablet 01/05/20 02/10/20 Rx B-1] B12 Active 1,000 mcg PO DAILY 01/19/20 02/10/20 History ferrous sulfate [Iron (ferrous 325 mg PO BID 01/19/20 02/10/20 History sulfate)] magnesium oxide 400 mg PO BID 01/19/20 02/10/20 History Combivent Respimat 1 puff INHALATION Q4H PRN #0 g 01/23/20 02/10/20 Rx amoxicillin-pot clavulanate 1 tablet PO Q12H #11 tablet 01/23/20 02/10/20 Rx [Augmentin] Sedation/Anesthesia: No previous sedation/anesthesia problems (including family history). [facility] Past Medical History Medical History Adenomatous colon polyp Alcohol use Cardiomyopathy CHF (congestive heart failure) COPD (chronic obstructive pulmonary disease) History of pacemaker HTN (hypertension) with goal to be determined Macrocytic anemia PUD (peptic ulcer disease) Shock liver Surgical History Surgical History History of partial colectomy Family History Family History Mother Scoliosis Social History Social History Smoking packs per day: 2 Smoking cigarettes per day: 40.0 Years smoked: 30 Smoking pack-years: 60.00 Smoking status: Former smoker Tobacco type: cigarettes Smoking end date: 12/20/19 Alcohol intake: former Substance use: former Gender identity (if verbalized by the patient): Male Spiritual care concerns: No Mod Sed Physical Exam Physical Exam Pre Procedural Exam: Normal: Appearance, Lungs, Heart Rate, Heart Rhythm and Abdomen Hours since solid foods: 12 Hours since liquid intake: 12 Internal Medicine - PN: Obj Da Meds/Results Radiology Results: ITS Impressions Chest CTA 01/18/20 20:15 IMPRESSION: 1. No pulmonary embolism. 2. Moderate-sized left pleural effusion with suggestion of at least partial loculation further suggesting an exudative effusion. Could consider diagnostic thoracentesis as clinically indicated. 3. Small cavitary lesion in the atelectatic dependent aspect of the left lower lobe. 4. Mild likely reactive mediastinal left internal mamillary chain lymphadenopathy although differential includes metastatic disease. 5. Mild emphysema. 6. 5 mm indeterminate right lower lobe nodule. Could consider optional one-year follow-up low-dose noncontrast chest CT. Thoracentesis Ultrasound 01/19/20 11:01 IMPRESSION: 1. Successful ultrasound-guided thoracentesis yielding 850 mL of geo-colored fluid. Venous Doppler Study 01/19/20 16:16 IMPRESSION: 1. No deep venous thrombosis. Chest X-Ray 01/22/20 07:44 IMPRESSION: Moderate left pleural effusion, adjacent multisegmental atelectasis. [employer] Procedure 01/23/20 14:36 IMPRESSION: 1. Successful fluoroscopic guided bone marrow aspiration. 2. Successful fluoroscopic guided bone marrow biopsy. Labs CBC & Chem 7: 01/23/20 05:12 01/23/20 05:12 ASA Classification/Sedation ASA Classification/Sedation ASA Class: IV Emergent: No Risks: Risks, benefits and alternatives explained and patient/family accepted plan for sedation. Patient re-evaluated immediately prior to sedation.
--- NOTE | 2020-03-05 14:23 | PC.NURSE ---
AFB is negative. Dr. Patti gandara.
== END 2020-01-23 17:17 | disposition home health service (06) | DRG 193 ==
LOC: ANHED 17:33 → ANHIMU 20:44 → ANH2MED 01-20 19:00
PROVIDERS: Internal Medicine Gastroenterology; Physician Assistant; Radiology Diagnostic Radiology; Admitting Provider Family Medicine; Emergency Provider Emergency Medicine; PCP Internal Medicine; Referring Provider Internal Medicine Hematology & Oncology; Visit Provider Internal Medicine
PROC: 07DR3ZX Extraction of Iliac Bone Marrow, Percutaneous Approach, Diagnostic (ICD-10-PCS; principal; 2020-01-23 11:00)
PROC: 0DJD8ZZ Inspection of Lower Intestinal Tract, Via Natural or Artificial Opening Endoscopic (ICD-10-PCS; CPT 45378; principal; 2020-01-23 14:15)
DX: J18.9 Pneumonia, unspecified organism (principal); I50.41 Acute combined systolic (congestive) and diastolic (congestive) heart failure; J90 Pleural effusion, not elsewhere classified; J44.0 Chronic obstructive pulmonary disease with (acute) lower respiratory infection; I11.0 Hypertensive heart disease with heart failure; I27.20 Pulmonary hypertension, unspecified; I44.1 Atrioventricular block, second degree; K63.89 Other specified diseases of intestine; K63.5 Polyp of colon; K57.30 Diverticulosis of large intestine without perforation or abscess without bleeding; D64.9 Anemia, unspecified; R79.89 Other specified abnormal findings of blood chemistry; K27.9 Peptic ulcer, site unspecified, unspecified as acute or chronic, without hemorrhage or perforation; I34.0 Nonrheumatic mitral (valve) insufficiency; F10.10 Alcohol abuse, uncomplicated; Z23 Encounter for immunization; Z79.899 Other long term (current) drug therapy; Z87.891 Personal history of nicotine dependence; Z95.0 Presence of cardiac pacemaker; Z90.49 Acquired absence of other specified parts of digestive tract
CPT/HCPCS: 32555; 36415; 36430; 38222; 71045; 71275; 80048; 80069; 80076; 81003; 82042; 82150; 82274; 82565; 82945; 83615; 83735; 83986; 84157; 84311; 84478; 84484; 85014; 85018; 85025; 85027; 85055; 85610; 85730; 86850; 86900; 86901; 86923; 87015; 87070; 87075; 87102; 87116; 87205; 87206; 88104; 88108; 88184; 88185; 88305; 88311; 88313; 89051; 90471; 90653; 93005; 93970; 94640; 96365; 96366; 96367; 96375; 99285; A9270; G0008; G0378; J0610; J1200; J2543; J2704; J3010; J3370; J3475; J7040; J7050; J7120; P9016; Q9967

== ENCOUNTER 2020-01-31 10:49 | Outpatient (NON) | payer OTHER, SELFPAY ==
[2020-01-31 12:07] LABS: Hematocrit 25.4 % (42.0-52.0); Hemoglobin 7.9 g/dL (14.0-18.0); Mean Corpuscular HGB Conc 31.1 g/dl (32-36); Mean Corpuscular Hemoglobin 33.1 pg (26-34); Mean Corpuscular Volume 106.3 fl (80-100); Mean Platelet Volume 12.4 fl (7.4-10.4); Platelet Count Result 277 k/mm3 (150-375); Red Blood Count 2.39 M/mm3 (4.6-6.20); Red Cell Distribution Width 24.9 % (11.5-14.5); White Blood Count 5.2 K/mm3 (4.5-10.0)
== END 2020-01-31 10:50 ==
LOC: HOME HLTH 10:53
PROVIDERS: PCP Internal Medicine; Visit Provider Internal Medicine
DX: A41.9 Sepsis, unspecified organism (principal); J96.00 Acute respiratory failure, unspecified whether with hypoxia or hypercapnia; I50.41 Acute combined systolic (congestive) and diastolic (congestive) heart failure; I44.1 Atrioventricular block, second degree
CPT/HCPCS: 85027

== ENCOUNTER 2020-02-05 08:28 | Outpatient (CLI) | payer OTHER, SELFPAY ==
--- NOTE | ~2020-02-05 | XR_ITS ---
EXAMINATION: XR chest 2V DATE: 02/05/2020 08:56 INDICATION: Pleural effusion, not elsewhere classified. TECHNIQUE: Frontal and lateral views of the chest were obtained. COMPARISON: Chest single view 02/06, chest CT 01/18/2020 FINDINGS: There is a small loculated left pleural effusion. There are airspace opacities at left lung base. No pneumothorax. The heart size is normal. There is a left chest wall pacer with leads in the right atrium and right ventricle. IMPRESSION: 1. Small loculated left pleural effusion with interval improvement. 2. Airspace opacities at left lung base, consistent with atelectasis or less likely pneumonia. Reviewed, dictated and finalized at location A. IMPRESSION: 1. Small loculated left pleural effusion with interval improvement. 2. Airspace opacities at left lung base, consistent with atelectasis or less li nishant pneumonia.
== END 2020-02-05 08:29 | disposition home or self-care (01) ==
PROVIDERS: PCP Internal Medicine; Visit Provider Internal Medicine
DX: J90 Pleural effusion, not elsewhere classified (principal); R91.8 Other nonspecific abnormal finding of lung field
CPT/HCPCS: 71046

== ENCOUNTER 2020-06-27 07:50 | Outpatient (RCR) | payer OTHER, SELFPAY ==
[2020-06-04] VITALS (10 sets, daily range): BP systolic 92–133; BP diastolic 57–73; PULSE 75–89; RESP 16; TEMP 36.8–37.6; O2SAT 97–100
[2020-06-04 09:04] LABS: Hematocrit 19.5 % (42.0-52.0); Hemoglobin 6.5 g/dL (14.0-18.0)
[2020-06-04] MEDS: ACETAMINOPHEN 325 MG TABLET 650 MG PO (10:04)
[2020-06-04] MEDS: diphenhydrAMINE HCl CAP 25 MG CAPSULE PO (10:04)
[2020-06-04] MEDS: SODIUM CHLORIDE 0.9% IV 250 ML 30 ML IV CONT (10:20)
[2020-06-04] MEDS: FUROSEMIDE INJ 40 MG/4 ML VIAL 20 MG IV PUSH (13:27)
[2020-06-27] VITALS (10 sets, daily range): BP systolic 112–138; BP diastolic 52–79; PULSE 78–87; RESP 14–18; TEMP 36.4–37.1; O2SAT 96–100
[2020-06-27 08:14] LABS: Hematocrit 19.4 % (42.0-52.0); Hemoglobin 6.4 g/dL (14.0-18.0)
[2020-06-27] MEDS: diphenhydrAMINE HCl CAP 25 MG CAPSULE PO (09:34)
[2020-06-27] MEDS: ACETAMINOPHEN 325 MG TABLET 650 MG PO (09:34)
[2020-06-27] MEDS: SODIUM CHLORIDE 0.9% IV 500 ML 30 ML (09:45)
[2020-06-27] MEDS: FUROSEMIDE INJ 40 MG/4 ML VIAL 20 MG IV PUSH (12:23)
== END 2020-09-02 23:59 | disposition home or self-care (01) ==
LOC: ANHCPCTRAN 07:50
PROVIDERS: PCP Internal Medicine; Visit Provider Internal Medicine Hematology & Oncology
DX: D46.9 Myelodysplastic syndrome, unspecified (principal)
CPT/HCPCS: 36415; 36430; 85014; 85018; 86850; 86900; 86901; 86923; 96374; A9270; J1940; J7040; J7050; P9016

== ENCOUNTER 2020-07-16 13:47 | Emergency (ER) | payer OTHER, SELFPAY ==
--- NOTE | ~2020-07-16 | CT_ITS ---
EXAMINATION: CT abdomen pelvis w con EXAM DATE: 07/16/2020 17:19 INDICATION: Left lower quadrant abdominal pain. TECHNIQUE: Spiral CT of the abdomen and pelvis was performed following intravenous injection of 100 m L Omnipaque 350. Axial, coronal and sagittal images were reviewed. The dose-length product (DLP) fo r this examination was 543.42 mGy-cm. The exposure was tailored according to patient size (auto mA e xposure control), and iterative reconstruction (ASIR) was used as additional dose reduction technique . Comparison is made to prior examination from 01/02/2020. FINDINGS: Again there is left adrenal lesion measuring 1.5 cm, not significantly changed, and a small er right adrenal lesion also unchanged. There is right liver lobe 2 cm cyst unchanged. There is mild nonspecific periportal edema. Gallbladder is contracted without calcified cholelithiasis. Mild nonsp ecific fat stranding near the gallbladder, portal triad, retroperitoneum without suspicion of acute c holecystitis. Small umbilical fat-containing hernia. Pancreas and spleen are unremarkable. Portal an d splenic veins are patent. Portal vein is enlarged at 19 mm, could indicate portal hypertension. Kidneys enhance symmetrically. There is no hydronephrosis. The prostate is unremarkable. Some dif fuse bladder wall thickening, could indicate chronic cystitis. Multiple small ill-defined retroperit van lymph nodes are more pronounced than on previous examination, but no pathologically enlarged ly mph nodes. There is moderate scattered arteriosclerotic disease. Probable appendectomy. There is moderate sigmoid colonic diverticulosis. There is no adjacent inflam matory change to suggest diverticulitis. Again there is gastric cardia and body wall thickening up to about 4 cm, differential diagnosis including hypertrophic gastritis, Menetrier's disease, lymphoma o r gastric cancer, but this appears not significantly changed compared to previous examination. There is expected amount of colonic stool. No free intraperitoneal gas. Mild cardiomegaly. Right lowe r lobe 3 mm nodule probably postinfectious. Bibasilar subsegmental atelectasis. Pacemaker/AICD lead. There are no osteoblastic or osteolytic lesions identified. IMPRESSION: 1. Nonspecific periportal edema, fat stranding in the portal triad, retroperitoneum and near the gal lbladder with dilated portal vein likely indicating portal venous hypertension. 2. Severe gastric cardial and body wall thickening unchanged, could be Menetrier's disease, but franko gnancy not excludable. 3. Numerous small retroperitoneal lymph nodes, probably reactive. 4. Bilateral adrenal lesions probably adenomas. 5. Bladder wall chronic thickening could indicate chronic cystitis. 6. Small left inguinal hernia. Reviewed, dictated and finalized at location A. IMPRESSION: 1. Nonspecific periportal edema, fat stranding in the portal triad, retroperit oneum and near the gallbladder with dilated portal vein likely indicating alfonso l venous hypertension. 2. Severe gastric cardial and body wall thickening unchanged, could be Menetri er's disease, but malignancy not excludable. 3. Numerous small retroperitoneal lymph nodes, probably reactive. 4. Bilateral adrenal lesions probably adenomas. 5. Bladder wall chronic thickening could indicate chronic cystitis. 6. Small left inguinal hernia.
[2020-07-16 14:42] VITALS: BP 133/55; PULSE 97; RESP 16; TEMP 36.4; O2SAT 99
[2020-07-16 15:55] LABS: Basophils Percent Auto 0.7 % (0.2-1.2); Eosinophils Absolute Auto 0.5 K/mm3 (0-0.3); Eosinophils Percent Auto 17.2 % (0-4.4); Hematocrit 25.9 % (42.0-52.0); Hemoglobin 8.4 g/dL (14.0-18.0); Immature Granulocyte Absolute 0.24 K/mm3 (0.00-0.031); Immature Granulocyte Percent A 8.1 % (0-0.5); Immature Platelet Fraction Pct 34.3 % (0.9-11.2); Lymphocytes Absolute Auto 1.04 K/mm3 (0.9-3.2); Lymphocytes Percent Auto 35.1 % (18.3-44.2); Mean Corpuscular HGB Conc 32.4 g/dl (32-36); Mean Corpuscular Hemoglobin 34.7 pg (26-34); Monocytes Absolute Auto 0.2 K/mm3 (0.1-0.6); Monocytes Percent Auto 6.4 % (2.6-8.5); Neutrophils Percent Auto 32.5 % (45.5-73.1); Nucleated Red Blood Cells Absolute Auto 0.1 K/mm3 (0.0-0.012); Nucleated Red Blood Cells Perc 2.7 % (0.0-0.2); Platelet Count Result 55 k/mm3 (150-375); Red Blood Count 2.42 M/mm3 (4.6-6.20); Red Cell Distribution Width 26.3 % (11.5-14.5)
[2020-07-16 16:02] VITALS: BP 127/80; PULSE 85; RESP 17; O2SAT 98
[2020-07-16 16:04] LABS: Add Urine Microscopic? NO; Appearance Urine Clear (Clear); Bilirubin Urine Negative (Negative); Blood Urine Negative (Negative); Color Urine Yellow (Yellow); Glucose Urine UA Negative (Negative); Ketones Urine Negative (Negative); Leukocyte Esterase Ur Negative LEU/UL (Negative); Nitrate Urine Negative (Negative); Protein Urine Negative (Negative); Specific Grav Ur 1.014 (1.001-1.035); Urobilinogen Urine Negative mg/dL (<2.0)
[2020-07-16] MEDS: SODIUM CHLORIDE 0.9% IV 1,000 ML 150 ML IV CONT (17:04)
[2020-07-16 17:13] LABS: Estimated CRCL calculation 70 ml/min; Estimated Glomerular Filt Rate > 60
[2020-07-16 17:22] LABS: Alanine Aminotransferase 21 U/L (4-50); Albumin Level 3.8 g/dL (3.5-5.1); Alkaline Phosphatase 99 U/L (38-126); Anion Gap 3 mmol/L (8-16); Aspartate Amino Transferase 29 U/L (17-59); Bilirubin,Total 0.9 mg/dL (0.2-1.3); Blood Urea Nitrogen 18 mg/dL (9-20); Calcium 8.4 mg/dL (8.4-10.2); Carbon Dioxide 31 mmol/L (22-30); Chloride 104 mmol/L (98-107); Estimated CRCL calculation 87 ml/min; Estimated Glomerular Filt Rate > 60; Glucose 105 mg/dL (75-110); Lipase 11 U/L (23-300); Sodium 138 mmol/L (137-145)
--- NOTE | 2020-07-16 18:08 | ED.ABDPAIN ---
HPI - Abdominal Pain General Chief Complaint: Abdominal Pain Stated Complaint: abd pain Time Seen by Provider: 07/16/20 16:08 Source: patient Mode of arrival: ambulatory Limitations: no limitations History of Present Illness HPI narrative: 64-year-old with a history of MDS, hypertension, left inguinal hernia here with complaints of left lower abdominal pain for past 3 days. Patient denies any nausea, vomiting. Denies any history of constipation no blood in the stool. No previous history of diverticulosis or diverticulitis. MD elicited complaint: abdominal pain Pertinent past history: none Onset (ago): day(s) (3) Location: LLQ Severity: moderate Quality: aching Radiation: LLQ Migration to: no migration Exacerbating factors: nothing Relieving factors: nothing Associated symptoms: denies other symptoms Related Data Home Medications Medication Instructions Recorded Confirmed fluticasone propion-salmeterol 1 inh INHALATION Q12H 12/20/19 05/18/20 [Advair Diskus] gabapentin 800 mg PO TID 12/20/19 05/18/20 omeprazole 40 mg PO DAILY 12/21/19 05/18/20 B12 Active 1,000 mcg PO DAILY 01/19/20 05/18/20 ferrous sulfate [Iron (ferrous 325 mg PO BID 01/19/20 05/18/20 sulfate)] magnesium oxide 400 mg PO BID 01/19/20 05/18/20 Allergies Allergy/AdvReac Type Severity Reaction Status Date / Time vancomycin Allergy Difficulty Verified 07/16/20 16:01 Breathing Review of Systems Review of Systems: All systems reviewed & are unremarkable except as noted in HPI and below Constitutional: Constitutional: Reports no additional constitutional complaints ENT: Reports system reviewed and no additional complaints, except as documented Cardiovascular: Cardiovascular: Reports no additional cardiovascular complaints Respiratory: Respiratory: Reports no additional respiratory complaints Gastrointestinal: Gastrointestinal: Reports as per HPI Musculoskeletal: Musculoskeletal: Reports no additional musculoskeletal complaints Integumentary/Breasts: Skin/Breast: Reports system reviewed and no additional complaints, except as docu Neurologic: Reports system reviewed and no additional complaints, except as documented Endocrine: Endocrine: Reports no additional endocrine complaints [facility] Past Medical History Medical History Adenomatous colon polyp Alcohol use Cardiomyopathy CHF (congestive heart failure) COPD (chronic obstructive pulmonary disease) History of pacemaker HTN (hypertension) with goal to be determined Macrocytic anemia PUD (peptic ulcer disease) Shock liver Surgical History Surgical History History of partial colectomy Family History Family History Mother Scoliosis Social History Social History Smoking packs per day: 2 Smoking cigarettes per day: 40.0 Years smoked: 30 Smoking pack-years: 60.00 Smoking status: Former smoker Tobacco type: cigarettes Smoking end date: 12/20/19 Alcohol intake: former Substance use: former Gender identity (if verbalized by the patient): Male Spiritual care concerns: No Exam Narrative: Exam Narrative: GENERAL: Well-appearing, well-nourished, and in no acute distress. HEAD: Normocephalic, atraumatic. EYES: PERRLA and EOMI. NECK: Supple. CHEST: Clear to auscultation. No respiratory distress. HEART: Regular rate and rhythm. No murmur heard. Normal peripheral pulses. ABDOMEN: Soft, nondistended, normal active bowel sounds. Mild left lower quadrant tenderness. has left inguinal hernia which is reducible EXTREMITIES: Normal range of motion. No edema. SKIN: Warm, dry, no rash. NEURO: No focal deficits. Alert and oriented x3. PSYCH: Normal mood and affect. Course Course Emergency Course: Patient presently states his pain is very minimal ho
[2020-07-16 18:21] VITALS: BP 143/79; PULSE 72; RESP 17; O2SAT 100
== END 2020-07-16 18:21 | disposition home or self-care (01) ==
PROVIDERS: Emergency Medicine; Emergency Provider Family Medicine; PCP Internal Medicine
DX: R10.32 Left lower quadrant pain (principal); D46.9 Myelodysplastic syndrome, unspecified; Z86.010 Personal history of colon polyps; I42.9 Cardiomyopathy, unspecified; I50.9 Heart failure, unspecified; J44.9 Chronic obstructive pulmonary disease, unspecified; Z95.0 Presence of cardiac pacemaker; I11.0 Hypertensive heart disease with heart failure; D53.9 Nutritional anemia, unspecified; Z87.11 Personal history of peptic ulcer disease; Z87.891 Personal history of nicotine dependence; K40.90 Unilateral inguinal hernia, without obstruction or gangrene, not specified as recurrent; R93.41 Abnormal radiologic findings on diagnostic imaging of renal pelvis, ureter, or bladder; R93.5 Abnormal findings on diagnostic imaging of other abdominal regions, including retroperitoneum
CPT/HCPCS: 36415; 74177; 80053; 81003; 83690; 85025; 85055; 96360; 99284; J7030; Q9967

== ENCOUNTER 2020-07-17 09:01 | Outpatient (CLI) | payer OTHER, SELFPAY ==
[2020-07-17 09:47] LABS: Hematocrit 24.1 % (42.0-52.0); Hemoglobin 7.5 g/dL (14.0-18.0); Immature Platelet Fraction Pct 29.2 % (0.9-11.2); Mean Corpuscular HGB Conc 31.1 g/dl (32-36); Mean Corpuscular Hemoglobin 33.9 pg (26-34); Platelet Count Result 43 k/mm3 (150-375); Red Blood Count 2.21 M/mm3 (4.6-6.20); White Blood Count 2.7 K/mm3 (4.5-10.0)
[2020-07-17 09:59] LABS: Alanine Aminotransferase 19 U/L (4-50); Albumin Level 3.7 g/dL (3.5-5.1); Alkaline Phosphatase 87 U/L (38-126); Anion Gap 2 mmol/L (8-16); Aspartate Amino Transferase 20 U/L (17-59); Blood Urea Nitrogen 14 mg/dL (9-20); Calcium 8.6 mg/dL (8.4-10.2); Carbon Dioxide 32 mmol/L (22-30); Chloride 105 mmol/L (98-107); Estimated Glomerular Filt Rate > 60; Glucose 112 mg/dL (75-110); Lactate Dehydrogenase 397 U/L (313-618); Potassium 4.1 mmol/L (3.4-5.0); Sodium 139 mmol/L (137-145)
[2020-07-17 10:58] LABS: Basophils Absolute Manual 0.05 K/mm3 (0.0-0.1); Basophils Percent Manual 2 % (0-1); Eosinophils Absolute Manual 0.45 K/mm3 (0.02-0.5); Eosinophils Percent Manual 17 % (0-4); Lymphocytes Absolute Manual 1.02 K/mm3 (1.1-4.5); Monocytes Percent Manual 4 % (3-9); Neutrophils Percent Manual 39 % (46-73); Nucleated Red Blood Cells 3 %; Platelet Estimate Decreased (Adequate); Total Cells Counted 100
[2020-07-17 10:59] LABS: Anisocytosis 2+ (NORMAL); Hypochromasia 1+ (NORMAL)
[2020-07-17 11:00] LABS: Ovalocytes 1+ (NORMAL); Tear Drop Cells 1+ (NORMAL)
== END 2020-07-17 09:02 | disposition home or self-care (01) ==
PROVIDERS: PCP Internal Medicine
DX: D46.9 Myelodysplastic syndrome, unspecified (principal)
CPT/HCPCS: 36415; 80053; 83615; 85025; 85055; 86850; 86900; 86901

== ENCOUNTER 2021-02-05 12:46 | Outpatient (CLI) | payer OTHER, SELFPAY ==
--- NOTE | ~2021-02-05 | XR_ITS ---
XR chest 2V 02/05/2021 13:08 Indication: Shortness of breath. Hypertension. Difficulty breathing. Procedure: 2 view chest Comparison: Comparison to multiple prior studies sequentially, with oldest reviewed study dated 01/18. Findings: Heart size normal. No focal air space disease, pulmonary edema, pleural effusion or suspect ed pneumothorax. Pacemaker leads are stable. There are bilateral nipple shadows. Impression: 1: No acute cardiopulmonary disease. Reviewed, dictated and finalized at location B. Impression: 1: No acute cardiopulmonary disease.
== END 2021-02-05 12:47 | disposition home or self-care (01) ==
PROVIDERS: PCP Internal Medicine; Visit Provider Specialist
DX: R06.02 Shortness of breath (principal); I11.0 Hypertensive heart disease with heart failure; I50.9 Heart failure, unspecified; F17.210 Nicotine dependence, cigarettes, uncomplicated
CPT/HCPCS: 71046

== ENCOUNTER 2021-04-15 01:52 | Day surgery (SDC) | payer OTHER, SELFPAY ==
[2021-04-14 12:30] VITALS: BP 138/76; PULSE 72; RESP 20; O2SAT 92
[2021-04-14 15:00] VITALS: BP 133/68; PULSE 83; RESP 20; O2SAT 93
[2021-04-15] VITALS (17 sets, daily range): BP systolic 121–145; BP diastolic 67–82; PULSE 67–79; RESP 16–22; TEMP 36.9–37.1; O2SAT 91–97; BMI 23.1
[2021-04-15 07:54] LABS: Basophils Percent Auto 0.6 % (0.2-1.2); Eosinophils Absolute Auto 0.1 K/mm3 (0-0.3); Hematocrit 44.5 % (42.0-52.0); Immature Granulocyte Absolute 0.02 K/mm3 (0.00-0.031); Immature Granulocyte Percent A 0.3 % (0-0.5); Lymphocytes Absolute Auto 2.17 K/mm3 (0.9-3.2); Mean Corpuscular HGB Conc 33.7 g/dl (32-36); Mean Corpuscular Hemoglobin 32.4 pg (26-34); Mean Corpuscular Volume 96.1 fl (80-100); Monocytes Absolute Auto 0.7 K/mm3 (0.1-0.6); Monocytes Percent Auto 9.9 % (2.6-8.5); Neutrophils Absolute Auto 3.9 K/mm3 (1.3-6.7); Neutrophils Percent Auto 56.2 % (45.5-73.1); Platelet Count Result 210 k/mm3 (150-375); Red Blood Count 4.63 M/mm3 (4.6-6.20); Red Cell Distribution Width 13.7 % (11.5-14.5)
[2021-04-15 08:04] LABS: Anion Gap 1 mmol/L (8-16); Blood Urea Nitrogen 12 mg/dL (9-20); Calcium 9.7 mg/dL (8.4-10.2); Carbon Dioxide 27 mmol/L (22-30); Chloride 107 mmol/L (98-107); Estimated Glomerular Filt Rate > 60; Glucose 107 mg/dL (65-110); Potassium 4.3 mmol/L (3.4-5.0); Sodium 135 mmol/L (137-145)
[2021-04-15 08:52] LABS: INR 1.1; Prothrombin Time 13.9 Seconds (11.1-14.7)
--- NOTE | 2021-04-15 09:48 | SUR.PREOP ---
DR. HUTCHINSON TO BEDSIDE TO SEE PT.
--- NOTE | 2021-04-15 10:07 | WPDMODSED ---
Moderate Sedation Note-Pt Data Patient Data Diagnosis: left ventricular systolic dysfunction complete heart block status post pacemaker implant Present Complaint: no complaint today Procedure to be performed/Plan: left heart catheterization Allergies Allergy/AdvReac Type Severity Reaction Status Date / Time vancomycin Allergy Difficulty Verified 04/15/21 08:55 Breathing Home Medications Medication Instructions Recorded Confirmed Type gabapentin 800 mg PO TID 12/20/19 04/15/21 History omeprazole 40 mg PO DAILY 12/21/19 04/15/21 History metoprolol succinate 150 mg PO DAILY #45 tablet 01/05/20 04/15/21 Rx thiamine HCl (vitamin B1) [Vitamin 100 mg PO QAM #30 tablet 01/05/20 04/15/21 Rx B-1] B12 Active 1,000 mcg PO DAILY 01/19/20 04/15/21 History ferrous sulfate [Iron (ferrous 325 mg PO BID 01/19/20 04/15/21 History sulfate)] Combivent Respimat 1 puff INHALATION QID PRN 04/15/21 04/15/21 History alendronate 70 mg PO WEEKLY 04/15/21 04/15/21 History aspirin [Adult Low Dose Aspirin] 81 mg PO DAILY 04/15/21 04/15/21 History fluticasone propion-salmeterol 1 inh INHALATION BID 04/15/21 04/15/21 History [Advair Diskus] furosemide 20 mg PO DAILY PRN 04/15/21 04/15/21 History ivabradine [Corlanor] 5 mg PO BID 04/15/21 04/15/21 History nicotine 1 patch TRANSDERMAL DAILY 04/15/21 04/15/21 History oxycodone-acetaminophen 1 tablet PO Q4H PRN 04/15/21 04/15/21 History tramadol 50 mg PO Q6H PRN 04/15/21 04/15/21 History Current Medications: Active Medications Sodium Chloride (Normal Saline Iv) 500 mls @ 100 mls/hr IV CONT .Q5H KUNAL Sedation/Anesthesia: No previous sedation/anesthesia problems (including family history). [facility] Past Medical History Medical History Adenomatous colon polyp Alcohol use Cardiomyopathy CHF (congestive heart failure) COPD (chronic obstructive pulmonary disease) History of pacemaker HTN (hypertension) with goal to be determined Macrocytic anemia PUD (peptic ulcer disease) Shock liver Surgical History Surgical History History of partial colectomy Family History Family History Mother Scoliosis Social History Social History Smoking packs per day: 2 Smoking cigarettes per day: 40.0 Years smoked: 30 Smoking pack-years: 60.00 Smoking status: Former smoker Tobacco type: cigarettes Smoking end date: 12/20/19 Alcohol intake: former Alcohol use details: daily drinker Substance use: former Gender identity (if verbalized by the patient): Male Sexual Orientation (if Verbalized by the Patient): Straight or Heterosexual Spiritual care concerns: No Mod Sed Physical Exam Physical Exam Pre Procedural Exam: Normal: Appearance, Nose, Neck, Throat, Airway, Lungs, Heart Size, Heart Rate, Heart Rhythm, Neuro Exam and Extremities Hours since solid foods: 12 Hours since liquid intake: 12 Mallampati Classification: class II Internal Medicine - PN: Obj Da Vital Signs Vital Signs: Vital Signs - 24 hr 04/15/21 07:50 Temperature 37.1 C Pulse Rate 71 Respiratory Rate 20 Blood Pressure 131/70 Pulse Oximetry 95 Meds/Results Medications: Active Medications Generic Name Dose Route Start Last Admin Trade Name Freq PRN Reason Stop Dose Admin Sodium Chloride 500 mls @ 100 mls/hr 04/15/21 07:00 Normal Saline Iv IV CONT .Q5H KUNAL Labs CBC & Chem 7: 04/15/21 07:38 04/15/21 07:38 Labs: Laboratory Results - last 24 hr 04/15/21 04/15/21 04/15/21 07:38 07:38 08:16 WBC 7.0 RBC 4.63 Hgb 15.0 D Hct 44.5 MCV 96.1 MCH 32.4 MCHC 33.7 RDW 13.7 Plt Count 210 D MPV 9.0 Immature Gran % (Auto) 0.3 Neut % (Auto) 56.2 Lymph % (Auto) 31.0 [place] % (Auto) 9.9 H Eos % (
--- NOTE | 2021-04-15 10:37 | WPDCARDPROC ---
Cardiac Cath Procedure Note Date of procedure:: 04/15/21 Performing physician:: Mega Dutton MD Indication:: left ventricular systolic dysfunction complete heart block with recently implanted pacemaker myelodysplastic syndrome now effectively treated Brief clinical history:: this is a 65-year-old man who presented to the hospital earlier in the year in significant distress with dyspnea he was markedly bradycardic and found to be in complete heart block. He also was significantly anemic with a hemoglobin of about 5 g. He was found to have myelodysplastic syndrome as well as high-grade AV block and LV systolic dysfunction. A permanent dual-chamber pacemaker was implanted at that time and his LV dysfunction has been treated medically. His myelodysplasia has also been treated and his hemoglobin is much better he is now being brought for angiography electively to ensure that his left ventricular systolic dysfunction is not ischemically mediated. Procedure Procedure performed:: Coronary angiography left ventriculography Sedation/Medication given:: fentanyl 50 mg Versed 2 mg case start time 10:10 a.m. case end time 10:31 a.m. sedation provided by Marisela Lezama RN, trained observer Access site:: right femoral artery Estimated blood loss:: 15-20 cc Procedure note:: patient was brought to the cardiac catheterization lab in the postabsorptive state the right femoral triangle was prepared and draped in the usual fashion. Anesthesia was provided with 1% lidocaine infiltrated locally. Using modified Seldinger technique the right common femoral artery was punctured a 5 [place] vascular sheath was placed. After this left heart catheterization was carried out. A 5 [place] angled pigtail catheter to measure left-sided hemodynamics and to inject LV g in the are AO projection. Following this the left coronary artery was engaged and injected using a standard 5 [place] FL4 catheter. The right coronary artery was then engaged and injected using a standard 5 [place] JR4 catheter. Cineangiograms were then reviewed. The case was terminated the sheath was flushed and the patient was taken to the holding area for manual sheath removal. He left the pharmaceutical laboratory technician with no sign of any procedural complication and no evidence of a groin hematoma. Findings:: Hemodynamics: Central aortic pressure is 140/60 left ventricle 140/2 end-diastolic 18 there is no gradient on pullback across the aortic valve. Left ventricle: The left ventricle is significantly dilated. There is global hypocontractility with a ejection fraction of visually judged to be about 30%. The left main coronary artery is nicely patent the left anterior descending is a medium caliber vessel extending down to and around the apex. The LAD is smooth and free of atherosclerosis the circumflex is a medium vessel giving rise to the marginal branches and 1 posterolateral branch. The circumflex is angiographically free of disease. The right coronary artery is medium in caliber and appears to be codominant terminating in an RPDA. The right coronary artery is smooth and angiographically normal. Conclusion:: 1. Codominant coronary circulation with no evidence of coronary disease 2. left ventricular dilation with significant systolic dysfunction 3. mildly elevated LVEDP Mega Dutton MD FACC
--- NOTE | 2021-04-15 17:23 | SUR.PHASEII ---
@1630-iv d/c tip intact, patient d/c instructions given, print out instructions given, new medication education given, script sent to pharm. all questions and concerns addressed, site wnl. soft dressing d/c/i. patient transferred to vehicle by
== END 2021-04-15 17:25 | disposition home or self-care (01) ==
LOC: ANHCATHLAB 01:54 → ANHCARD 06:51 → ANHCATHLAB 04-28 08:57
PROVIDERS: PCP Internal Medicine; Visit Provider Specialist
PROC: 4A023N7 Measurement of Cardiac Sampling and Pressure, Left Heart, Percutaneous Approach (ICD-10-PCS; CPT 93452; principal; 2021-04-15 08:30)
DX: I11.0 Hypertensive heart disease with heart failure (principal); I50.20 Unspecified systolic (congestive) heart failure; I44.2 Atrioventricular block, complete; I42.9 Cardiomyopathy, unspecified; J44.9 Chronic obstructive pulmonary disease, unspecified; Z95.0 Presence of cardiac pacemaker; Z79.82 Long term (current) use of aspirin; Z79.51 Long term (current) use of inhaled steroids; Z90.49 Acquired absence of other specified parts of digestive tract; Z87.891 Personal history of nicotine dependence
CPT/HCPCS: 36415; 80048; 85025; 85610; 93458; C1887; C1894; J1644; J2250; J3010; J7040

== ENCOUNTER 2022-08-09 17:01 | Emergency (ER) | payer MEDICARE, OTHER, SELFPAY ==
--- NOTE | ~2022-08-09 | XR_ITS ---
EXAMINATION: XR chest 2V Exam Date/Time: 08/09/2022 17:46 CDT HISTORY: SOB, COPD. PACEMAKER 3 YRS AGO, HTN Comparison: 02/05/21. RESULT: Lines, tubes, and devices: Left chest pacer with intact leads. Lungs and pleura: Subsegmental peripheral airspace disease in the left lower lobe. Emphysematous catherine nge. Cardiomediastinal silhouette: Stable. Other: No acute osseous or upper abdominal finding. IMPRESSION: Subsegmental left lower lobe airspace disease may represent atelectasis or pneumonia. Reviewed, dictated and finalized at location K. IMPRESSION: Subsegmental left lower lobe airspace disease may represent atelectasis or pneu monia.
[2022-08-09 17:07] VITALS: BP 129/62; PULSE 81; RESP 17; TEMP 36.9; O2SAT 98
--- NOTE | 2022-08-09 17:12 | ECG_ITS ---
Measurements Intervals [place] Rate: 83 P: 84 NM: 216 QRS: -87 QRSD: 152 T: 87 QT: 417 QTc: 492 Interpretive Statements ELECTRONIC VENTRICULAR PACEMAKER SINUS RHYTHM WITH ATRIAL SENSING AND VENTRICULAR PACING ABNORMAL RHYTHM ECG COMPARED TO ECG 01/18/2020 17:21:09 NO SIGNIFICANT CHANGES Electronically Signed On 08-10-2022 7:46:01 CDT by Mega Dutton M.D.
[2022-08-09 17:35] LABS: Basophils Percent Auto 0.3 % (0.2-1.2); Eosinophils Percent Auto 0.2 % (0-4.4); Hematocrit 46.3 % (42.0-52.0); Hemoglobin 15.7 g/dL (14.0-18.0); Immature Granulocyte Absolute 0.08 K/mm3 (0.00-0.031); Immature Granulocyte Percent A 0.6 % (0-0.5); Immature Platelet Fraction Pct 4.5 % (0.9-11.2); Lymphocytes Absolute Auto 1.13 K/mm3 (0.9-3.2); Mean Corpuscular HGB Conc 33.9 g/dl (32-36); Mean Corpuscular Hemoglobin 32.8 pg (26-34); Mean Corpuscular Volume 96.9 fl (80-100); Mean Platelet Volume 9.2 fl (7.4-10.4); Monocytes Absolute Auto 1.8 K/mm3 (0.1-0.6); Neutrophils Percent Auto 77.9 % (45.5-73.1); Platelet Count Result 148 k/mm3 (150-375); Red Blood Count 4.78 M/mm3 (4.6-6.20); Red Cell Distribution Width 13.4 % (11.5-14.5); White Blood Count 14.1 K/mm3 (4.5-10.0)
[2022-08-09 17:43] LABS: Alanine Aminotransferase 15 U/L (6-50); Albumin Level 4.2 g/dL (3.5-5.1); Alkaline Phosphatase 61 U/L (38-126); Anion Gap 4 mmol/L (8-16); Aspartate Amino Transferase 19 U/L (17-59); Bilirubin,Total 1.2 mg/dL (0.2-1.3); Blood Urea Nitrogen 15 mg/dL (9-20); Calcium 8.5 mg/dL (8.4-10.2); Carbon Dioxide 27 mmol/L (22-30); Chloride 100 mmol/L (98-107); Estimated CRCL calculation 84 ml/min; Estimated Glomerular Filt Rate > 60; Glucose 123 mg/dL (65-110); Sodium 131 mmol/L (137-145)
[2022-08-09 18:07] LABS: D Dimer 0.47 ug/mL (<0.48)
[2022-08-09 18:10] LABS: Influenza A QL RT-PCR Negative (Negative); Influenza B QL RT-PCR Negative (Negative); SARS-CoV-2 RNA PCR Negative (Negative)
[2022-08-09 20:23] VITALS: BP 130/63; PULSE 80; RESP 34; O2SAT 95
--- NOTE | 2022-08-09 20:45 | ED.GENADULT ---
HPI - General Adult General Chief complaint: Shortness of Breath/Dyspnea Stated complaint: LOW O2 SAT, URI S/SX Time Seen by Provider: 08/09/22 20:22 History of Present Illness HPI narrative: 66-year-old male presented emergency department for evaluation of worsening shortness of breath. Patient does have an underlying history of COPD. Patient states he is still a smoker. Patient had been on the road for the last 10 days. Patient states last night he did have increased shortness of breath and that did persist today. Patient states he does have increased cough with sputum production. Patient felt that he did have a low pulse ox earlier today but upon arrival to the emergency department patient's pulse ox has been stable. Related Data Home Medications Medication Instructions Recorded Confirmed gabapentin 800 mg tablet 800 mg PO TID 12/20/19 04/15/21 omeprazole 40 mg capsule,delayed 40 mg PO DAILY 12/21/19 04/15/21 release ferrous sulfate 325 mg (65 mg 325 mg PO BID 01/19/20 04/15/21 iron) tablet (Iron (ferrous sulfate)) mecobalamin (vitamin B12) 1,000 1,000 mcg PO DAILY 01/19/20 04/15/21 mcg chewable tablet (B12 Active) alendronate 70 mg tablet 70 mg PO WEEKLY 04/15/21 04/15/21 aspirin 81 mg tablet 81 mg PO DAILY 04/15/21 04/15/21 fluticasone 250 mcg-salmeterol 50 1 inh inhalation BID 04/15/21 04/15/21 mcg/dose blistr powdr for inhalation (Advair Diskus) furosemide 40 mg tablet 20 mg PO DAILY PRN Edema 04/15/21 04/15/21 ipratropium 20 mcg-albuterol 100 1 puff inhalation QID PRN 04/15/21 04/15/21 mcg/actuation mist for inhalation Shortness Of Breath (Combivent Respimat) ivabradine 5 mg tablet (Corlanor) 5 mg PO BID 04/15/21 04/15/21 nicotine 21 mg/24 hr daily 1 patch transdermal DAILY 04/15/21 04/15/21 transdermal patch oxycodone-acetaminophen 5 mg-325 1 tablet PO Q4H PRN Pain (Scale 04/15/21 04/15/21 mg tablet Score 4-6) tramadol 50 mg tablet 50 mg PO Q6H PRN Pain (Scale Score 04/15/21 04/15/21 1-3) Allergies Allergy/AdvReac Type Severity Reaction Status Date / Time vancomycin Allergy Difficulty Verified 04/15/21 08:55 Breathing Review of Systems Review of Systems: All systems reviewed & are unremarkable except as noted in HPI and below PMFSH Past Medical History Medical History Adenomatous colon polyp Alcohol use Cardiomyopathy CHF (congestive heart failure) COPD (chronic obstructive pulmonary disease) History of pacemaker HTN (hypertension) with goal to be determined Macrocytic anemia PUD (peptic ulcer disease) Shock liver Surgical History Surgical History History of partial colectomy Family History Family History Mother Scoliosis Social History Social History Smoking packs per day: 2 Smoking cigarettes per day: 40.0 Years smoked: 30 Smoking pack-years: 60.00 Smoking status: Former smoker Tobacco type: cigarettes Smoking end date: 12/20/19 Alcohol intake: former Alcohol use details: daily drinker Substance use: former Gender identity (if verbalized by the patient): Male Sexual Orientation (if Verbalized by the Patient): Straight or Heterosexual Spiritual care concerns: No Exam Narrative: APPEARANCE: Well appearing, no pain, no distress, well-nourished. HEAD: normocephalic, atraumatic. EYES: PERRLA/EOMI, conjunctivae clear. NOSE: Normal no drainage NECK: Supple. No adenopathy, no masses. RESPIRATORY: Airway patent, respirations nonlabored, wheeze bilaterally CARDIOVASCULAR: Regular rate and rhythm without murmurs rubs or gallops. ABDOMINAL: Soft, nontender, nondistended, normal bowel sounds MUSCULOSKELETAL: Moves all extremities. Strength/ROM intact, No edema, No calf tenderness. NEURO: Alert. Cranial nerves II through XII i
[2022-08-09] MEDS: methylPREDNISolone SOD SUCC 125 MG VIAL IV PUSH (20:53)
[2022-08-09 20:59] VITALS: PULSE 82; RESP 20
[2022-08-09] MEDS: LEVALBUTEROL NEB 1.25 MG/3 ML INHALATION (20:59)
[2022-08-09 21:15] VITALS: PULSE 88; RESP 20
[2022-08-09] MEDS: AZITHROMYCIN 250 MG TABLET 500 MG PO (22:05)
[2022-08-09] MEDS: AMOXICILLIN/CLAVULANATE K 875-125 MG TAB 1 TABLET PO (22:06)
[2022-08-09 22:30] VITALS: BP 143/68; PULSE 80; RESP 25; O2SAT 91
== END 2022-08-09 22:33 | disposition home or self-care (01) ==
PROVIDERS: Emergency Provider Emergency Medicine
DX: J44.1 Chronic obstructive pulmonary disease with (acute) exacerbation (principal); Z20.822 Contact with and (suspected) exposure to COVID-19; I42.9 Cardiomyopathy, unspecified; I50.9 Heart failure, unspecified; I11.0 Hypertensive heart disease with heart failure; F17.210 Nicotine dependence, cigarettes, uncomplicated; Z95.0 Presence of cardiac pacemaker; Z86.010 Personal history of colon polyps; Z87.11 Personal history of peptic ulcer disease; Z90.49 Acquired absence of other specified parts of digestive tract; Z79.82 Long term (current) use of aspirin
CPT/HCPCS: 36415; 71046; 80053; 85025; 85055; 85380; 87636; 93005; 94640; 96374; 99284; A9270; J2930